=== PATIENT | female | born 1955 | race Caucasian/White ===

== ENCOUNTER 2016-06-16 18:03 | Inpatient (IN) | payer OTHER ==
[~2016-06-16] VITALS: Ht 170.2 cm; Wt 69.5 kg
[~2016-06-16 18:03] MED LIST: ACET-2321 PO; ACYC400T PO; ALLO300T2 PO; ASCO10007 PO; CA C1TAB79 PO; DOCU-175 PO; ESCI10TA47 PO; LANS15TA3 PO; LEVO500T63 PO; LEVO50TA11 PO; LORA1TAB3 PO; MULT-933 PO; ONDA-56 PO; OXYC-541 PO; RANI150T7 PO; SENN8.6T94 PO
--- OUTSIDE RECORDS SUMMARY | 2016-06-16 18:08 | XMS REPORT ---
Author Author [facility]. Organization [facility] Address [address] [place] [address] Phone [phone] Summary purpose CCDA Sent to [facility] Chief Complaint and Reason for Visit No authorized Reason for Visit (Admitting Diagnosis) is available for this visit. Problem list No authorized problems tracked for continuity of care are available for this visit. Encounters No authorized problems tracked for encounter diagnoses are available for this visit. Medications No medications recorded for this patient visit Allergies, adverse reactions, alerts Allergen Category Ingredient Status Reaction Severity Onset [place] Drug [place] Active Nausea Adolescence [place] Drug acetaminophen Active Nausea Adolescence [place] Drug hydrocodone Active Nausea Adolescence Immunizations No immunizations recorded for this patient visit Relevant diagnostic tests and/or laboratory data RESULTS CBC [id number]:20:00 Result Normal Range Units WBC LC 1.01 4.8-10.8 x103/mm3 Result Amended on 2016-05-01 at 14:07:14. Previous status was FR. RECHECKED AND CALLED TO [facility] 05/01/16 13:24 MAC Neutrophil % L 21.8 50-70 % Result Amended on 2016-05-01 at 14:07:14. Previous status was FR. Lymph % H 50.5 20-50 % Result Amended on 2016-05-01 at 14:07:14. Previous status was FR. [place] % H 18.8 1.0-9.0 % Result Amended on 2016-05-01 at 14:07:14. Previous status was FR. Eosinophil % H 6.9 0-4 % Result Amended on 2016-05-01 at 14:07:14. Previous status was FR. Basophil % 2.0 0-2 % Result Amended on 2016-05-01 at 14:07:14. Previous status was FR. Neutrophil # L 0.22 3.0-7.0 x103/mm3 Result Amended on 2016-05-01 at 14:07:14. Previous status was FR. Lymph # L 0.51 1.0-4.0 x103/mm3 Result Amended on 2016-05-01 at 14:07:14. Previous status was FR. [place] # 0.19 0.0-0.8 x103/mm3 Result Amended on 2016-05-01 at 14:07:14. Previous status was FR. Eosinophil # 0.07 0-0.5 x103/mm3 Result Amended on 2016-05-01 at 14:07:14. Previous status was FR. Basophil # 0.02 0-0.2 x103/mm3 Result Amended on 2016-05-01 at 14:07:14. Previous status was FR. RBC L 2.47 4.20-5.40 x103/mm3 Result Amended on 2016-05-01 at 14:07:14. Previous status was FR. HGB LC 7.7 12.0-16.0 g/dl Result Amended on 2016-05-01 at 14:07:14. Previous status was FR. RECHECKED AND CALLED TO [facility] 05/01/16 13:24 MAC HCT L 23.7 37.0-47.0 % Result Amended on 2016-05-01 at 14:07:14. Previous status was FR. RECHECKED AND CALLED TO [facility] 05/01/16 13:24 MAC MCV 96.0 81-99 FL Result Amended on 2016-05-01 at 14:07:14. Previous status was FR. MCH H 31.2 27.0-31.0 pg Result Amended on 2016-05-01 at 14:07:14. Previous status was FR. MCHC 32.5 32.0-36.0 g/dl Result Amended on 2016-05-01 at 14:07:14. Previous status was FR. RDW H 18.2 12-15 % Result Amended on 2016-05-01 at 14:07:14. Previous status was FR. Platelet L 37 150-400 x103/mm3 Result Amended on 2016-05-01 at 14:07:14. Previous status was FR. RECHECKED AND CALLED TO [facility] 05/01/16 13:24 MAC MPV H 11.5 6.0-10.0 FL Result Amended on 2016-05-01 at 14:07:14. Previous status was FR. Manual Differential [id number]:20:00 Result Normal Range Units Seg 23.0 Lymph 54.0 [place] 7.0 Eos 7.0 Bands 4.0 Immature Cell 5.0 Nucleated RBC 1 Anisocytosis 2+ Hypochromic 1+ Poikilocytosis 2+ Chemistry Group [id number]:00 Result Normal Range Units Sodium L 132 134-145 mmol/L Potassium 3.6 3.6-5.0 mmol/L Chloride L 95 98-107 mmol/L CO2 H 32 22-30 mmol/L Glucose H 128 75-110 mg/dl BUN 9 9-20 mg/dl Creatinine L .55 0.8-1.7 mg/dl eGFR 113 ml/min. Calcium L 8.0 8.4-10.2 mg/dl Special Chemistry Group [id number]:00 Result Normal Range Units TSH 5.86 0.50-6.00 uIU/mL History of procedures Procedure Code Code Type Description Date Performed Performing Physician 36195 CPT-4 METABOLIC PANEL TOTAL CA 05-01-2016 RAJENDRA PRESCOTT 28545 CPT-4 ASSAY THYROID STIM HORMONE 05-01-2016 RAJENDRA PRESCOTT 95835 CPT-4 BL SMEAR W/DIFF WBC COUNT 05-01-2016 RAJENDRA PRESCOTT Functional status No functional or cognitive status observations are available for this visit. Vital signs No authorized vital signs are available for this visit. Social history No Social History or smoking status observations were recorded for this visit. ( Unknown if ever smoked.) Treatment Plan No treatment plan text is available for this visit. Hospital discharge instructions No discharge instruction text is available for this visit.
--- OUTSIDE RECORDS SUMMARY | 2016-06-16 18:08 | XMS REPORT ---
Author Author [facility] Organization Unknown Address Unknown Phone Unavailable Care Team Providers Care Neuropsychiatric Aide Name Role Phone MD ROBERT, RODY [phone] Reason For Visit Chief Complaint HYPERTHYROIDISM Social History Functional Status Vital Signs Results Problems Encounter Diagnosis No relevant problems exist. Encounters Encounter Diagnosis No relevant problems exist. Plan of Care Procedures No relevant procedures performed. Immunizations No immunizations administered or ordered. Hospital Course Hospital Discharge Instructions Allergies, Adverse Reactions, Alerts * Latex Allergy has not been assessed. * IV Contrast Allergy has not been assessed. Medication Medication reconciliation has not been performed.
--- OUTSIDE RECORDS SUMMARY | 2016-06-16 18:08 | XMS REPORT ---
Author Author [facility]. Organization [facility] Address [address] [place] [address] Phone [phone] Summary purpose CCDA Sent to [facility] Chief Complaint and Reason for Visit [...] Allergen Category Ingredient Status Reaction Severity Onset [place] Drug [place] Active Nausea Adolescence [place] Drug acetaminophen Active Nausea Adolescence [place] Drug hydrocodone Active Nausea Adolescence Immunizations No immunizations recorded for this patient visit Relevant diagnostic tests and/or laboratory data RESULTS CBC [id number]:00 Result Normal Range Units WBC LC 1.27 4.8-10.8 x103/mm3 Neutrophil % L 11.0 50-70 % Lymph % H 52.8 20-50 % [place] % H 28.3 1.0-9.0 % Eosinophil % H 7.1 0-4 % Basophil % 0.8 0-2 % Neutrophil # L 0.14 3.0-7.0 x103/mm3 Lymph # L 0.67 1.0-4.0 x103/mm3 [place] # 0.36 0.0-0.8 x103/mm3 Eosinophil # 0.09 0-0.5 x103/mm3 Basophil # 0.01 0-0.2 x103/mm3 RBC L 2.35 4.20-5.40 x103/mm3 HGB LC 7.4 12.0-16.0 g/dl CALLED TO JANAT 13:55 05-02-16 BY LAD HCT L 22.3 37.0-47.0 % MCV 94.9 81-99 FL MCH H 31.5 27.0-31.0 pg MCHC 33.2 32.0-36.0 g/dl RDW H 17.9 12-15 % Platelet L 46 150-400 x103/mm3 MPV H 11.8 6.0-10.0 FL Chemistry Group [id number]:00 Result Normal Range Units Sodium L 129 134-145 mmol/L Potassium 3.9 3.6-5.0 mmol/L Chloride L 93 98-107 mmol/L CO2 H 32 22-30 mmol/L Glucose 99 75-110 mg/dl BUN L 8 9-20 mg/dl Creatinine L .54 0.8-1.7 mg/dl eGFR 115 ml/min. Calcium L 7.9 8.4-10.2 mg/dl History of procedures Procedure Code Code Type Description Date Performed Performing Physician 97767 CPT-4 METABOLIC PANEL TOTAL CA 05-02-2016 RODY JONES 54866 CPT-4 COMPLETE CBC, AUTOMATED 05-02-2016 RODY JONES Functional status No functional or cognitive status [...]
--- OUTSIDE RECORDS SUMMARY | 2016-06-16 18:08 | XMS REPORT ---
Author Author [facility]. Organization [facility] Address [address] [place] [address] Phone [phone] Summary purpose CCDA Sent to [facility] Chief Complaint and Reason for Visit No [...] Allergen Category Ingredient Status Reaction Severity Onset [place] Drug [place] Active Nausea Adolescence [place] Drug acetaminophen Active Nausea Adolescence [place] Drug hydrocodone Active Nausea Adolescence Immunizations No immunizations recorded for this patient visit Relevant diagnostic tests and/or laboratory data RESULTS CBC [id number]:00 Result Normal Range Units WBC L 1.53 4.8-10.8 x103/mm3 Neutrophil % L 22.9 50-70 % Lymph % 39.9 20-50 % [place] % H 30.7 1.0-9.0 % Eosinophil % H 6.5 0-4 % Basophil % 0.0 0-2 % Neutrophil # L 0.35 3.0-7.0 x103/mm3 Lymph # L 0.61 1.0-4.0 x103/mm3 [place] # 0.47 0.0-0.8 x103/mm3 Eosinophil # 0.10 0-0.5 x103/mm3 Basophil # 0.00 0-0.2 x103/mm3 RBC L 2.51 4.20-5.40 x103/mm3 HGB LC 7.9 12.0-16.0 g/dl CALLED TO 05/03/16 11:18 MAC HCT L 24.0 37.0-47.0 % MCV 95.6 81-99 FL MCH H 31.5 27.0-31.0 pg MCHC 32.9 32.0-36.0 g/dl RDW H 18.1 12-15 % Platelet L 53 150-400 x103/mm3 MPV H 11.2 6.0-10.0 FL Chemistry Group [id number]:00 Result Normal Range Units Sodium L 125 134-145 mmol/L Potassium 3.8 3.6-5.0 mmol/L Chloride L 89 98-107 mmol/L CO2 30 22-30 mmol/L Glucose 101 75-110 mg/dl BUN L 7 9-20 mg/dl Creatinine L .52 0.8-1.7 mg/dl eGFR 120 ml/min. Calcium L 8.2 8.4-10.2 mg/dl History of procedures Procedure Code Code Type Description Date Performed Performing Physician 31879 CPT-4 METABOLIC PANEL TOTAL CA 05-03-2016 RODY JONES 75156 CPT-4 COMPLETE CBC, AUTOMATED 05-03-2016 RODY JONES Functional status No functional or [...]
--- OUTSIDE RECORDS SUMMARY | 2016-06-16 18:09 | XMS REPORT ---
Author Author [facility]. Organization [facility] Address [address] [place] [address] Phone [phone] Summary purpose CCDA Sent to [facility] Chief Complaint and Reason for [...] Allergen Category Ingredient Status Reaction Severity Onset [place] Drug [place] Active Nausea Adolescence [place] Drug acetaminophen Active Nausea Adolescence [place] Drug hydrocodone Active Nausea Adolescence Immunizations No immunizations recorded for this patient visit Relevant diagnostic tests and/or laboratory data RESULTS CBC [id number]:54:00 Result Normal Range Units WBC LC 1.01 4.8-10.8 x103/mm3 CALLED TO [facility]/ 06/12/16 11:38 MC Neutrophil % 50.4 50-70 % Lymph % 42.6 20-50 % [place] % 4.0 1.0-9.0 % Eosinophil % 2.0 0-4 % Basophil % 1.0 0-2 % Neutrophil # L 0.51 3.0-7.0 x103/mm3 Lymph # L 0.43 1.0-4.0 x103/mm3 [place] # 0.04 0.0-0.8 x103/mm3 Eosinophil # 0.02 0-0.5 x103/mm3 Basophil # 0.01 0-0.2 x103/mm3 RBC L 3.44 4.20-5.40 x103/mm3 HGB L 10.4 12.0-16.0 g/dl HCT L 32.1 37.0-47.0 % MCV 93.3 81-99 FL MCH 30.2 27.0-31.0 pg MCHC 32.4 32.0-36.0 g/dl RDW H 20.6 12-15 % Platelet L 124 150-400 x103/mm3 MPV H 10.2 6.0-10.0 FL Chemistry Group [id number]:00 Result Normal Range Units Sodium 137 134-145 mmol/L Potassium L 3.5 3.6-5.0 mmol/L Chloride L 94 98-107 mmol/L CO2 H 31 22-30 mmol/L Glucose H 116 75-110 mg/dl BUN 19 9-20 mg/dl Creatinine L .69 0.8-1.7 mg/dl eGFR 87 ml/min. Calcium L 8.0 8.4-10.2 mg/dl History of procedures No procedures recorded for this patient visit. Functional status No functional or cognitive status [...]
--- OUTSIDE RECORDS SUMMARY | 2016-06-16 18:09 | XMS REPORT ---
Author Author [facility]. Organization [facility] Address [address] [place] [address] Phone [phone] Summary purpose CCDA Sent to [facility] Chief Complaint and Reason [...] Allergen Category Ingredient Status Reaction Severity Onset [place] Drug [place] Active Nausea Adolescence [place] Drug acetaminophen Active Nausea Adolescence [place] Drug hydrocodone Active Nausea Adolescence Immunizations No immunizations recorded for this patient visit Relevant diagnostic tests and/or laboratory data RESULTS CBC [id number]:00 Result Normal Range Units WBC L 3.18 4.8-10.8 x103/mm3 Neutrophil % L 44.0 50-70 % Lymph % 25.2 20-50 % [place] % H 27.4 1.0-9.0 % Eosinophil % 3.1 0-4 % Basophil % 0.3 0-2 % Neutrophil # L 1.40 3.0-7.0 x103/mm3 Lymph # L 0.80 1.0-4.0 x103/mm3 [place] # H 0.87 0.0-0.8 x103/mm3 Eosinophil # 0.10 0-0.5 x103/mm3 Basophil # 0.01 0-0.2 x103/mm3 RBC L 2.55 4.20-5.40 x103/mm3 HGB L 8.0 12.0-16.0 g/dl HCT L 24.4 37.0-47.0 % MCV 95.7 81-99 FL MCH H 31.4 27.0-31.0 pg MCHC 32.8 32.0-36.0 g/dl RDW H 18.8 12-15 % Platelet L 84 150-400 x103/mm3 MPV H 11.6 6.0-10.0 FL Chemistry Group [id number]:00 Result Normal Range Units Sodium L 120 134-145 mmol/L Potassium 3.6 3.6-5.0 mmol/L Chloride L 85 98-107 mmol/L CO2 29 22-30 mmol/L Glucose H 119 75-110 mg/dl BUN L 6 9-20 mg/dl Creatinine L .57 0.8-1.7 mg/dl eGFR 108 ml/min. Calcium L 7.9 8.4-10.2 mg/dl History of procedures Procedure Code Code Type Description Date Performed Performing Physician 87555 CPT-4 METABOLIC PANEL TOTAL CA 05-04-2016 RODY JONES 47819 CPT-4 COMPLETE CBC, AUTOMATED 05-04-2016 RODY JONES Functional status No functional or [...]
--- OUTSIDE RECORDS SUMMARY | 2016-06-16 18:09 | XMS REPORT ---
Author Author [facility]. Organization [facility] Address [address] [place] [address] Phone [phone] Summary purpose CCDA Sent to [facility] Chief Complaint and Reason for Visit [...] Allergen Category Ingredient Status Reaction Severity Onset [place] Drug [place] Active Nausea Adolescence [place] Drug acetaminophen Active Nausea Adolescence [place] Drug hydrocodone Active Nausea Adolescence Immunizations No immunizations recorded for this patient visit Relevant diagnostic tests and/or laboratory data RESULTS Chemistry Group [id number]:00 Result Normal Range Units Sodium L 125 134-145 mmol/L Potassium 3.9 3.6-5.0 mmol/L Chloride L 87 98-107 mmol/L CO2 28 22-30 mmol/L Glucose H 132 75-110 mg/dl BUN 10 9-20 mg/dl Creatinine L .62 0.8-1.7 mg/dl eGFR 99 ml/min. Calcium 9.4 8.4-10.2 mg/dl History of procedures Procedure Code Code Type Description Date Performed Performing Physician 99883 CPT-4 METABOLIC PANEL TOTAL CA 04-12-2016 RODY JONES Functional status No functional or [...]
--- OUTSIDE RECORDS SUMMARY | 2016-06-16 18:09 | XMS REPORT | Referral Summary ---
Author Author [facility] Organization [facility] Address Unknown Phone Unavailable Care Team Providers Care Senior Industrial Engineer Name Role Phone Arely Banerjee Primary Care Physician [phone] Encounter VC Date(s): 01/18/16 - 01/18/16 [facility] [address] [place] [address] JAZZMINE Gomez [id number] Discharge Diagnosis: Mesenteric lymphadenopathy Discharge Diagnosis: Post-operative state Discharge Disposition: 01-Home or Self Care Attending Physician: Rojelio Aleman MD Admitting Physician: Rojelio Aleman MD Referring Physician: Debby Banerjee MD Vital Signs Most recent to 1 oldest [Reference Range]: Temperature Tympanic 37.1 degC [36.6-38.1 degC] (01/18/16 3:47 PM) Problem List Condition Effective Dates Status Health Status Informant GERD Active (gastroesophageal reflux disease)(Confirmed) Nephrolithiasis(Conf Active irmed) Rheumatoid Active arthritis(Confirmed) TIA (transient Active ischemic attack)(Confirmed) Allergies, Adverse Reactions, Alerts No Known Allergies Medications acyclovir 200 mg oral capsule 200 mg 1 caps, Oral, Daily, 0 Refill(s) Start Date: 12/29/15 Status: Ordered LORazepam 0.5 mg oral tablet 0.5 mg 1 tabs, Oral, Bedtime (once a day), 0 Refill(s) Start Date: 12/29/15 Status: Ordered melatonin 1 mg oral tablet 1 mg 1 tabs, Oral, Bedtime (once a day), as needed for insomnia, # 90 tabs, 0 Refill(s) Start Date: 12/29/15 Status: Ordered Prevacid 15 mg, Oral, Daily, 0 Refill(s) Start Date: 01/05/16 Status: Ordered ranitidine 150 mg oral tablet 150 mg 1 tabs, Oral, Daily, # 180 tabs, 0 Refill(s) Start Date: 12/28/15 Status: Ordered Tylenol Extra Strength 1,000 mg, Oral, q6hr, 0 Refill(s) Start Date: 12/29/15 Status: Ordered Results No data available for this section Immunizations No data available for this section Procedures Procedure Date Related Diagnosis Body Site Laparoscopy with biopsy1 01/12/16 Colonoscopy normal2 12/2015 Nephrolithotomy for removal of calculus 12/2011 Esophagogastroduodenoscopy3 2009 Colonoscopy4 09/2006 Appendectomy 1983 Cholecystectomy5 1982 Laparotomy6 1978 Colonoscopy Cystoscopy and removal of calculus of bladder Dilatation and curettage 1mesenteric lymph node biopsy, 2in [place] 3duodenitis 4diverticulosis and hemorrhoids, Dr. Banerjee 5open prcedure 6diagnostic laparotomy Social History Social History Type Response Smoking Status Never smoker Assessment and Plan Extracted from: Title: Ambulatory Patient Education Author: Rojelio Aleman MD Date: 01/18/16 ENT Lymphadenopathy Lymphadenopathy refers to swollen or enlarged lymph glands, also called lymph nodes. Lymph glands are part of your body's defense (immune) system, which protects the body from infections, germs, and diseases. Lymph glands are found in many locations in your body, including the neck, underarm, and groin. Many things can cause lymph glands to become enlarged. When your immune system responds to germs, such as viruses or bacteria, infection-fighting cells and fluid build up. This causes the glands to grow in size. Usually, this is not something to worry about. The swelling and any soreness often go away without treatment. However, swollen lymph glands can also be caused by a number of diseases. Your health care provider may do various tests to help determine the cause. If the cause of your swollen lymph glands cannot be found, it is important to monitor your condition to make sure the swelling goes away. HOME CARE INSTRUCTIONS Watch your condition for any changes. The following actions may help to lessen any discomfort you are feeling: Get plenty of rest. Take medicines only as directed by your health care provider. Your health care provider may recommend steb-twn-uwyplpt medicines for pain. Apply moist heat compresses to the site of swollen lymph nodes as directed by your health care provider. This can help reduce any pain. Check your lymph nodes daily for any changes. Keep all follow-up visits as directed by your health care provider. This is important. SEEK MEDICAL CARE IF: Your lymph nodes are still swollen after 2 weeks. Your swelling increases or spreads to other areas. Your lymph nodes are hard, seem fixed to the skin, or are growing rapidly. Your skin over the lymph nodes is red and inflamed. You have a fever. You have chills. You have fatigue. You develop a sore throat. You have abdominal pain. You have weight loss. You have night sweats. SEEK IMMEDIATE MEDICAL CARE IF: You notice fluid leaking from the area of the enlarged lymph node. You have severe pain in any area of your body. You have chest pain. You have shortness of breath. This information is not intended to replace advice given to you by your health care provider. Make sure you discuss any questions you have with your health care provider. Document Released: 12/12/2008 Document Revised: 03/26/2015 Document Reviewed: [employer] Interactive Patient Education 2016 [employer] No follow up information was provided. Extracted from: Title: Office Visit Note Author: Rojelio Aleman MD Date: 01/18/16 Assessment/Plan 1.Post-operative state Ordered: Postoperative Est 94102 2.Mesenteric lymphadenopathy Ordered: Postoperative Est [id number] Plan:[facility] did look at herslides. He informs me that thetumorwas negative fora lymphoma. 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 As abovetissue and slides have been submitted fora second opinion to the [facility]. I did go ahead and discuss with the patient what a insertion of a power port catheterwould [place]ailand its riskwhich included but was not inclusive of bleeding, infection,potential for pneumothoraxin case it is deemedthat the patient will need a port for additional treatment. For now however we will await her final pathology report and proceedaccordingly. I am pleased with her surgical outcome inthe fact that we were able to obtain a piece of tissue fordiagnosis chelle minimally invasive fashion. If this is a sarcomaI doubt that it would be resectable given the fact that it is encasingthe root of her mesentery.
--- OUTSIDE RECORDS SUMMARY | 2016-06-16 18:09 | XMS REPORT ---
Author Author [facility]. Organization [facility] Address [address] [place] [address] Phone [phone] Summary purpose CCDA Sent to [facility] Chief Complaint and Reason for Visit No [...] Allergen Category Ingredient Status Reaction Severity Onset [place] Drug [place] Active Nausea Adolescence [place] Drug acetaminophen Active Nausea Adolescence [place] Drug hydrocodone Active Nausea Adolescence Immunizations No immunizations recorded for this patient visit Relevant diagnostic tests and/or laboratory data RESULTS CBC [id number]:07:00 Result Normal Range Units WBC HC 16.80 4.8-10.8 x103/mm3 Result Amended on 2016-05-05 at 14:29:55. Previous status was FR. CALLED TO OTILIO BY [facility] @ 1400 05/05/16LL [place] % H 19.2 1.0-9.0 % Result Amended on 2016-05-05 at 14:29:55. Previous status was FR. Eosinophil % 1.8 0-4 % Result Amended on 2016-05-05 at 14:29:55. Previous status was FR. Basophil % 0.1 0-2 % Result Amended on 2016-05-05 at 14:29:56. Previous status was FR. [place] # H 3.22 0.0-0.8 x103/mm3 Result Amended on 2016-05-05 at 14:29:55. Previous status was FR. Eosinophil # 0.30 0-0.5 x103/mm3 Result Amended on 2016-05-05 at 14:29:56. Previous status was FR. Basophil # 0.02 0-0.2 x103/mm3 Result Amended on 2016-05-05 at 14:29:56. Previous status was FR. RBC L 2.63 4.20-5.40 x103/mm3 Result Amended on 2016-05-05 at 14:29:56. Previous status was FR. HGB L 8.3 12.0-16.0 g/dl Result Amended on 2016-05-05 at 14:29:56. Previous status was FR. HCT L 25.1 37.0-47.0 % Result Amended on 2016-05-05 at 14:29:56. Previous status was FR. MCV 95.4 81-99 FL Result Amended on 2016-05-05 at 14:29:56. Previous status was FR. MCH H 31.6 27.0-31.0 pg Result Amended on 2016-05-05 at 14:29:56. Previous status was FR. MCHC 33.1 32.0-36.0 g/dl Result Amended on 2016-05-05 at 14:29:56. Previous status was FR. RDW H 19.4 12-15 % Result Amended on 2016-05-05 at 14:29:56. Previous status was FR. Platelet L 135 150-400 x103/mm3 Result Amended on 2016-05-05 at 14:29:56. Previous status was FR. MPV H 11.2 6.0-10.0 FL Result Amended on 2016-05-05 at 14:29:56. Previous status was FR. Manual Differential [id number]:00 Result Normal Range Units Seg 46.0 Result Amended on 2016-05-05 at 14:29:56. Previous status was FR. Lymph 13.0 Result Amended on 2016-05-05 at 14:29:56. Previous status was FR. [place] 17.0 Result Amended on 2016-05-05 at 14:29:56. Previous status was FR. Baso 1.0 Result Amended on 2016-05-05 at 14:29:56. Previous status was FR. Bands 23.0 Result Amended on 2016-05-05 at 14:29:56. Previous status was FR. Anisocytosis 2+ Result Amended on 2016-05-05 at 14:29:56. Previous status was FR. Poikilocytosis 2+ Result Amended on 2016-05-05 at 14:29:56. Previous status was FR. Polychromatic 1+ Result Amended on 2016-05-05 at 14:29:56. Previous status was FR. Chemistry Group [id number]:00 Result Normal Range Units Sodium L 120 134-145 mmol/L Potassium L 3.3 3.6-5.0 mmol/L Chloride L 85 98-107 mmol/L CO2 30 22-30 mmol/L Glucose H 119 75-110 mg/dl BUN L 6 9-20 mg/dl Creatinine L .61 0.8-1.7 mg/dl eGFR 100 ml/min. Calcium L 7.8 8.4-10.2 mg/dl History of procedures Procedure Code Code Type Description Date Performed Performing Physician 09179 CPT-4 METABOLIC PANEL TOTAL CA 05-05-2016 RODY JONES 82217 CPT-4 COMPLETE CBC, AUTOMATED 05-05-2016 RODY JONES Functional status No functional or [...]
--- OUTSIDE RECORDS SUMMARY | 2016-06-16 18:09 | XMS REPORT | Referral Summary ---
Author Author [facility] Organization [facility] Address Unknown Phone Unavailable Care Team Providers Care Medical Office Manager Name Role Phone Arely Banerjee Primary Care Physician [phone] Encounter VC Date(s): 03/23/16 - 03/23/16 [facility] [address] [place] [address] JAZZMINE Gomez [id number] Discharge Diagnosis: Lymphoma Discharge Disposition: 01-Home or Self Care Attending Physician: Rojelio Aleman MD Admitting Physician: Rojelio Aleman MD Referring Physician: Lamberto Mcdonald MD Vital Signs Most recent to 1 oldest [Reference Range]: Peripheral Pulse 96 bpm Rate [60-100 bpm] (03/23/16 2:28 PM) Respiratory Rate 18 br/min [14-20 br/min] (03/23/16 2:28 PM) Blood Pressure 132/78 mmHg [90-140/60-90 mmHg] (03/23/16 2:28 PM) SpO2 97 % (03/23/16 2:28 PM) Problem List Condition Effective Dates Status Health Status Informant GERD Active (gastroesophageal reflux disease)(Confirmed) Nephrolithiasis(Conf Active irmed) Lymphoma(Confirmed) 2016 Active Rheumatoid Active arthritis(Confirmed) TIA (transient Active ischemic attack)(Confirmed) Allergies, Adverse Reactions, Alerts No Known Allergies Medications acyclovir 200 mg oral capsule 200 mg 1 caps, Oral, Daily, 0 Refill(s) Start Date: 12/29/15 Status: Ordered allopurinol 300 mg oral tablet 300 mg 1 tabs, Oral, Daily, # 30 tabs, 0 Refill(s) Start Date: 03/23/16 Status: Ordered Lexapro 10 mg oral tablet 15 mg 1.5 tabs, Oral, Daily, # 30 tabs, 0 Refill(s) Start Date: 03/23/16 Status: Ordered LORazepam 0.5 mg oral tablet 0.5 mg 1 tabs, Oral, Bedtime (once a day), 0 Refill(s) Start Date: 12/29/15 Status: Ordered multivitamin Daily, 0 Refill(s) Start Date: 03/23/16 Status: Ordered Percocet 10/325 oral tablet 1 tabs, Oral, q6hr, as needed for pain, # 10 tabs, 0 Refill(s) Start Date: 03/23/16 Status: Ordered Prevacid 15 mg, Oral, Daily, 0 Refill(s) Start Date: 01/05/16 Status: Ordered Tylenol Extra Strength 1,000 mg, Oral, q6hr, 0 Refill(s) Start Date: 12/29/15 Status: Ordered Zofran 0 Refill(s) Start Date: 03/23/16 Status: Ordered Results No data available for this section Immunizations No data available for this section Procedures Procedure Date Related Diagnosis Body Site Laparoscopy with biopsy1 01/12/16 Colonoscopy normal2 12/2015 Nephrolithotomy for removal of calculus 12/2011 Esophagogastroduodenoscopy3 2009 Colonoscopy4 09/2006 Appendectomy 1982 Cholecystectomy5 1982 Laparotomy6 1978 Colonoscopy Cystoscopy and removal of calculus of bladder Dilatation and curettage 1mesenteric lymph node biopsy, 2in [place] 3duodenitis 4diverticulosis and hemorrhoids, Dr. Banerjee 5open prcedure 6diagnostic laparotomy Social History Social History Type Response Smoking Status Never smoker Assessment and Plan Extracted from: Title: Ambulatory Patient Education Author: Rojelio Aleman MD Date: 03/23 Family Medicine Bone Marrow Aspiration and Bone Marrow Biopsy Bone marrow aspiration and bone marrow biopsy are procedures that are done to diagnose blood disorders. You may also have one of these procedures to help diagnose infections or some types of cancer. Bone marrow is the soft tissue that is inside your bones. Blood cells are produced in bone marrow. For bone marrow aspiration, a sample of tissue in liquid form is removed from inside your bone. For a bone marrow biopsy, a small core of bone marrow tissue is removed. Then these samples are examined under a microscope or tested in a lab. You may need these procedures if you have an abnormal complete blood count (CBC) . The aspiration or biopsy sample is usually taken from the top of your hip bone. Sometimes, an aspiration sample is taken from your chest bone (sternum). LET YOUR HEALTH CARE PROVIDER KNOW ABOUT: Any allergies you have. All medicines you are taking, including vitamins, herbs, eye drops, creams, and [id number]-jlhnsjb medicines. Previous problems you or members of your family have had with the use of anesthetics. Any blood disorders you have. Previous surgeries you have had. Any medical conditions you may have. Whether you are or you think that you may be . RISKS AND COMPLICATIONS Generally, this is a safe procedure. However, problems may occur, including: Infection. Bleeding. BEFORE THE PROCEDURE Ask your health care provider about: Changing or stopping your regular medicines. This is especially important if you are taking diabetes medicines or blood thinners. Taking medicines such as aspirin and ibuprofen. These medicines can thin your blood. Do not take these medicines before your procedure if your health care provider instructs you not to. Plan to have someone take you home after the procedure. If you go home right after the procedure, plan to have someone with you for 24 hours. PROCEDURE An IV tube may be inserted into one of your veins. The injection site will be cleaned with a germ-killing solution ( antiseptic). You will be given one or more of the following: A medicine that helps you relax (sedative). A medicine that numbs the area (local anesthetic). The bone marrow sample will be removed as follows: For an aspiration, a hollow needle will be inserted through your skin and into your bone. Bone marrow fluid will be drawn up into a syringe. For a biopsy, your health care provider will use a hollow needle to remove a core of tissue from your bone marrow. The needle will be removed. A bandage (dressing) will be placed over the insertion site and taped in place. The procedure may vary among health care providers and hospitals. AFTER THE PROCEDURE Your blood pressure, heart rate, breathing rate, and blood oxygen level will be monitored often until the medicines you were given have worn off. Return to your normal activities as directed by your health care provider. This information is not intended to replace advice given to you by your health care provider. Make sure you discuss any questions you have with your health care provider. Document Released: 03/08/2005 Document Revised: 07/20/2015 Document Reviewed: [employer] Interactive Patient Education 2016 [employer] No follow up information was provided. Extracted from: Title: Office Visit Note Author: Rojelio Aleman MD Date: 03/23/16 Assessment/Plan 1.Lymphoma Ordered: Office Visit Level 4 Est 62558 Plan:Insertion of Power Port: I did review the patient's chart including recent office note dictated by her oncologistfromHeriberto 2015. Reviewed my prior operative note from January 12, 2016. I informed the patient that I would recommend proceeding with placement of a power port catheterto facilitate her ongoing chemotherapy. I showed the patient an actual Power Port catheter for illustration purposes. I discussed with the patientand her in detail what insertion of a power port catheter entailed and its associated risks including but not inclusive of bleeding, infection, and potential for pneumothorax. The patient understood and was subsequently scheduled for placement of Power Port. Patient's next chemotherapyscheduled for March. We'll place port just prior to her upcoming chemotherapy.
--- OUTSIDE RECORDS SUMMARY | 2016-06-16 18:09 | XMS REPORT | Referral Summary ---
Author Author [facility] Organization [facility] Address Unknown Phone Unavailable Care Team Providers Care Director Of Customer Service Name Role Phone Arely Banerjee Primary Care Physician [phone] Encounter VC Date(s): 01/05/16 - 01/05/16 [facility] [address] [place] [address] JAZZMINE Gomez [id number] [[email or web address]] Discharge Diagnosis: Cancer of retroperitoneum Discharge Disposition: 01-Home or Self Care Attending Physician: Rojelio Aleman MD Admitting Physician: Rojelio Aleman MD Referring Physician: Debby Banerjee MD Vital Signs Most recent to 1 oldest [Reference Range]: Temperature Tympanic 36.9 degC [36.6-38.1 degC] (01/05/16 1:54 PM) Peripheral Pulse 83 bpm Rate [60-100 bpm] (01/05/16 1:54 PM) Blood Pressure 144/86 mmHg [90-140/60-90 mmHg] *HI* (01/05/16 1:54 PM) SpO2 97 % (01/05/16 1:54 PM) Problem List Condition Effective Dates Status [...] Procedures Procedure Date Related Diagnosis Body Site Colonoscopy normal1 12/2015 Nephrolithotomy for removal of calculus 12/2011 Esophagogastroduodenoscopy2 2009 Colonoscopy3 09/2006 Appendectomy 1982 Cholecystectomy4 1982 Laparotomy1978 Colonoscopy Cystoscopy and removal of calculus of bladder Dilatation and curettage 1in [place] 2duodenitis 3diverticulosis and hemorrhoids, Dr. Banerjee 4open prcedure 5diagnostic laparotomy Social History Social History Type Response Smoking Status Never smoker Assessment and Plan Extracted from: Title: Ambulatory Patient Education Author: Rojelio Aleman MD Date: Family [facility] Chemotherapy Chemotherapy is the use of medicines to stop or slow the growth of cancer cells. Depending on the type and stage of your cancer, you may have chemotherapy to: Cure your cancer. Slow the progression of your cancer. Ease your cancer symptoms. Improve the benefits of radiation treatment. Shrink a tumor before surgery. Rid the body of cancer cells that remain after a tumor is surgically removed. HOW IS CHEMOTHERAPY GIVEN? Chemotherapy may be given: By mouth in liquid or pill form. Through a thin tube that is inserted into a vein or artery. By getting a shot. By rubbing a cream or ointment on your skin. Through liquids that are placed directly into various areas of the body, such as the abdomen, chest, or bladder. HOW OFTEN IS CHEMOTHERAPY GIVEN? Chemotherapy may be given continuously over time, or it may be given in cycles. For example, you may take the medicine for one week out of every month. FOR HOW LONG WILL I NEED CHEMOTHERAPY TREATMENTS? The length of treatment depends on many factors, including: The type of cancer. Whether the cancer has spread. How you respond to the chemotherapy. Whether you develop side effects. Some types of chemotherapy medicine are given only one time. Others are given for months, years, or for life. WHAT SAFETY PRECAUTIONS MUST I TAKE WHILE ON CHEMOTHERAPY? Chemotherapy medicines are very strong. They will be in all of your bodily fluids, including your urine, stool, saliva, sweat, tears, vaginal secretions, and semen. You must carefully follow some safety precautions to prevent harm to others while you are using these medicines. Here are some recommended precautions: Make sure that people who help care for you wear disposable gloves if they are going to come into contact with any of your bodily fluids. Women who are or should not handle any of your bodily fluids. Wash any clothes, towels, and linens that may have your bodily fluids on them twice in a washing machine using very hot water. Dispose of adult diapers, tampons, and sanitary napkins by first sealing them in a plastic bag. Use a condom when having sex for at least 2 weeks after receiving your chemotherapy. Do not share beverages or food. Keep your chemotherapy medicines in their original bottles. Keep them in a high, safe location, away from children. Do not expose them to heat or moisture. Do not put them in containers with other types of medicines. Dispose of all wrappers for your chemotherapy medicines by sealing them in a separate plastic bag. Do not throw away extra medicine, and do not flush it down the toilet. Take medicine that you are not going to use to your health care provider's office where it can be disposed of properly. Follow your health care provider's directions for the proper disposal of needles, IV tubing, and other medical supplies that have come into contact with your chemotherapy medicines. If you are issued a hazardous waste container, make sure you understand the directions for using it. Wash your hands thoroughly with warm water and soap after using the bathroom. Dry your hands with disposable paper towels. When using the toilet: Flush it twice after each use, including after vomiting. Close the lid of the toilet prior to flushing. This helps to avoid splashing. Both men and women should sit to use the toilet. This helps avoid splashing. WHAT ARE THE SIDE EFFECTS OF CHEMOTHERAPY? Side effects depend on a variety of factors, including: The specific type of chemotherapy medicine used. The dosage. How long the medicine is used for. Your overall health. Some of the side effects you may experience include: Fatigue and decreased energy. Decreased appetite. Changes in your sense of smell or taste. Nausea. Vomiting. Constipation or diarrhea. Hair loss. Increased susceptibility to infection. Easy bleeding. Mouth sores. Burning or tingling in the hands or feet. Memory problems. This information is not intended to replace advice given to you by your health care provider. Make sure you discuss any questions you have with your health care provider. Document Released: 12/31/2007 Document Revised: 03/26/2015 Document Reviewed: [employer] Interactive Patient Education 2016 [employer] No follow up information was provided. Extracted from: Title: Office Visit Note Author: Rojelio Aleman MD Date: 01/05/16 Assessment/Plan 1.Cancer of retroperitoneum Ordered: Office Visit Level 4 New 56979 Plan: Laparoscopic Incisional Biopsy of Retroperitoneal Mass. I did review the patient'schart including office note performed by her primary care physician from December 21, 2015. I did discuss this caseearlier this week by phone with her oncologist. I alsoreviewed note from oncology from December 24, 2015. Reviewed CT biopsy from December 29, 2015. Pathology returned as a poorly differentiated malignant neoplasm with extensive necrosis. Only a small foci of preservative neoplasm was noted. Recommendations were to obtain a more medical center representative biopsy ofof the tissue for better classification. Reviewed CT scan of chest abdomen and pelvis. CT scan revealed a large retroperitoneal mass with multiple abnormal enlarged mesenteric lymph nodeshighly suspicious for that of a lymphoma. No acute abnormalities are noted within the chest. CT scan of the neck also did not reveal any evidence forenlarged cervical lymph nodes. I did personally review the CT scan one can see a largemassthat originates within the retroperitoneum and extendsanteriorly to just a few centimeters beneath the abdominal wallwithin the right midabdomen. There doesappear to be 2 separate masses. Larger massis a more retroperitoneal location. There is a bilobed massthat is anterior to this larger retroperitoneal mass that does extend near theabdominal wall. I informed the patient that I would recommend at this point intime we proceed with a laparoscopicbiopsy of this retroperitoneal massto obtain a better tissue sample for accurate diagnosis. At the time of surgery we will [facility] for[facility] section to have the pathologistdetermined that enough tissue has been obtainedfor diagnosis. I did discuss in detail with the patientwhat a laparoscopicin excisional biopsy of this rectal perineal mass would entail and its associated riskwhich included but was not inclusive ofbleeding, infection, potential conversion to open procedure. Patient understood and was scheduled.
--- OUTSIDE RECORDS SUMMARY | 2016-06-16 18:09 | XMS REPORT | Referral Summary ---
Author Author [facility] Organization [facility] Address Unknown Phone Unavailable Care Team Providers Care Certified Public Accountant Name Role Phone Arely Banerjee Primary Care Physician [phone] Encounter VC Date(s): 12/29/15 - 12/29/15 [facility] [address], [place] [address] Discharge Disposition: 01-Home or Self Care Attending Physician: Lamberto Mcdonald MD Admitting Physician: Lamberto Mcdonald MD Vital Signs Most recent to 1 oldest [Reference Range]: Temperature Temporal 36 degC Artery [36.3-37.8 *LOW* degC] (12/29/15 10:51 AM) Apical Heart Rate 92 bpm [60-100 bpm] (12/29/15 7:45 AM) Heart Rate Monitored 71 bpm [60-100 bpm] (12/29/15 2:00 PM) Respiratory Rate 20 br/min [14-20 br/min] (12/29/15 2:00 PM) Blood Pressure 140/84 mmHg [90-140/60-90 mmHg] (12/29/15 2:00 PM) Mean Arterial 107 mmHg Pressure, Cuff (12/29/15 2:00 PM) SpO2 100 % (12/29/15 2:00 PM) Problem List No data available for this section Allergies, Adverse Reactions, Alerts No Known Allergies [...] Refill(s) Start Date: 12/29/15 Status: Ordered Prevacid 30 mg oral delayed release capsule 30 mg 1 caps, Oral, Daily, 0 Refill(s) Start Date: 12/29/15 Status: Ordered ranitidine 150 mg oral tablet 150 mg 1 tabs, Oral, BID, # 180 tabs, 0 Refill(s) Start Date: 12/28/15 Status: Ordered Tylenol Extra Strength 1,000 mg, Oral, q6hr, 0 Refill(s) Start Date: 12/29/15 Status: Ordered Results Hematology Most recent to 1 oldest [Reference Range]: WBC [4.8-10.8 7.2 10*3/uL 10*3/uL] (12/29/15 7:58 AM) RBC [4.00-5.20] 4.63 (12/29/15 7:58 AM) Hgb [12.0-16.0 13.5 gm/dL gm/dL] (12/29/15 7:58 AM) Hct [37.0-47.0 %] 41.5 % (12/29/15 7:58 AM) MCV [82.0-99.0 fL] 89.6 fL (12/29/15 7:58 AM) MCH [27.0-32.0 pg] 29.2 pg (12/29/15 7:58 AM) MCHC [32.0-36.0 32.5 gm/dL gm/dL] (12/29/15 7:58 AM) RDW [11.5-14.5 %] 13.4 % (12/29/15 7:58 AM) Platelet [150-400 337 10*3/uL 10*3/uL] (12/29/15 7:58 AM) MPV [9.4-12.4 fL] 10.1 fL (12/29/15 7:58 AM) Immature 0.3 % Granulocytes (12/29/15 7:58 AM) [0.0-1.0 %] Neutrophils [51-75 55 % %] (12/29/15 7:58 AM) Lymphocytes [20-46 29 % %] (12/29/15 7:58 AM) Monocytes [4-11 %] 12 % *HI* (12/29/15 7:58 AM) Eosinophils [0-4 %] 3 % (12/29/15 7:58 AM) Basophils [0-2 %] 1 % (12/29/15 7:58 AM) Neutro Absolute 3.95 10*3 [1.90-7.00 10*3] (12/29/15 7:58 AM) Lymph Absolute 2.09 10*3 [0.80-3.30 10*3] (12/29/15 7:58 AM) [place] Absolute 0.88 10*3 [0.30-1.00 10*3] (12/29/15 7:58 AM) Eos Absolute 0.24 10*3 [0.00-0.50 10*3] (12/29/15 7:58 AM) Baso Absolute 0.05 10*3 [0.00-0.20 10*3] (12/29/15 7:58 AM) Coagulation Most recent to 1 oldest [Reference Range]: INR [0.9-1.2] 1.2 (12/29/15 7:58 AM) PTT [25.0-35.0 35.4 seconds seconds] *HI* (12/29/15 7:58 AM) Immunizations No data available for this section Procedures Procedure Date Related Diagnosis Body Site Biopsy, abdominal or retroperitoneal mass, 12/29/15 percutaneous needle Appendectomy Cholecystectomy Colonoscopy Colonoscopy Cystoscopy and removal of calculus of bladder Dilatation and curettage Laparotomy1 Nephrolithotomy for removal of calculus 1diagnostic laparotomy Social History Social History Type Response Smoking Status Never smoker Assessment and Plan No data available for this section
--- OUTSIDE RECORDS SUMMARY | 2016-06-16 18:09 | XMS REPORT ---
Author Author [facility] Organization Unknown Address Unknown Phone Unavailable Care Team Providers Care Pillowcase Cleaner Name Role Phone MD ROBERT, RODY [phone] Reason For Visit Chief Complaint HYPERTHYROIDISM Social [...]
--- OUTSIDE RECORDS SUMMARY | 2016-06-16 18:09 | XMS REPORT ---
Author Author [facility]. Organization [facility] Address [address] [place] [address] Phone [phone] Summary purpose CCDA Sent to [facility] Chief Complaint and Reason for Visit [...] Allergen Category Ingredient Status Reaction Severity Onset Spencer Drug Spencer Active Nausea Adolescence Spencer Drug acetaminophen Active Nausea Adolescence Spencer Drug hydrocodone Active Nausea Adolescence Immunizations No immunizations recorded for this patient visit Relevant diagnostic tests and/or laboratory data RESULTS CBC [id number] Result Normal Range Units WBC LC 1.23 4.8-10.8 x103/mm3 Result Amended on 2016-05-19 at 12:54:22. Previous status was FR. CALLED TO DR. BAY @ 12: BY [facility] Neutrophil % 56.1 50-70 % Result Amended on 2016-05-19 at 12:54:22. Previous status was FR. Lymph % 37.4 20-50 % Result Amended on 2016-05-19 at 12:54:22. Previous status was FR. Rhea % 2.4 1.0-9.0 % Result Amended on 2016-05-19 at 12:54:23. Previous status was FR. Eosinophil % 0.8 0-4 % Result Amended on 2016-05-19 at 12:54:23. Previous status was FR. Basophil % H 3.3 0-2 % Result Amended on 2016-05-19 at 12:54:23. Previous status was FR. Neutrophil # L 0.69 3.0-7.0 x103/mm3 Result Amended on 2016-05-19 at 12:54:22. Previous status was FR. Lymph # L 0.46 1.0-4.0 x103/mm3 Result Amended on 2016-05-19 at 12:54:22. Previous status was FR. Rhea # 0.03 0.0-0.8 x103/mm3 Result Amended on 2016-05-19 at 12:54:23. Previous status was FR. Eosinophil # 0.01 0-0.5 x103/mm3 Result Amended on 2016-05-19 at 12:54:23. Previous status was FR. Basophil # 0.04 0-0.2 x103/mm3 Result Amended on 2016-05-19 at 12:54:23. Previous status was FR. RBC L 2.46 4.20-5.40 x103/mm3 Result Amended on 2016-05-19 at 12:54:23. Previous status was FR. HGB LC 7.9 12.0-16.0 g/dl Result Amended on 2016-05-19 at 12:54:23. Previous status was FR. CALLED TO DR. BAY @ 12: BY [facility] HCT L 24.6 37.0-47.0 % Result Amended on 2016-05-19 at 12:54:23. Previous status was FR. MCV H 100.0 81-99 FL Result Amended on 2016-05-19 at 12:54:23. Previous status was FR. MCH H 32.1 27.0-31.0 pg Result Amended on 2016-05-19 at 12:54:23. Previous status was FR. MCHC 32.1 32.0-36.0 g/dl Result Amended on 2016-05-19 at 12:54:23. Previous status was FR. RDW H 19.4 12-15 % Result Amended on 2016-05-19 at 12:54:23. Previous status was FR. Platelet 192 150-400 x103/mm3 Result Amended on 2016-05-19 at 12:54:23. Previous status was FR. MPV 9.6 6.0-10.0 FL Result Amended on 2016-05-19 at 12:54:23. Previous status was FR. Manual Differential [id number] Result Normal Range Units Seg 50.0 Lymph 40.0 Rhea 2.0 Eos 2.0 Baso 4.0 Bands 2.0 Anisocytosis 2+ Hypochromic 2+ Macrocytes 1+ Differential Comments STOMATOCYTES SLIGHT Chemistry Group [id number] Result Normal Range Units Sodium 135 134-145 mmol/L Potassium 3.9 3.6-5.0 mmol/L Chloride L 94 98-107 mmol/L CO2 H 33 22-30 mmol/L Glucose H 119 75-110 mg/dl BUN 20 9-20 mg/dl Creatinine L .69 0.8-1.7 mg/dl eGFR 87 ml/min. Calcium 8.7 8.4-10.2 mg/dl History of procedures No procedures [...]
--- OUTSIDE RECORDS SUMMARY | 2016-06-16 18:09 | XMS REPORT ---
Author Author [facility]. Organization [facility] Address [address] [place] [address] Phone [phone] Summary purpose CCDA Sent to [facility] Chief Complaint and Reason for Visit [...] Allergen Category Ingredient Status Reaction Severity Onset [facility] [place] Active Nausea Adolescence [facility] Drug acetaminophen Active Nausea Adolescence [facility] Drug hydrocodone Active Nausea Adolescence Immunizations No immunizations recorded for this patient visit Relevant diagnostic tests and/or laboratory data RESULTS Chemistry Group [id number] Result Normal Range Units Sodium 134 134-145 mmol/L Potassium 3.8 3.6-5.0 mmol/L Chloride L 94 98-107 mmol/L CO2 H 32 22-30 mmol/L Glucose 89 75-110 mg/dl BUN 12 9-20 mg/dl Creatinine L .68 0.8-1.7 mg/dl eGFR 89 ml/min. Calcium 9.1 8.4-10.2 mg/dl History of procedures Procedure Code Code Type Description Date Performed Performing Physician 33368 CPT-4 METABOLIC PANEL TOTAL CA 04-14-2016 RAJENDRA PRESCOTT Functional status No functional or [...]
--- OUTSIDE RECORDS SUMMARY | 2016-06-16 18:09 | XMS REPORT ---
Author Author [facility]. Organization [facility] Address [address] [place] [address] Phone [phone] Summary purpose CCDA Sent to [facility] Chief Complaint and Reason for Visit [...] Allergen Category Ingredient Status Reaction Severity Onset Edison Drug Edison Active Nausea Adolescence Edison Drug acetaminophen Active Nausea Adolescence Edison Drug hydrocodone Active Nausea Adolescence Immunizations No immunizations recorded for this patient visit Relevant diagnostic tests and/or laboratory data RESULTS CBC [id number] Result Normal Range Units WBC L 1.94 4.8-10.8 x103/mm3 Neutrophil % L 6.1 50-70 % Lymph % 35.6 20-50 % [place] % H 55.2 1.0-9.0 % Eosinophil % 3.1 0-4 % Basophil % 0.0 0-2 % Neutrophil # L 0.12 3.0-7.0 x103/mm3 Lymph # L 0.69 1.0-4.0 x103/mm3 [place] # H 1.07 0.0-0.8 x103/mm3 Eosinophil # 0.06 0-0.5 x103/mm3 Basophil # 0.00 0-0.2 x103/mm3 RBC L 3.61 4.20-5.40 x103/mm3 HGB L 11.0 12.0-16.0 g/dl HCT L 33.5 37.0-47.0 % MCV 92.8 81-99 FL MCH 30.5 27.0-31.0 pg MCHC 32.8 32.0-36.0 g/dl RDW H 22.3 12-15 % Platelet 220 150-400 x103/mm3 MPV H 10.1 6.0-10.0 IN Chemistry Group [id number] Result Normal Range Units Sodium 134 134-145 mmol/L Potassium 4.1 3.6-5.0 mmol/L Chloride L 94 98-107 mmol/L CO2 29 22-30 mmol/L Glucose 110 75-110 mg/dl BUN 10 9-20 mg/dl Creatinine L .67 0.8-1.7 mg/dl eGFR 90 ml/min. Calcium 8.6 8.4-10.2 mg/dl History of procedures No procedures [...]
--- OUTSIDE RECORDS SUMMARY | 2016-06-16 18:09 | XMS REPORT | Continuity of Care Document ---
Author Author [facility] Organization [facility] Address Unknown Phone Unavailable Support Name Relationship Address Phone RAJENDRA PRESCOTT MD Caregiver [address] [place] [address] Unavailable RODY JONES MD Caregiver [address] [place] [address] Unavailable BAILEY CESAR Next Of Kin [address] [place] [address] Insurance Providers Guarantor Foster Cesar Address [address] [place] [address] Email [email or web address] Payer [facility] Aid Policy Number [id number] Subscriber's Name Foster Cesar Relationship 18 Self Payer Other A Insurance Policy Number [id number] Subscriber's Name Foster Cesar Relationship 18 Self Group Number [id number] No problem information available. Medications Current Home Medications Medication Dose Units Route Directions Days Qty Instructions Start Date Acetaminophen (Tylenol) 325 Mg Tablet 1-2 Tab Oral As Needed for Pain 01/11/16 Acyclovir 400 Mg Tablet 1 Tab Oral Daily 01/12/16 Allopurinol 300 Mg Tablet 1 Tab Oral Daily 30 04/07/16 Ascorbic Acid (Vitamin C) 1,000 Mg Tablet 1 Tab Oral Daily Ca Carb/Vit D3/Mag Ox/Zn Oxide (Mark Mag Zinc + D Tablet) 1 Each Tablet 1 Tab Oral Daily 04/07/16 Docusate Sodium 100 Mg Capsule 1 Cap Oral Twice A Day 01/12/16 Escitalopram Oxalate 10 Mg Tablet 1.5 Tab Oral Daily 45 04/07/16 Lansoprazole (Prevacid) 15 Mg/Bottle Tab.rap.dr 15 Mg Oral Daily 06/29/09 Levofloxacin (Levaquin) 500 Mg Tablet 1 Tab Oral Daily 04/07/16 Levothyroxine Sodium 50 Mcg Tablet 1 Tab Oral Daily 30 04/07/16 Lorazepam 1 Mg Tablet 1-3 Tab Oral As Needed for Anxiety 01/11/16 Multivitamin (Multi-Day Vitamins) 1 Each Tablet 1 Tab Oral Daily 30 Tablet 04/07/16 Ondansetron Hcl 8 Mg Tablet 1 Tab Oral Every 8 Hours as needed for Nausea 18 04/07/16 Oxycodone Hcl/Acetaminophen (Oxycodone-Acetaminophen 5-325) 5-325 Tablet 1 Tab Oral Every 6 Hours as needed for Pain 30 04/10/16 Ranitidine Hcl 150 Mg Tablet 1 Tab Oral Daily as needed for Acid Reflux 30 04/07/16 Sennosides (Senokot) 8.6 Mg Tablet 1 Tab Oral Twice A Day as needed for Constipation/Stool Softening 01/12/16 Past Home Medications Medication Directions Ordered Status Amox Tr/Potassium Clavulanate (Augmentin 500-125 Tablet) 1 Tab Tablet, 1 Tab Oral Daily 05/05/08 Discontinued Oxycodone Hcl/Acetaminophen (Oxycodone-Acetaminophen 5-325) 5-325 Tablet, 1 Tab Oral Every 6 Hours as needed for Pain 04/07/16 Discontinued Ranitidine Hcl (Acid Business Systems Developer) 75 Mg Tablet, 75 Mg Oral As Needed 05/12/08 Discontinued Social History Social History Problem Response Recorded Date/Time Onset Date Status Hx Substance Use No 04/07/2016 11:42am Not Applicable Not Applicable Hx Alcohol Use No 04/07/2016 11:42am Not Applicable Not Applicable Has the pt used tobacco in the last 12 months No 06/03/2016 11:41am Not Applicable Not Applicable Hospital Discharge Instructions Current inpatient/outpatient. Discharge instructions are currently unavailable. Plan of Care Current inpatient/outpatient. The plan of care is currently unavailable Functional Status No functional status results. Allergies, Adverse Reactions, Alerts Allergen Type Severity Reaction Status Last Updated Hydrocodone Adverse Reaction Unknown NAUSEA Active 04/10/16 Immunizations Query Response on File Recorded Date/Time Hx Influenza Vaccination Y Dec 2015 06/03/16 11:41am Hx Pneumococcal Vaccination No 06/03/16 11:41am Hx Influenza Vaccination Y Dec 2015 06/03/16 11:41am Influenza Vaccine Hx DECEMBER 2015 01/12/16 12:10pm Vital Signs Acute Vital Signs Vital Response Date/Time Temperature (Fahrenheit) 98.2 deg F (96.8 - 99.1) 06/03/2016 11:49am Temperature (Calculated Celsius) 36.63716 degrees C (36.0 - 37.3) 06/03/2016 11:49am Temperature Source Temporal 04/10/2016 12:28pm Pulse Rate (adult) 89 bpm (60 - 100) 06/03/2016 11:49am Respiratory Rate 18 breaths/min (10 - 20) 06/03/2016 11:49am O2 Sat by Pulse Oximetry 96 % (90 - 100) 06/03/2016 11:49am Oxygen Delivery Method Room Air 06/03/2016 11:49am Blood Pressure 140/82 mm Hg 06/03/2016 11:49am Blood Pressure Source Automatic Cuff 06/03/2016 11:49am Height (Feet) 5 feet 06/03/2016 11:45am Height (Inches) 7.50 inches 06/03/2016 11:45am Weight (Kilograms) 72.000 kg 06/03/2016 11:45am Body Mass Index (BMI) 24.5 06/03/2016 11:45am Results Laboratory Results Test Name Result Units Flags Reference Collection Date/Time Result Date/ Time Comments White Blood Count 2.6 T/MM3 L 4.5-11.0 04/10/2016 12:18pm 04/10/2016 12: 29pm Red Blood Count 3.27 M/MM3 L 4.00-5.20 04/10/2016 12:18pm 04/10/2016 12: 29pm Hemoglobin 9.8 GM/DL L 12-16 04/10/2016 12:18pm 04/10/2016 12:29pm Hematocrit 29.0 % L 36-46 04/10/2016 12:18pm 04/10/2016 12:29pm Mean Corpuscular Volume 88.7 UM3 80-100 04/10/2016 12:18pm 04/10/2016 12:29pm Mean Corpuscular Hemoglobin 30.0 UUG 26-34 04/10/2016 12:18pm 2016 12:29pm Mean Corpuscular Hemoglobin Concent 33.8 GM/DL 31-37 04/10/2016 12:18pm 04/10/2016 12:29pm RDW Standard Deviation 53.7 FL H 36.9-50.2 04/10/2016 12:18pm 2016 12:29pm Platelet Count 271 T/MM3 130-400 04/10/2016 12:18pm 04/10/2016 12:29pm Mean Platelet Volume 8.8 UM3 L 9.4-12.4 04/10/2016 12:18pm 04/10/2016 12 :29pm Neutrophils % (Manual) 20.0 % L 33-66 04/10/2016 12:18pm 04/10/2016 12: 37pm Band Neutrophils % 20.0 % H 0-6 04/10/2016 12:18pm 04/10/2016 12:37pm Lymphocytes % (Manual) 38.0 % 23-45 04/10/2016 12:18pm 04/10/2016 12: 37pm Monocytes % (Manual) 22.0 % H 0-9.0 04/10/2016 12:18pm 04/10/2016 12: 37pm Band Neutrophils # 0.5 T/MM3 04/10/2016 12:18pm 04/10/2016 12:37pm Absolute Neutrophils (Manual) 0.5 T/MM3 L 1.8-7.7 04/10/2016 12:18pm 12:37pm Lymphocytes # (Manual) 1.0 T/MM3 1-4.8 04/10/2016 12:18pm 04/10/2016 12 :37pm Monocytes # (Manual) 0.6 T/MM3 0-0.8 04/10/2016 12:18pm 04/10/2016 12: 37pm Red Cell Morphology Comment ABNORMAL 04/10/2016 12:18pm 04/10/2016 12:37pm Anisocytosis 1+ 04/10/2016 12:18pm 04/10/2016 12:37pm Poikilocytosis 1+ 04/10/2016 12:18pm 04/10/2016 12:37pm Icterus Index < 2 0-7 05/08/2016 8:50am 05/08/2016 9:19am Chemistry Specimen Hemolysis < 15 0-25 05/08/2016 8:50am 05/08/2016 9 :19am 0-25: Specimen Exhibited No Hemolysis. Turbidity < 20 0-20 05/08/2016 8:50am 05/08/2016 9:19am Sodium Level 129 MEQ/L L 134-144 05/08/2016 8:50am 05/08/2016 9:19am Potassium Level 3.5 MEQ/L L 3.6-5 05/08/2016 8:50am 05/08/2016 9:19am Chloride Level 95 MEQ/L L 98-107 05/08/2016 8:50am 05/08/2016 9:19am Carbon Dioxide Level 27 MEQ/L 22-30 05/08/2016 8:50am 05/08/2016 9: 19am Anion Gap 7 MEQ/L 5-15 05/08/2016 8:50am 05/08/2016 9:19am Blood Urea Nitrogen 6.0 MG/DL L 7-17 05/08/2016 8:50am 05/08/2016 9: 19am Creatinine 0.6 MG/DL L 0.7-1.2 05/08/2016 8:50am 05/08/2016 9:19am BUN/Creatinine Ratio 10 RATIO 6-26 05/08/2016 8:50am 05/08/2016 9:19am Glomerular Filtration Rate Calc 102 05/08/2016 8:50am 05/08/2016 9: 19am Glucose Level 122 MG/DL H 65-110 05/08/2016 8:50am 05/08/2016 9:19am Calculated Osmolality 248 MOSM/KG L 261-280 05/08/2016 8:50am 2016 9:19am Calcium Level 8.4 MG/DL 8.4-10.2 05/08/2016 8:50am 05/08/2016 9:19am Procedures Procedure Status Date Provider(s) Routine venipuncture Completed 04/10/16 Insert tunneled cv cath Completed 04/10/16 LIZZY NEW MD, FACS, CWS Fluoroguide for vein device Completed 04/10/16 Metabolic panel total ca Completed 04/10/16 Assay of serum sodium Completed 04/10/16 Complete cbc w/auto diff wbc Completed 04/10/16"PORT, INDWELLING (IMPLANTABLE)" Completed 04/10/16"INJECTION, CEFAZOLIN SODIUM, 500 MG" Completed 04/10/16"INJECTION, HEPARIN SODIUM, (HEPARIN LOCK FLUSH), PER Completed "INJECTION, KETOROLAC TROMETHAMINE, PER 15 MG" Completed 04/10/16"INJECTION, FENTANYL CITRATE, 0.1 MG" Completed 04/10/16"RINGERS LACTATE INFUSION, UP TO 1000 CC" Completed 04/10/16 Assay of serum sodium Completed 04/11/16 Encounters Encounter Location Arrival/Admit Date Discharge/Depart Date Attending Provider Registered [facility] 06/16/16 10:16am RAJENDRA PRESCOTT MD Discharged [facility] 06/03/16 11:27am 06/03/16 11: 55am RAJENDRA PRESCOTT MD Registered [facility] 05/08/16 9:04am RAJENDRA PRESCOTT MD Registered [facility] 04/11/16 11:02am RAJENDRA PRESCOTT MD Departed [facility] 04/10/16 11:52am 04/10/16 3 :50pm LIZZY NEW FACS CWS MD
--- OUTSIDE RECORDS SUMMARY | 2016-06-16 18:09 | XMS REPORT ---
Author Author [facility]. Organization [facility] Address [address] [place] [address] Phone [phone] Summary purpose CCDA Sent to [facility] Chief Complaint and Reason for Visit No [...] Allergen Category Ingredient Status Reaction Severity Onset [place] Drug [place] Active Nausea Adolescence [place] Drug acetaminophen Active Nausea Adolescence [place] Drug hydrocodone Active Nausea Adolescence Immunizations No immunizations recorded for this patient visit Relevant diagnostic tests and/or laboratory data RESULTS CBC [id number] Result Normal Range Units WBC LC 1.44 4.8-10.8 x103/mm3 Result Amended on 2016-04-03 at 14:21:31. Previous status was FR. REPEATED/VERIFIED BY [facility] 04/03/16 CALLED TO JR @ 14: BY [facility] Neutrophil % L 36.0 50-70 % Result Amended on 2016-04-03 at 14:21:32. Previous status was FR. Lymph % 43.8 20-50 % Result Amended on 2016-04-03 at 14:21:32. Previous status was FR. Ocean % H 15.3 1.0-9.0 % Result Amended on 2016-04-03 at 14:21:32. Previous status was FR. Eosinophil % 1.4 0-4 % Result Amended on 2016-04-03 at 14:21:32. Previous status was FR. Basophil % H 3.5 0-2 % Result Amended on 2016-04-03 at 14:21:32. Previous status was FR. Neutrophil # L 0.52 3.0-7.0 x103/mm3 Result Amended on 2016-04-03 at 14:21:32. Previous status was FR. Lymph # L 0.63 1.0-4.0 x103/mm3 Result Amended on 2016-04-03 at 14:21:32. Previous status was FR. Ocean # 0.22 0.0-0.8 x103/mm3 Result Amended on 2016-04-03 at 14:21:32. Previous status was FR. Eosinophil # 0.02 0-0.5 x103/mm3 Result Amended on 2016-04-03 at 14:21:32. Previous status was FR. Basophil # 0.05 0-0.2 x103/mm3 Result Amended on 2016-04-03 at 14:21:32. Previous status was FR. RBC L 3.00 4.20-5.40 x103/mm3 Result Amended on 2016-04-03 at 14:21:32. Previous status was FR. HGB L 9.1 12.0-16.0 g/dl Result Amended on 2016-04-03 at 14:21:32. Previous status was FR. HCT L 27.5 37.0-47.0 % Result Amended on 2016-04-03 at 14:21:32. Previous status was FR. MCV 91.7 81-99 FL Result Amended on 2016-04-03 at 14:21:32. Previous status was FR. MCH 30.3 27.0-31.0 pg Result Amended on 2016-04-03 at 14:21:32. Previous status was FR. MCHC 33.1 32.0-36.0 g/dl Result Amended on 2016-04-03 at 14:21:32. Previous status was FR. RDW H 16.9 12-15 % Result Amended on 2016-04-03 at 14:21:32. Previous status was FR. Platelet L 139 150-400 x103/mm3 Result Amended on 2016-04-03 at 14:21:32. Previous status was FR. MPV 9.9 6.0-10.0 FL Result Amended on 2016-04-03 at 14:21:32. Previous status was FR. Manual Differential [id number] Result Normal Range Units Seg 26.0 Lymph 44.0 Ocean 18.0 Baso 6.0 Bands 4.0 Immature Cell 2.0 Anisocytosis 1+ Microcytes 1+ Macrocytes Sl. Chemistry Group [id number] Result Normal Range Units Sodium L 125 134-145 mmol/L Potassium 3.9 3.6-5.0 mmol/L Chloride L 88 98-107 mmol/L CO2 H 31 22-30 mmol/L Glucose 87 75-110 mg/dl BUN L 6 9-20 mg/dl Creatinine L .57 0.8-1.7 mg/dl eGFR 109 ml/min. Total Protein 6.7 6.3-8.2 g/dl Albumin 3.6 3.5-5.0 g/dl Calcium 8.4 8.4-10.2 mg/dl Alk Phos 71 38-126 U/L AST 35 14-36 U/L ALT 23 11-66 U/L T Bili .4 0.2-1.3 mg/dl A/G Ratio 1.2 Ratio History of procedures Procedure Code Code Type Description Date Performed Performing Physician 09801 CPT-4 COMPREHEN METABOLIC PANEL 04-03-2016 RODY JONES 93794 CPT-4 BL SMEAR W/DIFF WBC COUNT 04-03-2016 RODY JONES Functional status No functional or [...]
--- OUTSIDE RECORDS SUMMARY | 2016-06-16 18:10 | XMS REPORT ---
Author Author [facility] Organization Unknown Address Unknown Phone Unavailable Care Team Providers Care Tanning Solution Maker Name Role Phone UNASSIGNED DOCTOR , DOCTOR PP [phone] Reason For Visit Chief Complaint HYPOTHYROID Social History Functional Status Vital Signs Results [...]
--- OUTSIDE RECORDS SUMMARY | 2016-06-16 18:10 | XMS REPORT ---
Author Author [facility]. Organization [facility] Address [address] [place] [address] Phone [phone] Summary purpose CCDA Sent to [facility] Chief Complaint and Reason for Visit [...] Allergen Category Ingredient Status Reaction Severity Onset [place] Drug [place] Active Nausea Adolescence [place] Drug acetaminophen Active Nausea Adolescence [place] Drug hydrocodone Active Nausea Adolescence Immunizations No immunizations recorded for this patient visit Relevant diagnostic tests and/or laboratory data RESULTS CBC [id number]:00 Result Normal Range Units WBC 8.60 4.8-10.8 x103/mm3 Neutrophil % 54.9 50-70 % Lymph % L 11.6 20-50 % Chambers % H 32.7 1.0-9.0 % Eosinophil % 0.3 0-4 % Basophil % 0.5 0-2 % Neutrophil # 4.72 3.0-7.0 x103/mm3 Lymph # 1.00 1.0-4.0 x103/mm3 Chambers # H 2.81 0.0-0.8 x103/mm3 Eosinophil # 0.03 0-0.5 x103/mm3 Basophil # 0.04 0-0.2 x103/mm3 RBC L 2.80 4.20-5.40 x103/mm3 HGB L 8.7 12.0-16.0 g/dl HCT L 26.3 37.0-47.0 % MCV 93.9 81-99 FL MCH H 31.1 27.0-31.0 pg MCHC 33.1 32.0-36.0 g/dl RDW H 19.8 12-15 % Platelet H 460 150-400 x103/mm3 MPV 8.7 6.0-10.0 HI Chemistry Group [id number] Result Normal Range Units Sodium L 129 134-145 mmol/L Potassium 3.9 3.6-5.0 mmol/L Chloride L 90 98-107 mmol/L CO2 H 33 22-30 mmol/L Glucose 85 75-110 mg/dl BUN 11 9-20 mg/dl Creatinine L .71 0.8-1.7 mg/dl eGFR 84 ml/min. Calcium 9.2 8.4-10.2 mg/dl History of procedures Procedure Code Code Type Description Date Performed Performing Physician 59624 CPT-4 METABOLIC PANEL TOTAL CA 04-13-2016 RODY JONES 04892 CPT-4 COMPLETE CBC, AUTOMATED 04-13-2016 RODY JONES Functional status No functional or [...]
--- OUTSIDE RECORDS SUMMARY | 2016-06-16 18:10 | XMS REPORT | Continuity of Care Document ---
Author Author [facility] Organization [facility] Address Unknown Phone Unavailable Support Name Relationship Address Phone RODY JONES MD Caregiver [address] [place] [address] Unavailable LIZZY NEW FACS, MD Caregiver [address] [place] [address] [place] [address] Unavailable BAILEY CESAR Next Of Kin [address] [place] [address] Insurance Providers Guarantor Foster Cesar Address [address] [place] [address] Email [email or web address] Payer [facility] Aid Policy Number [id number] Subscriber's Name Cesar,Foster Relationship 18 Self Effective Date 86 Payer Other A Insurance Policy Number [id number] Subscriber's Name CesarFoster yan Relationship 18 Self Group Number [id number] Directives Directive Response Recorded Date/Time Ordered Resuscitation Status Full Code 04/07/16 2:34pm Resuscitation Documents on File No 04/10/16 12:16pm DPOA for Healthcare Only No 04/10/16 12:16pm Living Will No 04/10/16 12:16pm Problems No problem information available. Medications Current [...] for Pain 04/07/16 Discontinued Ranitidine Hcl (Acid Safety Trainer) 75 Mg Tablet, 75 Mg Oral As Needed 05/12/08 Discontinued Social History Social History Problem Response Recorded Date/Time Onset Date Status Reason for Hospitalization INSERTION OF POWER PORT 04/10/2016 2:38pm Not Applicable Not Applicable Chewing Tobacco Status No 04/07/2016 11:42am Not Applicable Not Applicable Hx Substance Use No 04/07/2016 11:42am Not Applicable Not Applicable Hx Alcohol Use No 04/07/2016 11:42am Not Applicable Not Applicable Has the pt used tobacco in the last 12 months No 04/07/2016 11:42am Not Applicable Not Applicable Query Response Start Date Stop Date Smoking Status Never smoker Hospital Discharge Instructions Instructions: Care Instructions: I was in the hospital because (patient own words): TO HAVE A POWER PORT PUT IN Discharge Diet: regular Discharge Activity: Do not drive, operate machinery for 24 hours after surgery or while taking pain medication. May use Power Port tomorrow. Follow Up Appointments: Follow up with Sigrid Diaz APRN on May 02 at 11:00 am Pending Lab / Results: Will be notified Expected Signs/Symptoms: bruised feeling at the port site. Notify Physician If: 1. Call your surgeon if you are having problems relating to your surgery at [phone]. 2. Problems such as: Temp above 101.5 degrees You develop redness, excessive swelling of the incision, increasing pain or excessive foul smelling drainage. 3. If the office is closed, call [facility] at [phone] and have your Surgeon paged. During Business Hours:: Call your surgeon at at [phone]. After Business Hours:: If the office is closed, call [facility] at [phone] and have your Surgeon paged. Pain Management/Treatment: Follow prescriptions as prescribed. Use a sheep skin around the seat belt to protct the port site from discomfort. Most [employer] have this. Wound/Incision Care: Keep dressings on and dry until after chemo on April 11 Condition at time of discharge: Good Plan of Care Discharge Date 04/10/16 3:50pm Instructions/Education Provided [facility] Prescriptions See Medication Section Functional Status Query Response Date Recorded Ability to complete ADL's impeded by No change April 10, 2016 12:16pm Allergies, Adverse Reactions, Alerts Allergen Type Severity Reaction Status Last Updated Hydrocodone Adverse Reaction Unknown NAUSEA Active 04/10/16 Immunizations Query Response on File Recorded Date/Time Hx Influenza Vaccination Y Dec 2015 04/07/16 11:42am Hx Pneumococcal Vaccination No 04/07/16 11:42am Hx Influenza Vaccination Y Dec 2015 04/07/16 11:42am Influenza Vaccine Hx DECEMBER 2015 01/12/16 12:10pm Vital Signs Acute Vital Signs Vital Response Date/Time Temperature (Fahrenheit) 98.2 deg F (96.8 - 99.1) 04/10/2016 12:28pm Temperature (Calculated Celsius) 36.78907 degrees C (36.0 - 37.3) 04/10/2016 12:28pm Temperature Source Temporal 04/10/2016 12:28pm Pulse Rate (adult) 76 bpm (60 - 100) 04/10/2016 3:40pm Respiratory Rate 16 breaths/min (10 - 20) 04/10/2016 3:40pm O2 Sat by Pulse Oximetry 100 % (90 - 100) 04/10/2016 3:40pm Oxygen Delivery Method Room Air 01/12/2016 4:27pm Oxygen Delivery Method Room Air 04/10/2016 3:40pm Oxygen Flow Rate 2.00 L/min 01/12/2016 12:18pm Blood Pressure 158/68 mm Hg 04/10/2016 3:40pm Blood Pressure Source Automatic Cuff 04/10/2016 3:40pm Height (Feet) 5 feet 04/10/2016 12:15pm Height (Inches) 7.00 inches 04/10/2016 12:15pm Weight (Kilograms) 77.000 kg 04/10/2016 12:15pm Body Mass Index (BMI) 26.6 04/10/2016 12:15pm Results Laboratory Results Test Name Result Units [...] 04/10/2016 12:37pm Icterus Index < 2 0-7 04/10/2016 12:18pm 04/10/2016 1:19pm Chemistry Specimen Hemolysis 41 H 0-25 04/10/2016 12:18pm 04/10/2016 1 :19pm 26-70: Specimen Exhibited Slight Hemolysis - can falsely elevate K (Potassium) and Urine Protein. Turbidity < 20 0-20 04/10/2016 12:18pm 04/10/2016 1:19pm Sodium Level 114 MEQ/L *L 134-144 04/10/2016 2:27pm 04/10/2016 2:45pm Potassium Level 3.8 MEQ/L 3.6-5 04/10/2016 12:18pm 04/10/2016 1:19pm Chloride Level 80 MEQ/L L 98-107 04/10/2016 12:18pm 04/10/2016 1:19pm Carbon Dioxide Level 26 MEQ/L 22-30 04/10/2016 12:18pm 04/10/2016 1: 19pm Anion Gap 8 MEQ/L 5-15 04/10/2016 12:18pm 04/10/2016 1:19pm Blood Urea Nitrogen 4.0 MG/DL L 7-17 04/10/2016 12:18pm 04/10/2016 1: 19pm Creatinine 0.6 MG/DL L 0.7-1.2 04/10/2016 12:18pm 04/10/2016 1:19pm BUN/Creatinine Ratio 7 RATIO 6-26 04/10/2016 12:18pm 04/10/2016 1:19pm Glomerular Filtration Rate Calc 102 04/10/2016 12:18pm 04/10/2016 1 :19pm Glucose Level 95 MG/DL 65-110 04/10/2016 12:18pm 04/10/2016 1:19pm Calculated Osmolality 218 MOSM/KG L 261-280 04/10/2016 12:18pm 2016 1:19pm Calcium Level 9.0 MG/DL 8.4-10.2 04/10/2016 12:18pm 04/10/2016 1:19pm Name: FOSTER CESAR Unit #: [id number] : 1955 Sex: F Admit Date: Loc / c: [facility] [place]charge Date: DIAGNOSTIC IMAGING REPORT Report #: [id number] [facility] JAZZMINE Crouch Indication: ITS.REASON: PORT A CATH INSERTION PROCEDURE: PORTACATH W FLUORO W 1V CXR: Encounter: Initial Comparison: None Findings: A single AP chest radiograph demonstrates an accessed right IJ Port-A-Cath with the tip in the superior vena cava just above the azygos arch. The heart is unenlarged. There is no confluent infiltrate but there is mild hypoventilation. Pleural spaces clear. Degenerative changes of the spine. Monitor leads overlie the chest. Impression: Right IJ Port-A-Cath placement as described above. . Procedures Procedure Status Date Provider(s) Laparoscopy lymph node biop Completed 01/12/16 LIZZY NEW MD, MOSES, CWS [id number]"INJECTION, HYDROMORPHONE, UP TO 4 MG" Completed 01/12/16"INJECTION, ERTAPENEM SODIUM, 500 MG" Completed 01/12/16"INJECTION, KETOROLAC TROMETHAMINE, PER 15 MG" Completed 01/12/16"INJECTION, MIDAZOLAM HYDROCHLORIDE, PER 1 MG" Completed 01/12/16"INJECTION, ONDANSETRON HYDROCHLORIDE, PER 1 MG" Completed 01/12/16"INJECTION, PROMETHAZINE HCL, UP TO 50 MG" Completed 01/12/16 PROPOFOL INJ 500 MG/50ML Completed 01/12/16"INJECTION, NEOSTIGMINE METHYLSULFATE, UP TO 0.5 MG" Completed "INJECTION, FENTANYL CITRATE, 0.1 MG" Completed 01/12/16"INFUSION, NORMAL SALINE SOLUTION , 250 CC" Completed 01/12/16"RINGERS LACTATE INFUSION, UP TO 1000 CC" Completed 01/12/16 Insertion of vascular catheter Completed 04/10/16 LIZZY NEW MD, ADE LOPES Encounters Encounter Location Arrival/Admit Date Discharge/Depart Date Attending Provider Departed [facility] 04/10/16 11:52am 04/10/16 3 :50pm LIZZY NEW FACS, MD Departed [facility] 01/12/16 7:24am 01/12/16 7: 05pm LIZZY NEW FACS, MD
--- OUTSIDE RECORDS SUMMARY | 2016-06-16 18:11 | XMS REPORT ---
Author Author [facility]. Organization [facility] Address [address] [place] [address] Phone [phone] Summary purpose CCDA Sent to [facility] Chief Complaint and Reason for Visit No [...] Allergen Category Ingredient Status Reaction Severity Onset [place] Drug [place] Active Nausea Adolescence [place] Drug acetaminophen Active Nausea Adolescence [place] Drug hydrocodone Active Nausea Adolescence Immunizations No immunizations recorded for this patient visit Relevant diagnostic tests and/or laboratory data RESULTS CBC [id number]:00 Result Normal Range Units WBC HC 33.68 4.8-10.8 x103/mm3 Result Amended on 2016-05-06 at 11:34:30. Previous status was FR. CALLED TO [facility]@ 11: [facility] Eosinophil % 0.7 0-4 % Result Amended on 2016-05-06 at 11:34:30. Previous status was FR. Basophil % 0.0 0-2 % Result Amended on 2016-05-06 at 11:34:30. Previous status was FR. Eosinophil # 0.23 0-0.5 x103/mm3 Result Amended on 2016-05-06 at 11:34:30. Previous status was FR. Basophil # 0.01 0-0.2 x103/mm3 Result Amended on 2016-05-06 at 11:34:30. Previous status was FR. RBC L 2.51 4.20-5.40 x103/mm3 Result Amended on 2016-05-06 at 11:34:30. Previous status was FR. HGB LC 7.9 12.0-16.0 g/dl Result Amended on 2016-05-06 at 11:34:30. Previous status was FR. CALLED TO [facility]@ 11: [facility] HCT L 24.2 37.0-47.0 % Result Amended on 2016-05-06 at 11:34:30. Previous status was FR. MCV 96.4 81-99 FL Result Amended on 2016-05-06 at 11:34:30. Previous status was FR. MCH H 31.5 27.0-31.0 pg Result Amended on 2016-05-06 at 11:34:30. Previous status was FR. MCHC 32.6 32.0-36.0 g/dl Result Amended on 2016-05-06 at 11:34:30. Previous status was FR. RDW H 20.1 12-15 % Result Amended on 2016-05-06 at 11:34:30. Previous status was FR. Platelet 183 150-400 x103/mm3 Result Amended on 2016-05-06 at 11:34:30. Previous status was FR. MPV H 10.1 6.0-10.0 FL Result Amended on 2016-05-06 at 11:34:30. Previous status was FR. Manual Differential [id number]:00 Result Normal Range Units Seg 54.0 Lymph 8.0 [place] 17.0 Eos 1.0 Bands 8.0 Immature Cell 12.0 Anisocytosis 2+ Microcytes 1+ Macrocytes Sl. Basophilic Stippling Sl. Chemistry Group [id number]:00 Result Normal Range Units Sodium L 123 134-145 mmol/L Potassium L 3.2 3.6-5.0 mmol/L Chloride L 87 98-107 mmol/L CO2 29 22-30 mmol/L Glucose H 115 75-110 mg/dl BUN L 8 9-20 mg/dl Creatinine L .68 0.8-1.7 mg/dl eGFR 88 ml/min. Calcium L 7.7 8.4-10.2 mg/dl History of procedures Procedure Code Code Type Description Date Performed Performing Physician 26154 CPT-4 METABOLIC PANEL TOTAL CA 05-06-2016 RAJENDRA PRESCOTT 68973 CPT-4 COMPLETE CBC, AUTOMATED 05-06-2016 RAJENDRA PRESCOTT Functional status No functional or [...]
--- OUTSIDE RECORDS SUMMARY | 2016-06-16 18:11 | XMS REPORT | Continuity of Care Document ---
Author Author [facility] Organization [facility] Address Unknown Phone Unavailable Allergies Active Description Code Type Severity Reaction Onset Reported/Identified Relationship to Patient Clinical Status Yes acetaminophen 1605 Drug Allergy N/A N/A Confirmed or Verified Yes hydrocodone 1554 Drug Allergy N/A N/A Confirmed or Verified Yes [place] 63 Drug Allergy N/A Nausea 05/21/2015 Medications Problems Date Dx Coded Attending Type Code Diagnosis Diagnosed By 01/17/2012 Bryan Thao MD 592.0 CALCULUS OF KIDNEY 07/03/2013 RODY BANERJEE MD 530.81 ESOPHAGEAL REFLUX 03/31/2014 CANDIDO ELLINGTON 785.1 PALPITATIONS 04/07/2014 Ot V76.12 04/07/2014 Rody Banerjee Ot V76.12 06/27/2014 ANJUM ARTEAGA V60.89 HOUSING/ECONOMIC PBX NEC 07/03/2014 RODY BANERJEE MD 242.00 TOX DIF GOITER NO CRISIS 07/07/2014 LINUS GARCIA, EDGARDO [place] 462 ACUTE PHARYNGITIS 07/07/2014 LINUS GARCIA, EDGARDO Harrison 780.79 OTHER MALAISE & FATIGUE 08/17/2014 RODY BANERJEE MD 242.00 TOX DIF GOITER NO CRISIS 09/16/2014 RODY BANERJEE MD 242.00 TOX DIF GOITER NO CRISIS 10/23/2014 RODY BANERJEE MD 242.00 TOX DIF GOITER NO CRISIS 12/25/2014 RODY BANERJEE MD E05.00 Thyrotoxicosis w diffuse goiter w/o thyrotoxic crisis 05/17/2015 RODY BANERJEE MD E05.90 Thyrotoxicosis, unsp without thyrotoxic crisis or storm 05/21/2015 RODY BANERJEE MD K57.30 Dvrtclos of lg int w/o perforation or abscess w/o bleeding 05/21/2015 RODY BANERJEE MD Z12.11 Encounter for screening for malignant neoplasm of colon 05/21/2015 RODY BANERJEE MD Z80.0 Family history of malignant neoplasm of digestive organs 09/16/2015 RODY BANERJEE MD M25.539 Pain in unspecified wrist 09/16/2015 RODY BANERJEE MD M79.646 Pain in unspecified finger(s) 12/10/2015 Rody Banerjee Ot Z12.31 ENCNTR SCREEN MAMMOGRAM FOR MALIGNANT NE 12/13/2015 RODY BANERJEE MD E05.90 Thyrotoxicosis, unsp without thyrotoxic crisis or storm 12/13/2015 RODY BANERJEE MD R79.9 Abnormal finding of blood chemistry, unspecified 12/21/2015 RODY BANERJEE MD R10.11 Right upper quadrant pain 12/21/2015 RODY BANERJEE MD R10.12 Left upper quadrant pain 02/09/2016 RODY BANERJEE MD C85.90 Non-Hodgkin lymphoma, unspecified, unspecified site 02/22/2016 RODY BANERJEE MD C85.90 Non-Hodgkin lymphoma, unspecified, unspecified site 02/24/2016 Rody Banerjee Ot Z12.31 ENCNTR SCREEN MAMMOGRAM FOR MALIGNANT NE 03/06/2016 RODY BANERJEE MD C85.90 Non-Hodgkin lymphoma, unspecified, unspecified site 03/17/2016 RODY BANERJEE MD C85.90 Non-Hodgkin lymphoma, unspecified, unspecified site 04/03/2016 RODY BANERJEE MD C85.90 Non-Hodgkin lymphoma, unspecified, unspecified site 04/12/2016 RODY BANERJEE MD 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 04/12/2016 RODY BANERJEE MD C80.1 Malignant (primary) neoplasm, unspecified 04/12/2016 RODY BANERJEE MD C85.90 Non-Hodgkin lymphoma, unspecified, unspecified site 04/13/2016 RODY BANERJEE MD 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 04/13/2016 RODY BANERJEE MD C80.1 Malignant (primary) neoplasm, unspecified 04/13/2016 RODY BANERJEE MD C85.90 Non-Hodgkin lymphoma, unspecified, unspecified site 04/14/2016 RODY BANERJEE MD 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 04/14/2016 RODY BANERJEE MD C80.1 Malignant (primary) neoplasm, unspecified 04/14/2016 RODY BANERJEE MD C85.90 Non-Hodgkin lymphoma, unspecified, unspecified site 04/14/2016 RODY BANERJEE MD R10.11 Right upper quadrant pain 04/14/2016 RODY BANERJEE MD R10.12 Left upper quadrant pain 05/01/2016 RODY BANERJEE MD 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 05/01/2016 RODY BANERJEE MD C80.1 Malignant (primary) neoplasm, unspecified 05/01/2016 RODY BANERJEE MD C85.90 Non-Hodgkin lymphoma, unspecified, unspecified site 05/01/2016 RODY BANERJEE MD E03.9 Hypothyroidism, unspecified 05/02/2016 RODY BANERJEE MD 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 05/02/2016 RODY BANERJEE MD C80.1 Malignant (primary) neoplasm, unspecified 05/02/2016 RODY BANERJEE MD C85.90 Non-Hodgkin lymphoma, unspecified, unspecified site 05/02/2016 RODY BANERJEE MD E03.9 Hypothyroidism, unspecified 05/03/2016 RODY BANERJEE MD 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 05/04/2016 RODY BANERJEE MD 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 05/05/2016 RODY BANERJEE MD 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 05/06/2016 RODY BANERJEE MD 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 05/19/2016 RODY BANERJEE MD 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 05/19/2016 RODY BANERJEE MD C80.1 Malignant (primary) neoplasm, unspecified 05/22/2016 RODY BANERJEE MD C80.1 Malignant (primary) neoplasm, unspecified Procedures Code Description Performed By Performed On 55.01 NEPHROTOMY Master GARCIA, Bryan L 01/17/2012 55.04 PERCU NEPHROSTMY W FRAG Master GARCIA, Bryan L 01/17/2012 93030 COMPLETE CBC, AUTOMATED RODY BANERJEE MD 07/03/2013 94470 METABOLIC PANEL TOTAL CA JOSIAH HOWARD, CANDIDO L 03/31/2014 40522 ASSAY THYROID STIM HORMONE JOSIAH HOWARD, CANDIDO L 03/31/2014 32629 FREE ASSAY (FT-3) JOSIAH HOWARD, CANDIDO L 03/31/2014 14249 COMPLETE CBC, AUTOMATED JOSIAH HOWARD, CANDIDO L 03/31/2014 56835 ASSAY THYROID STIM HORMONE RODY BANERJEE MD 07/03/2014 22762 COMPREHEN METABOLIC PANEL EDGARDO BARRIGA MD 07/07/2014 00893 COMPLETE CBC, AUTOMATED EDGARDO BARRIGA MD 07/07/2014 14728 ASSAY THYROID STIM HORMONE RODY BANERJEE MD 08/17/2014 84950 ASSAY THYROID STIM HORMONE RODY BANERJEE MD 09/16/2014 29960 ASSAY THYROID STIM HORMONE RODY BANERJEE MD 10/23/2014 41367 ASSAY THYROID STIM HORMONE RODY BANERJEE MD 12/25/2014 31583 FREE ASSAY (FT-3) RODY BANERJEE MD 12/25/2014 66439 METABOLIC PANEL TOTAL CA RODY BANERJEE MD 05/17/2015 66474 COMPLETE CBC, AUTOMATED RODY BANERJEE MD 05/17/2015 48638 DIAGNOSTIC COLONOSCOPY RODY BANERJEE MD 05/21/2015 96687 RBC SED RATE, RODY TOWNSEND MD 09/16/2015 44503 METABOLIC PANEL TOTAL CA RODY BANERJEE MD 12/13/2015 96898 ASSAY THYROID STIM HORMONE RODY BANERJEE MD 12/13/2015 14330 COMPREHEN METABOLIC PANEL RODY BANERJEE MD 12/21/2015 90294 ASSAY OF AMYLASE RODY BANERJEE MD 12/21/2015 20606 ASSAY OF LIPASE RODY BANERJEE MD 12/21/2015 89846 COMPLETE CBC, AUTOMATED RODY BANERJEE MD 12/21/2015 10928 COMPREHEN METABOLIC PANEL RODY BANERJEE MD 02/09/2016 34034 ASSAY OF BLOOD/URIC ACID RODY BANERJEE MD 02/09/2016 39441 COMPLETE CBC, AUTOMATED RODY BANERJEE MD 02/09/2016 99331 ASSAY THYROID STIM HORMONE RODY BANERJEE MD 02/22/2016 94625 ASSAY OF BLOOD/URIC ACID RODY BANERJEE MD 02/22/2016 47158 COMPLETE CBC, AUTOMATED RODY BANERJEE MD 02/22/2016 14299 COMPREHEN METABOLIC PANEL RODY BANERJEE MD 03/06/2016 79159 LACTATE (LD) (LDH) ENZYME RODY BANERJEE MD R 03/06/2016 04259 BL SMEAR W/DIFF WBC COUNT RODY BANERJEE MD 03/06/2016 73969 BL SMEAR W/DIFF WBC COUNT RAJENDRA PRESCOTT MD 03/17/2016 75857 COMPREHEN METABOLIC PANEL RODY BANERJEE MD R 04/03/2016 26669 BL SMEAR W/DIFF WBC COUNT RODY BANERJEE MD R 04/03/2016 82424 METABOLIC PANEL TOTAL RODY MATHIAS MD R 04/12/2016 02793 METABOLIC PANEL TOTAL RODY MATHIAS MD R 04/13/2016 84102 COMPLETE CBC, OPAL BANERJEE MD, RODY R 04/13/2016 88632 METABOLIC PANEL TOTAL RONALD PRESCOTT MD, RAJENDRA W 04/14/2016 05645 METABOLIC PANEL TOTAL RONALD PRESCOTT MD, RAJENDRA Webb 05/01/2016 13818 ASSAY THYROID STIM HORMONE RAJENDRA PRESCOTT MD 05/01/2016 68893 BL SMEAR W/DIFF WBC COUNT GENIE GARCIA, RAJENDRA Webb 05/01/2016 19231 METABOLIC PANEL TOTAL RONALD BANERJEE MD, RODY R 05/02/2016 52542 COMPLETE CBC, OPAL BANERJEE MD, RODY Mcgee 05/02/2016 45312 METABOLIC PANEL TOTAL CA ROBERT GARCIA, RODY R 05/03/2016 95033 COMPLETE CBC, OPAL BANERJEE MD, RODY R 05/03/2016 52185 METABOLIC PANEL TOTAL CA ROBERT GARCIA, RODY R 05/04/2016 83363 COMPLETE CBC, OPAL BANERJEE MD, RODY R 05/04/2016 43506 METABOLIC PANEL TOTAL CA ROBERT GARCIA, RODY R 05/05/2016 53775 COMPLETE CBC, AUTOMATED ROBERT GARCIA, RODY R 05/05/2016 07617 METABOLIC PANEL TOTAL CA GENIE GARCIA, RAJENDRA W 05/06/2016 19495 COMPLETE CBC, AUTOMATED GENIE GARCIA, RAJENDRA W 05/06/2016 07802 METABOLIC PANEL TOTAL CA SHERRI GARCIA, [facility] I 05/19/2016 68040 COMPLETE CBC, AUTOMATED SHERRI GARCIA, [facility] I 05/19/2016 36682 METABOLIC PANEL TOTAL CA ROBERT GARCIA, RODY R 05/22/2016 36139 COMPLETE CBC, OPAL BANERJEE MD, RODY R 05/22/2016 Results Test Result Range CBC - 01/17/12 08:30 MEAN CELL HGB 28.8 pg 27.0-33.0 MEAN CELL HGB CONCENTRATION 31.6 g/dl 32.0-36.0 MEAN CELL VOLUME 91.0 fl 80.0-100.0 RED BLOOD CELL 4.55 m/cumm 4.00-6.00 RED CELL DISTRIBUTION WIDTH 13.4 % 11.0- 15.6 WHITE BLOOD CELL 5.8 k/cumm 5.0-10.0 HEMOGLOBIN 13.1 gm/dL 12.0-16.0 HEMATOCRIT 41.4 % 37.0-47.0 PLATELET COUNT 278 k/cumm 150-450 METABOLIC PANEL, BASIC - 01/17/12 08:30 POTASSIUM 3.4 mmol/L 3.5-5.3 EST GFR (MDRD) 55 mL/min > 59 ANION GAP 7 mmol/L 5-15 EST CrCl (CG) 58 mL/min > 59 GLUCOSE 106 mg/dL 70-99 CALCIUM 8.8 mg/dL 8.5-10.1 BLOOD UREA NITROGEN 10 mg/dL 7-20 CREATININE 1.1 mg/dL 0.6-1.0 SODIUM 141 mmol/L 135-148 CHLORIDE 105 mmol/L 98-110 CARBON DIOXIDE 29 mmol/L 21-32 PROTHROMBIN TIME WITH INR - 01/17/12 08:30 INTERNATIONAL NORMAL RATIO 1.1 0.9-1.1 PROTHROMBIN TIME 11.6 sec 9.3-12.2 PARTIAL THROMBOPLASTIN TIME - 01/17/12 08:30 PARTIAL THROMBOPLASTIN TIME 23 sec 24-36 CALCULI, ANALYSIS - 01/17/12 15:02 CA OXALATE DIHYDRATE 15 % () CA OXALATE MONOHYDRATE 75 % () CALCIUM PHOSPHATE 10 % () COLOR Brown () COMPOSITION Note () PLEASE NOTE Note () NIDUS No Nidus visualized () SIZE Note mm () WEIGHT 960.4 mg () COMMENT Note () HEMATOCRIT - 01/17/12 15:22 MEAN CELL VOLUME 90.7 fl 80.0-100.0 HEMATOCRIT 39.0 % 37.0-47.0 METABOLIC PANEL, BASIC - 01/17/12 15:22 POTASSIUM 3.6 mmol/L 3.5-5.3 EST GFR (MDRD) 50 mL/min > 59 ANION GAP 6 mmol/L 5-15 EST CrCl (CG) 53 mL/min > 59 GLUCOSE 136 mg/dL 70-99 CALCIUM 8.3 mg/dL 8.5-10.1 BLOOD UREA NITROGEN 9 mg/dL 7-20 CREATININE 1.2 mg/dL 0.6-1.0 SODIUM 141 mmol/L 135-148 CHLORIDE 106 mmol/L 98-110 CARBON DIOXIDE 29 mmol/L 21-32 HGB HCT - 01/18/12 09:28 MEAN CELL VOLUME 91.2 fl 80.0-100.0 HEMOGLOBIN 11.6 gm/dL 12.0-16.0 HEMATOCRIT 34.6 % 37.0-47.0 CBC - 07/03/13 11:45 Eos # 0.30 x10^3 0-0.5 Eos % 4.7 % 0-4 HCT 43.9 % 37.0-47.0 HGB 14.5 G/DL 12.0-16.0 Lymph # 1.56 x10^3 1.0-4.0 Lymph % 24.3 % 20-50 MCH 30.0 PG 27.0-31.0 MCHC 33.0 G/DL 32.0-36.0 MCV 90.7 FL 81-99 [facility] # 1.09 x10^3 0.0-0.8 [facility] % 17.0 % 1.0-9.0 MPV 11.1 FL 6.0-10.0 Platelet 256 x10^3 150-400 RBC 4.84 x10^3 4.20-5.40 RDW 13.2 % 12-15 WBC 6.42 x10^3 4.8-10.8 Baso # 0.02 x10^3 0-0.2 Baso % 0.3 % 0-2 Neut % 53.7 % 50-70 Neut # 3.45 x10^3 3.0-7.0 Basic Metabolic Panel - 03/31/14 13:50 Sodium 140 MMOLL 134-145 Potassium 4.4 MMOLL 3.6-5.0 Chloride 104 MMOLL 98-107 CO2 29 MMOLL 22-30 Glucose 91 MG/DL 75-110 BUN 18 MG/DL 9-20 Creatinine 1.0 MG/DL 0.8-1.7 Calcium 9.1 MG/DL 8.4-10.2 CBC - 03/31/14 13:57 Eos # 0.22 x10^3 0-0.5 Eos % 3.2 % 0-4 HCT 42.2 % 37.0-47.0 HGB 13.7 G/DL 12.0-16.0 Lymph # 2.00 x10^3 1.0-4.0 Lymph % 29.5 % 20-50 MCH 29.5 PG 27.0-31.0 MCHC 32.5 G/DL 32.0-36.0 MCV 90.8 FL 81-99 [facility] # 1.02 x10^3 0.0-0.8 [facility] % 15.1 % 1.0-9.0 MPV 11.3 FL 6.0-10.0 Platelet 275 x10^3 150-400 RBC 4.65 x10^3 4.20-5.40 RDW 12.6 % 12-15 WBC 6.77 x10^3 4.8-10.8 Baso # 0.03 x10^3 0-0.2 Baso % 0.4 % 0-2 Neut % 51.8 % 50-70 Neut # 3.50 x10^3 3.0-7.0 TSH - 03/31/14 14:05 TSH < 0.03 UIUML 0.50-6.00 Free T4 - 03/31/14 15:04 Free T4 2.09 NG/DL 0.75-1.54 Free T3 - 04/01/14 08:32 Free T3 1.8 pg/mL 1.7-3.7 TSH - 07/03/14 13:59 TSH < 0.03 UIUML 0.50-6.00 Free T4 - 07/03/14 14:00 Free T4 4.69 NG/DL 0.75-1.54 TSH - 08/17/14 14:20 TSH < 0.03 UIUML 0.50-6.00 Free T4 - 08/17/14 14:20 Free T4 2.22 NG/DL 0.75-1.54 TSH - 09/17/14 09:10 TSH < 0.03 UIUML 0.50-6.00 Free T4 - 09/17/14 09:10 Free T4 1.23 NG/DL 0.75-1.54 TSH - 10/24/14 08:35 TSH < 0.03 UIUML 0.50-6.00 Free T4 - 10/24/14 08:35 Free T4 1.35 NG/DL 0.75-1.54 Basic Metabolic Panel - 05/18/15 11:31 Sodium 144 MMOLL 134-145 Potassium 4.5 MMOLL 3.6-5.0 Chloride 104 MMOLL 98-107 CO2 27 MMOLL 22-30 Glucose 125 MG/DL 75-110 BUN 17 MG/DL 9-20 Creatinine 1.23 MG/DL 0.8-1.7 Calcium 8.8 MG/DL 8.4-10.2 CBC - 05/18/15 11:31 Eos # 0.40 x10^3 0-0.5 Eos % 5.8 % 0-4 HCT 39.7 % 37.0-47.0 HGB 12.9 G/DL 12.0-16.0 Lymph # 2.40 x10^3 1.0-4.0 Lymph % 34.8 % 20-50 MCH 30.1 PG 27.0-31.0 MCHC 32.5 G/DL 32.0-36.0 MCV 92.5 FL 81-99 [facility] # 0.81 x10^3 0.0-0.8 [facility] % 11.7 % 1.0-9.0 MPV 12.2 FL 6.0-10.0 Platelet 257 x10^3 150-400 RBC 4.29 x10^3 4.20-5.40 RDW 13.3 % 12-15 WBC 6.90 x10^3 4.8-10.8 Baso # 0.04 x10^3 0-0.2 Baso % 0.6 % 0-2 Neut % 47.1 % 50-70 Neut # 3.25 x10^3 3.0-7.0 Sed Rate (ESR) - 09/17/15 08:34 Sed Rate (ESR) 29 MM/hr 0-20 Basic Metabolic Panel - 12/13/15 16:18 Sodium 139 MMOLL 134-145 Potassium 4.2 MMOLL 3.6-5.0 Chloride 101 MMOLL 98-107 CO2 29 MMOLL 22-30 Glucose 98 MG/DL 75-110 BUN 11 MG/DL 9-20 Creatinine .80 MG/DL 0.8-1.7 Calcium 9.0 MG/DL 8.4-10.2 EGFR 73 MLMIN TSH - 12/13/15 22:36 TSH 4.82 UIUML 0.50-6.00 Amylase - 12/21/15 15:09 Amylase 66 U/L 30-110 Comprehensive Metabolic Panel - 12/21/15 15:09 Sodium 140 MMOLL 134-145 Potassium 3.9 MMOLL 3.6-5.0 Chloride 102 MMOLL 98-107 CO2 29 MMOLL 22-30 Glucose 86 MG/DL 75-110 BUN 11 MG/DL 9-20 Creatinine .71 MG/DL 0.8-1.7 Calcium 9.1 MG/DL 8.4-10.2 T Bili .6 MG/DL 0.2-1.3 T. Protein 7.3 G/DL 6.3-8.2 A/G Ratio 1.0 RATIO Albumin 3.7 G/DL 3.5-5.0 Alk Phos 65 U/L 38-126 ALT 26 U/L 11-66 AST 29 U/L 14-36 EGFR 84 MLMIN Lipase - 12/21/15 15:09 Lipase 190 MG/DL 23-300 CBC - 12/21/15 15:10 Eos # 0.28 x10^3 0-0.5 Eos % 3.7 % 0-4 HCT 40.4 % 37.0-47.0 HGB 13.2 G/DL 12.0-16.0 Lymph # 2.24 x10^3 1.0-4.0 Lymph % 29.8 % 20-50 MCH 29.4 PG 27.0-31.0 MCHC 32.7 G/DL 32.0-36.0 MCV 90.0 FL 81-99 [facility] # 1.18 x10^3 0.0-0.8 [facility] % 15.7 % 1.0-9.0 MPV 10.5 FL 6.0-10.0 Platelet 307 x10^3 150-400 RBC 4.49 x10^3 4.20-5.40 RDW 13.0 % 12-15 WBC 7.51 x10^3 4.8-10.8 Baso # 0.05 x10^3 0-0.2 Baso % 0.7 % 0-2 Neut % 50.1 % 50-70 Neut # 3.76 x10^3 3.0-7.0 CBC - 02/09/16 11:50 Eos # 0.04 x10^3 0-0.5 Eos % 1.1 % 0-4 HCT 37.8 % 37.0-47.0 HGB 12.7 G/DL 12.0-16.0 Lymph # 0.75 x10^3 1.0-4.0 Lymph % 20.4 % 20-50 MCH 29.5 PG 27.0-31.0 MCHC 33.6 G/DL 32.0-36.0 MCV 87.7 FL 81-99 [facility] # 0.07 x10^3 0.0-0.8 [facility] % 1.9 % 1.0-9.0 MPV 10.5 FL 6.0-10.0 Platelet 169 x10^3 150-400 RBC 4.31 x10^3 4.20-5.40 RDW 14.7 % 12-15 WBC 3.68 x10^3 4.8-10.8 Baso # 0.01 x10^3 0-0.2 Baso % 0.3 % 0-2 Neut % 76.3 % 50-70 Neut # 2.81 x10^3 3.0-7.0 Comprehensive Metabolic Panel - 02/09/16 12:52 Sodium 132 MMOLL 134-145 Potassium 4.2 MMOLL 3.6-5.0 Chloride 97 MMOLL 98-107 CO2 32 MMOLL 22-30 Glucose 138 MG/DL 75-110 BUN 22 MG/DL 9-20 Creatinine .64 MG/DL 0.8-1.7 Calcium 8.7 MG/DL 8.4-10.2 T Bili 1.1 MG/DL 0.2-1.3 T. Protein 5.7 G/DL 6.3-8.2 A/G Ratio 1.0 RATIO Albumin 2.9 G/DL 3.5-5.0 Alk Phos 80 U/L 38-126 ALT 78 U/L 11-66 AST 52 U/L 14-36 EGFR 95 MLMIN Uric Acid - 02/09/16 11:50 Uric Acid 2.1 MG/DL 3.5-8.5 CBC - 02/22/16 11:53 Eos # 0.04 x10^3 0-0.5 Eos % 0.8 % 0-4 HCT 32.0 % 37.0-47.0 HGB 10.0 G/DL 12.0-16.0 Lymph # 0.79 x10^3 1.0-4.0 Lymph % 15.7 % 20-50 MCH 29.5 PG 27.0-31.0 MCHC 31.3 G/DL 32.0-36.0 MCV 94.4 FL 81-99 [facility] # 1.06 x10^3 0.0-0.8 [facility] % 21.0 % 1.0-9.0 MPV 10.1 FL 6.0-10.0 Platelet 394 x10^3 150-400 RBC 3.39 x10^3 4.20-5.40 RDW 17.1 % 12-15 WBC 5.04 x10^3 4.8-10.8 Baso # 0.05 x10^3 0-0.2 Baso % 1.0 % 0-2 Neut % 61.5 % 50-70 Neut # 3.10 x10^3 3.0-7.0 Uric Acid - 02/22/16 11:54 Uric Acid 2.5 MG/DL 3.5-8.5 TSH - 02/22/16 12:07 TSH 9.16 UIUML 0.50-6.00 CBC with Manual Diff - 03/06/16 16:52 Eos 2.0 Eos # 0.11 x10^3 0-0.5 Eos % 3.0 % 0-4 HCT 33.9 % 37.0-47.0 HGB 10.9 G/DL 12.0-16.0 Lymph 18.0 Lymph # 0.69 x10^3 1.0-4.0 Lymph % 18.9 % 20-50 MCH 29.8 PG 27.0-31.0 MCHC 32.2 G/DL 32.0-36.0 MCV 92.6 FL 81-[address] [facility] [address] [facility] # 0.05 x10^3 0.0-0.8 [facility] % 1.4 % 1.0-9.0 MPV 9.5 FL 6.0-10.0 Platelet 349 x10^3 150-400 RBC 3.66 x10^3 4.20-5.40 RDW 16.5 % 12-15 Seg 76.0 WBC 3.66 x10^3 4.8-10.8 Baso 1.0 Baso # 0.02 x10^3 0-0.2 Baso % 0.5 % 0-2 Neut % 76.2 % 50-70 Neut # 2.79 x10^3 3.0-7.0 Comprehensive Metabolic Panel - 03/06/16 16:40 Sodium 136 MMOLL 134-145 Potassium 4.4 MMOLL 3.6-5.0 Chloride 97 MMOLL 98-107 CO2 35 MMOLL 22-30 Glucose 117 MG/DL 75-110 BUN 15 MG/DL 9-20 Creatinine .75 MG/DL 0.8-1.7 Calcium 8.6 MG/DL 8.4-10.2 T Bili .6 MG/DL 0.2-1.3 T. Protein 6.5 G/DL 6.3-8.2 A/G Ratio 1.1 RATIO Albumin 3.4 G/DL 3.5-5.0 Alk Phos 64 U/L 38-126 ALT 25 U/L 11-66 AST 37 U/L 14-36 EGFR 79 MLMIN LDH - 03/06/16 16:40 LDH 4194 U/L 313-618 CBC with Manual Diff - 03/17/16 17:45 Eos 2.0 Eos # 0.07 x10^3 0-0.5 Eos % 3.3 % 0-4 HCT 28.8 % 37.0-47.0 HGB 9.4 G/DL 12.0-16.0 Hypochromic 1+ Immature Cell 6.0 Lymph 30.0 Lymph # 0.84 x10^3 1.0-4.0 Lymph % 39.3 % 20-50 Macrocytes 1+ MCH 29.9 PG 27.0-31.0 MCHC 32.6 G/DL 32.0-36.0 MCV 91.7 FL 81-[address] [facility] [address] [facility] # 0.69 x10^3 0.0-0.8 [facility] % 32.2 % 1.0-9.0 MPV 9.6 FL 6.0-10.0 Platelet 158 x10^3 150-400 RBC 3.14 x10^3 4.20-5.40 RDW 16.0 % 12-15 Seg 30.0 WBC 2.14 x10^3 4.8-10.8 Lymph Atypical 2.0 Anisocytosis 1+ Bands 2.0 Baso # 0.02 x10^3 0-0.2 Baso % 0.9 % 0-2 Neut % 24.3 % 50-70 Neut # 0.52 x10^3 3.0-7.0 Comprehensive Metabolic Panel - 04/03/16 13:53 Sodium 125 MMOLL 134-145 Potassium 3.9 MMOLL 3.6-5.0 Chloride 88 MMOLL 98-107 CO2 31 MMOLL 22-30 Glucose 87 MG/DL 75-110 BUN 6 MG/DL 9-20 Creatinine .57 MG/DL 0.8-1.7 Calcium 8.4 MG/DL 8.4-10.2 T Bili .4 MG/DL 0.2-1.3 T. Protein 6.7 G/DL 6.3-8.2 A/G Ratio 1.2 RATIO Albumin 3.6 G/DL 3.5-5.0 Alk Phos 71 U/L 38-126 ALT 23 U/L 11-66 AST 35 U/L 14-36 EGFR 109 MLMIN CBC with Manual Diff - 04/03/16 14:20 Eos # 0.02 x10^3 0-0.5 Eos % 1.4 % 0-4 HCT 27.5 % 37.0-47.0 HGB 9.1 G/DL 12.0-16.0 Immature Cell 2.0 Lymph 44.0 Lymph # 0.63 x10^3 1.0-4.0 Lymph % 43.8 % 20-50 Macrocytes Sl. MCH 30.3 PG 27.0-31.0 MCHC 33.1 G/DL 32.0-36.0 MCV 91.7 FL 81-99 [address] 1+ [facility] 18.[facility] # 0.22 x10^3 0.0-0.8 [facility] % 15.3 % 1.0-9.0 MPV 9.9 FL 6.0-10.0 Platelet 139 x10^3 150-400 RBC 3.00 x10^3 4.20-5.40 RDW 16.9 % 12-15 Seg 26.0 WBC 1.44 x10^3 4.8-10.8 Anisocytosis 1+ Bands 4.0 Baso 6.0 Baso # 0.05 x10^3 0-0.2 Baso % 3.5 % 0-2 Neut % 36.0 % 50-70 Neut # 0.52 x10^3 3.0-7.0 Basic Metabolic Panel - 04/12/16 14:10 Sodium 125 MMOLL 134-145 Potassium 3.9 MMOLL 3.6-5.0 Chloride 87 MMOLL 98-107 CO2 28 MMOLL 22-30 Glucose 132 MG/DL 75-110 BUN 10 MG/DL 9-20 Creatinine .62 MG/DL 0.8-1.7 Calcium 9.4 MG/DL 8.4-10.2 EGFR 99 MLMIN Basic Metabolic Panel - 04/13/16 14:41 Sodium 129 MMOLL 134-145 Potassium 3.9 MMOLL 3.6-5.0 Chloride 90 MMOLL 98-107 CO2 33 MMOLL 22-30 Glucose 85 MG/DL 75-110 BUN 11 MG/DL 9-20 Creatinine .71 MG/DL 0.8-1.7 Calcium 9.2 MG/DL 8.4-10.2 EGFR 84 MLMIN CBC - 04/13/16 14:51 Eos # 0.03 x10^3 0-0.5 Eos % 0.3 % 0-4 HCT 26.3 % 37.0-47.0 HGB 8.7 G/DL 12.0-16.0 Lymph # 1.00 x10^3 1.0-4.0 Lymph % 11.6 % 20-50 MCH 31.1 PG 27.0-31.0 MCHC 33.1 G/DL 32.0-36.0 MCV 93.9 FL 81-99 [facility] # 2.81 x10^3 0.0-0.8 [facility] % 32.7 % 1.0-9.0 MPV 8.7 FL 6.0-10.0 Platelet 460 x10^3 150-400 RBC 2.80 x10^3 4.20-5.40 RDW 19.8 % 12-15 WBC 8.60 x10^3 4.8-10.8 Baso # 0.04 x10^3 0-0.2 Baso % 0.5 % 0-2 Neut % 54.9 % 50-70 Neut # 4.72 x10^3 3.0-7.0 Basic Metabolic Panel - 04/14/16 14:35 Sodium 134 MMOLL 134-145 Potassium 3.8 MMOLL 3.6-5.0 Chloride 94 MMOLL 98-107 CO2 32 MMOLL 22-30 Glucose 89 MG/DL 75-110 BUN 12 MG/DL 9-20 Creatinine .68 MG/DL 0.8-1.7 Calcium 9.1 MG/DL 8.4-10.2 EGFR 89 MLMIN Basic Metabolic Panel - 05/01/16 12:50 Sodium 132 MMOLL 134-145 Potassium 3.6 MMOLL 3.6-5.0 Chloride 95 MMOLL 98-107 CO2 32 MMOLL 22-30 Glucose 128 MG/DL 75-110 BUN 9 MG/DL 9-20 Creatinine .55 MG/DL 0.8-1.7 Calcium 8.0 MG/DL 8.4-10.2 EGFR 113 MLMIN CBC with Manual Diff - 05/01/16 14:04 Eos 7.0 Eos # 0.07 x10^3 0-0.5 Eos % 6.9 % 0-4 HCT 23.7 % 37.0-47.0 HGB 7.7 G/DL 12.0-16.0 Hypochromic 1+ Immature Cell 5.0 Lymph 54.0 Lymph # 0.51 x10^3 1.0-4.0 Lymph % 50.5 % 20-50 MCH 31.2 PG 27.0-31.0 MCHC 32.5 G/DL 32.0-36.0 MCV 96.0 FL 81-[address] [facility] [address]0 [facility] # 0.19 x10^3 0.0-0.8 [facility] % 18.8 % 1.0-9.0 MPV 11.5 FL 6.0-10.0 Nucleated RBC 1 Platelet 37 x10^3 150-400 Poikilocytosis 2+ RBC 2.47 x10^3 4.20-5.40 RDW 18.2 % 12-15 Seg 23.0 WBC 1.01 x10^3 4.8-10.8 Anisocytosis 2+ Bands 4.0 Baso # 0.02 x10^3 0-0.2 Baso % 2.0 % 0-2 Neut % 21.8 % 50-70 Neut # 0.22 x10^3 3.0-7.0 TSH - 05/01/16 14:07 TSH 5.86 UIUML 0.50-6.00 CBC - 05/02/16 13:51 Eos # 0.09 x10^3 0-0.5 Eos % 7.1 % 0-4 HCT 22.3 % 37.0-47.0 HGB 7.4 G/DL 12.0-16.0 Lymph # 0.67 x10^3 1.0-4.0 Lymph % 52.8 % 20-50 MCH 31.5 PG 27.0-31.0 MCHC 33.2 G/DL 32.0-36.0 MCV 94.9 FL 81-99 [facility] # 0.36 x10^3 0.0-0.8 [facility] % 28.3 % 1.0-9.0 MPV 11.8 FL 6.0-10.0 Platelet 46 x10^3 150-400 RBC 2.35 x10^3 4.20-5.40 RDW 17.9 % 12-15 WBC 1.27 x10^3 4.8-10.8 Baso # 0.01 x10^3 0-0.2 Baso % 0.8 % 0-2 Neut % 11.0 % 50-70 Neut # 0.14 x10^3 3.0-7.0 Basic Metabolic Panel - 05/02/16 13:52 Sodium 129 MMOLL 134-145 Potassium 3.9 MMOLL 3.6-5.0 Chloride 93 MMOLL 98-107 CO2 32 MMOLL 22-30 Glucose 99 MG/DL 75-110 BUN 8 MG/DL 9-20 Creatinine .54 MG/DL 0.8-1.7 Calcium 7.9 MG/DL 8.4-10.2 EGFR 115 MLMIN CBC - 05/03/16 11:18 Eos # 0.10 x10^3 0-0.5 Eos % 6.5 % 0-4 HCT 24.0 % 37.0-47.0 HGB 7.9 G/DL 12.0-16.0 Lymph # 0.61 x10^3 1.0-4.0 Lymph % 39.9 % 20-50 MCH 31.5 PG 27.0-31.0 MCHC 32.9 G/DL 32.0-36.0 MCV 95.6 FL 81-99 [facility] # 0.47 x10^3 0.0-0.8 [facility] % 30.7 % 1.0-9.0 MPV 11.2 FL 6.0-10.0 Platelet 53 x10^3 150-400 RBC 2.51 x10^3 4.20-5.40 RDW 18.1 % 12-15 WBC 1.53 x10^3 4.8-10.8 Baso # 0.00 x10^3 0-0.2 Baso % 0.0 % 0-2 Neut % 22.9 % 50-70 Neut # 0.35 x10^3 3.0-7.0 Basic Metabolic Panel - 05/03/16 11:25 Sodium 125 MMOLL 134-145 Potassium 3.8 MMOLL 3.6-5.0 Chloride 89 MMOLL 98-107 CO2 30 MMOLL 22-30 Glucose 101 MG/DL 75-110 BUN 7 MG/DL 9-20 Creatinine .52 MG/DL 0.8-1.7 Calcium 8.2 MG/DL 8.4-10.2 EGFR 120 MLMIN Basic Metabolic Panel - 05/04/16 09:58 Sodium 120 MMOLL 134-145 Potassium 3.6 MMOLL 3.6-5.0 Chloride 85 MMOLL 98-107 CO2 29 MMOLL 22-30 Glucose 119 MG/DL 75-110 BUN 6 MG/DL 9-20 Creatinine .57 MG/DL 0.8-1.7 Calcium 7.9 MG/DL 8.4-10.2 EGFR 108 MLMIN CBC - 05/04/16 09:58 Eos # 0.10 x10^3 0-0.5 Eos % 3.1 % 0-4 HCT 24.4 % 37.0-47.0 HGB 8.0 G/DL 12.0-16.0 Lymph # 0.80 x10^3 1.0-4.0 Lymph % 25.2 % 20-50 MCH 31.4 PG 27.0-31.0 MCHC 32.8 G/DL 32.0-36.0 MCV 95.7 FL 81-99 [facility] # 0.87 x10^3 0.0-0.8 [facility] % 27.4 % 1.0-9.0 MPV 11.6 FL 6.0-10.0 Platelet 84 x10^3 150-400 RBC 2.55 x10^3 4.20-5.40 RDW 18.8 % 12-15 WBC 3.18 x10^3 4.8-10.8 Baso # 0.01 x10^3 0-0.2 Baso % 0.3 % 0-2 Neut % 44.0 % 50-70 Neut # 1.40 x10^3 3.0-7.0 Basic Metabolic Panel - 05/05/16 13:51 Sodium 120 MMOLL 134-145 Potassium 3.3 MMOLL 3.6-5.0 Chloride 85 MMOLL 98-107 CO2 30 MMOLL 22-30 Glucose 119 MG/DL 75-110 BUN 6 MG/DL 9-20 Creatinine .61 MG/DL 0.8-1.7 Calcium 7.8 MG/DL 8.4-10.2 EGFR 100 MLMIN CBC - 05/05/16 14:27 Eos # 0.30 x10^3 0-0.5 Eos % 1.8 % 0-4 HCT 25.1 % 37.0-47.0 HGB 8.3 G/DL 12.0-16.0 Lymph 13.0 MCH 31.6 PG 27.0-31.0 MCHC 33.1 G/DL 32.0-36.0 MCV 95.4 FL 81-[address] [facility] [address] # 3.22 x10^3 0.0-0.8 [facility] % 19.2 % 1.0-9.0 MPV 11.2 FL 6.0-10.0 Platelet 135 x10^3 150-400 Poikilocytosis 2+ RBC 2.63 x10^3 4.20-5.40 RDW 19.4 % 12-15 Seg 46.0 WBC 16.80 x10^3 4.8-10.8 Anisocytosis 2+ Bands 23.0 Baso 1.0 Baso # 0.02 x10^3 0-0.2 Baso % 0.1 % 0-2 Polychromatic 1+ CBC - 05/06/16 11:32 Eos 1.0 Eos # 0.23 x10^3 0-0.5 Eos % 0.7 % 0-4 HCT 24.2 % 37.0-47.0 HGB 7.9 G/DL 12.0-16.0 Immature Cell 12.0 Lymph 8.0 Macrocytes Sl. MCH 31.5 PG 27.0-31.0 MCHC 32.6 G/DL 32.0-36.0 MCV 96.4 FL 81-99 [address] 1+ [facility] 17.0 MPV 10.1 FL 6.0-10.0 Platelet 183 x10^3 150-400 RBC 2.51 x10^3 4.20-5.40 RDW 20.1 % 12-15 Seg 54.0 WBC 33.68 x10^3 4.8-10.8 Anisocytosis 2+ Bands 8.0 Baso # 0.01 x10^3 0-0.2 Baso % 0.0 % 0-2 Basophilic St[address]ling Sl. Basic Metabolic Panel - 05/06/16 11:09 Sodium 123 MMOLL 134-145 Potassium 3.2 MMOLL 3.6-5.0 Chloride 87 MMOLL 98-107 CO2 29 MMOLL 22-30 Glucose 115 MG/DL 75-110 BUN 8 MG/DL 9-20 Creatinine .68 MG/DL 0.8-1.7 Calcium 7.7 MG/DL 8.4-10.2 EGFR 88 MLMIN Basic Metabolic Panel - 05/19/16 11:25 Sodium 135 MMOLL 134-145 Potassium 3.9 MMOLL 3.6-5.0 Chloride 94 MMOLL 98-107 CO2 33 MMOLL 22-30 Glucose 119 MG/DL 75-110 BUN 20 MG/DL 9-20 Creatinine .69 MG/DL 0.8-1.7 Calcium 8.7 MG/DL 8.4-10.2 EGFR 87 MLMIN CBC - 05/19/16 12:52 Eos 2.0 Eos # 0.01 x10^3 0-0.5 Eos % 0.8 % 0-4 Differential Comments STOMATOCYTES SLIGHT HCT 24.6 % 37.0-47.0 HGB 7.9 G/DL 12.0-16.0 Hypochromic 2+ Lymph 40.0 Lymph # 0.46 x10^3 1.0-4.0 Lymph % 37.4 % 20-50 Macrocytes 1+ MCH 32.1 PG 27.0-31.0 MCHC 32.1 G/DL 32.0-36.0 MCV 100.0 FL 81-[address] [facility] [address] [facility] # 0.03 x10^3 0.0-0.8 [facility] % 2.4 % 1.0-9.0 MPV 9.6 FL 6.0-10.0 Platelet 192 x10^3 150-400 RBC 2.46 x10^3 4.20-5.40 RDW 19.4 % 12-15 Seg 50.0 WBC 1.23 x10^3 4.8-10.8 Anisocytosis 2+ Bands 2.0 Baso 4.0 Baso # 0.04 x10^3 0-0.2 Baso % 3.3 % 0-2 Neut % 56.1 % 50-70 Neut # 0.69 x10^3 3.0-7.0 CBC - 05/22/16 11:36 Eos # 0.02 x10^3 0-0.5 Eos % 2.0 % 0-4 HCT 22.2 % 37.0-47.0 HGB 7.0 G/DL 12.0-16.0 Lymph # 0.56 x10^3 1.0-4.0 Lymph % 56.0 % 20-50 MCH 32.0 PG 27.0-31.0 MCHC 31.5 G/DL 32.0-36.0 MCV 101.4 FL 81-99 [facility] # 0.05 x10^3 0.0-0.8 [facility] % 5.0 % 1.0-9.0 MPV 10.7 FL 6.0-10.0 Platelet 59 x10^3 150-400 RBC 2.19 x10^3 4.20-5.40 RDW 18.9 % 12-15 WBC 1.00 x10^3 4.8-10.8 Baso # 0.01 x10^3 0-0.2 Baso % 1.0 % 0-2 Neut % 36.0 % 50-70 Neut # 0.36 x10^3 3.0-7.0 Basic Metabolic Panel - 05/22/16 11:39 Sodium 139 MMOLL 134-145 Potassium 3.7 MMOLL 3.6-5.0 Chloride 100 MMOLL 98-107 CO2 31 MMOLL 22-30 Glucose 109 MG/DL 75-110 BUN 15 MG/DL 9-20 Creatinine .65 MG/DL 0.8-1.7 Calcium 8.2 MG/DL 8.4-10.2 EGFR 93 MLMIN CBC with Manual Diff - 05/26/16 14:50 Eos 1.0 Eos # 0.04 x10^3 0-0.5 Eos % 3.3 % 0-4 HCT 20.5 % 37.0-47.0 HGB 6.5 G/DL 12.0-16.0 Hypochromic 1+ Lymph 53.0 Lymph # 0.58 x10^3 1.0-4.0 Lymph % 47.9 % 20-50 MCH 31.9 PG 27.0-31.0 MCHC 31.7 G/DL 32.0-36.0 MCV 100.5 FL 81-[address] [facility] [address] # 0.40 x10^3 0.0-0.8 [facility] % 33.1 % 1.0-9.0 MPV 11.5 FL 6.0-10.0 Platelet 77 x10^3 150-400 RBC 2.04 x10^3 4.20-5.40 RDW 19.2 % 12-15 Seg 19.0 WBC 1.21 x10^3 4.8-10.8 Anisocytosis 1+ Bands 6.0 Baso 1.0 Baso # 0.00 x10^3 0-0.2 Baso % 0.0 % 0-2 Neut % 15.7 % 50-70 Neut # 0.19 x10^3 3.0-7.0 Basic Metabolic Panel - 05/26/16 14:15 Sodium 137 MMOLL 134-145 Potassium 3.3 MMOLL 3.6-5.0 Chloride 99 MMOLL 98-107 CO2 28 MMOLL 22-30 Glucose 113 MG/DL 75-110 BUN 12 MG/DL 9-20 Creatinine .66 MG/DL 0.8-1.7 Calcium 8.0 MG/DL 8.4-10.2 EGFR 91 MLMIN Type ([facility]) - 05/26/16 18:01 RH Type POS ABO Type A Antibody Screen - 05/26/16 18:01 Antibody Screen NEG Negative Crossmatch - 05/27/16 08:25 Unit [facility] APOS Unit # [id number] Unit Exp 06/02/2016 Crossmatch COMPAT Crossmatch - 05/27/16 08:26 Unit [facility] Unit # [id number] Unit Exp 06/02/2016 Crossmatch COMPAT CBC - 05/29/16 13:48 Eos # 0.06 x10^3 0-0.5 Eos % 3.1 % 0-4 HCT 33.5 % 37.0-47.0 HGB 11.0 G/DL 12.0-16.0 Lymph # 0.69 x10^3 1.0-4.0 Lymph % 35.6 % 20-50 MCH 30.5 PG 27.0-31.0 MCHC 32.8 G/DL 32.0-36.0 MCV 92.8 FL 81-99 [facility] # 1.07 x10^3 0.0-0.8 [facility] % 55.2 % 1.0-9.0 MPV 10.1 FL 6.0-10.0 Platelet 220 x10^3 150-400 RBC 3.61 x10^3 4.20-5.40 RDW 22.3 % 12-15 WBC 1.94 x10^3 4.8-10.8 Baso # 0.00 x10^3 0-0.2 Baso % 0.0 % 0-2 Neut % 6.1 % 50-70 Neut # 0.12 x10^3 3.0-7.0 Basic Metabolic Panel - 05/29/16 13:51 Sodium 134 MMOLL 134-145 Potassium 4.1 MMOLL 3.6-5.0 Chloride 94 MMOLL 98-107 CO2 29 MMOLL 22-30 Glucose 110 MG/DL 75-110 BUN 10 MG/DL 9-20 Creatinine .67 MG/DL 0.8-1.7 Calcium 8.6 MG/DL 8.4-10.2 EGFR 90 MLMIN CBC - 06/12/16 11:38 Eos # 0.02 x10^3 0-0.5 Eos % 2.0 % 0-4 HCT 32.1 % 37.0-47.0 HGB 10.4 G/DL 12.0-16.0 Lymph # 0.43 x10^3 1.0-4.0 Lymph % 42.6 % 20-50 MCH 30.2 PG 27.0-31.0 MCHC 32.4 G/DL 32.0-36.0 MCV 93.3 FL 81-99 [facility] # 0.04 x10^3 0.0-0.8 [facility] % 4.0 % 1.0-9.0 MPV 10.2 FL 6.0-10.0 Platelet 124 x10^3 150-400 RBC 3.44 x10^3 4.20-5.40 RDW 20.6 % 12-15 WBC 1.01 x10^3 4.8-10.8 Baso # 0.01 x10^3 0-0.2 Baso % 1.0 % 0-2 Neut % 50.4 % 50-70 Neut # 0.51 x10^3 3.0-7.0 Basic Metabolic Panel - 06/12/16 12:20 Sodium 137 MMOLL 134-145 Potassium 3.5 MMOLL 3.6-5.0 Chloride 94 MMOLL 98-107 CO2 31 MMOLL 22-30 Glucose 116 MG/DL 75-110 BUN 19 MG/DL 9-20 Creatinine .69 MG/DL 0.8-1.7 Calcium 8.0 MG/DL 8.4-10.2 EGFR 87 MLMIN Encounters ACCT No. Visit Date/Time Discharge Status Pt. Type Provider Facility Loc./Unit Complaint [id number] 01/17/2012 07:58:00 2011 20:35:00 DIS Outpatient Master GARCIA, [facility] PILAR
--- OUTSIDE RECORDS SUMMARY | 2016-06-16 18:11 | XMS REPORT ---
Author Author [facility]. Organization [facility] Address [address] [place] [address] Phone [phone] Summary purpose CCDA Sent to [facility] Chief Complaint and Reason for [...] Allergen Category Ingredient Status Reaction Severity Onset [place] Drug [place] Active Nausea Adolescence [place] Drug acetaminophen Active Nausea Adolescence [place] Drug hydrocodone Active Nausea Adolescence Immunizations No immunizations recorded for this patient visit Relevant diagnostic tests and/or laboratory data RESULTS CBC [id number]:15:00 Result Normal Range Units WBC LC 1.00 4.8-10.8 x103/mm3 RECHECKED AND CALLED TO 05/22/16 11:35 MAC Neutrophil % L 36.0 50-70 % Lymph % H 56.0 20-50 % [place] % 5.0 1.0-9.0 % Eosinophil % 2.0 0-4 % Basophil % 1.0 0-2 % Neutrophil # L 0.36 3.0-7.0 x103/mm3 Lymph # L 0.56 1.0-4.0 x103/mm3 [place] # 0.05 0.0-0.8 x103/mm3 Eosinophil # 0.02 0-0.5 x103/mm3 Basophil # 0.01 0-0.2 x103/mm3 RBC L 2.19 4.20-5.40 x103/mm3 HGB LC 7.0 12.0-16.0 g/dl RECHECKED AND CALLED TO 05/22/16 11:35 MAC HCT L 22.2 37.0-47.0 % MCV H 101.4 81-99 FL MCH H 32.0 27.0-31.0 pg MCHC L 31.5 32.0-36.0 g/dl RDW H 18.9 12-15 % Platelet L 59 150-400 x103/mm3 MPV H 10.7 6.0-10.0 FL Chemistry Group [id number]:00 Result Normal Range Units Sodium 139 134-145 mmol/L Potassium 3.7 3.6-5.0 mmol/L Chloride 100 98-107 mmol/L CO2 H 31 22-30 mmol/L Glucose 109 75-110 mg/dl BUN 15 9-20 mg/dl Creatinine L .65 0.8-1.7 mg/dl eGFR 93 ml/min. Calcium L 8.2 8.4-10.2 mg/dl History of procedures No procedures [...]
--- OUTSIDE RECORDS SUMMARY | 2016-06-16 18:12 | XMS REPORT | Referral Summary ---
Author Author [facility] Organization [facility] Address Unknown Phone Unavailable Care Team Providers Care Shelf Stocker Name Role Phone Arely Banerjee Primary Care Physician [phone] Encounter VC Date(s): 05/02/16 - 05/02/16 [facility] [address] [place] [address] JAZZMINE Gomez [address] Discharge Diagnosis: Post-operative state Discharge Disposition: 01-Home or Self Care Attending Physician: Sigrid Diaz APRN Admitting Physician: Sigrid Diaz APRN Referring Physician: Debby Banerjee MD Vital Signs Most recent to 1 oldest [Reference Range]: Temperature Tympanic 36.6 degC [36.6-38.1 degC] (05/02/16 11:09 AM) Problem List Condition Effective Dates Status Health [...] Procedures Procedure Date Related Diagnosis Body Site Insertion of implantable venous access port1 04/10/16 Laparoscopy with biopsy2 01/12/16 Colonoscopy normal3 12/2015 Nephrolithotomy for removal of calculus 12/2011 Esophagogastroduodenoscopy4 2009 Colonoscopy5 09/2006 Appendectomy 1982 Cholecystectomy6 1982 Laparotomy1978 Colonoscopy Cystoscopy and removal of calculus of bladder Dilatation and curettage 1Poorly differentiated lymphoma 2mesenteric lymph node biopsy, 3in [place] 4duodenitis 5diverticulosis and hemorrhoids, Dr. Banerjee 6open prcedure 7diagnostic laparotomy Social History Social History Type Response Smoking Status Never smoker Assessment and Plan Extracted from: Title: Office Visit Note Author: Sigrid Diaz PONY RIDE OPERATOR Date: 05/02/16 Assessment/Plan 1.Post-operative state Port site looks very good. Continue with oncology treatment through Dr. Mcdonald. If there is any concerns about the portshe will send you back to us. If any additional surgical needs arise we would be glad to see you back. Continue with general medical care through your primary care physician. Ordered: Postoperative Est [id number]
--- OUTSIDE RECORDS SUMMARY | 2016-06-16 18:12 | XMS REPORT ---
Author Author [facility]. Organization [facility] Address [address] [place] [address] Phone [phone] Summary purpose CCDA Sent to [facility] Chief Complaint and Reason for Visit [...] Allergen Category Ingredient Status Reaction Severity Onset [place] Drug [place] Active Nausea Adolescence [place] Drug acetaminophen Active Nausea Adolescence [place] Drug hydrocodone Active Nausea Adolescence Immunizations No immunizations recorded for this patient visit Relevant diagnostic tests and/or laboratory data RESULTS CBC [id number]:05:00 Result Normal Range Units WBC L 2.14 4.8-10.8 x103/mm3 Result Amended on 2016-03-17 at 17:46:19. Previous status was FR. Neutrophil % L 24.3 50-70 % Result Amended on 2016-03-17 at 17:46:19. Previous status was FR. Lymph % 39.3 20-50 % Result Amended on 2016-03-17 at 17:46:20. Previous status was FR. Lewis % H 32.2 1.0-9.0 % Result Amended on 2016-03-17 at 17:46:20. Previous status was FR. Eosinophil % 3.3 0-4 % Result Amended on 2016-03-17 at 17:46:20. Previous status was FR. Basophil % 0.9 0-2 % Result Amended on 2016-03-17 at 17:46:20. Previous status was FR. Neutrophil # L 0.52 3.0-7.0 x103/mm3 Result Amended on 2016-03-17 at 17:46:19. Previous status was FR. Lymph # L 0.84 1.0-4.0 x103/mm3 Result Amended on 2016-03-17 at 17:46:20. Previous status was FR. Lewis # 0.69 0.0-0.8 x103/mm3 Result Amended on 2016-03-17 at 17:46:20. Previous status was FR. Eosinophil # 0.07 0-0.5 x103/mm3 Result Amended on 2016-03-17 at 17:46:20. Previous status was FR. Basophil # 0.02 0-0.2 x103/mm3 Result Amended on 2016-03-17 at 17:46:20. Previous status was FR. RBC L 3.14 4.20-5.40 x103/mm3 Result Amended on 2016-03-17 at 17:46:20. Previous status was FR. HGB L 9.4 12.0-16.0 g/dl Result Amended on 2016-03-17 at 17:46:20. Previous status was FR. HCT L 28.8 37.0-47.0 % Result Amended on 2016-03-17 at 17:46:20. Previous status was FR. MCV 91.7 81-99 FL Result Amended on 2016-03-17 at 17:46:20. Previous status was FR. MCH 29.9 27.0-31.0 pg Result Amended on 2016-03-17 at 17:46:20. Previous status was FR. MCHC 32.6 32.0-36.0 g/dl Result Amended on 2016-03-17 at 17:46:20. Previous status was FR. RDW H 16.0 12-15 % Result Amended on 2016-03-17 at 17:46:20. Previous status was FR. Platelet 158 150-400 x103/mm3 Result Amended on 2016-03-17 at 17:46:20. Previous status was FR. MPV 9.6 6.0-10.0 FL Result Amended on 2016-03-17 at 17:46:20. Previous status was FR. Manual Differential :05:00 Result Normal Range Units Seg 30.0 Lymph 30.0 Lewis 28.0 Eos 2.0 Bands 2.0 Immature Cell 6.0 Lymph Atypical 2.0 Anisocytosis 1+ Hypochromic 1+ Macrocytes 1+ History of procedures No procedures recorded for [...]
--- OUTSIDE RECORDS SUMMARY | 2016-06-16 18:14 | XMS REPORT ---
Author [facility] Organization Unknown Address Unknown Phone Unavailable Care Team Providers Care Hunter Trapper Name Role Phone MD ROBERT, RODY [phone] Reason For Visit Chief Complaint HYPERTHYROIDISM Social [...]
--- OUTSIDE RECORDS SUMMARY | 2016-06-16 18:15 | XMS REPORT ---
Author Author [facility] Organization Unknown Address Unknown Phone Unavailable Care Team Providers Care Interlocking Pavement Installer Name Role Phone MD ROBERT, RODY [phone] Reason For Visit Chief Complaint HYPERTHYROIDISM Social [...]
--- OUTSIDE RECORDS SUMMARY | 2016-06-16 18:15 | XMS REPORT ---
Author Author [facility] Organization Unknown Address Unknown Phone Unavailable Care Team Providers Care Press Set Up Person Name Role Phone UNASSIGNED DOCTOR , DOCTOR PP [phone] Reason For Visit Chief Complaint HYPOTHYROID Social [...]
--- OUTSIDE RECORDS SUMMARY | 2016-06-16 18:17 | XMS REPORT | Continuity of Care Document ---
Author Author [facility] Organization [facility] Address Unknown Phone Unavailable Allergies Active Description Code Type Severity Reaction Onset Reported/Identified Relationship to Patient Clinical Status Yes acetaminophen 1605 Drug Allergy N/A N/A Confirmed or Verified Yes hydrocodone 1554 Drug Allergy N/A N/A Confirmed or Verified Yes [place] 63 Drug Allergy N/A Nausea 05/21/2015 Medications [...] W FRAG Master GARCIA, Bryan L 01/17/2012 [id number] COMPLETE CBC, AUTOMATED RODY BANERJEE MD 07/03/2013 07115 METABOLIC PANEL TOTAL CA JOSIAH HOWARD, CANDIDO L 03/31/2014 05096 ASSAY THYROID STIM HORMONE JOSIAH HOWARD, CANDIDO L 03/31/2014 98035 FREE ASSAY (FT-3) JOSIAH HOWARD, CANDIDO L 03/31/2014 95951 COMPLETE CBC, AUTOMATED JOSIAH HOWARD, CANDIDO L 03/31/2014 47648 ASSAY THYROID STIM HORMONE RODY BANERJEE MD 07/03/2014 91074 COMPREHEN METABOLIC PANEL EDGARDO BARRIGA MD 07/07/2014 74917 COMPLETE CBC, AUTOMATED EDGARDO BARRIGA MD 07/07/2014 17507 ASSAY THYROID STIM HORMONE ORDY BANERJEE MD 08/17/2014 02004 ASSAY THYROID STIM HORMONE RODY BANERJEE MD 09/16/2014 41449 ASSAY THYROID STIM HORMONE RODY BANERJEE MD 10/23/2014 35949 ASSAY THYROID STIM HORMONE RODY BANERJEE MD 12/25/2014 07481 FREE ASSAY (FT-3) RODY BANERJEE MD 12/25/2014 71199 METABOLIC PANEL TOTAL CA RODY BANERJEE MD 05/17/2015 51530 COMPLETE CBC, AUTOMATED RODY BANERJEE MD 05/17/2015 28740 DIAGNOSTIC COLONOSCOPY RODY BANERJEE MD 05/21/2015 08857 RBC SED RATE, RODY TOWNSEND MD 09/16/2015 46214 METABOLIC PANEL TOTAL CA RODY BANERJEE MD 12/13/2015 04722 ASSAY THYROID STIM HORMONE RODY BANERJEE MD 12/13/2015 21861 COMPREHEN METABOLIC PANEL RODY BANERJEE MD 12/21/2015 74855 ASSAY OF AMYLASE RODY BANERJEE MD 12/21/2015 57612 ASSAY OF LIPASE RODY BANERJEE MD 12/21/2015 89681 COMPLETE CBC, AUTOMATED RODY BANERJEE MD 12/21/2015 81499 COMPREHEN METABOLIC PANEL RODY BANERJEE MD 02/09/2016 32508 ASSAY OF BLOOD/URIC ACID RODY BANERJEE MD 02/09/2016 52594 COMPLETE CBC, AUTOMATED RODY BANERJEE MD 02/09/2016 74656 ASSAY THYROID STIM HORMONE RODY BANERJEE MD 02/22/2016 02463 ASSAY OF BLOOD/URIC ACID RODY BANERJEE MD 02/22/2016 55731 COMPLETE CBC, AUTOMATED RODY BANERJEE MD 02/22/2016 38182 COMPREHEN METABOLIC PANEL RODY BANERJEE MD 03/06/2016 71883 LACTATE (LD) (LDH) ENZYME RODY BANERJEE MD R 03/06/2016 80350 BL SMEAR W/DIFF WBC COUNT RODY BANERJEE MD 03/06/2016 63639 BL SMEAR W/DIFF WBC COUNT RAJENDRA PRESCOTT MD 03/17/2016 07204 COMPREHEN METABOLIC PANEL RODY BANERJEE MD R 04/03/2016 05053 BL SMEAR W/DIFF WBC COUNT RODY BANERJEE MD R 04/03/2016 86336 METABOLIC PANEL TOTAL RODY MATHIAS MD R 04/12/2016 77724 METABOLIC PANEL TOTAL RODY MATHIAS MD R 04/13/2016 59832 COMPLETE CBC, OPAL BANERJEE MD, RODY R 04/13/2016 62876 METABOLIC PANEL TOTAL RONALD PRESCOTT MD, RAJENDRA W 04/14/2016 56637 METABOLIC PANEL TOTAL RONALD PRESCOTT MD, RAJENDRA Webb 05/01/2016 08633 ASSAY THYROID STIM HORMONE RAJENDRA PRESCOTT MD 05/01/2016 81074 BL SMEAR W/DIFF WBC COUNT GENIE GARCIA, RAJENDRA Webb 05/01/2016 62430 METABOLIC PANEL TOTAL RONALD BANERJEE MD, RODY R 05/02/2016 97292 COMPLETE CBC, OPAL BANERJEE MD, RODY Mcgee 05/02/2016 92839 METABOLIC PANEL TOTAL CA ROBERT GARCIA, RODY R 05/03/2016 06064 COMPLETE CBC, AUTOMATED ROBERT GARCIA, RODY R 05/03/2016 48445 METABOLIC PANEL TOTAL CA ROBERT GARCIA, RODY R 05/04/2016 33978 COMPLETE CBC, AUTOMATED ROBERT GARCIA, RODY R 05/04/2016 84649 METABOLIC PANEL TOTAL CA ROBERT GARCIA, RODY R 05/05/2016 79134 COMPLETE CBC, AUTOMATED ROBERT GARCIA, RODY R 05/05/2016 46461 METABOLIC PANEL TOTAL CA GENIE GARCIA, RAJENRDA W 05/06/2016 66153 COMPLETE CBC, AUTOMATED GENIE GARCIA, RAJENDRA W 05/06/2016 47219 METABOLIC PANEL TOTAL CA SHERRI GARCIA, KAYA I 05/19/2016 17856 COMPLETE CBC, AUTOMATED SHERRI GARCIA, KAYA I 05/19/2016 53490 METABOLIC PANEL TOTAL CA ROBERT GARCIA, RODY R 05/22/2016 05057 COMPLETE CBC, AUTOMATED ROBERT GARCIA, RODY R 05/22/2016 67095 METABOLIC PANEL TOTAL CA ROBERT GARCIA, RODY R 05/26/2016 81276 BL SMEAR W/DIFF WBC COUNT ROBERT GARCIA, RODY R 05/26/2016 69956 BLOOD TYPING, RH (D) ROBERT GARCIA, RODY R 05/26/2016 15076 BLOOD TYPING, PATIENT SERUM ROBERT GARCIA, RODY R 05/26/2016 85600 COMPATIBILITY TEST, SPIN ROBERT AGRCIA, RODY R 05/26/2016 Results Test Result Range CBC - 01/17/12 [...] 33.0 G/DL 32.0-36.0 MCV 90.7 FL 81-99 [place] # 1.09 x10^3 0.0-0.8 [place] % 17.0 % 1.0-9.0 MPV 11.1 FL [...] 32.5 G/DL 32.0-36.0 MCV 90.8 FL 81-99 [place] # 1.02 x10^3 0.0-0.8 [place] % 15.1 % 1.0-9.0 MPV 11.3 FL [...] 32.5 G/DL 32.0-36.0 MCV 92.5 FL 81-99 [place] # 0.81 x10^3 0.0-0.8 [place] % 11.7 % 1.0-9.0 MPV 12.2 FL [...] 32.7 G/DL 32.0-36.0 MCV 90.0 FL 81-99 [place] # 1.18 x10^3 0.0-0.8 [place] % 15.7 % 1.0-9.0 MPV 10.5 FL [...] 33.6 G/DL 32.0-36.0 MCV 87.7 FL 81-99 [place] # 0.07 x10^3 0.0-0.8 [place] % 1.9 % 1.0-9.0 MPV 10.5 FL [...] 31.3 G/DL 32.0-36.0 MCV 94.4 FL 81-99 [place] # 1.06 x10^3 0.0-0.8 [place] % 21.0 % 1.0-9.0 MPV 10.1 FL [...] 32.2 G/DL 32.0-36.0 MCV 92.6 FL 81-99 [place] 3.0 [place] # 0.05 x10^3 0.0-0.8 [place] % 1.4 % 1.0-9.0 MPV 9.5 FL [...] 32.6 G/DL 32.0-36.0 MCV 91.7 FL 81-99 [place] 28.0 [place] # 0.69 x10^3 0.0-0.8 [place] % 32.2 % 1.0-9.0 MPV 9.6 FL [...] 32.0-36.0 MCV 91.7 FL 81-99 Microcytes 1+ Hendricks 18.0 [place] # 0.22 x10^3 0.0-0.8 [place] % 15.3 % 1.0-9.0 MPV 9.9 FL [...] 33.1 G/DL 32.0-36.0 MCV 93.9 FL 81-99 [place] # 2.81 x10^3 0.0-0.8 [place] % 32.7 % 1.0-9.0 MPV 8.7 FL [...] 32.5 G/DL 32.0-36.0 MCV 96.0 FL 81-99 [place]ricks 7.0 [place]ricks # 0.19 x10^3 0.0-0.8 [place] % 18.8 % 1.0-9.0 MPV 11.5 FL [...] 33.2 G/DL 32.0-36.0 MCV 94.9 FL 81-99 [place] # 0.36 x10^3 0.0-0.8 [place] % 28.3 % 1.0-9.0 MPV 11.8 FL [...] 32.9 G/DL 32.0-36.0 MCV 95.6 FL 81-99 [place] # 0.47 x10^3 0.0-0.8 [place] % 30.7 % 1.0-9.0 MPV 11.2 FL [...] 32.8 G/DL 32.0-36.0 MCV 95.7 FL 81-99 [place] # 0.87 x10^3 0.0-0.8 [place] % 27.4 % 1.0-9.0 MPV 11.6 FL [...] 33.1 G/DL 32.0-36.0 MCV 95.4 FL 81-99 [place]ricks 17.0 [place] # 3.22 x10^3 0.0-0.8 [place] % 19.2 % 1.0-9.0 MPV 11.2 FL [...] 32.0-36.0 MCV 96.4 FL 81-99 Microcytes 1+ [place] 17.0 MPV 10.1 FL 6.0-10.0 Platelet 183 [...] 32.1 G/DL 32.0-36.0 MCV 100.0 FL 81-99 [place]ricks 2.0 [place]ricks # 0.03 x10^3 0.0-0.8 [place] % 2.4 % 1.0-9.0 MPV 9.6 FL [...] 31.5 G/DL 32.0-36.0 MCV 101.4 FL 81-99 [place] # 0.05 x10^3 0.0-0.8 [place] % 5.0 % 1.0-9.0 MPV 10.7 FL [...] 31.7 G/DL 32.0-36.0 MCV 100.5 FL 81-99 Hendricks 20.0 Hendricks # 0.40 x10^3 0.0-0.8 [place] % 33.1 % 1.0-9.0 MPV 11.5 FL [...] 8.0 MG/DL 8.4-10.2 EGFR 91 MLMIN Type ([facility]) - 05/26/16 18:01 RH Type POS ABO Type A Antibody Screen - 05/26/16 18:01 Antibody Screen NEG Negative Crossmatch - 05/27/16 08:25 Unit [facility] Unit # [id number] Unit Exp 06/02/2016 Crossmatch COMPAT Crossmatch - 05/27/16 08:26 Unit [facility] Unit # [id number] Unit Exp 06/02/2016 Crossmatch COMPAT CBC - 05/29/16 13:48 Eos # 0.06 x10^3 0-0.5 Eos % 3.1 % 0-4 HCT 33.5 % 37.0-47.0 HGB 11.0 G/DL 12.0-16.0 Lymph # 0.69 x10^3 1.0-4.0 Lymph % 35.6 % 20-50 MCH 30.5 PG 27.0-31.0 MCHC 32.8 G/DL 32.0-36.0 MCV 92.8 FL 81-99 [place] # 1.07 x10^3 0.0-0.8 Hendricks % 55.2 % 1.0-9.0 MPV 10.1 FL [...] 32.4 G/DL 32.0-36.0 MCV 93.3 FL 81-99 [place] # 0.04 x10^3 0.0-0.8 [place] % 4.0 % 1.0-9.0 MPV 10.2 FL [...] Status Pt. Type Provider Facility Loc./Unit Complaint [id number] 01/17/2012 07:58:00 2011 20:35:00 DIS Outpatient Master GARCIA, [facility] P[facility]
[2016-06-16] MEDS ORDERED: NORMAL SALINE 1,000 ML IV ONE (18:19)
[2016-06-16] MEDS ORDERED: LANS15TA3 PO (18:31)
[2016-06-16] MEDS ORDERED: ONDA8TAB12 PO (18:34)
[2016-06-16] MEDS ORDERED: LEVO500T88 PO (18:34)
[2016-06-16] MEDS ORDERED: LORA0.5T2 PO (18:34)
[2016-06-16] MEDS ORDERED: POTA20TA87 PO (18:36)
[2016-06-16] MEDS ORDERED: PRAM0.129 PO (18:36)
[2016-06-16] MEDS ORDERED: PROC10TA PO (18:36)
--- NOTE | 2016-06-16 18:36 | ERPDOC ---
Departure Disposition Decision Date: Jun 16, 2016 Disposition Decision Time: 19:32 Disposition: 02 TO [facility] Impression Impression Impression: Primary Impression: Adenocarcinoma Additional Impressions: Hematuria Pancytopenia Severity: Severe Condition: Improved Seen By: Physician only Referrals: RODY JONES MD (Family) Problems/Meds/Labs Reviewed?: Yes Medications reviewed and manag: Yes Follow up care ordered?: Yes Mental Status: Alert, Oriented HPI - Female General Chief Complaint: Female Urogenital Problems Stated Complaint: BLOOD IN URINE Time Seen by Provider: 18:04 Source: patient, family Exam Limitations: no limitations HPI - Female Initial Comments 61yo woman presents to the ER tonight for blood in her urine. Pt is currently being treated for an adenocarcinoma of unknown primary. Pt is on her 5th round of chemo; last dose was 1 week ago. Pt began to have blood in the urine tonight ; she called her oncologist's office (Dr. Lamberto Mcdonald), who recommended that pt present to the ER for further evaluation. Pt did have something similar following her first round of chemo. Occurred At: home Onset: Rapid Duration: 1-3 hrs Pain Scale: Now & Worst: 0/10 Activities at Onset: none Prior Genitourinary Problems: similar symptoms Associated Symptoms: denies symptoms Hx of Similar Symptoms: Yes Is Pt now?: No Hx Last Menstrual Period: MENOPAUSAL Allergies: Coded Allergies: hydrocodone (Unverified Adverse Reaction, Unknown, NAUSEA, 04/10/16) Past History Patient Medical History (1) Adenocarcinoma Past Medical History Metabolic: gout, hypothyroidism GI: GERD, constipation Psychological: anxiety, depression Vaccines Hx Influenza Vaccination: Yes (Dec 2015) Hx Pneumococcal Vaccination: No Social History Does patient use chewing tobac: No Second Hand Exposure: No Substance Use Type: does not use Substance last used: unknown Last Drink: unknown Review of Systems General: hematuria All other Systems All Other Systems: Reviewed and Negative Physical Exam General General Nourishment: well nourished, well developed, appears stated age, no acute distress, adult General Body Habitus: well groomed Vitals and Pain First Documented Vital Signs Date Time Temp Pulse Resp B/P Pulse Ox O2 Delivery O2 Flow Rate FiO2 06/16/16 18:09 98.2 93 18 140/67 100 Room Air Weight: Kilograms: 69.300 Height (feet): 5 Height (inches): 7.00 Triage Pain Scale: RN VS reviewed by Provider: Yes Normal Exams: Head: Normocephalic w/o trauma Eyes: Pupils are PERRLA w/ EOMI, No scleral icterus, irritation ENMT: No facial trauma, nasal exudates, pharyngeal erythema Neck: Full range of motion, without adenopathy, JVD Lymphatic: No lymphadenopathy Musculoskeletal: No tenderness, or deformity noted Integumentary: No rashes, hives, or bruising noted Neurologic: Patient is alert, and oriented Psychiatric: Patient exhibits, appropriate attention Progress Results/Orders Orders Procedure Category Date Status Time Cbc W/Auto LAB 06/16/16 In Process Diff-Reflex Manual 18:19 Cmp - Comprehensive LAB 06/16/16 Complete Metabolic 18:19 Iv Lock (Ed Only) EDM 06/16/16 Transmitted 18:19 Normal Saline (Normal PHA 06/16/16 Complete Saline Iv) 18:19 Magnesium LAB 06/16/16 In Process Phosphorus LAB 06/16/16 Complete 18:19 UA, LAB 06/16/16 Complete Dip&Micro(Complete) & 18:19 INR LAB 06/16/16 Complete Implement/Maintain MEET 06/16/16 In Process Precautions 19:07 Place In Facility: ED ADM 06/16/16 Transmitted 19:17 Measure Vital Signs [facility] 06/16/16 In Process 19:17 Notify Adm Physician [facility] 06/16/16 In Process In Am 19:17 Give Platelet [facility] 06/16/16 Logged 10:27 Platelet Pack Izzy [facility] 06/16/16 In Process Irradiated 10:38 Abo/Rh Type [facility] 06/16/16 In Process 10:38 Lab Results Laboratory Tests Test 06/16/16 18:19 06/16/16 18:30 06/16/16 18:34 06/16/16 18:35 Urine Collection Type Cleancatch-midstream Urine Color Red Urine Turbidity Cloudy Urine pH 7.0 Urine Specific [place] 1.020 Urine Protein 2+ Urine Glucose (UA) Negative Urine Ketones Negative Urine Blood 3+ Urine Nitrite Negative Urine Bilirubin Negative Urine Urobilinogen 0.2EU/DL Urine Leukocyte Esterase Negative Urine RBC Tntc/HPF Urine WBC None seen/HPF Urine Bacteria Trace Urine Culture Indicated Cult not indicated Prothromb Time International Ratio 1.34 Turbidity < 20 Sodium Level 139MEQ/L Potassium Level 3.7MEQ/L Chloride Level 99MEQ/L Carbon Dioxide Level 30MEQ/L Anion Gap 10MEQ/L Blood Urea Nitrogen 19.0MG/DL Creatinine 0.6MG/DL Glomerular Filtration Rate Calc 102 BUN/Creatinine Ratio 32RATIO Glucose Level 117MG/DL Calculated Osmolality 271MOSM/KG Calcium Level 8.2MG/DL Phosphorus Level 2.7MG/DL Total Bilirubin 0.50MG/DL Icterus Index < 2 Aspartate Amino Transf (AST/SGOT) 55U/L Alanine Aminotransferase (ALT/SGPT) 43U/L Alkaline Phosphatase 59U/L Total Protein 6.4G/DL Albumin 3.4G/DL Globulin 3.0G/DL Albumin/Globulin Ratio 1.1RATIO Chemistry Specimen Hemolysis < 15 White Blood Count 1.0T/MM3 Red Blood Count 2.81M/MM3 Hemoglobin 8.3GM/DL Hematocrit 26.6% Mean Corpuscular Volume 94.7UM3 Mean Corpuscular Hemoglobin 29.5UUG Mean Corpuscular Hemoglobin Concent 31.2GM/DL RDW Standard Deviation 66.6FL Platelet Count 8T/MM3 Mean Platelet Volume UM3 Immature Granulocyte % (Auto) % Neutrophils (%) (Auto) % Lymphocytes (%) (Auto) % Monocytes (%) (Auto) % Eosinophils (%) (Auto) % Basophils (%) (Auto) % Absolute Immature Granulocyte (auto T/MM3 Absolute Neutrophils (auto) T/MM3 Absolute Lymphocytes (auto) T/MM3 Absolute Monocytes (auto) T/MM3 Absolute Eosinophils (auto) T/MM3 Absolute Basophils (auto) T/MM3 Neutrophils % (Manual) Pending Red Cell Morphology Comment Pending Magnesium Level Pending Medications Current ED Medications Sodium Chloride (Normal Saline IV) 1,000 ml @ 0 mls/hr Q0M ONCE IV Last administered on 06/16/16t 18:39; Start 06/16/16 at 18:19; Stop 06/16/16 at 18:22 ; Status DC Consult/PCP Consult/PCP #1: [facility] Time Called: 19:11 Time of first response: 19:15 Type of discussion: Phone Consult/PCP Discussion Details Will need leukoreduced and irradiated platelets. Will admit pt at this time. Requests that [facility] be notified of pts presence. Consult/PCP #2: Physician Contacted: Dr. Bowers (For Dr. Mcdonald) Time Called: 19:32 Time of first response: 19:36 Type of discussion: Phone Consult/PCP Discussion Details No further rec's at this time. Concurs with tx plan. Can be reached through hospital switchboard if needed. LEÓN NAVARRO DO Jun 16, 2016 18:36
[2016-06-16 18:39] LABS: BLOOD, URINE 3+ (NEGATIVE); COLOR,URINE RED (YELLOW); LEUKOCYTE ESTERASE ,URINE NEGATIVE (NEGATIVE); NITRITE,URINE NEGATIVE (NEGATIVE); UROBILINOGEN,URINE 0.2 EU/DL (NORMAL)
[2016-06-16 18:53] LABS: BACTERIA,URINE TRACE (NEGATIVE); RBC,URINE TNTC /HPF (0-3); WBC,URINE NONE SEEN /HPF (0-5)
[2016-06-16 19:04] LABS: HCT - HEMATOCRIT 26.6 % (36-46); HGB - HEMOGLOBIN 8.3 GM/DL (12-16); MEAN CORPUSCULAR HGB 29.5 UUG (26-34); MEAN CORPUSCULAR HGB CONC(MCHC 31.2 GM/DL (31-37); MEAN CORPUSCULAR VOLUME 94.7 UM3 (80-100); RED BLOOD COUNT 2.81 M/MM3 (4.00-5.20)
[2016-06-16 19:16] LABS: ALBUMIN 3.4 G/DL (3.5-5.0); ALBUMIN/GLOBULIN RATIO 1.1 RATIO (1.1-2.2); ALKALINE PHOSPHATASE 59 U/L (38-126); ALT (SGPT) 43 U/L (9-52); ANION GAP 10 MEQ/L (5-15); AST (SGOT) 55 U/L (14-36); BUN/CREATININE RATIO 32 RATIO (6-26); CALCIUM 8.2 MG/DL (8.4-10.2); CHLORIDE 99 MEQ/L (98-107); CO2 - CARBON DIOXIDE 30 MEQ/L (22-30); CREATININE 0.6 MG/DL (0.7-1.2); GLOMERULAR FILTRATION RATE 102; GLUCOSE 117 MG/DL (65-110); PHOSPHORUS 2.7 MG/DL (2.5-4.5); POTASSIUM 3.7 MEQ/L (3.6-5); SODIUM 139 MEQ/L (134-144); TOTAL PROTEIN 6.4 G/DL (6.3-8.2)
[2016-06-16 19:21] LABS: INR 1.34 (0.76-1.04); PROTHROMBIN TIME 14.6 SEC (9.31-12.49)
--- NOTE | 2016-06-16 19:21 | NUR ---
PROVIDER MAY IN TO SEE PATIENT.
[2016-06-16] MEDS ORDERED: OXYCODONE/APAP 5mg/325mg TABLET PO PRN (19:30)
[2016-06-16] MEDS ORDERED: NORMAL SALINE 1,000 ML IV SCH (19:31)
--- NOTE | 2016-06-16 19:31 | NUR ---
CONSENT PATIENT SIGNED CONSENT FOR TRANSFUSION.
--- OUTSIDE RECORDS SUMMARY | 2016-06-16 19:34 | XMS REPORT ---
Author Author GENERATED, SYSTEM Organization Unknown Address Unknown Phone Unavailable Care Team Providers Care Supervisor Slate Splitting Name Role Phone MD ROBERT, RODY [phone] Reason For Visit Chief Complaint HYPERTHYROIDISM Social [...]
--- OUTSIDE RECORDS SUMMARY | 2016-06-16 19:35 | XMS REPORT ---
Author Author GENERATED, SYSTEM Organization Unknown Address Unknown Phone Unavailable Care Team Providers Care In Home Tutor Name Role Phone MD ROBERT, RODY [phone] Reason For Visit Chief Complaint HYPERTHYROIDISM Social [...]
--- OUTSIDE RECORDS SUMMARY | 2016-06-16 19:36 | XMS REPORT ---
Author Author GENERATED, SYSTEM Organization Unknown Address Unknown Phone Unavailable Care Team Providers Care Electronics Computer Mechanic Name Role Phone UNASSIGNED DOCTOR , DOCTOR PP [phone] Reason For Visit Chief Complaint HYPOTHYROID Social [...]
--- OUTSIDE RECORDS SUMMARY | 2016-06-16 19:37 | XMS REPORT | Continuity of Care Document ---
Author Author [facility] Organization [facility] Address Unknown Phone Unavailable Allergies Active Description Code Type Severity Reaction Onset Reported/Identified Relationship to Patient Clinical Status Yes acetaminophen 1605 Drug Allergy N/A N/A Confirmed or Verified Yes hydrocodone 1554 Drug Allergy N/A N/A Confirmed or Verified Yes [place] 63 Drug Allergy N/A Nausea 05/21/2015 Medications Problems Date Dx Coded Attending Type Code Diagnosis Diagnosed By 01/17/2012 Bryan Thao MD 592.0 CALCULUS OF KIDNEY 07/03/2013 DEBBY BANERJEE MD 530.81 ESOPHAGEAL REFLUX 03/31/2014 CANDIDO ELLINGTON 785.1 PALPITATIONS 04/07/2014 Ot V76.12 04/07/2014 Debby Banerjee Ot V76.12 06/27/2014 ANJUM ARTEAGA V60.89 HOUSING/ECONOMIC PBX NEC 07/03/2014 DEBBY BANERJEE MD 242.00 TOX DIF GOITER NO CRISIS 07/07/2014 LINUS GARCIA, EDGARDO [place] 462 ACUTE PHARYNGITIS 07/07/2014 LINUS GARCIA, EDGARDO [place] 780.79 OTHER MALAISE & FATIGUE 08/17/2014 DEBBY BANERJEE MD 242.00 TOX DIF GOITER NO CRISIS 09/16/2014 DEBBY BANERJEE MD 242.00 TOX DIF GOITER NO CRISIS 10/23/2014 DEBBY BANERJEE MD 242.00 TOX DIF GOITER NO CRISIS 12/25/2014 DEBBY BANERJEE MD E05.00 Thyrotoxicosis w diffuse goiter w/o thyrotoxic crisis 05/17/2015 DEBBY BANERJEE MD E05.90 Thyrotoxicosis, unsp without thyrotoxic crisis or storm 05/21/2015 DEBBY BANERJEE MD K57.30 Dvrtclos of lg int w/o perforation or abscess w/o bleeding 05/21/2015 DEBBY BANERJEE MD Z12.11 Encounter for screening for malignant neoplasm of colon 05/21/2015 DEBBY BANERJEE MD Z80.0 Family history of malignant neoplasm of digestive organs 09/16/2015 DEBBY BANERJEE MD M25.539 Pain in unspecified wrist 09/16/2015 DEBBY BANERJEE MD M79.646 Pain in unspecified finger(s) 12/10/2015 Debby Banerjee Ot Z12.31 ENCNTR SCREEN MAMMOGRAM FOR MALIGNANT NE 12/13/2015 DEBBY BANERJEE MD E05.90 Thyrotoxicosis, unsp without thyrotoxic crisis or storm 12/13/2015 DEBBY BANERJEE MD R79.9 Abnormal finding of blood chemistry, unspecified 12/21/2015 DEBBY BANERJEE MD R10.11 Right upper quadrant pain 12/21/2015 DEBBY BANERJEE MD R10.12 Left upper quadrant pain 02/09/2016 DEBBY BANERJEE MD C85.90 Non-Hodgkin lymphoma, unspecified, unspecified site 02/22/2016 DEBBY BANERJEE MD C85.90 Non-Hodgkin lymphoma, unspecified, unspecified site 02/24/2016 Debby Banerjee Ot Z12.31 ENCNTR SCREEN MAMMOGRAM FOR MALIGNANT NE 03/06/2016 DEBBY BANERJEE MD C85.90 Non-Hodgkin lymphoma, unspecified, unspecified site 03/17/2016 DEBBY BANERJEE MD C85.90 Non-Hodgkin lymphoma, unspecified, unspecified site 04/03/2016 DEBBY BANERJEE MD C85.90 Non-Hodgkin lymphoma, unspecified, unspecified site 04/12/2016 DEBBY BANERJEE MD 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 04/12/2016 DEBBY BANERJEE MD C80.1 Malignant (primary) neoplasm, unspecified 04/12/2016 DEBBY BANERJEE MD C85.90 Non-Hodgkin lymphoma, unspecified, unspecified site 04/13/2016 DEBBY BANERJEE MD 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 04/13/2016 DEBBY BANERJEE MD C80.1 Malignant (primary) neoplasm, unspecified 04/13/2016 DEBBY BANERJEE MD C85.90 Non-Hodgkin lymphoma, unspecified, unspecified site 04/14/2016 DEBBY BANERJEE MD 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 04/14/2016 DEBBY BANERJEE MD C80.1 Malignant (primary) neoplasm, unspecified 04/14/2016 DEBBY BANERJEE MD C85.90 Non-Hodgkin lymphoma, unspecified, unspecified site 04/14/2016 DEBBY BANERJEE MD R10.11 Right upper quadrant pain 04/14/2016 DEBBY BANERJEE MD R10.12 Left upper quadrant pain 05/01/2016 DEBBY BANERJEE MD 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 05/01/2016 DEBBY BANERJEE MD C80.1 Malignant (primary) neoplasm, unspecified 05/01/2016 DEBBY BANERJEE MD C85.90 Non-Hodgkin lymphoma, unspecified, unspecified site 05/01/2016 DEBBY BANERJEE MD E03.9 Hypothyroidism, unspecified 05/02/2016 DEBBY BANERJEE MD 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 05/02/2016 DEBBY BANERJEE MD C80.1 Malignant (primary) neoplasm, unspecified 05/02/2016 DEBBY BANERJEE MD C85.90 Non-Hodgkin lymphoma, unspecified, unspecified site 05/02/2016 DEBBY BANERJEE MD E03.9 Hypothyroidism, unspecified 05/03/2016 DEBBY BANERJEE MD 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 05/04/2016 DEBBY BANERJEE MD 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 05/05/2016 DEBBY BANERJEE MD 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 05/06/2016 DEBBY BANERJEE MD 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 05/19/2016 DEBBY BANERJEE MD 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 05/19/2016 DEBBY BANERJEE MD C80.1 Malignant (primary) neoplasm, unspecified 05/22/2016 DEBBY BANERJEE MD C80.1 Malignant (primary) neoplasm, unspecified 05/26/2016 DEBBY BANERJEE MD 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 05/26/2016 DEBBY BANERJEE MD D64.81 Anemia due to antineoplastic chemotherapy 05/27/2016 RAJENDRA PRESCOTT MD 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 05/27/2016 RAJENDRA PRESCOTT MD D64.81 Anemia due to antineoplastic chemotherapy Procedures Code Description Performed By Performed On 55.01 NEPHROTOMY Master GARCIA, Bryan Figueroa 01/17/2012 55.04 PERCU NEPHROSTMY Bryan Jewell MD 01/17/2012 21330 COMPLETE CBC, AUTOMATED DEBBY BANERJEE MD 07/03/2013 71941 METABOLIC PANEL TOTAL CA JOSIAH HOWARD, CANDIDO L 03/31/2014 90471 ASSAY THYROID STIM HORMONE JOSIAH HOWARD, CANDIDO L 03/31/2014 81390 FREE ASSAY (FT-3) JOSIAH HOWARD, CANDIDO L 03/31/2014 52750 COMPLETE CBC, AUTOMATED JOSIAH HOWARD, CANDIDO L 03/31/2014 71120 ASSAY THYROID STIM HORMONE DEBBY BANERJEE MD 07/03/2014 60204 COMPREHEN METABOLIC PANEL EDGARDO BARRIGA MD 07/07/2014 95371 COMPLETE CBC, AUTOMATED EDGARDO BARRIGA MD 07/07/2014 07352 ASSAY THYROID STIM HORMONE DEBBY BANERJEE MD 08/17/2014 39055 ASSAY THYROID STIM HORMONE DEBBY BANERJEE MD 09/16/2014 60088 ASSAY THYROID STIM HORMONE DEBBY BANERJEE MD 10/23/2014 00496 ASSAY THYROID STIM HORMONE DEBBY BANERJEE MD 12/25/2014 84223 FREE ASSAY (FT-3) DEBBY BANERJEE MD 12/25/2014 46811 METABOLIC PANEL TOTAL CA JYOTI BANERJEE MDYN R 05/17/2015 29384 COMPLETE CBC, AUTOMATED ROBERT GARCIA, DEBBY R 05/17/2015 28857 DIAGNOSTIC COLONOSCOPY ROBERT GARCIA, DEBBY R 05/21/2015 05070 RBC SED RATE, DEBBY TOWNSEND MD R 09/16/2015 03142 METABOLIC PANEL TOTAL CA DEBBY BANERJEE MD R 12/13/2015 98706 ASSAY THYROID STIM HORMONE DEBBY BANERJEE MD 12/13/2015 76987 COMPREHEN METABOLIC PANEL DEBBY BANERJEE MD 12/21/2015 26232 ASSAY OF AMYLASE DEBBY BANERJEE MD 12/21/2015 67917 ASSAY OF LIPASE DEBBY BANERJEE MD 12/21/2015 68544 COMPLETE CBC, AUTOMATED DEBBY BANERJEE MD 12/21/2015 61887 COMPREHEN METABOLIC PANEL DEBBY BANERJEE MD 02/09/2016 01146 ASSAY OF BLOOD/URIC ACID DEBBY BANERJEE MD 02/09/2016 13962 COMPLETE CBC, DEBBY TOWNSEND MD 02/09/2016 24516 ASSAY THYROID STIM HORMONE DEBBY BANERJEE MD 02/22/2016 71053 ASSAY OF BLOOD/URIC ACID DEBBY BANERJEE MD R 02/22/2016 59243 COMPLETE CBC, DEBBY TOWNSEND MD R 02/22/2016 16131 COMPREHEN METABOLIC PANEL DEBBY BANERJEE MD 03/06/2016 98736 LACTATE (LD) (LDH) ENZYME DEBBY BANERJEE MD 03/06/2016 56551 BL SMEAR W/DIFF WBC COUNT DEBBY BANERJEE MD 03/06/2016 09169 BL SMEAR W/DIFF WBC COUNT RAJENDRA PRESCOTT MD 03/17/2016 87970 COMPREHEN METABOLIC PANEL DEBBY BANERJEE MD R 04/03/2016 36213 BL SMEAR W/DIFF WBC COUNT DEBBY BANERJEE MD 04/03/2016 23709 METABOLIC PANEL TOTAL DEBBY MATHIAS MD 04/12/2016 48099 METABOLIC PANEL TOTAL DEBBY MATHIAS MD 04/13/2016 50686 COMPLETE CBC, DEBBY TOWNSEND MD 04/13/2016 20149 METABOLIC PANEL TOTAL RAJENDRA SIMMONS MD 04/14/2016 09965 METABOLIC PANEL TOTAL CA GENIE GARCIA, RAJENDRA W 05/01/2016 03259 ASSAY THYROID STIM HORMONE GENIE GARCIA, RAJENDRA Webb 05/01/2016 48823 BL SMEAR W/DIFF WBC COUNT GENIE GARCIA, RAJENDRA Webb 05/01/2016 42492 METABOLIC PANEL TOTAL CA ROBERT GARCIA, DEBBY R 05/02/2016 35866 COMPLETE CBC, AUTOMATED ROBERT GARCIA, DEBBY R 05/02/2016 67257 METABOLIC PANEL TOTAL CA ROBERT GARCIA, DEBBY R 05/03/2016 22620 COMPLETE CBC, AUTOMATED ROBERT GARCIA, DEBBY R 05/03/2016 11224 METABOLIC PANEL TOTAL CA ROBERT GARCIA, DEBBY R 05/04/2016 92253 COMPLETE CBC, OPAL BANERJEE MD, DEBBY R 05/04/2016 41892 METABOLIC PANEL TOTAL CA ROBERT GARCIA, DEBBY R 05/05/2016 72199 COMPLETE CBC, OPAL BANERJEE MD, DEBBY R 05/05/2016 12058 METABOLIC PANEL TOTAL CA GENIE GARCIA, RAJENDRA W 05/06/2016 71157 COMPLETE CBC, AUTOMATED GENIE GARCIA, RAJENDRA W 05/06/2016 11340 METABOLIC PANEL TOTAL CA SHERRI GARCIA, KAYA I 05/19/2016 14966 COMPLETE CBC, AUTOMATED SHERRI GARCIA, KAYA I 05/19/2016 53931 METABOLIC PANEL TOTAL CA ROBERT GARCIA, DEBBY R 05/22/2016 72585 COMPLETE CBC, AUTOMATED ROBERT GARCIA, DEBBY R 05/22/2016 34447 METABOLIC PANEL TOTAL RONALD BANERJEE MD, DEBBY Mcgee 05/26/2016 15596 BL SMEAR W/DIFF WBC COUNT ROBERT GARCIA, DEBBY Mcgee 05/26/2016 29747 BLOOD TYPING, RH (D) ROBERT GARCIA, DEBBY Mcgee 05/26/2016 41031 BLOOD TYPING, PATIENT SERUM ROBERT GARCIA, DEBBY Mcgee 05/26/2016 86479 COMPATIBILITY TEST, SPIN ROBERT GARCIA, DEBBY Mcgee 05/26/2016 54893 BLOOD TRANSFUSION SERVICE ROBERT GARCIA, DEBBY Mcgee 05/27/2016 P9016 RBC LEUKOCYTES REDUCED ROBERT GARCIA, DEBBY Mcgee 05/27/2016 Results Test Result Range CBC - 01/17/12 [...] 33.0 G/DL 32.0-36.0 MCV 90.7 FL 81-99 [place] # 1.09 x10^3 0.0-0.8 [place] % 17.0 % 1.0-9.0 MPV 11.1 FL [...] 32.5 G/DL 32.0-36.0 MCV 90.8 FL 81-99 [place] # 1.02 x10^3 0.0-0.8 [place] % 15.1 % 1.0-9.0 MPV 11.3 FL [...] 32.5 G/DL 32.0-36.0 MCV 92.5 FL 81-99 [place] # 0.81 x10^3 0.0-0.8 [place] % 11.7 % 1.0-9.0 MPV 12.2 FL [...] 32.7 G/DL 32.0-36.0 MCV 90.0 FL 81-99 [place] # 1.18 x10^3 0.0-0.8 [place] % 15.7 % 1.0-9.0 MPV 10.5 FL [...] 33.6 G/DL 32.0-36.0 MCV 87.7 FL 81-99 [place] # 0.07 x10^3 0.0-0.8 [place] % 1.9 % 1.0-9.0 MPV 10.5 FL [...] 31.3 G/DL 32.0-36.0 MCV 94.4 FL 81-99 [place] # 1.06 x10^3 0.0-0.8 [place] % 21.0 % 1.0-9.0 MPV 10.1 FL [...] 32.2 G/DL 32.0-36.0 MCV 92.6 FL 81-99 [place] 3.0 [place] # 0.05 x10^3 0.0-0.8 [place] % 1.4 % 1.0-9.0 MPV 9.5 FL [...] 32.6 G/DL 32.0-36.0 MCV 91.7 FL 81-99 [place] 28.0 [place] # 0.69 x10^3 0.0-0.8 [place] % 32.2 % 1.0-9.0 MPV 9.6 FL [...] 32.0-36.0 MCV 91.7 FL 81-99 Microcytes 1+ [place] 18.0 [place] # 0.22 x10^3 0.0-0.8 [place] % 15.3 % 1.0-9.0 MPV 9.9 FL [...] 33.1 G/DL 32.0-36.0 MCV 93.9 FL 81-99 [place] # 2.81 x10^3 0.0-0.8 [place] % 32.7 % 1.0-9.0 MPV 8.7 FL [...] 32.5 G/DL 32.0-36.0 MCV 96.0 FL 81-99 [place] 7.0 [place] # 0.19 x10^3 0.0-0.8 [place] % 18.8 % 1.0-9.0 MPV 11.5 FL [...] 33.2 G/DL 32.0-36.0 MCV 94.9 FL 81-99 [place] # 0.36 x10^3 0.0-0.8 [place] % 28.3 % 1.0-9.0 MPV 11.8 FL [...] 32.9 G/DL 32.0-36.0 MCV 95.6 FL 81-99 [place] # 0.47 x10^3 0.0-0.8 [place] % 30.7 % 1.0-9.0 MPV 11.2 FL [...] 32.8 G/DL 32.0-36.0 MCV 95.7 FL 81-99 [place] # 0.87 x10^3 0.0-0.8 [place] % 27.4 % 1.0-9.0 MPV 11.6 FL [...] 33.1 G/DL 32.0-36.0 MCV 95.4 FL 81-99 [place] 17.0 [place] # 3.22 x10^3 0.0-0.8 [place] % 19.2 % 1.0-9.0 MPV 11.2 FL [...] 32.0-36.0 MCV 96.4 FL 81-99 Microcytes 1+ [place] 17.0 MPV 10.1 FL 6.0-10.0 Platelet 183 [...] 32.1 G/DL 32.0-36.0 MCV 100.0 FL 81-99 [place] 2.0 [place] # 0.03 x10^3 0.0-0.8 [place] % 2.4 % 1.0-9.0 MPV 9.6 FL [...] 31.5 G/DL 32.0-36.0 MCV 101.4 FL 81-99 [place] # 0.05 x10^3 0.0-0.8 [place] % 5.0 % 1.0-9.0 MPV 10.7 FL [...] 31.7 G/DL 32.0-36.0 MCV 100.5 FL 81-99 [place] 20.0 [place] # 0.40 x10^3 0.0-0.8 [place] % 33.1 % 1.0-9.0 MPV 11.5 FL [...] 8.0 MG/DL 8.4-10.2 EGFR 91 MLMIN Type ([facility]) - 05/26/16 18:01 RH Type POS ABO Type A Antibody Screen - 05/26/16 18:01 Antibody Screen NEG Negative Crossmatch - 05/27/16 08:25 Unit [facility] APOS Unit # [id number] Unit Exp 06/02/2016 Crossmatch COMPAT Crossmatch - 05/27/16 08:26 [facility] APOS Unit # [id number] Unit Exp 06/02/2016 Crossmatch COMPAT CBC - 05/29/16 13:48 Eos # 0.06 x10^3 0-0.5 Eos % 3.1 % 0-4 HCT 33.5 % 37.0-47.0 HGB 11.0 G/DL 12.0-16.0 Lymph # 0.69 x10^3 1.0-4.0 Lymph % 35.6 % 20-50 MCH 30.5 PG 27.0-31.0 MCHC 32.8 G/DL 32.0-36.0 MCV 92.8 FL 81-99 [place] # 1.07 x10^3 0.0-0.8 [place] % 55.2 % 1.0-9.0 MPV 10.1 FL [...] 32.4 G/DL 32.0-36.0 MCV 93.3 FL 81-99 [place] # 0.04 x10^3 0.0-0.8 [place] % 4.0 % 1.0-9.0 MPV 10.2 FL [...] Status Pt. Type Provider Facility Loc./Unit Complaint [id number] 01/17/2012 07:58:00 2011 20:35:00 DIS Outpatient Master GARCIA, [facility] PILAR
--- NOTE | 2016-06-16 19:40 | NUR ---
ADMIT ARRIVED TO MEDICAL RM 146 FROM ED VIA CART, PT'S IS AT BEDSIDE.
[2016-06-16 19:43] LABS: BAND NEUTROPHILS # 0.1 T/MM3; LYMPHOCYTES # (MANUAL) 0.6 T/MM3 (1-4.8); NEUTROPHILS #(MANUAL)-ABSOLUTE 0.2 T/MM3 (1.8-7.7); TOTAL CELLS COUNTED 50 %
[2016-06-16 19:44] LABS: ANISOCYTOSIS 2+; POIKILOCYTOSIS 2+
[2016-06-16 19:49] VITALS: Ht 170.2 cm; Wt 69.5 kg
[2016-06-16 19:58] VITALS: BP 138/69; PULSE 85; RESP 18; TEMP 97.7
--- NOTE | 2016-06-16 20:10 | NUR ---
ROOM CHANGE MOVED PT TO RM 149 FURTHER AWAY FROM OTHER PT'S ON PRECAUTIONS.
--- NOTE | 2016-06-16 21:24 | HPPDOC ---
AUGUSTA YBARRA MD 06/16/16 2116: HPI - Adult Date DATE: 06/16/16 TIME: 21:12 General Chief Complaint: blood in urine History of Present Illness Please note that the patient was seen via telemedicine with nursing assistance on 06/16/2016. Mrs. Cesar is a pleasant 61yo woman with h/o hypothyroidism, gout, nephrolithiasis, GERD, and TIA who was thought to have lymphoma last fall with 1 cycle of chemo prior to the diagnosis of adenocarcinoma with now unknown primary. She was evaluated at the [facility] with subsequent chemo now on 5th cycle last week. She presents with onset of hematuria with call to her oncologist Dr. Mcdonald [facility] ED eval. The patient denies fevers, chills, nausea, sob, or other pain. No dysuria with noted recent levofloxacin. No other localizing symptoms or problems except just feeling week. Appetite ok. No other medication changes. Past Medical History Past Medical History Patient's Medical History: (1) Hypothyroidism (2) GERD (gastroesophageal reflux disease) (3) Gout (4) MDD (major depressive disorder) (5) Adenocarcinoma (6) Pancytopenia Surgical History Patient's Surgical History: power port 04/2016 Current Medications Home Meds Active Scripts Oxycodone HCl/Acetaminophen (Oxycodone-Acetaminophen 5-325) 5-325 Tablet, 1 TAB PO Q6H Y for PAIN, #30 Prov:ERNIE DE LOS SANTOS APRN, CWS 04/10/16 Reported Medications Pramipexole Di-HCl (Pramipexole Dihydrochloride) 0.125 Mg Tablet, 0.125 MG PO BID Y for PRN ORDERS 06/16/16 Potassium Chloride (Potassium Chloride) 20 Meq Tab.er.prt, 10 MG PO DAILY 06/16/16 Prochlorperazine Maleate (Prochlorperazine Maleate) 10 Mg Tablet, 10 MG PO TID Y for PRN ORDERS 06/16/16 Ondansetron (Ondansetron Odt) 8 Mg Tab.rapdis, 8 MG PO TID Y for NAUSEA 06/16/16 Lorazepam (Lorazepam) 0.5 Mg Tablet, 0.5 MG PO TID 06/16/16 Levofloxacin (Levofloxacin) 500 Mg Tablet, 500 MG PO DAILY 06/16/16 Lansoprazole (Prevacid) 15 Mg Tab.rap.dr, 15 MG PO DAILY 06/16/16 Ca Carb/Vit D3/Mag Ox/Zn Oxide (Mark Mag Zinc + D Tablet) 1 Each Tablet, 1 TAB PO DAILY 04/07/16 Ranitidine HCl (Ranitidine HCl) 150 Mg Tablet, 150 MG PO DAILY Y for ACID REFLUX 04/07/16 Levothyroxine Sodium (Levothyroxine Sodium) 50 Mcg Tablet, 50 MCG PO ACB 04/07/16 Escitalopram Oxalate (Escitalopram Oxalate) 10 Mg Tablet, 15 MG PO DAILY 04/07/16 Allopurinol (Allopurinol) 300 Mg Tablet, 300 MG PO DAILY 04/07/16 Acyclovir (Acyclovir) 400 Mg Tablet, 400 MG PO HS 01/12/16 Sennosides (Senokot) 8.6 Mg Tablet, 8.6 MG PO BID Y for CONSTIPATION/STOOL SOFTENING 01/12/16 Docusate Sodium (Docusate Sodium) 100 Mg Capsule, 100 MG PO BID 01/12/16 Allergies: Coded Allergies: hydrocodone (Unverified Adverse Reaction, Unknown, NAUSEA, 04/10/16) Family History Family History: no other malignancies or early CAD Social History Smoking Status: Never smoker Does patient use chewing tobac: No Second Hand Exposure: No Substance Use Type: does not use Substance last used: unknown Last Drink: unknown Marital Status: Sexuality: male partner Housing: house Advance Directives: Yes Full Code, No DPOA for Healthcare Only (REPORTS SHE IS WORKING ON HER ADVANCED DIRECTIVES) Review of Systems Unable to Obtain Comments 10+ systems negative aside form in HPI Physical Exam General General Nourishment: well nourished, apparent age, adult General Body Habitus: well groomed Vital Signs Vital Signs Date Time Temp Pulse Resp B/P Pulse Ox O2 Delivery O2 Flow Rate FiO2 06/16/16 19:58 97.7 85 18 138/69 Room Air 06/16/16 19:40 99 Height (Feet): 5 Height (Inches): 7.00 Telemetry Rhythm: Sinus Rhythm Eyes Brief: FOUND: EOMI Respiratory Brief: FOUND: clear all mg, symmetrical Cardiovascular (brief) Cardiac Brief: FOUND: regular rhythm, NOT FOUND: murmur, pedal edema Capillary Refill: <2 sec Abdomen (brief) Abdominal Brief: FOUND: BS normo active x4, soft Integumentary (brief) Integumentary Brief: FOUND: pink Neurologic (brief) Neurological Brief: FOUND: cranial 2-12 intact Neurologic RN Documented GCS Eye Opening: Verbal: Motor: Total: Psychiatric (brief) FOUND: alert, normal affect, oriented Laboratory Laboratory Tests Test 06/16/16 18:19 06/16/16 18:30 06/16/16 18:34 06/16/16 18:35 Urine Collection Type Cleancatch-midstream Urine Color Red Urine Turbidity Cloudy Urine pH 7.0 Urine Specific Hen[place]er 1.020 Urine Protein 2+ Urine Glucose (UA) Negative Urine Ketones Negative Urine Blood 3+ Urine Nitrite Negative Urine Bilirubin Negative Urine Urobilinogen 0.2EU/DL Urine Leukocyte Esterase Negative Urine RBC Tntc/HPF Urine WBC None seen/HPF Urine Bacteria Trace Urine Culture Indicated Cult not indicated Prothromb Time International Ratio 1.34 Turbidity < 20 Sodium Level 139MEQ/L Potassium Level 3.7MEQ/L Chloride Level 99MEQ/L Carbon Dioxide Level 30MEQ/L Anion Gap 10MEQ/L Blood Urea Nitrogen 19.0MG/DL Creatinine 0.6MG/DL Glomerular Filtration Rate Calc 102 BUN/Creatinine Ratio 32RATIO Glucose Level 117MG/DL Calculated Osmolality 271MOSM/KG Calcium Level 8.2MG/DL Phosphorus Level 2.7MG/DL Total Bilirubin 0.50MG/DL Icterus Index < 2 Aspartate Amino Transf (AST/SGOT) 55U/L Alanine Aminotransferase (ALT/SGPT) 43U/L Alkaline Phosphatase 59U/L Total Protein 6.4G/DL Albumin 3.4G/DL Globulin 3.0G/DL Albumin/Globulin Ratio 1.1RATIO Chemistry Specimen Hemolysis < 15 White Blood Count 1.0T/MM3 Red Blood Count 2.81M/MM3 Hemoglobin 8.3GM/DL Hematocrit 26.6% Mean Corpuscular Volume 94.7UM3 Mean Corpuscular Hemoglobin 29.5UUG Mean Corpuscular Hemoglobin Concent 31.2GM/DL RDW Standard Deviation 66.6FL Platelet Count 8T/MM3 Mean Platelet Volume UM3 Immature Granulocyte % (Auto) % Neutrophils (%) (Auto) % Lymphocytes (%) (Auto) % Monocytes (%) (Auto) % Eosinophils (%) (Auto) % Basophils (%) (Auto) % Absolute Immature Granulocyte (auto T/MM3 Absolute Neutrophils (auto) T/MM3 Absolute Lymphocytes (auto) T/MM3 Absolute Monocytes (auto) T/MM3 Absolute Eosinophils (auto) T/MM3 Absolute Basophils (auto) T/MM3 Neutrophils % (Manual) 22.0% Band Neutrophils % 10.0% Lymphocytes % (Manual) 60.0% Reactive Lymphocytes % 4.0% Monocytes % (Manual) 2.0% Metamyelocytes % 2.0% Absolute Neutrophils (Manual) 0.2T/MM3 Band Neutrophils # 0.1T/MM3 Lymphocytes # (Manual) 0.6T/MM3 Reactive Lymphocytes # 0.0T/MM3 Monocytes # (Manual) 0.0T/MM3 Metamyelocytes # 0.0T/MM3 Poikilocytosis 2+ Anisocytosis 2+ Red Cell Morphology Comment Abnormal Magnesium Level 0.6MG/DL Assessment & Plan Problems: (1) Hematuria Status: Acute Assessment & Plan: full inpatient admission with pancytopenia from chemo for adenocarcinoma unknown primary and coagulopathy causal. asymptomatic with no infection evident, and renal function fine. Platelet transfusion with NS and reevaluate in the AM. See below. (2) Adenocarcinoma Status: Chronic Assessment & Plan: Dr. Bowers covering for Dr. Mcdonald aware of admission (3) Pancytopenia Status: Acute Assessment & Plan: s/p chemo cycle #5 last week the cause. Had a blood transfusion after last chemo cycle with last labs here 04/10 hgb 9.8 and platelets 271 (4) Hypothyroidism Status: Chronic Assessment & Plan: same med/supp (5) GERD (gastroesophageal reflux disease) Status: Chronic (6) MDD (major depressive disorder) (7) Gout Status: Chronic DVT Prophylaxis: SCD'S Code Status Full Code Hospital Course Summary Disclaimer The hospital course summary below is not to be considered part of the above Progress Note. SARANYA DUPONT MD 06/17/16 0951: Past Medical History Current Medications Home Meds Active Scripts Oxycodone HCl/Acetaminophen (Oxycodone-Acetaminophen 5-325) 5-325 Tablet, 1 TAB PO Q6H Y for PAIN, #30 Prov:ERNIE DE LOS SANTOS ANALYSIS INTERN, CWS 04/10/16 Reported Medications Pramipexole Di-HCl (Pramipexole Dihydrochloride) 0.125 Mg Tablet, 0.125 MG PO BID Y for PRN ORDERS 06/16/16 Potassium Chloride (Potassium Chloride) 20 Meq Tab.er.prt, 10 MG PO DAILY 06/16/16 Prochlorperazine Maleate (Prochlorperazine Maleate) 10 Mg Tablet, 10 MG PO TID Y for PRN ORDERS 06/16/16 Ondansetron (Ondansetron Odt) 8 Mg Tab.rapdis, 8 MG PO TID Y for NAUSEA 06/16/16 Lorazepam (Lorazepam) 0.5 Mg Tablet, 0.5 MG PO TID 06/16/16 Levofloxacin (Levofloxacin) 500 Mg Tablet, 500 MG PO DAILY 06/16/16 Lansoprazole (Prevacid) 15 Mg Tab.rap.dr, 15 MG PO DAILY 06/16/16 Ca Carb/Vit D3/Mag Ox/Zn Oxide (Mark Mag Zinc + D Tablet) 1 Each Tablet, 1 TAB PO DAILY 04/07/16 Ranitidine HCl (Ranitidine HCl) 150 Mg Tablet, 150 MG PO DAILY Y for ACID REFLUX 04/07/16 Levothyroxine Sodium (Levothyroxine Sodium) 50 Mcg Tablet, 50 MCG PO ACB 04/07/16 Escitalopram Oxalate (Escitalopram Oxalate) 10 Mg Tablet, 15 MG PO DAILY 04/07/16 Allopurinol (Allopurinol) 300 Mg Tablet, 300 MG PO DAILY 04/07/16 Acyclovir (Acyclovir) 400 Mg Tablet, 400 MG PO HS 01/12/16 Sennosides (Senokot) 8.6 Mg Tablet, 8.6 MG PO BID Y for CONSTIPATION/STOOL SOFTENING 01/12/16 Docusate Sodium (Docusate Sodium) 100 Mg Capsule, 100 MG PO BID 01/12/16 Allergies: Coded Allergies: hydrocodone (Unverified Adverse Reaction, Unknown, NAUSEA, 04/10/16) Assessment & Plan Assessment 06/17/2016-Dr. Dupont I have reviewed the H&P above dictated by patella hospitalist. I've seen and examined the patient independently. Chief complaint is hematuria History of present illness: The patient has adenocarcinoma of unknown primary and is on her fifth cycle of chemotherapy. Last chemotherapy was a week ago yesterday. She had been feeling fine and on the evening of admission developed hematuria. She was having no dysuria or frequency. No fevers chills or sweats. She was instructed to go to the emergency room where she was found to have platelets of 8 and white count of 1. Dr. bowers who was on-call for her oncologist recommended transfusion with platelets. Past medical history, social history, medications, allergies, review of systems reviewed and agree Hospital course: The patient states that her urine is clearing up. She feels tired after not sleeping very well last night but otherwise has no complaints. She denies any pain. She denies any shortness of breath or palpitations. She denies any nausea, vomiting or diarrhea. She did have nausea and abdominal pain last night but that has resolved. She denies any fevers, chills or sweats. She is due to receive her fifth and last dose of Granix for this round of chemotherapy. Physical exam GEN-alert and oriented 3, no acute distress, pleasant HEENT-sclera anicteric, oropharynx is moist NECK-supple CV-regular rate and rhythm CHEST-clear to auscultation bilaterally ABD-soft and nontender with positive bowel sounds -no Alonzo EXT-no edema NEURO-no focal deficits SKIN-warm and dry and without rashes. No petechiae seen. Lab today shows white count of 0.8 down from 1 Hemoglobin 7.5 down from 8.3 Platelets 39 up from 8 Magnesium 0.6 on admission Impression Pancytopenia secondary to chemotherapy -Thrombocytopenia-improved -Anemia -Neutropenia Hematuria-improved, most likely secondary to thrombocytopenia Hypomagnesemia-likely secondary to recent chemotherapy, patient states she was supposed to take magnesium but has not taken it for the past few days Adenocarcinoma currently undergoing chemotherapy Plan I did call and talk with Dr. bowers who is on-call for Dr. Mcdonald. He recommended giving last dose of Granix today. He stated that she doesn't need transfusion of blood and less hemoglobin is less than 7 or symptomatic. Patient is not symptomatic at this time. He agreed with IV and oral replacement of magnesium. She will need to take her oral magnesium at home as directed. Will place on telemetry until magnesium has improved. Will give 3 g of magnesium IV and start oral magnesium. Dr. bowers agreed with discharge to home if doing well. She is to continue on Levaquin to prevent infections and continue her acyclovir. AUGUSTA YBARRA MD Jun 16, 2016 21:16 SARANYA DUPONT MD Jun 17, 2016 09:51
[2016-06-16] MEDS: LORAZEPAM 0.5 MG TABLET PO SCH (23:04)
[2016-06-16] MEDS: ONDANSETRON 4mg/2ml INJECTION IV PRN (23:06)
[2016-06-16 23:58] VITALS: PULSE 85; RESP 18; O2SAT 99
[2016-06-17 00:29] VITALS: BP 152/71; PULSE 97; RESP 18; TEMP 98.1; O2SAT 97
[2016-06-17] MEDS ORDERED: MORPHINE SULFATE 2 MG SYRINGE IV PRN (01:00)
[2016-06-17] MEDS ORDERED: METOCLOPRAMIDE 10mg/2ml INJECTION IV PRN (01:00)
[2016-06-17 04:49] VITALS: BP 127/69; PULSE 94; RESP 16; TEMP 97.7; O2SAT 97
[2016-06-17 05:37] LABS: HCT - HEMATOCRIT 23.5 % (36-46); HGB - HEMOGLOBIN 7.5 GM/DL (12-16); MEAN CORPUSCULAR HGB 29.9 UUG (26-34); MEAN CORPUSCULAR HGB CONC(MCHC 31.9 GM/DL (31-37); MEAN CORPUSCULAR VOLUME 93.6 UM3 (80-100); MEAN PLATELET VOLUME 10.3 UM3 (9.4-12.4); RED BLOOD COUNT 2.51 M/MM3 (4.00-5.20)
[2016-06-17 05:44] LABS: INR 1.46 (0.76-1.04); PROTHROMBIN TIME 15.9 SEC (9.31-12.49); WBC - WHITE BLOOD COUNT 0.8 T/MM3 (4.5-11.0)
[2016-06-17] MEDS ORDERED: LEVOTHYROXINE 50 MCG TABLET PO SCH (06:30)
[2016-06-17 07:24] LABS: ANISOCYTOSIS 1+; LYMPHOCYTES # (MANUAL) 0.4 T/MM3 (1-4.8); MONOCYTES # (MANUAL) 0.1 T/MM3 (0-0.8); NEUTROPHILS #(MANUAL)-ABSOLUTE 0.2 T/MM3 (1.8-7.7); POIKILOCYTOSIS 2+; TOTAL CELLS COUNTED 100 %
[2016-06-17 07:43] VITALS: BP 122/67; PULSE 82; RESP 16; TEMP 97.4; O2SAT 100
[2016-06-17] MEDS: LORAZEPAM 0.5 MG TABLET PO SCH ×2 (08:06→14:09)
[2016-06-17] MEDS: ONDANSETRON 4mg/2ml INJECTION IV PRN (08:06)
--- NOTE | 2016-06-17 08:29 | NUR ---
Zofran Patient feels slightly nauseated, zofran given.
--- NOTE | 2016-06-17 08:30 | NUR ---
Status Patient alert and oriented. Urine becoming less red in color, now pink/nathalie in color. Headache improving since Percocet given, 04/28. Patient in neutropenic precautions.
[2016-06-17] MEDS ORDERED: MAGNESIUM OXIDE 400 MG TABLET PO SCH (09:00)
[2016-06-17] MEDS ORDERED: LANSOPRAZOLE SOLU-TAB 15 MG TABLET PO SCH (09:00)
[2016-06-17] MEDS ORDERED: ESCITALOPRAM 10 MG TABLET PO SCH ×2 (09:00→22:00)
[2016-06-17] MEDS ORDERED: ALLOPURINOL 300 MG TABLET PO SCH (09:00)
[2016-06-17] MEDS ORDERED: TBO-FILGRASTIM 480mcg/0.8ml INJECTION SQ ONE (09:15)
[2016-06-17] MEDS: MAGNESIUM SULF 1gm / D5W 100ml 100 ML IV SCH ×3 (09:25→12:19)
[2016-06-17 11:57] VITALS: BP 122/65; PULSE 82; RESP 16; TEMP 97.2; O2SAT 99
--- NOTE | 2016-06-17 12:08 | NUR ---
CM CM VISITED PT. CM EXPLAINED ROLE AND PROVIDED CONTACT INFORMATION. PT DENIES NEEDS. PT IS HOPING TO RETURN HOME SOON. PT IS AWARE TO CONTACT CM IF NEEDS ARISE.
--- NOTE | 2016-06-17 12:28 | NUR ---
CM CM DISCUSSED ROT PROGRAM WITH PT AND PROVIDED FLIER. PT HAS DECLINED.
--- NOTE | 2016-06-17 14:10 | NUR ---
Status Patient denies nausea/pain at this time. Magnesium x3 bags has infused, lab here to draw a mag level. No changes.
--- NOTE | 2016-06-17 15:15 | DSPDOC ---
General Date Date DATE: 06/17/16 TIME: 15:09 Attending Physician Ifrah Dupont MD Admitting Physician Ifrah Dupont MD Consulting Physician Davie Bwoers MD Admitting Diagnosis PANCYTOPENIA Discharge Diagnosis Pancytopenia secondary to chemotherapy Hematuria-likely secondary to thrombocytopenia Thrombocytopenia Anemia Neutropenia Hypomagnesemia likely secondary to chemotherapy Mild elevation of INR Adenocarcinoma of unknown primary, currently undergoing chemotherapy with Dr. Mcdonald Procedures Transfusion of 1 unit of platelets Laboratory Item Value Date Time Magnesium Level 0.6 MG/DL L 06/16/16 1835 Magnesium Level 1.5 MG/DL L # 06/17/16 1408 Laboratory Tests Test 06/16/16 18:19 06/16/16 18:30 06/16/16 18:34 06/16/16 18:35 Urine Collection Type Cleancatch-midstream Urine Color Red (YELLOW) Urine Turbidity Cloudy (CLEAR) Urine pH 7.0 (5.0-8.0) Urine Specific [place] 1.020 (1.015-1.025) Urine Protein 2+ (NEGATIVE) Urine Glucose (UA) Negative (NEGATIVE) Urine Ketones Negative (NEGATIVE) Urine Blood 3+ (NEGATIVE) Urine Nitrite Negative (NEGATIVE) Urine Bilirubin Negative (NEGATIVE) Urine Urobilinogen 0.2EU/DL (NORMAL) Urine Leukocyte Esterase Negative (NEGATIVE) Urine RBC Tntc/HPF (0-3) Urine WBC None seen/HPF (0-5) Urine Bacteria Trace (NEGATIVE) Urine Culture Indicated Cult not indicated Prothromb Time International Ratio 1.34 (0.76-1.04) Turbidity < 20 (0-20) Sodium Level 139MEQ/L (134-144) Potassium Level 3.7MEQ/L (3.6-5) Chloride Level 99MEQ/L (98-107) Carbon Dioxide Level 30MEQ/L (22-30) Anion Gap 10MEQ/L (5-15) Blood Urea Nitrogen 19.0MG/DL (7-17) Creatinine 0.6MG/DL (0.7-1.2) Glomerular Filtration Rate Calc 102 BUN/Creatinine Ratio 32RATIO (6-26) Glucose Level 117MG/DL (65-110) Calculated Osmolality 271MOSM/KG (261-280) Calcium Level 8.2MG/DL (8.4-10.2) Phosphorus Level 2.7MG/DL (2.5-4.5) Total Bilirubin 0.50MG/DL (0.20-1.30) Icterus Index < 2 (0-7) Aspartate Amino Transf (AST/SGOT) 55U/L (14-36) Alanine Aminotransferase (ALT/SGPT) 43U/L (9-52) Alkaline Phosphatase 59U/L (38-126) Total Protein 6.4G/DL (6.3-8.2) Albumin 3.4G/DL (3.5-5.0) Globulin 3.0G/DL (2.4-3.6) Albumin/Globulin Ratio 1.1RATIO (1.1-2.2) Chemistry Specimen Hemolysis < 15 (0-25) White Blood Count 1.0T/MM3 (4.5-11.0) Red Blood Count 2.81M/MM3 (4.00-5.20) Hemoglobin 8.3GM/DL (12-16) Hematocrit 26.6% (36-46) Mean Corpuscular Volume 94.7UM3 (80-100) Mean Corpuscular Hemoglobin 29.5UUG (26-34) Mean Corpuscular Hemoglobin Concent 31.2GM/DL (31-37) RDW Standard Deviation 66.6FL (36.9-50.2) Platelet Count 8T/MM3 (130-400) Mean Platelet Volume UM3 (9.4-12.4) Immature Granulocyte % (Auto) % (0.0-0.5) Neutrophils (%) (Auto) % (33-66) Lymphocytes (%) (Auto) % (23-45) Monocytes (%) (Auto) % (0-9.0) Eosinophils (%) (Auto) % (0-4) Basophils (%) (Auto) % (0-2) Absolute Immature Granulocyte (auto T/MM3 (0.00-0.03) Absolute Neutrophils (auto) T/MM3 (1.8-7.7) Absolute Lymphocytes (auto) T/MM3 (1-4.8) Absolute Monocytes (auto) T/MM3 (0-0.8) Absolute Eosinophils (auto) T/MM3 (0-0.5) Absolute Basophils (auto) T/MM3 (0-0.2) Neutrophils % (Manual) 22.0% (33-66) Band Neutrophils % 10.0% (0-6) Lymphocytes % (Manual) 60.0% (23-45) Reactive Lymphocytes % 4.0% (0-0) Monocytes % (Manual) 2.0% (0-9.0) Metamyelocytes % 2.0% (0-0) Absolute Neutrophils (Manual) 0.2T/MM3 (1.8-7.7) Band Neutrophils # 0.1T/MM3 Lymphocytes # (Manual) 0.6T/MM3 (1-4.8) Reactive Lymphocytes # 0.0T/MM3 (0-0) Monocytes # (Manual) 0.0T/MM3 (0-0.8) Metamyelocytes # 0.0T/MM3 Poikilocytosis 2+ Anisocytosis 2+ Red Cell Morphology Comment Abnormal Magnesium Level 0.6MG/DL (1.6-2.3) Test 06/17/16 05:09 06/17/16 14:08 White Blood Count 0.8T/MM3 (4.5-11.0) Red Blood Count 2.51M/MM3 (4.00-5.20) Hemoglobin 7.5GM/DL (12-16) Hematocrit 23.5% (36-46) Mean Corpuscular Volume 93.6UM3 (80-100) Mean Corpuscular Hemoglobin 29.9UUG (26-34) Mean Corpuscular Hemoglobin Concent 31.9GM/DL (31-37) RDW Standard Deviation 65.1FL (36.9-50.2) Platelet Count 39T/MM3 (130-400) Mean Platelet Volume 10.3UM3 (9.4-12.4) Immature Granulocyte % (Auto) % (0.0-0.5) Neutrophils (%) (Auto) % (33-66) Lymphocytes (%) (Auto) % (23-45) Monocytes (%) (Auto) % (0-9.0) Eosinophils (%) (Auto) % (0-4) Basophils (%) (Auto) % (0-2) Absolute Immature Granulocyte (auto T/MM3 (0.00-0.03) Absolute Neutrophils (auto) T/MM3 (1.8-7.7) Absolute Lymphocytes (auto) T/MM3 (1-4.8) Absolute Monocytes (auto) T/MM3 (0-0.8) Absolute Eosinophils (auto) T/MM3 (0-0.5) Absolute Basophils (auto) T/MM3 (0-0.2) Neutrophils % (Manual) 25.0% (33-66) Band Neutrophils % 2.0% (0-6) Lymphocytes % (Manual) 55.0% (23-45) Monocytes % (Manual) 14.0% (0-9.0) Eosinophils % (Manual) 2.0% (0-4) Metamyelocytes % 1.0% (0-0) Myelocytes % 1.0% (0-0) Absolute Neutrophils (Manual) 0.2T/MM3 (1.8-7.7) Band Neutrophils # 0.0T/MM3 Lymphocytes # (Manual) 0.4T/MM3 (1-4.8) Monocytes # (Manual) 0.1T/MM3 (0-0.8) Eosinophils # (Manual) 0.0T/MM3 (0-0.5) Metamyelocytes # 0.0T/MM3 Myelocytes # 0.0T/MM3 Poikilocytosis 2+ Anisocytosis 1+ Red Cell Morphology Comment Abnormal Prothromb Time International Ratio 1.46 (0.76-1.04) Magnesium Level 1.5MG/DL (1.6-2.3) Microbiology None Radiology None History of Present Illness Please note that the patient was seen via telemedicine with nursing assistance on 06/16/2016. Mrs. Cesar is a pleasant 61yo woman with h/o hypothyroidism, gout, nephrolithiasis, GERD, and TIA who was thought to have lymphoma last fall with 1 cycle of chemo prior to the diagnosis of adenocarcinoma with now unknown primary. She was evaluated at the [facility] with subsequent chemo now on 5th cycle last week. She presents with onset of hematuria with call to her oncologist Dr. Mcdonald [facility] ED eval. The patient denies fevers, chills, nausea, sob, or other pain. No dysuria with noted recent levofloxacin. No other localizing symptoms or problems except just feeling week. Appetite ok. No other medication changes. Hospital Course 06/17/2016-Dr. Dupont I have reviewed the H&P above dictated by patella hospitalist. I've seen and examined the patient independently. Chief complaint is hematuria History of present illness: The patient has adenocarcinoma of unknown primary and is on her fifth cycle of chemotherapy. Last chemotherapy was a week ago yesterday. She had been feeling fine and on the evening of admission developed hematuria. She was having no dysuria or frequency. No fevers chills or sweats. She was instructed to go to the emergency room where she was found to have platelets of 8 and white count of 1. Dr. bowers who was on-call for her oncologist recommended transfusion with platelets. Past medical history, social history, medications, allergies, review of systems reviewed and agree Hospital course: The patient states that her urine is clearing up. She feels tired after not sleeping very well last night but otherwise has no complaints. She denies any pain. She denies any shortness of breath or palpitations. She denies any nausea, vomiting or diarrhea. She did have nausea and abdominal pain last night but that has resolved. She denies any fevers, chills or sweats. She is due to receive her fifth and last dose of Granix for this round of chemotherapy. Physical exam GEN-alert and oriented 3, no acute distress, pleasant HEENT-sclera anicteric, oropharynx is moist NECK-supple CV-regular rate and rhythm CHEST-clear to auscultation bilaterally ABD-soft and nontender with positive bowel sounds -no Alonzo EXT-no edema NEURO-no focal deficits SKIN-warm and dry and without rashes. No petechiae seen. Lab today shows white count of 0.8 down from 1 Hemoglobin 7.5 down from 8.3 Platelets 39 up from 8 Magnesium 0.6 on admission Impression Pancytopenia secondary to chemotherapy -Thrombocytopenia-improved -Anemia -Neutropenia Hematuria-improved, most likely secondary to thrombocytopenia Hypomagnesemia-likely secondary to recent chemotherapy, patient states she was supposed to take magnesium but has not taken it for the past few days Adenocarcinoma currently undergoing chemotherapy Plan I did call and talk with Dr. bowers who is on-call for Dr. Mcdonald. He recommended giving last dose of Granix today. He stated that she doesn't need transfusion of blood and less hemoglobin is less than 7 or symptomatic. Patient is not symptomatic at this time. He agreed with IV and oral replacement of magnesium. She will need to take her oral magnesium at home as directed. Will place on telemetry until magnesium has improved. Will give 3 g of magnesium IV and start oral magnesium. Dr. bowers agreed with discharge to home if doing well. She is to continue on Levaquin to prevent infections and continue her acyclovir. 06/17/2016-3 PM The patient is feeling very well. Magnesium has normalized. I did discuss with her the importance of taking her oral magnesium at home to prevent low magnesium which can cause heart irregularities. She did urinate again this afternoon and urine is clearing up and no longer red. She has had no fevers, chills or sweats. She is feeling well. We'll plan for dismissal to home. She is to get lab work on Sunday at the cancer center. She is to follow-up with her oncologist as scheduled. We'll dismiss to home in stable condition with her . Problems: (1) Hematuria Status: Acute Assessment & Plan: full inpatient admission with pancytopenia from chemo for adenocarcinoma unknown primary and coagulopathy causal. asymptomatic with no infection evident, and renal function fine. Platelet transfusion with NS and reevaluate in the AM. See below. (2) Adenocarcinoma Status: Chronic Assessment & Plan: Dr. Bowers covering for Dr. Mcdonald aware of admission (3) Pancytopenia Status: Acute Assessment & Plan: s/p chemo cycle #5 last week the cause. Had a blood transfusion after last chemo cycle with last labs here 04/10 hgb 9.8 and platelets 271 (4) Hypothyroidism Status: Chronic Assessment & Plan: same med/supp (5) GERD (gastroesophageal reflux disease) Status: Chronic (6) MDD (major depressive disorder) (7) Gout Status: Chronic Code Status Full Code Home Meds Active Scripts Oxycodone HCl/Acetaminophen (Oxycodone-Acetaminophen 5-325) 5-325 Tablet, 1 TAB PO Q6H Y for PAIN, #30 Prov:ERNIE DE LOS SANTOS APRN, CWS 04/10/16 Reported Medications Pramipexole Di-HCl (Pramipexole Dihydrochloride) 0.125 Mg Tablet, 0.125 MG PO BID Y for PRN ORDERS 06/16/16 Potassium Chloride (Potassium Chloride) 20 Meq Tab.er.prt, 10 MG PO DAILY 06/16/16 Prochlorperazine Maleate (Prochlorperazine Maleate) 10 Mg Tablet, 10 MG PO TID Y for PRN ORDERS 06/16/16 Ondansetron (Ondansetron Odt) 8 Mg Tab.rapdis, 8 MG PO TID Y for NAUSEA 06/16/16 Lorazepam (Lorazepam) 0.5 Mg Tablet, 0.5 MG PO TID 06/16/16 Levofloxacin (Levofloxacin) 500 Mg Tablet, 500 MG PO DAILY 06/16/16 Lansoprazole (Prevacid) 15 Mg Tab.rap.dr, 15 MG PO DAILY 06/16/16 Ca Carb/Vit D3/Mag Ox/Zn Oxide (Mark Mag Zinc + D Tablet) 1 Each Tablet, 1 TAB PO DAILY 04/07/16 Ranitidine HCl (Ranitidine HCl) 150 Mg Tablet, 150 MG PO DAILY Y for ACID REFLUX 04/07/16 Levothyroxine Sodium (Levothyroxine Sodium) 50 Mcg Tablet, 50 MCG PO ACB 04/07/16 Escitalopram Oxalate (Escitalopram Oxalate) 10 Mg Tablet, 15 MG PO DAILY 04/07/16 Allopurinol (Allopurinol) 300 Mg Tablet, 300 MG PO DAILY 04/07/16 Acyclovir (Acyclovir) 400 Mg Tablet, 400 MG PO HS 01/12/16 Sennosides (Senokot) 8.6 Mg Tablet, 8.6 MG PO BID Y for CONSTIPATION/STOOL SOFTENING 01/12/16 Docusate Sodium (Docusate Sodium) 100 Mg Capsule, 100 MG PO BID 01/12/16 Face to Face Encounter I met with patient on the day of dismissal and discussed follow up appointments , medications, and safety plan. Discharge Disposition Dismiss to home in stable condition Copies To 1: RODY JONES MD, STEPHANIE L MD Jun 17, 2016 15:15
--- NOTE | 2016-06-17 16:15 | NUR ---
Discharge Patient discharged to home at this time. PAC heparin locked and de-accessed. Discharge instructions discussed with patient who voiced understanding. Belongings gathered and sent home with patient.
== END 2016-06-17 16:15 | disposition home or self-care (01) | DRG 810 ==
LOC: ED 18:03 → EDHOLD 19:19 → MED 19:40
PROVIDERS: ADMIT Hospitalist; ATTEND Internal Medicine
PROC: 30233R1 Transfusion of Nonautologous Platelets into Peripheral Vein, Percutaneous Approach (ICD-10-PCS; principal; 2016-06-16)
DX: D61.810 Antineoplastic chemotherapy induced pancytopenia (principal); R31.9 Hematuria, unspecified; E83.42 Hypomagnesemia; E03.9 Hypothyroidism, unspecified; K21.9 Gastro-esophageal reflux disease without esophagitis; M10.9 Gout, unspecified; F32.9 Major depressive disorder, single episode, unspecified; T45.1X5A Adverse effect of antineoplastic and immunosuppressive drugs, initial encounter
CPT/HCPCS: 36415; 80053; 81001; 83735; 84100; 85025; 85610; 86900; 86901

== ENCOUNTER 2016-10-24 13:29 | Inpatient (IN) ==
--- NOTE | 2016-10-24 15:53 | IRU History & Physical Report ---
HPI IRU Date: 542 Chief complaint: I'm weak and have pain in my hip HPI: Ms. Cesar is a 61-year-old white female from [place] whose primary care physician is Dr. Banerjee. She recently was at home about a week ago when she was reaching for her walker. She somehow lost her balance and fell with resultant right intertrochanteric hip fracture. She was seen at [facility] emergency department and transferred to [place]. At that location she underwent right cephalo-medullary hip fixation on 10/19/2016. She tolerated the procedure well but postoperatively did have some further issues with regard to anemia, low -grade fever, thrombocytopenia and a sodium of 128. In addition, the patient had an abnormal chest x-ray yesterday demonstrating a left lower lobe airspace process. She has an underlying history of poorly differentiated cancer. Cell type is uncertain. According to her daughter, pathology has not been able to indicate whether it is a lymphoma, sarcoma, carcinoma or adenocarcinoma. She has been treated with one or more rounds of CHOP chemotherapy beginning in January 2016. Initial diagnosis occurred because of some abdominal and back pain. This resulted in needle biopsy and possible open biopsy of a retroperitoneal mass. Her oncologist is Dr. Marinelli. More recently she was noted to have possible lymphadenopathy in the chest. She underwent bronchoscopy and biopsy. That pathology report is pending. As noted she received initial treatment of CHOP chemotherapy. Subsequently she was placed on cisplatin + PLANISHER-16 and received several rounds of that. Most recently she has undergone radiation therapy plus cisplatin. She has been extremely weakened from this according to the patient and her family. In particular her lower extremities are very weak. She has developed neuropathy which basically consists of burning and tingling and lack of sensation from an area just below the knees bilaterally on distally. Recently she has developed pain in the right knee. Prior to her hip fracture which was about a week ago, she was getting around at home with a walker due to the muscle weakness and myopathy. She was receiving home health at that time for physical therapy as well. Her appetite has been poor and she has chronic nausea with occasional episodes of vomiting. She has lost some 35 pounds over the last several months. She does complain of dyspnea with activity. She denies any history of cough or sputum and denies any chest pain or heart problems. She tends toward constipation. With regard to her home living situation she was using a walker at home recently prior to the fracture. She has 2-3 steps to get up into the home. They do have a basement but she does not go down there. Her oncologist has indicated that he would like to resume chemotherapy but that she is too weak for that at the present time. Our goal will be to get her stronger, get her back home safely in an ultimate effort to get her back on chemotherapy when appropriate. The following medical conditions are noted and require physician monitoring and treatment. 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 Chronic nausea and anorexia with protein-calorie malnutrition 4. Hyponatremia (sodium 128 at [facility]) 5. Pain management. Pt states that she is paranoid about having pain. 6. Encephalopathy: Family has noticed intermittent episodes of confusion over the last several months. Whether this is related to chemotherapy or pain medicine is not clear. 7. Recent low grade fever with abnormal CXR 10-23-16 demonstrating effusion vs infiltrate vs atelectasis The following therapies will be needed: 1. Physical therapy: for transfers and ambulation and stairs. 2. Occupational therapy: for ADL's and transfers. 3. Dietitian: to address malnutrition 4. Medical management: for the above conditions. 5. 24 hour Rehabilitation Nursing to monitor and address the following: pain management, nutrition, wound monitoring. Review of Systems - Constitutional Constitutional: Present: anorexia, fatigue, lethargy, weakness, weight loss - EENMT Eyes: Absent: blurry vision - Cardiovascular Cardiovascular: Present: dyspnea on exertion. Absent: chest pain, palpitations , syncope, edema Rhythm: Present: regular rhythm Vascular: Absent: Raynaud's, intermittent claudication, pedal edema, phlebitis - Respiratory Respiratory: Present: dyspnea, dyspnea on exertion. Absent: cough, hemoptysis, wheezing, pain on inspiration, chest congestion - Gastrointestinal Gastrointestinal: Present: constipation, dyspepsia, nausea, vomiting. Absent: abdominal pain, change in bowel habits, change in stool character, diarrhea, hematemesis, hematochezia - Musculoskeletal Musculoskeletal: Present: abnormal gait, arthralgias (right knee is painful over the last several days.) - Integumentary/Breasts Integumentary: Present: alopecia - Neurological Neurological: Present: abnormal gait, confusion, focal weakness. Absent: convulsions, dizziness - Hematologic/Lymphatic Hematologic/Lymphatic: Present: easy bruising, lymphadenopathy PFSH 1. Poorly differentiated cancer in the retroperitoneal area. Recent lymphadenopathy in the chest with biopsy pending. Uncertain if this represents lymphoma, sarcoma, carcinoma, adenocarcinoma. 2. Kidney stones 3. Hypertension 4. Reflux esophagitis 5. Possible rheumatoid arthritis 6. Possible TIA in the past 7. Herpes zoster on the face 2000 8. Hyperthyroidism treated with I-131 treatment May 2014 with current acquired hypothyroidism 9. Depression 10. Irritable bowel syndrome 11. Duodenitis on EGD May 2009 12. Colonoscopy 2006 diverticulosis Surgical History: 1. Needle biopsy retroperitoneal mass December 2015. 2. Laparoscopy with biopsy 01/12/2016. 3. Implantable venous access port generate 2016. 4. Nephrolithotomy for removal of stone. 5. Colonoscopy normal December 2015. 6. Appendectomy 1982. 7. Laparotomy 1978. 8. Cholecystectomy 1982. 9. D & C. 10. Cystoscopy and removal of bladder stone Family History: Father of burn injuries Mother had CHF, dementia and is - Social History Smoking status: Never smoker second hand exposure: No Substance use type: does not use Alcohol intake: never Household members: spouse Current occupation: Homemaker Current occupational exposures/hazards: No Current residence: Apartment/Private Home Medications Home Medications Medication Instructions Recorded Confirmed Type Acyclovir 400 mg PO HS #0 01/12/16 History Docusate Sodium 100 mg PO BID #0 01/12/16 History Sennosides [Senokot] 8.6 mg PO BID PRN #0 01/12/16 History Escitalopram Oxalate 15 mg PO DAILY #0 04/07/16 History Levothyroxine Sodium 50 mcg PO ACB #0 04/07/16 History LORazepam [Lorazepam] 0.5 mg PO TID #0 06/16/16 History Lansoprazole [Prevacid] 15 mg PO DAILY #0 06/16/16 History Ondansetron [Ondansetron Odt] 8 mg PO TID PRN #0 06/16/16 History Potassium Chloride 10 mg PO DAILY #0 06/16/16 History Pramipexole Di-HCl [Pramipexole 0.125 mg PO BID PRN #0 06/16/16 History Dihydrochloride] Prochlorperazine Maleate 10 mg PO TID PRN #0 06/16/16 History L. Rhamnosus GG/Inulin [Culturelle PO DAILY #0 07/06/16 History Capsule] Magnesium Oxide [Magnesium] 500 mg PO QID #0 cap 07/06/16 History Allergies Allergy/AdvReac Type Severity Reaction Status Date / Time hydrocodone AdvReac Unknown NAUSEA Unverified 04/10/16 12:45 Results IRU - Labs Labs: Extensively reviewed outside records [facility]. Platelet count yesterday 93,000. Hemoglobin yesterday 7.7. She has received at least 2 units of packed red blood cells. Exam - Constitutional Present: mild distress (patient appears worried and anxious.) - Routine HEENT Exam Head: Present: normocephalic, atraumatic Eye: Present: EOMI, PERRL. Absent: conjunctival icterus, scleral injection ENT: Present: mucous membranes moist, oropharynx clear - Routine Neck Exam Present: supple, full ROM - Routine Respiratory Exam Present: CTA bilaterally. Absent: accessory muscle use, respiratory distress, rhonchi, wheezes, crackles - Routine Cardiovascular Exam Present: RRR, S1, S2, no murmur - Routine Abdominal Exam Present: soft, normoactive bowel sounds, non distended, non tender. Absent: organomegaly, mass - Routine Extremities Exam Present: non tender. Absent: cyanosis, clubbing, edema - Routine Skin Exam Present: intact - Routine Neurological Exam Present: oriented X3, CN II-XII intact, sensory deficit (reduced sensation from just below the knees on distally.), motor deficit (has significant weakness in both the upper and lower extremities. Upper extremity weakness on flexion and extension at the elbows. Lower extremity weakness as well.) - Routine Psychiatric Exam Present: cooperative, depressed. Absent: normal affect IRU A/P DVT Prophylaxis: SCD's Resuscitation Status: Full Code - Course Hospital Course: Kunal Arce MD: - Interventions to Obtain Goals Goals Progress/Modifications: Our goal is to strengthen her to the point that she can return home safely and possibly resume chemotherapy if indicated. In addition we will work on nutrition , balance, avoidance of falls and monitor her numerous medical problems.
--- NOTE | 2016-10-24 16:09 | IRU 24Hr Post Admit Eval ---
24 Hr Post Admission Physical - Relevant Changes Relevant Changes: No Reviewed: I have reviewed the patient's information and concur with the finding and results of the pre-admission screen. Certification: I certify the patient for rehabilitation. - Prior Functional Status Lives With: Spouse Residence Type: Apartment/Private Home Assitive Devices: Front Wheeled Walker Prior Functional Status: Depend. at home or school, Used assistive device - Current Functional Status Failed Alternative Therapy: Arrived from Acute Care Patient Requirements: The patient requires oversight by rehabilitation physician to manage their rehabilitation treatment plan and multidisciplinary approach to care that can only be provided in an IRF and requires a multidisciplinary approach to care, provided by professional PTs, OTs, STs, dieticians, RTs, rehabilitation nurses and is not available in lesser levels of care. Limitiations Req: Mobility Impairment, ADL Impairment, Limited Mobility Physical Therapy Minutes: 90 Occupational Therapy Minutes: 90 Therapy: The patient is to receive therapy at least 5 days a week. - Complications/Comorbidities Impact on Functional Outcomes: Her chemotherapy-induced myopathy and neuropathy as well as recent hip fracture repair, anemia and hyponatremia all will impact her functional recovery. Barriers to Discharge: Weakness, Endurance - Plan to Avoid Complications Plan to Avoid Complications: The patient cannot receive this care in a lesser intensive setting such as Longterm or Outpatient Therapy due to the patient requiring the following : 24 hour rehabilitation nursing to monitor and treat pain, medical management involving her acute blood loss anemia superimposed upon anemia of chronic disease with recent requirement for packed red blood cell infusion, hyponatremia at 128, protein calorie malnutrition, critical illness myopathy and neuropathy. She will require a multidisciplinary intensive an individualized course of therapy to return her to her previous level of functioning safely.
[2016-10-24] MEDS ORDERED: ONDANSETRON 8 MG TABLET PO PRN (16:21)
[2016-10-24] MEDS ORDERED: LORazepam 0.5 MG TABLET PO PRN (16:21)
[2016-10-24] MEDS ORDERED: ACETAMINOPHEN 325 MG TABLET PO PRN (16:21)
[2016-10-24] MEDS: ACETAMINOPHEN 500 MG TABLET PO SCH ×2 (17:05→23:29)
[2016-10-24] MEDS: ONDANSETRON ODT 4 MG TABLET PO PRN (17:24)
[2016-10-24] MEDS ORDERED: FALL RISK - PHARMACY CONSULT MC PRN (19:50)
[2016-10-24] MEDS: SIMETHICONE 80 MG CHEWABLE TABLET PO SCH (22:40)
[2016-10-24] MEDS: BuPROPion IR 75 MG TABLET PO SCH (22:40)
[2016-10-24] MEDS: DOCUSATE SODIUM 100 MG CAPSULE PO SCH (22:40)
[2016-10-24] MEDS: TRAMADOL 50 MG TABLET PO PRN (23:29)
[2016-10-25] MEDS ORDERED: LEVOTHYROXINE 50 MCG TABLET PO SCH (06:30)
[2016-10-25] MEDS: ONDANSETRON ODT 4 MG TABLET PO PRN ×3 (08:11→17:45)
[2016-10-25] MEDS: TRAMADOL 50 MG TABLET PO PRN (10:21)
[2016-10-25] MEDS: ACYCLOVIR 200 MG CAPSULE PO SCH (10:21)
[2016-10-25] MEDS: BuPROPion IR 75 MG TABLET PO SCH ×2 (10:21→20:48)
[2016-10-25] MEDS: LANSOPRAZOLE SOLU-TAB 15 MG TABLET PO SCH (10:21)
[2016-10-25] MEDS: POLYETHYL GLYCOL 3350 17gm PACKET PO SCH (10:22)
[2016-10-25] MEDS: ACETAMINOPHEN 500 MG TABLET PO SCH ×2 (10:22→20:56)
[2016-10-25] MEDS: FERROUS SULFATE 324 MG TABLET PO SCH (10:22)
[2016-10-25] MEDS: ATENOLOL 25 MG TABLET PO SCH (10:22)
[2016-10-25] MEDS: DOCUSATE SODIUM 100 MG CAPSULE PO SCH ×2 (10:22→20:50)
[2016-10-25] MEDS: SIMETHICONE 80 MG CHEWABLE TABLET PO SCH ×3 (10:22→20:56)
--- NOTE | 2016-10-25 10:56 | Consult Note ---
<Daniella Gustafson - Last Filed: 10/25/16 10:47> Consult Information - Data of Consult Patient: new to practice Consult date: 10/25/16 Requesting Physician: Kunal Arce MD Primary Care Provider: Debby Banerjee MD Family Provider: Debby Banerjee MD - Consult Narrative Reason for consult: Medical management History of present illness: Mariel Cesar is a very pleasant 61 year-old female who was directly admitted to [facility] on 10/24/16 for intensive therapies to increase strength and functional ability with the ultimate goal of returning home safely. In 2015 she underwent needle biopsy of a retroperitoneal mass. Pathology was inconclusive with regard to diagnosis and unable to indicate whether the mass is lymphoma, sarcoma, carcinoma or adenocarcinoma. Per the direction of Dr. 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 She reports that her last treatment was the beginning of August 2016. Subsequently, she has developed peripheral neuropathy and progressive generalized weakness which is believed to be secondary to her chemotherapy. She also reports that her appetite is poor and admits to approximately 35 pound weight loss over the last several months. For the past month, she has felt more unsteady with ambulation due to her neuropathy. On 10/19 she was reaching for her walker while ambulating at home and fell. She admits to hitting her head but denies any loss of consciousness, headaches or change in vision. She denies any proceeding symptoms including no dizziness, headache, chest pain, shortness of breath or syncope. She was taken to the hospital in [place] and found to have a right hip fracture. She was transferred to [facility] in [place] and underwent successful right cephalo-medullary hip fixation by Dr. Spencer on 10/19. Postoperatively she had some complications including anemia, thrombocytopenia and hyponatremia with a sodium of 128. Following her hip surgery, she underwent a bronchoscopy on 10/21 for further evaluation of lymphadenopathy in the chest with pathology pending. Prior to discharge, while at [facility], she was noted to have an abnormal chest x-ray on 10/23 which demonstrated a left lower lobe airspace process concerning for effusion vs. infiltrate vs. atelectasis. No treatment or further evaluation was performed prior to discharge. She was accepted and transferred to [facility] on 10/24/16 for intensive rehabilitation and close medical monitoring as she is at high risk for infection given her past medical history including underlying history of poorly differentiated neoplasm, chemotherapy and radiation within the last 3 months, peripheral neuropathy, hypertension and rheumatoid arthritis. The hospitalist service was consulted for medical management. On exam, she is seen in her room, preparing for therapy with the therapist and her , Emma, present. She reports that overall she is doing ok today and states that she slept pretty well last night. She does admit to significant hip pain currently with movement which is improved with rest. She also expresses concern about decreased urination. She denies any urgency, frequency, burning or pain. She does admit that she is not drinking much. She denies any fevers, chills, chest pain, shortness of breath, abdominal pain, nausea, vomiting or diarrhea. She is noted to have a history of constipation and last BM was this morning, which she states was harder than normal. She states that her appetite is poor. She is sitting in the wheelchair and is alert and orientated x 3, though does struggle at time to recall information. Cardiac exam reveals regular rate and rhythm. Lungs are clear bilaterally without wheezing or signs of distress. Abdomen is soft, nontender with active bowel sounds. Pedal pulses intact bilaterally 2+. No peripheral edema noted. Decreased sensation to bilateral lower extremities noted. Labs on admission revealed WBC 6.8, anemia with hemoglobin at 7.3, thrombocytopenia with platelets at 112. BMP noted hyponatremia with sodium 128. potassium 3.8, BUN 18 , SCr 0.7 and glucose 101. Prealbumin was low at 11.2. [facility] Patient Stated Medical History Poorly differentiated retroperitoneal neoplasm, 04/2015. Hypertension. Acquired hypothyroidism secondary to hyperthyroidism treated with I-131 in 2014. GERD with reflux esophagitis. Rheumatoid arthritis. Depression. IBS-constipation. Diverticulosis. Nephrolithiasis with previous nephrolithotomy in 12/2011. History of herpes zoster on face, 2000. Surgical History: Implantable venous access port generate, 04/2016. Needle biopsy retroperitoneal mass, 12/2015. Laparoscopy with biopsy, 01/12/2016. Nephrolithotomy for removal of stone, 12/2011. Colonoscopy - normal, 12/2015. EGD - duodenitis,05/2009. Appendectomy, 1982. Laparotomy, 1978. Cholecystectomy, 1982. D & C. Cystoscopy and removal of bladder stone. Family History: Mother - , age 87, secondary to "brain bleed" after a fall, CAD, CHF. Father - , age 70, mittal, HTN. 4 children, all reportedly healthy. Niece - alive, DM. - Social History Smoking status: Never smoker Substance use type: does not use Alcohol intake frequency: does not drink Housing: house Household members: spouse ( 40 years to Emma.) service: No Current occupation: homemaker Does patient use chewing tobacco?: No Current residence: Apartment/Private Home Social history: PCP - Dr. Banerjee. Onc - Dr. Marinelli. Ortho - Dr. Spencer. Review of Systems Comprehensive ROS: completed and no additional positive findings except those as stated - Constitutional Constitutional: Present: fatigue, malaise, weakness (generalized), weight loss. Absent: fever(s), headache(s) - EENMT Eyes: Absent: change in vision, photophobia Balance: Absent: falling to one side Nose: Absent: nosebleeds Mouth/Throat: Present: dry mouth. Absent: sore throat, painful swallowing - Cardiovascular Cardiovascular: Present: dyspnea on exertion. Absent: chest pain, palpitations , syncope, edema Rhythm: Present: regular rhythm Vascular: Absent: intermittent claudication, pedal edema, unilateral swelling - Respiratory Respiratory: Present: dyspnea on exertion. Absent: cough, dyspnea, hemoptysis, wheezing - Gastrointestinal Gastrointestinal: Present: constipation. Absent: abdominal pain, change in bowel habits, nausea, vomiting - Musculoskeletal Musculoskeletal: Present: back pain, limited range of motion, muscle weakness ( generalized). Absent: deformity - Integumentary/Breasts Integumentary: Absent: rash, swelling, jaundice - Neurological Neurological: Present: numbness, weakness (generalized). Absent: dizziness, headache(s), vertigo - Psychiatric Psychiatric: Present: anxiety (about having pain), depression - Endocrine Endocrine: Absent: palpitations, polydipsia, polyphagia, polyuria - Hematologic/Lymphatic Hematologic/Lymphatic: Present: lymphadenopathy. Absent: easy bleeding Medications Home Medications Medication Instructions Recorded Confirmed Type Acyclovir 400 mg PO DAILY #0 01/12/16 10/24/16 History Docusate Sodium 100 mg PO BID #0 01/12/16 10/24/16 History Levothyroxine Sodium 50 mcg PO ACB #0 04/07/16 10/24/16 History LORazepam [Lorazepam] 0.5 tab PO BID PRN #0 06/16/16 10/24/16 History Lansoprazole [Prevacid] 15 mg PO DAILY #0 06/16/16 10/24/16 History Ondansetron [Ondansetron Odt] 8 mg PO TID PRN #0 06/16/16 10/24/16 History Acetaminophen [Tylenol] 2 tab PO Q4HPRN PRN 10/24/16 10/24/16 History Atenolol [Tenormin] 1 tab PO DAILY 10/24/16 10/24/16 History BuPROPion IR [Wellbutrin Ir] 75 mg PO BID 10/24/16 10/24/16 History Enoxaparin [Lovenox] 40 mg SQ DAILY 10/24/16 10/25/16 History Ferrous Sulfate [Feosol] 324 mg PO DAILY 10/24/16 10/24/16 History Polyethylene Glycol 3350 [Miralax] 17 gm PO DAILY 10/24/16 10/24/16 History Ranitidine [Zantac] 150 mg PO DAILY 10/24/16 10/24/16 History Simethicone [Mylicon] 80 mg PO TID 10/24/16 10/24/16 History Sodium Chloride 1,000 mg PO TID 10/24/16 10/24/16 History Tramadol [Ultram] 50 mg PO Q6HR PRN 10/24/16 10/24/16 History Allergies Allergy/AdvReac Type Severity Reaction Status Date / Time hydrocodone AdvReac Unknown NAUSEA Verified 10/24/16 17:04 Exam Vital Signs: Temperature 98.4 F 10/24/16 23:18 Pulse Rate 94 10/25/16 10:00 Respiratory Rate 16 10/25/16 10:00 Blood Pressure 138/84 10/25/16 10:00 Pulse Oximetry 98 10/25/16 10:00 Oxygen Delivery Method Room Air Height: 5 ft 7.5 in Weight: 150 lb 5.684 oz Body Mass Index: 23.1 - Constitutional Present: no acute distress, well nourished, well developed, cooperative - Routine HEENT Exam Head: Present: normocephalic, atraumatic. Absent: abrasion, laceration, hematoma Eye: Present: PERRL. Absent: conjunctival icterus ENT: Present: mucous membranes dry, oropharynx clear, dentition normal - Routine Neck Exam Present: supple, full ROM, trachea midline - Routine Chest/Breast/Axilla Exam Chest wall: Absent: tenderness - Routine Respiratory Exam Present: CTA bilaterally. Absent: stridor, wheezes, crackles - Routine Cardiovascular Exam Present: RRR, S1, S2, no murmur - Routine Abdominal Exam Present: soft, normoactive bowel sounds, non distended, non tender - Routine Extremities Exam Present: no edema, pulses intact. Absent: cyanosis, clubbing - Routine Back/Spine/Pelvis Exam Back/Spine: Present: pain with flexion. Absent: vertebral tenderness, erythema - Routine Skin Exam Present: dry, warm. Absent: jaundice Comments: incision to right hip clean, dry and intact. - Routine Neurological Exam Present: alert, oriented X3, moving all extremities, hearing grossly intact, normal speech decreased sensation to bilateral lower extremities and feet. - Routine Psychiatric Exam Present: normal affect, cooperative, anxious Results - Labs CBC & Chem 7: 10/25/16 04:27 10/25/16 04:27 Assessment and Plan GI Prophylaxis: other (prevacid) Resuscitation Status: Full Code Assessment and Plan: 10/25/16 [place]. Impression: S/P cephalo-medullary hip fixation secondary to intertrochanteric displaced right hip fracture. * Agree with admission to IRU for intensive rehabilitation and pain control under the guidance of Dr. Arce. Encourage participation of therapies and provide safe and supportive environment. * Patient to follow up with Dr. Spencer on or around 11/09 and family should call to schedule appointment. * Maintain tegaderm dressing to incision until 10/31 at which time incision should be open to air. No lotion or ointment should be used over or around incision as closure was performed with dermabond. Anemia, post-op, acute. * Present prior to admission per [facility] records. Hemoglobin 7.3 on admission. Patient complains of feeling very weak. Discussed possibility of blood transfusion and patient is agreeable. Will contact Dr. Marinelli to discuss recommendations with regard to transfusion and patient's prior trends. * Patient to follow up with Dr. Marinelli on 10/31 per records from . CBC and CMP to be faxed weekly to Dr. Marinelli's office at [phone]. Will check CBC and CMP on 10/30. Thrombocytopenia, acute. * Present prior to admission per records. Platelets 112 on admission. Will continue to monitor closely. Repeat CBC in AM to monitor blood counts. Hyponatremia, acute. * Present prior to admission per records. Sodium 128 on admission. Will given NS 100cc/hr x 1 bag now. Will continue to monitor closely. Repeat BMP in AM to monitor electrolytes and renal function. Will check urine sodium as well as UA for baseline. Mild protein calorie malnutrition, acute. * Prealbumin 11.2 on admission. Will consult dietary for recommendations. Prior records indicate patient had EnSure EnLive BID for supplementation. Poorly differentiated retroperitoneal neoplasm, acute. * Underwent bronchoscopy to evaluate lymphadenopathy in chest on 10/21. CXR on 10/23 revealed left lower lung air space disease concerning for atelectasis vs. pneumonia vs. effusion. Will obtain repeat CXR now. Encourage incentive spirometry for pulmonary toileting. Monitor respiratory function closely. Chemotherapy induced peripheral neuropathy, chronic. * Encourage therapy and provide safe and supportive environment. Pain control per Dr. Arce. Monitor closely for gait instability. Hypertension, chronic. * Blood pressure noted to be elevated following admission yesterday but controlled this morning at 138/84. Continue home atenolol and monitor blood pressure closely. Acquired hypothyroidism, chronic. * Continue home synthroid. Will check TSH now. GERD with history of duodenitis, chronic. * Continue home Prevacid for GI protection and GERD. Depression, chronic. * Continue home Wellbutrin 75mg BID. Ativan as needed for anxiety. IBS with constipation, chronic. * Encourage aggressive bowel motivation in light of pain medications in addition to chronic history. Docusate, miralax and MOM as needed. History of herpes zoster on the face, resolved. * Continue home acyclovir and monitor for recurrence. Upon discharge, patient's care will be returned to her PCP, Dr. Banerjee. - Time spent with patient greater than 35 minutes Hospital Course Summary Disclaimer: The visit summary below is not to be considered part of the above Progress Note. Hospital Course: 10/25/16 12:43 Impression: S/P cephalo-medullary hip fixation secondary to intertrochanteric displaced right hip fracture. * Agree with admission to IRU for intensive rehabilitation and pain control under the guidance of Dr. Arce. Encourage participation of therapies and provide safe and supportive environment. * Patient to follow up with Dr. Spencer on or around 11/09 and family should call to schedule appointment. * Maintain tegaderm dressing to incision until 10/31 at which time incision should be open to air. No lotion or ointment should be used over or around incision as closure was performed with dermabond. Anemia, post-op, acute. * Present prior to admission per records. Hemoglobin 7.3 on admission. Patient complains of feeling very weak. Discussed possibility of blood transfusion and patient is agreeable. Will contact Dr. Marinelli to discuss recommendations with regard to transfusion and patient's prior trends. * Patient to follow up with Dr. Marinelli on 10/31 per records from . CBC and CMP to be faxed weekly to Dr. Marinelli's office at [phone]. Will check CBC and CMP on 10/30. Thrombocytopenia, acute. * Present prior to admission per records. Platelets 112 on admission. Will continue to monitor closely. Repeat CBC in AM to monitor blood counts. Hyponatremia, acute. * Present prior to admission per records. Sodium 128 on admission. Will given NS 100cc/hr x 1 bag now. Will continue to monitor closely. Repeat BMP in AM to monitor electrolytes and renal function. Will check urine sodium as well as UA for baseline. Mild protein calorie malnutrition, acute. * Prealbumin 11.2 on admission. Will consult dietary for recommendations. Prior records indicate patient had EnSure EnLive BID for supplementation. Poorly differentiated retroperitoneal neoplasm, acute. * Underwent bronchoscopy to evaluate lymphadenopathy in chest on 10/21. CXR on 10/23 revealed left lower lung air space disease concerning for atelectasis vs. pneumonia vs. effusion. Will obtain repeat CXR now. Encourage incentive spirometry for pulmonary toileting. Monitor respiratory function closely. Chemotherapy induced peripheral neuropathy, chronic. * Encourage therapy and provide safe and supportive environment. Pain control per Dr. Arce. Monitor closely for gait instability. Hypertension, chronic. * Blood pressure noted to be elevated following admission yesterday but controlled this morning at 138/84. Continue home atenolol and monitor blood pressure closely. Acquired hypothyroidism, chronic. * Continue home synthroid. Will check TSH now. GERD with history of duodenitis, chronic. * Continue home Prevacid for GI protection and GERD. Depression, chronic. * Continue home Wellbutrin 75mg BID. Ativan as needed for anxiety. IBS with constipation, chronic. * Encourage aggressive bowel motivation in light of pain medications in addition to chronic history. Docusate, miralax and MOM as needed. History of herpes zoster on the face, resolved. * Continue home acyclovir and monitor for recurrence. Upon discharge, patient's care will be returned to her PCP, Dr. Banerjee. Sepsis Assessment - Evaluation Sepsis screening result: No Definite Risk <CresencioIfrah Figueroa - Last Filed: 10/25/16 17:16> Consult Information - Data of Consult Requesting Physician: Kunal Arce MD Primary Care Provider: Debby Banerjee MD Family Provider: Debby Banerjee MD [facility] Patient Stated Medical History Peripheral Neuropathy Yes: side effect of chemo Constipation No Hx Incontinence No Hx Kidney Stones Yes: 2011 Other Yes: surgery on kidney for stones Chemotherapy Yes: Early September Depression Yes: since cancer Infertility Yes Exam Vital Signs: Temperature 98.4 F 10/24/16 23:18 Pulse Rate 94 10/25/16 10:00 Respiratory Rate 16 10/25/16 10:00 Blood Pressure 138/84 10/25/16 10:00 Pulse Oximetry 98 10/25/16 10:00 Oxygen Delivery Method Room Air Height: 1.71 m Weight: 68.2 kg Results - Labs CBC & Chem 7: 10/25/16 04:27 10/25/16 04:27 Assessment and Plan Assessment and Plan: 10/25/2016-I reviewed this chart, the patient history, and the [employer] PRODUCER's/PA's documented findings as above. We discussed and formulated the assessment and plan as above with the additions below.-Dr. Dupont I have seen and examined the patient independently. Patient [facility] and subsequent right hip fracture. She did receive a transfusion postoperatively. Hemoglobin was 7.5 yesterday and is 7.3 today. The patient denies any abnormal bleeding. She does have a cancerous retroperitoneal mass for which she has undergone chemotherapy and radiation. Last chemotherapy was in August of this year. The type of cancer is unknown. She did undergo bronchoscopy with biopsy a couple of days ago and pathology is pending. She states when she is up walking with physical therapy today she feels very fatigued especially in her muscles and feels short of breath. She denies any lightheadedness or chest pain. She states her appetite is poor and she think she could drink 1 or 2 supplements a day but states that 5 have been ordered. Extensive past medical history has been reviewed. On exam the patient is alert and oriented 3 and in no acute distress. HEENT reveals sclerae to be anicteric Norflex is moist. Neck is supple. Chest is clear to auscultation. The patient has a Port-A-Cath which is accessed. There is no erythema or tenderness around her port site. Cardiovascular reveals a regular rate and rhythm. Abdomen is soft and nontender. Extremities are free of edema. Skin is warm and dry and without rashes. Regarding the patient's anemia, I did call and talk with Dr. Marinelli and he recommends transfusion if she is below 7.5 or symptomatic. He states she does NOT need irradiated or CMV negative blood. We'll recheck CBC tomorrow. Regarding hypothyroidism, will increase Synthroid to 75 g daily Regarding poor by mouth intake, the dietitian as been consulted Regarding hyponatremia, and decreased urine output-patient has been given 1 L of normal saline. We'll recheck BMP tomorrow. Regarding constipation, MiraLAX was started. Agree with Lovenox 40 mg subcutaneous daily for prophylaxis against DVT. Continue atenolol for hypertension. Hospital Course Summary Disclaimer: The visit summary below is not to be considered part of the above Progress Note.
--- NOTE | 2016-10-25 11:15 | IRU Progress Note ---
- Subjective/Serverity of Illness Ms. Cesar was evaluated in her room with her present. She has several concerns regarding pain management. She stated that the pain medication was not given until later and this interfered with her therapy. In addition she is concerned about anorexia and this will be discussed subsequently. With regard to therapy, she was surprised at how well she did. She was pleasantly impressed by therapy today. The following issues were noted and discussed: 1. Pain management: She has Ultram available on an as-needed basis and takes Tylenol on a regular basis. We will change this to give Ultram prior to therapy twice daily. 2. Anorexia: She continues to experience significant anorexia. Her weight is down conically over the last several months likely related to her underlying malignancy. She was on Marinol in the past and apparently was on Megace in the past neither of which she wants now. We will try a low-dose of mirtazapine at bedtime and I wonder this could make her sleepy. 3. Pulmonary status: She gets short of breath with any significant activity. Chest x-ray was abnormal in [place] with an airspace process in left lower lobe. Denies any cough or sputum. Her lungs sound fairly clear but I have not been able to really set her up well enough to listen to her extensively. She notes occasional wheezing. We did encourage her to use the incentive spirometry every 15-20 minutes 1-2 breaths if possible. 4. Anemia: Hemoglobin is 7.3. 5. Hyponatremia at 128. We will check a urine spot sodium. Likely this is SIADH rule out adrenal insufficiency. 6. Malnutrition: Her prealbumin is down at 11.2 and her albumin is 2.8. She has at least moderate protein calorie malnutrition. 7. Hypertension: Blood pressure is running a bit high at 157/71. We will monitor this and adjust medications if needed. Exam Vital Signs: Temperature 98.4 F 10/24/16 23:18 Pulse Rate 94 10/25/16 10:00 Respiratory Rate 16 10/25/16 10:00 Blood Pressure 138/84 10/25/16 10:00 Pulse Oximetry 98 10/25/16 10:00 Oxygen Delivery Method Room Air Height: 1.71 m Weight: 68.2 kg Body Mass Index: 23.1 - Constitutional Present: mild distress Comments: The patient is awake, alert and oriented and in mild acute distress. Pupils are equal. The neck is supple. Chest: Clear to auscultation bilaterally. Cor: RR with no jermaine, click nor murmur Abd: soft with normo-active bowel sounds. There are no masses, no tenderness and no guarding. Extremities: No edema is noted. Cognitively she seems to be intact today although she is somewhat anxious. Results IRU - Labs Labs: I reviewed her lab including pre-albumin, chemistries with sodium 128 and hemoglobin. Sepsis Assessment - Evaluation Sepsis screening result: No Definite Risk IRU A/P (1) Intertrochanteric fracture of right hip Qualifiers: Encounter type: subsequent encounter Fracture type: closed Fracture alignment: displaced Fracture healing: with routine healing Qualified Code(s ): S72.141D - Displaced intertrochanteric fracture of right femur, subsequent encounter for closed fracture with routine healing Current visit: Yes Status: Acute Patient is experiencing pain in the right hip. We will modify pain management to address this. (2) Closed fracture of right hip requiring operative repair Qualifiers: Encounter type: subsequent encounter Fracture healing: with routine healing Qualified Code(s): S72.001D - Fracture of unspecified part of neck of right femur, subsequent encounter for closed fracture with routine healing Current visit: Yes Status: Acute Please see above. (3) Benign essential hypertension Current visit: Yes Status: Chronic Patient is on atenolol for her blood pressure. We will monitor this. If it remains elevated we will adjust her medications. (4) Metastatic cancer Current visit: Yes Status: Chronic Patient has a diagnosis of poorly differentiated cancer. Uncertain if carcinoma , adenocarcinoma, lymphoma or sarcoma. Initially this was noted in the retroperitoneal area but is metastatic to liver and possibly mediastinal lymph nodes. (5) Anorexia Current visit: Yes Status: Chronic Has a history of anorexia and weight loss. We will initiate mirtazapine for this. (6) Protein-calorie malnutrition, moderate Current visit: Yes Status: Chronic Her prealbumin is 11.2. Albumin is low as well. Patient has at least moderate protein calorie malnutrition. Dietitian is involved and consulted. (7) Anemia in chronic illness Current visit: Yes Status: Chronic Hemoglobin is 7.3. If this drops below 7 or if she becomes otherwise symptomatic we will transfuse. (8) Hyponatremia Current visit: Yes Status: Chronic Had sodium of 128 in [place]. We will assess with urine spot sodium. May need assessment for adrenal insufficiency. (9) Chemotherapy-induced peripheral neuropathy Current visit: Yes Status: Chronic Her neuropathy is impacting her functional improvement. (10) Encephalopathy Current visit: Yes Status: Chronic Family has noted intermittent confusion for the past several months. Whether this relates to underlying chemotherapy is not clear. DVT Prophylaxis: SCD's Resuscitation Status: Full Code - Course Hospital Course: Kunal Arce MD: 10/25/16 11:15 She is just getting started with therapies. Seemed to tolerate therapy well today. We will schedule her Ultram to be given prior to therapies. Hyponatremia will be assessed with urine spot sodium. Anorexia will be addressed with Remeron. - Interventions to Obtain Goals PT Treatment Plan: Balance/Proprioception, Functional Activities, Gait Training , Patient/Family Education, Therapeutic Exercise OT Treatment Plan: ADL (Basic Care), Balance Training, IADL, Pt./Family Education, Ther. Exercise for ADL Goals Progress/Modifications: Please note that the patient's individual plan of care was developed and documented today, requiring review of therapy notes, medical conditions and anticipated functional recovery. This required additional medical decision making with regard to interaction of the patient's medical issues with the anticipated functional recovery. Please see separate document
--- NOTE | 2016-10-25 11:28 | IRU Plan of Care ---
[facility] Overall Plan of Care - Date Date: 10/25/16 - Patient Impairments (1) Intertrochanteric fracture of right hip Qualifiers: Encounter type: subsequent encounter Fracture type: closed Fracture alignment: displaced Fracture healing: with routine healing Qualified Code(s ): S72.141D - Displaced intertrochanteric fracture of right femur, subsequent encounter for closed fracture with routine healing Code(s): S72.141A - Displaced intertrochanteric fracture of right femur, initial encounter for closed fracture Status: Acute Classification: IRF Tx That Should Address Diagnosis, Diagnosis Requiring Medical Follow Up (2) Closed fracture of right hip requiring operative repair Qualifiers: Encounter type: subsequent encounter Fracture healing: with routine healing Qualified Code(s): S72.001D - Fracture of unspecified part of neck of right femur, subsequent encounter for closed fracture with routine healing Code(s): S72.001A - Fracture of unspecified part of neck of right femur, initial encounter for closed fracture Status: Acute Classification: Present on IRF Admission, IRF Tx That Should Address Diagnosis, Diagnosis Requiring Medical Follow Up (3) Benign essential hypertension Code(s): I10 - Essential (primary) hypertension Status: Chronic Classification: Present on IRF Admission, IRF Tx That Should Address Diagnosis, Diagnosis Requiring Medical Follow Up (4) Metastatic cancer Code(s): C79.9 - Secondary malignant neoplasm of unspecified site Status: Chronic Classification: Present on IRF Admission, Diagnosis Requiring Medical Follow Up , Other Contributing Factor (5) Anorexia Code(s): R63.0 - Anorexia Status: Chronic Classification: Present on IRF Admission, Diagnosis Requiring Medical Follow Up , Other Contributing Factor (6) Protein-calorie malnutrition, moderate Code(s): E44.0 - Moderate protein-calorie malnutrition Status: Chronic Classification: Present on IRF Admission, IRF Tx That Should Address Diagnosis, Diagnosis Requiring Medical Follow Up (7) Anemia in chronic illness Code(s): D63.8 - Anemia in other chronic diseases classified elsewhere Status : Chronic Classification: Present on IRF Admission, IRF Tx That Should Address Diagnosis, Diagnosis Requiring Medical Follow Up (8) Hyponatremia Code(s): E87.1 - Hypo-osmolality and hyponatremia Status: Chronic Classification: Present on IRF Admission, IRF Tx That Should Address Diagnosis, Diagnosis Requiring Medical Follow Up (9) Chemotherapy-induced peripheral neuropathy Code(s): G62.0 - Drug-induced polyneuropathy; T45.1X5A - Adverse effect of antineoplastic and immunosuppressive drugs, initial encounter Status: Chronic Classification: Present on IRF Admission, IRF Tx That Should Address Diagnosis, Diagnosis Requiring Medical Follow Up (10) Encephalopathy Code(s): G93.40 - Encephalopathy, unspecified Status: Chronic Classification: Present on IRF Admission, Diagnosis Requiring Medical Follow Up - Relevant Changes Relevant Changes: No Reviewed: I have reviewed the patient's information and concur with the finding and results of the pre-admission screen. Certification: I certify the patient for rehabilitation. - Medical Prognosis Medical Prognosis: Good Vital Signs: Last Vital Signs Temp 98.4 F 10/24/16 23:18 Pulse 94 10/25/16 10:00 Resp 16 10/25/16 10:00 BP 138/84 10/25/16 10:00 Pulse Ox 98 10/25/16 10:00 - Anticipated Interventions Anticipated Interventions: The patient requires inpatient IRF care for PT, OT, and/or ST for residuals remaining from right intertrochanteric displaced hip fracture and repair as well as her underlying metastatic cancer, anemia, hyponatremia and cognition issues resulting in muscular weakness and strength deficits. ROM Deficit: Right Lower Extremity - FIM Ambulation Distance: 6 Toileting Adaptive Equipment: Raised Toilet Seat, Grab Bars - Current Functional Status Failed Alternative Therapy: Arrived from Acute Care Patient Requires: The patient requires oversight by rehabilitation physician to manage their rehabilitation treatment plan and multidisciplinary approach to care that can only be provided in an IRF and requires a multidisciplinary approach to care, provided by professional PTs, OTs, STs, dieticians, RTs, rehabilitation nurses and is not available in lesser levels of care. Physical Therapy Minutes: 90 Occupational Therapy Minutes: 90 Therapy: The patient is to receive therapy at least 5 days a week. - Anticipated LOS/Outcomes Anticipated Functional Outcome: It is anticipated that the patient will be able to transfer safely with minimal discomfort, ambulate with a walker and be able to return to her home. We will also work on improving nutrition and addressing the protein calorie malnutrition in preparation for possible further chemotherapy. Anticipated Length of Stay: 10 Anticipated DC Destination: Home, Self Correction Safety Plan: The patient will be provided with the development of a Home Safety Plan for return to a home or home-like environment and and to ensure safety post discharge. - Plan to Avoid Complications Barriers to Attaining Goals: Weakness, Endurance, Pain Control, Medical Limitation Plan to Avoid Complications: The patient cannot receive this care in a lesser intensive setting such as Usp or Outpatient Therapy due to the patient requiring the following : Monitoring of and treatment of her anemia, hyponatremia as well as addressing anorexia and weight loss with protein calorie malnutrition, monitoring and treatment of her pain and blood pressure. This requires a multidisciplinary but individualized plan of care.
[2016-10-25] MEDS ORDERED: NS 1,000 ML IV SCH (12:30)
[2016-10-25] MEDS: TRAMADOL 50 MG TABLET PO SCH (12:45)
--- NOTE | 2016-10-25 13:09 | XRay Report ---
Indication: dyspnea PROCEDURE: XR chest 2V: Encounter: Initial Comparison: Portable chest, 04/10/2016 Findings: There are bilateral pleural effusions with some haziness the left base which may represent infiltrate. The heart is unenlarged. There is an abnormal convexity of the aorticopulmonary window which could reflect adenopathy. Right IJ Port-A-Cath. Hilar contours normal. No aggressive osseous lesions. Impression: 1. Bilateral pleural effusions with left basal infiltrate suspected. 2. Abnormal aorticopulmonary window convex contour suggesting adenopathy. CT chest with contrast may be helpful for further assessment in this regard. .
[2016-10-25] MEDS: ENOXAPARIN 40 MG/0.4 ML INJECTION SQ SCH (15:44)
[2016-10-25] MEDS: LORazepam 0.5 MG TABLET PO SCH ×3 (16:39→20:50)
[2016-10-25] MEDS ORDERED: NS FLUSH BAG 500ml IV PRN (17:03)
[2016-10-25] MEDS ORDERED: DiphenhydrAMINE 25 MG CAPSULE PO ONE (17:03)
[2016-10-25] MEDS: MIRTAZAPINE 15 MG TABLET PO SCH ×2 (20:49→22:46)
[2016-10-26] MEDS: ACETAMINOPHEN 500 MG TABLET PO SCH ×3 (01:00→17:50)
[2016-10-26] MEDS: LEVOTHYROXINE 75 MCG TABLET PO SCH (06:37)
[2016-10-26] MEDS: TRAMADOL 50 MG TABLET PO SCH ×2 (06:43→17:20)
[2016-10-26] MEDS: ONDANSETRON ODT 4 MG TABLET PO PRN ×2 (06:45→17:20)
[2016-10-26] MEDS ORDERED: LEVOTHYROXINE 75 MCG TABLET PO SCH (07:00)
[2016-10-26] MEDS: FERROUS SULFATE 324 MG TABLET PO SCH (09:00)
[2016-10-26] MEDS: DOCUSATE SODIUM 100 MG CAPSULE PO SCH ×2 (09:01→21:17)
[2016-10-26] MEDS: POLYETHYL GLYCOL 3350 17gm PACKET PO SCH (09:01)
[2016-10-26] MEDS: LANSOPRAZOLE SOLU-TAB 15 MG TABLET PO SCH (09:01)
[2016-10-26] MEDS: ATENOLOL 25 MG TABLET PO SCH (09:02)
[2016-10-26] MEDS: BuPROPion IR 75 MG TABLET PO SCH ×2 (09:02→21:18)
[2016-10-26] MEDS: ACYCLOVIR 200 MG CAPSULE PO SCH (09:02)
[2016-10-26] MEDS: SIMETHICONE 80 MG CHEWABLE TABLET PO SCH ×2 (09:03→13:30)
[2016-10-26] MEDS: ENOXAPARIN 40 MG/0.4 ML INJECTION SQ SCH (09:03)
--- NOTE | 2016-10-26 10:54 | IRU Progress Note ---
- Subjective/Serverity of Illness Lexii was evaluated in her room with her present. She slept well last night. We did start mirtazapine yesterday evening an effort to improve appetite. Tolerated this well. It about half for breakfast today. Denies nausea or vomiting. Pain continues to be an issue regarding the right hip. She is working with therapy. Requires maximal assistance for transfers to and from bed and to and from chair. Medical issues are as follows: 1. Pain management: We have initiated Ultram being given just prior to therapy twice daily. We will see if this will assist her in her therapy progression. 2. Anorexia: We started a low-dose of mirtazapine 7.5 mg last night at bedtime. Slept well but it is too early to see if it has helped her appetite any. 3. Pulmonary status: She reports that her dyspnea is better. Perhaps the packed red blood cells was beneficial in this regard. Denies any cough or clinical evidence of infection at present. However, repeat chest x-ray reviewed and does reveal bilateral pleural effusions and probable infiltrate left lower lung. 4. Anemia: Hemoglobin is improved after transfusion of 1 unit of packed blood cells. 5. Hyponatremia remains present at 128. Urine spot sodium quite high at 130. She is hypothyroid and has been started on levothyroxine. I will check an a.m. cortisol and if low may need short cosyntropin test. 6. Malnutrition: Continue dietary improvement, supplements and encouragement of eating. 7. Hypertension: Continue to monitor. Exam Vital Signs: Temperature 97.8 F 10/26/16 08:00 Pulse Rate 101 H 10/26/16 08:00 Respiratory Rate 14 10/26/16 08:00 Blood Pressure 153/80 H 10/26/16 08:00 Pulse Oximetry 94 10/26/16 08:00 Oxygen Delivery Method Room Air Height: 1.71 m Weight: 68.2 kg Body Mass Index: 23.1 - Constitutional Present: no acute distress Comments: The patient is awake, alert and oriented and in no acute distress. She appears much brighter today. More alert and more cheerful. Pupils are equal. The neck is supple. Chest: Clear to auscultation bilaterally. Cor: RR with no jermaine, click nor murmur Abd: soft with normo-active bowel sounds. There are no masses, no tenderness and no guarding. Extremities: No edema is noted. There are good pulses in both ankles. No cyanosis is present. Results IRU - Labs Labs: Reviewed lab including elevated TSH (on levothyroxine now), urine spot sodium of 130, repeat chemistries and hemoglobin after transfusion. Also reviewed chest x-ray revealing effusions and infiltrate. Sepsis Assessment - Evaluation Sepsis screening result: No Definite Risk IRU A/P (1) Intertrochanteric fracture of right hip Qualifiers: Encounter type: subsequent encounter Fracture type: closed Fracture alignment: displaced Fracture healing: with routine healing Qualified Code(s ): S72.141D - Displaced intertrochanteric fracture of right femur, subsequent encounter for closed fracture with routine healing Current visit: Yes Status: Acute Progressing slowly with therapy. Requires maximal assistance for transfers. Pain management is an issue. (2) Closed fracture of right hip requiring operative repair Qualifiers: Encounter type: subsequent encounter Fracture healing: with routine healing Qualified Code(s): S72.001D - Fracture of unspecified part of neck of right femur, subsequent encounter for closed fracture with routine healing Current visit: Yes Status: Acute (3) Benign essential hypertension Current visit: Yes Status: Chronic Blood pressure remains borderline elevated at 140-150. (4) Metastatic cancer Current visit: Yes Status: Chronic (5) Anorexia Current visit: Yes Status: Chronic She is now on mirtazapine. We will encourage dietary supplements etc. (6) Protein-calorie malnutrition, moderate Current visit: Yes Status: Chronic (7) Anemia in chronic illness Current visit: Yes Status: Chronic Tolerated single unit transfusion yesterday and hemoglobin better and she feels better. (8) Hyponatremia Current visit: Yes Status: Chronic Sodium remains 128. Urine spot sodium is quite high. Levothyroxine has been started. We will check morning cortisols and if low may assess with short cosyntropin test. (9) Chemotherapy-induced peripheral neuropathy Current visit: Yes Status: Chronic (10) Encephalopathy Current visit: Yes Status: Chronic Have not noted much in the way of confusion which she had previously. Continue to monitor. (11) Abnormal chest xray Current visit: Yes Status: Acute Chest x-ray demonstrates bilateral pleural effusions, lymphadenopathy and possible infiltrate. Management per hospitalists. DVT Prophylaxis: SCD's Resuscitation Status: Full Code - Course Hospital Course: Kunal Arce MD: 10/25/16 11:15 She is just getting started with therapies. Seemed to tolerate therapy well today. We will schedule her Ultram to be given prior to therapies. Hyponatremia will be assessed with urine spot sodium. Anorexia will be addressed with Remeron. 10/26/16 10:58 Started mirtazapine yesterday evening and seems to be improved. Urine spot sodium 130. We will check a.m. cortisol tomorrow. Chest x-ray remains abnormal although clinically no evidence of infection - management per hospitalists. - Interventions to Obtain Goals PT Treatment Plan: Balance/Proprioception, Functional Activities, Gait Training , Patient/Family Education, Therapeutic Exercise OT Treatment Plan: ADL (Basic Care), Balance Training, IADL, Pt./Family Education, Ther. Exercise for ADL Goals Progress/Modifications: Continued physical therapy, occupational therapy and pain management. Hyponatremia workup in progress. Chest x-ray abnormality management per hospitalists.
[2016-10-26] MEDS: TRAMADOL 50 MG TABLET PO PRN ×2 (11:30→21:19)
[2016-10-26] MEDS ORDERED: FALL RISK - PHARMACY CONSULT MC PRN (11:40)
--- NOTE | 2016-10-26 14:25 | Progress Note ---
<Margarita Gatica - Last Filed: 10/26/16 18:02> Subjective: Patient seen today resting in bed. Her is present. She reports feeling better today, but complained she has significant pain with therapy. She received a unit of packed red blood cells and a liter of normal saline overnight due to hemoglobin of 7.3 and a sodium of 128. She had no problems with the transfusion. She doesn't have much of an appetite. Last bowel movement was yesterday morning but she is concerned about constipation as she has chronic problems with this. No fever, shortness of breath, abdominal pain or swelling. Objective Vital signs: Temperature 97.8 F 10/26/16 08:00 Pulse Rate 101 H 10/26/16 08:00 Respiratory Rate 14 10/26/16 08:00 Blood Pressure 153/80 H 10/26/16 08:00 Pulse Oximetry 94 10/26/16 08:00 Oxygen Delivery Method Room Air Body Mass Index: 23.1 - Constitutional Present: no acute distress, well nourished, well developed - Routine HEENT Exam Head: Present: normocephalic, atraumatic Eye: Present: EOMI ENT: Present: mucous membranes dry, dentition normal - Routine Respiratory Exam Present: CTA bilaterally. Absent: wheezes - Routine Cardiovascular Exam Present: RRR, S1, S2. Absent: murmur - Routine Abdominal Exam Present: soft, normoactive bowel sounds, non distended. Absent: tenderness - Routine Extremities Exam Present: no edema, normal capillary refill - Routine Back/Spine/Pelvis Exam Back/Spine: Present: full ROM - Routine Skin Exam Present: dry, warm - Routine Neurological Exam Present: alert, oriented X3, CN II-XII intact - Routine Lymphatic Exam Lymphatic: Absent: adenopathy - Routine Psychiatric Exam Present: normal affect, normal thought process Results - Labs CBC & Chem 7: 10/26/16 04:38 10/26/16 04:38 - ABG Interpretation ABG results: - Imaging and Cardiology Chest x-ray Additional comments: 10/25/16-chest x-ray Impression: 1. Bilateral pleural effusions with left basal infiltrate suspected. 2. Abnormal aorticopulmonary window convex contour suggesting adenopathy. CT chest with contrast may be helpful for further assessment in this regard. Assessment and Plan (1) Closed fracture of right hip requiring operative repair Current visit: Yes Status: Acute Assessment and Plan: IMPRESSION: hyponatremia Anemia, postop S/P cephalo-medullary hip fixation secondary to intertrochanteric displaced right hip fracture - Dr. Spencer Poorly differentiated retroperitoneal neoplasm, 04/2015. Hypertension. Chemotherapy induced peripheral neuropathy Acquired hypothyroidism secondary to hyperthyroidism treated with I-131 in 2014. GERD with reflux esophagitis. Rheumatoid arthritis. Depression. IBS-constipation. Diverticulosis. Nephrolithiasis with previous nephrolithotomy in 12/2011. History of herpes zoster on face, 2000. PLAN: S/P cephalo-medullary hip fixation secondary to intertrochanteric displaced right hip fracture. * Patient to follow up with Dr. Spencer on or around 11/09 and family should call to schedule appointment. * Maintain tegaderm dressing to incision until 10/31 at which time incision should be open to air. No lotion or ointment should be used over or around incision as closure was performed with dermabond. Anemia, post-op, acute. * Present prior to admission per records. Hemoglobin 7.3 on admission. One unit PRBCs transfused last evening. Hemoglobin up to 8.5 today. * Patient to follow up with Dr. Marinelli on 10/31 per records from . CBC and CMP to be faxed weekly to Dr. Marinelli's office at [phone]. Will check CBC tomorrow. Hyponatremia, acute. * Present prior to admission per records. Sodium 128 on admission. Was given NS 100cc/hr x 1 bag yesterday. Sodium remains 128 today.Will give another 500 cc normal saline at 100 cc per hour. Will continue to monitor closely. Repeat BMP in AM to monitor electrolytes and renal function. Poorly differentiated retroperitoneal neoplasm, acute. * Underwent bronchoscopy to evaluate lymphadenopathy in chest on 10/21. Pathology reports pending. CXR on 10/23 compared to 10/19 in [place] showed potential increase in left lower lung air space disease concerning for atelectasis vs. pneumonia vs. effusion. Repeat CXR yesterday shows bilateral pleural effusions and possible left lower lobe infiltrate. Monitor respiratory function closely. Patient has no respiratory symptoms at present. No fever. No leukocytosis. Sepsis Assessment - Evaluation Sepsis screening result: No Definite Risk Hospital Course Summary Disclaimer: The visit summary below is not to be considered part of the above Progress Note. Hospital Course: 10/25/16 12:43 hospitalist consult Impression: S/P cephalo-medullary hip fixation secondary to intertrochanteric displaced right hip fracture. * Agree with admission to IRU for intensive rehabilitation and pain control under the guidance of Dr. Arce. Encourage participation of therapies and provide safe and supportive environment. * Patient to follow up with Dr. Spencer on or around 11/09 and family should call to schedule appointment. * Maintain tegaderm dressing to incision until 10/31 at which time incision should be open to air. No lotion or ointment should be used over or around incision as closure was performed with dermabond. Anemia, post-op, acute. * Present prior to admission per records. Hemoglobin 7.3 on admission. Patient complains of feeling very weak. Discussed possibility of blood transfusion and patient is agreeable. Will contact Dr. Marinelli to discuss recommendations with regard to transfusion and patient's prior trends. * Patient to follow up with Dr. Marinelli on 10/31 per records from . CBC and CMP to be faxed weekly to Dr. Marinelli's office at [phone]. Will check CBC and CMP on 10/30. Thrombocytopenia, acute. * Present prior to admission per records. Platelets 112 on admission. Will continue to monitor closely. Repeat CBC in AM to monitor blood counts. Hyponatremia, acute. * Present prior to admission per records. Sodium 128 on admission. Will given NS 100cc/hr x 1 bag now. Will continue to monitor closely. Repeat BMP in AM to monitor electrolytes and renal function. Will check urine sodium as well as UA for baseline. Mild protein calorie malnutrition, acute. * Prealbumin 11.2 on admission. Will consult dietary for recommendations. Prior records indicate patient had EnSure EnLive BID for supplementation. Poorly differentiated retroperitoneal neoplasm, acute. * Underwent bronchoscopy to evaluate lymphadenopathy in chest on 10/21. CXR on 10/23 revealed left lower lung air space disease concerning for atelectasis vs. pneumonia vs. effusion. Will obtain repeat CXR now. Encourage incentive spirometry for pulmonary toileting. Monitor respiratory function closely. Chemotherapy induced peripheral neuropathy, chronic. * Encourage therapy and provide safe and supportive environment. Pain control per Dr. Arce. Monitor closely for gait instability. Hypertension, chronic. * Blood pressure noted to be elevated following admission yesterday but controlled this morning at 138/84. Continue home atenolol and monitor blood pressure closely. Acquired hypothyroidism, chronic. * Continue home synthroid. Will check TSH now. GERD with history of duodenitis, chronic. * Continue home Prevacid for GI protection and GERD. Depression, chronic. * Continue home Wellbutrin 75mg BID. Ativan as needed for anxiety. IBS with constipation, chronic. * Encourage aggressive bowel motivation in light of pain medications in addition to chronic history. Docusate, miralax and MOM as needed. History of herpes zoster on the face, resolved. * Continue home acyclovir and monitor for recurrence. Upon discharge, patient's care will be returned to her PCP, Dr. Banerjee. 10/26/16 -hospitalist progress note Hemoglobin up to 8.5 from 7.3 with 1 unit PRBCs. CBC in a.m. Sodium remains at 128 despite 1000 cc of normal saline infused yesterday. Infused 500 cc normal saline today. Recheck BMP in a.m. Monitor respiratory function given the changes on chest x-ray. Await bronchoscopy results. <Ifrah Dupont - Last Filed: 10/26/16 19:17> Objective Vital signs: Temperature 98.3 F 10/26/16 16:00 Pulse Rate 94 10/26/16 16:00 Respiratory Rate 16 10/26/16 16:00 Blood Pressure 146/72 H 10/26/16 16:00 Pulse Oximetry 97 10/26/16 16:00 Oxygen Delivery Method Room Air Results - Labs CBC & Chem 7: 10/26/16 04:38 10/26/16 04:38 Assessment and Plan (1) Closed fracture of right hip requiring operative repair Current visit: Yes Status: Acute Assessment and Plan: 10/26/2016-I reviewed this chart, the patient history, and the ASSISTANT DEPARTMENT MANAGER's/PA's documented findings as above. We discussed and formulated the assessment and plan as above with the additions below. I've seen and examined the patient independently.-Dr. Dupont Patient was seen this evening after dinner. She states she is feeling stronger today and feels more confident when she is up doing therapy. She thinks the blood transfusion helped. She is eating okay. She did have some pain today with therapy. She has no other complaints. The patient is alert and oriented and in no acute distress. Continue with current treatment as noted above. Discussed yesterday with the patient's oncologist Dr. Gilmar Marinelli and he recommends transfusion if hemoglobin less than 7.5 or patient is symptomatic. She does not need irradiated or CMV negative blood. Hemoglobin today has improved. Sodium is stable. Recheck lab work tomorrow. Hospital Course Summary Disclaimer: The visit summary below is not to be considered part of the above Progress Note.
[2016-10-26] MEDS: LORazepam 0.5 MG TABLET PO SCH ×2 (17:51→21:17)
[2016-10-26] MEDS ORDERED: MAGNESIUM SULFATE 1gm PREMIX 1 GM/100 ML BAG IV ONE (19:13)
[2016-10-26] MEDS: NS 500 ML IV SCH ×2 (20:54→23:13)
[2016-10-26] MEDS: MIRTAZAPINE 15 MG TABLET PO SCH (21:17)
[2016-10-27] MEDS: ACETAMINOPHEN 500 MG TABLET PO SCH ×3 (00:49→17:49)
[2016-10-27] MEDS: LEVOTHYROXINE 75 MCG TABLET PO SCH (06:25)
[2016-10-27] MEDS: TRAMADOL 50 MG TABLET PO PRN ×2 (06:29→21:02)
[2016-10-27] MEDS: TRAMADOL 50 MG TABLET PO SCH ×3 (09:13→19:53)
[2016-10-27] MEDS: FERROUS SULFATE 324 MG TABLET PO SCH (09:14)
[2016-10-27] MEDS: DOCUSATE SODIUM 100 MG CAPSULE PO SCH (09:15)
[2016-10-27] MEDS: POLYETHYL GLYCOL 3350 17gm PACKET PO SCH (09:15)
[2016-10-27] MEDS: ENOXAPARIN 40 MG/0.4 ML INJECTION SQ SCH (09:15)
[2016-10-27] MEDS: BuPROPion IR 75 MG TABLET PO SCH ×2 (09:16→20:25)
[2016-10-27] MEDS: LANSOPRAZOLE SOLU-TAB 15 MG TABLET PO SCH (09:16)
[2016-10-27] MEDS: ATENOLOL 25 MG TABLET PO SCH (09:16)
[2016-10-27] MEDS: ACYCLOVIR 200 MG CAPSULE PO SCH (09:16)
[2016-10-27] MEDS: SIMETHICONE 80 MG CHEWABLE TABLET PO SCH ×4 (11:10→20:30)
[2016-10-27] MEDS: ONDANSETRON ODT 4 MG TABLET PO PRN (11:12)
[2016-10-27] MEDS: LORazepam 0.5 MG TABLET PO SCH ×2 (17:49→20:25)
[2016-10-27] MEDS: SENNA + DOCUSATE TABLET PO SCH (20:25)
[2016-10-27] MEDS: MIRTAZAPINE 15 MG TABLET PO SCH (20:27)
[2016-10-28] MEDS: ACETAMINOPHEN 500 MG TABLET PO SCH ×4 (01:39→20:26)
[2016-10-28] MEDS: TRAMADOL 50 MG TABLET PO SCH ×2 (07:05→14:03)
[2016-10-28] MEDS: LEVOTHYROXINE 75 MCG TABLET PO SCH (07:06)
[2016-10-28] MEDS: ONDANSETRON ODT 4 MG TABLET PO PRN ×2 (08:37→12:05)
[2016-10-28] MEDS: ACYCLOVIR 200 MG CAPSULE PO SCH (09:56)
[2016-10-28] MEDS: BuPROPion IR 75 MG TABLET PO SCH ×2 (09:57→20:27)
[2016-10-28] MEDS: SENNA + DOCUSATE TABLET PO SCH ×2 (09:57→20:28)
[2016-10-28] MEDS: LANSOPRAZOLE SOLU-TAB 15 MG TABLET PO SCH (09:57)
[2016-10-28] MEDS: FERROUS SULFATE 324 MG TABLET PO SCH (09:57)
[2016-10-28] MEDS: ATENOLOL 25 MG TABLET PO SCH (09:57)
[2016-10-28] MEDS: ENOXAPARIN 40 MG/0.4 ML INJECTION SQ SCH (09:58)
[2016-10-28] MEDS: SIMETHICONE 80 MG CHEWABLE TABLET PO SCH ×3 (09:58→19:54)
[2016-10-28] MEDS: POLYETHYL GLYCOL 3350 17gm PACKET PO SCH (09:59)
[2016-10-28] MEDS ORDERED: FUROSEMIDE 20 MG TABLET PO SCH (10:00)
--- NOTE | 2016-10-28 10:01 | Progress Note ---
Subjective: Feeling well this morning, getting in the chair to go to breakfast. Discussed her sodium levels, not a new problem for her. Denies weakness, dizziness, fevers, chills, nausea. Tolerating therapy well. Objective Vital signs: Temperature 98.6 F 10/28/16 00:00 Pulse Rate 118 H 10/28/16 08:00 Respiratory Rate 18 10/28/16 08:00 Blood Pressure 155/107 H 10/28/16 08:00 Pulse Oximetry 98 10/28/16 08:00 Oxygen Delivery Method Room Air Body Mass Index: 23.1 - Constitutional Present: no acute distress, well nourished, well developed - Routine HEENT Exam Head: Present: normocephalic, atraumatic Eye: Present: EOMI, PERRL. Absent: conjunctival icterus ENT: Present: mucous membranes moist, oropharynx clear - Routine Respiratory Exam Present: CTA bilaterally. Absent: accessory muscle use - Routine Cardiovascular Exam Present: RRR. Absent: murmur - Routine Abdominal Exam Present: soft, non distended, non tender - Routine Extremities Exam Present: edema (trace BLE), pulses intact - Routine Musculoskeletal Exam Musculoskeletal: Present: no tenderness, no erythema - Routine Skin Exam Present: intact, dry. Absent: rash - Routine Neurological Exam Present: alert, oriented X3, moving all extremities, vision grossly intact - Routine Psychiatric Exam Present: normal affect Results - Labs CBC & Chem 7: 10/28/16 04:33 10/28/16 04:33 Assessment and Plan DVT Prophylaxis: other (ambulating) Resuscitation Status: Full Code Assessment and Plan: 10/26/2016-I reviewed this chart, the patient history, and the OCCUPATIONAL THERAPY MANAGER's/PA's documented findings as above. We discussed and formulated the assessment and plan as above with the additions below. I've seen and examined the patient independently.-Dr. Dupont Patient was seen this evening after dinner. She states she is feeling stronger today and feels more confident when she is up doing therapy. She thinks the blood transfusion helped. She is eating okay. She did have some pain today with therapy. She has no other complaints. The patient is alert and oriented and in no acute distress. Continue with current treatment as noted above. Discussed yesterday with the patient's oncologist Dr. Gilmar Marinelli and he recommends transfusion if hemoglobin less than 7.5 or patient is symptomatic. She does not need irradiated or CMV negative blood. Hemoglobin today has improved. Sodium is stable. Recheck lab work tomorrow. Sepsis Assessment - Evaluation Sepsis screening result: No Definite Risk Hospital Course Summary Disclaimer: The visit summary below is not to be considered part of the above Progress Note. Hospital Course: 10/25/16 12:43 hospitalist consult Impression: S/P cephalo-medullary hip fixation secondary to intertrochanteric displaced right hip fracture. * Agree with admission to IRU for intensive rehabilitation and pain control under the guidance of Dr. Arce. Encourage participation of therapies and provide safe and supportive environment. * Patient to follow up with Dr. Spencer on or around 11/09 and family should call to schedule appointment. * Maintain tegaderm dressing to incision until 10/31 at which time incision should be open to air. No lotion or ointment should be used over or around incision as closure was performed with dermabond. Anemia, post-op, acute. * Present prior to admission per records. Hemoglobin 7.3 on admission. Patient complains of feeling very weak. Discussed possibility of blood transfusion and patient is agreeable. Will contact Dr. Marinelli to discuss recommendations with regard to transfusion and patient's prior trends. * Patient to follow up with Dr. Marinelli on 10/31 per records from . CBC and CMP to be faxed weekly to Dr. Marinelli's office at [phone]. Will check CBC and CMP on 10/30. Thrombocytopenia, acute. * Present prior to admission per [facility] records. Platelets 112 on admission. Will continue to monitor closely. Repeat CBC in AM to monitor blood counts. Hyponatremia, acute. * Present prior to admission per records. Sodium 128 on admission. Will given NS 100cc/hr x 1 bag now. Will continue to monitor closely. Repeat BMP in AM to monitor electrolytes and renal function. Will check urine sodium as well as UA for baseline. Mild protein calorie malnutrition, acute. * Prealbumin 11.2 on admission. Will consult dietary for recommendations. Prior records indicate patient had EnSure EnLive BID for supplementation. Poorly differentiated retroperitoneal neoplasm, acute. * Underwent bronchoscopy to evaluate lymphadenopathy in chest on 10/21. CXR on 10/23 revealed left lower lung air space disease concerning for atelectasis vs. pneumonia vs. effusion. Will obtain repeat CXR now. Encourage incentive spirometry for pulmonary toileting. Monitor respiratory function closely. Chemotherapy induced peripheral neuropathy, chronic. * Encourage therapy and provide safe and supportive environment. Pain control per Dr. Arce. Monitor closely for gait instability. Hypertension, chronic. * Blood pressure noted to be elevated following admission yesterday but controlled this morning at 138/84. Continue home atenolol and monitor blood pressure closely. Acquired hypothyroidism, chronic. * Continue home synthroid. Will check TSH now. GERD with history of duodenitis, chronic. * Continue home Prevacid for GI protection and GERD. Depression, chronic. * Continue home Wellbutrin 75mg BID. Ativan as needed for anxiety. IBS with constipation, chronic. * Encourage aggressive bowel motivation in light of pain medications in addition to chronic history. Docusate, miralax and MOM as needed. History of herpes zoster on the face, resolved. * Continue home acyclovir and monitor for recurrence. Upon discharge, patient's care will be returned to her PCP, Dr. Banerjee. 10/26/16 -hospitalist progress note Hemoglobin up to 8.5 from 7.3 with 1 unit PRBCs. CBC in a.m. Sodium remains at 128 despite 1000 cc of normal saline infused yesterday. Infused 500 cc normal saline today. Recheck BMP in a.m. Monitor respiratory function given the changes on chest x-ray. Await bronchoscopy results. 10/28/16 [place] Sodium down to 122 today, denies any symptoms at this time. Worsened with 500 cc saline, suspect SIADH in the setting of malignancy. Will start fluid restriction to 1.5L daily, give a small dose of furosemide 20 mg daily to enhance free water clearance and monitor for any orthostasis. If worsening despite these interventions will pursue full w/u including urine osm/Na values and thyroid/hormonal axis testing. Discussed with nursing staff and patient.
[2016-10-28] MEDS: LORazepam 0.5 MG TABLET PO PRN (14:05)
[2016-10-28] MEDS: LORazepam 0.5 MG TABLET PO SCH ×2 (16:54→20:27)
[2016-10-28] MEDS: MIRTAZAPINE 15 MG TABLET PO SCH (20:27)
[2016-10-28] MEDS: TRAMADOL 50 MG TABLET PO PRN (20:28)
[2016-10-29] MEDS: ACETAMINOPHEN 500 MG TABLET PO SCH ×3 (01:37→15:46)
[2016-10-29] MEDS: TRAMADOL 50 MG TABLET PO SCH ×3 (06:04→14:06)
[2016-10-29] MEDS: LEVOTHYROXINE 75 MCG TABLET PO SCH (06:04)
[2016-10-29] MEDS ORDERED: FUROSEMIDE 20 MG TABLET PO SCH (09:00)
[2016-10-29] MEDS: SODIUM CHLORIDE 1 GM TABLET PO SCH ×4 (10:05→21:45)
[2016-10-29] MEDS: ACYCLOVIR 200 MG CAPSULE PO SCH (10:05)
[2016-10-29] MEDS: SIMETHICONE 80 MG CHEWABLE TABLET PO SCH ×3 (10:06→18:01)
[2016-10-29] MEDS: ATENOLOL 25 MG TABLET PO SCH (10:06)
[2016-10-29] MEDS: POLYETHYL GLYCOL 3350 17gm PACKET PO SCH (10:07)
[2016-10-29] MEDS: ENOXAPARIN 40 MG/0.4 ML INJECTION SQ SCH (10:07)
[2016-10-29] MEDS: LANSOPRAZOLE SOLU-TAB 15 MG TABLET PO SCH (10:07)
[2016-10-29] MEDS: BuPROPion IR 75 MG TABLET PO SCH ×2 (10:08→21:47)
[2016-10-29] MEDS: SENNA + DOCUSATE TABLET PO SCH ×2 (10:10→21:45)
[2016-10-29] MEDS ORDERED: FALL RISK - PHARMACY CONSULT MC PRN (10:40)
[2016-10-29] MEDS ORDERED: FUROSEMIDE 40 MG/4 ML INJECTION IVP ONE (10:54)
--- NOTE | 2016-10-29 11:04 | Progress Note ---
Subjective: Feels like she is not urinating much. Na dropped despite low dose furosemide and fluid restriction. Discussed likely diagnosis of SIADH, agreeable to salt tabs, would like IV diuretic. No weakness or dizziness, but she is tired. at bedside, discussing plans for oncology appointment with Dr. Marinelli on Sunday. Objective Vital signs: Temperature 98.0 F 10/29/16 07:00 Pulse Rate 87 10/29/16 07:00 Respiratory Rate 18 10/29/16 07:00 Blood Pressure 143/83 H 10/29/16 07:00 Pulse Oximetry 98 10/29/16 07:00 Oxygen Delivery Method Room Air Body Mass Index: 23.1 - Constitutional Present: no acute distress, well nourished, well developed, cooperative - Routine HEENT Exam Head: Present: normocephalic, atraumatic Eye: Present: EOMI, PERRL. Absent: conjunctival icterus ENT: Present: mucous membranes moist, oropharynx clear - Routine Respiratory Exam Present: CTA bilaterally. Absent: accessory muscle use, dyspnea - Routine Cardiovascular Exam Present: RRR. Absent: murmur, rubs - Routine Abdominal Exam Present: soft, non distended, non tender - Routine Extremities Exam Present: edema Comments: trace BLE ankles - Routine Skin Exam Present: dry. Absent: rash - Routine Neurological Exam Present: alert, oriented X3, CN II-XII intact, vision grossly intact, hearing grossly intact - Routine Psychiatric Exam Present: normal affect, normal thought process Results - Labs CBC & Chem 7: 10/28/16 04:33 10/29/16 04:23 Assessment and Plan Assessment and Plan: 10/26/2016-I reviewed this chart, the patient history, and the J[employer] J[employer] DEVELOPER's/PA's documented findings as above. We discussed and formulated the assessment and plan as above with the additions below. I've seen and examined the patient independently.-Dr. Dupont Patient was seen this evening after dinner. She states she is feeling stronger today and feels more confident when she is up doing therapy. She thinks the blood transfusion helped. She is eating okay. She did have some pain today with therapy. She has no other complaints. The patient is alert and oriented and in no acute distress. Continue with current treatment as noted above. Discussed yesterday with the patient's oncologist Dr. Gilmar Marinelli and he recommends transfusion if hemoglobin less than 7.5 or patient is symptomatic. She does not need irradiated or CMV negative blood. Hemoglobin today has improved. Sodium is stable. Recheck lab work tomorrow. Sepsis Assessment - Evaluation Sepsis screening result: No Definite Risk Hospital Course Summary Disclaimer: The visit summary below is not to be considered part of the above Progress Note. Hospital Course: 10/25/16 12:43 hospitalist consult Impression: S/P cephalo-medullary hip fixation secondary to intertrochanteric displaced right hip fracture. * Agree with admission to IRU for intensive rehabilitation and pain control under the guidance of Dr. Arce. Encourage participation of therapies and provide safe and supportive environment. * Patient to follow up with Dr. Spencer on or around 11/09 and family should call to schedule appointment. * Maintain tegaderm dressing to incision until 10/31 at which time incision should be open to air. No lotion or ointment should be used over or around incision as closure was performed with dermabond. Anemia, post-op, acute. * Present prior to admission per records. Hemoglobin 7.3 on admission. Patient complains of feeling very weak. Discussed possibility of blood transfusion and patient is agreeable. Will contact Dr. Marinelli to discuss recommendations with regard to transfusion and patient's prior trends. * Patient to follow up with Dr. Marinelli on 10/31 per records from . CBC and CMP to be faxed weekly to Dr. Marinelli's office at [phone]. Will check CBC and CMP on 10/30. Thrombocytopenia, acute. * Present prior to admission per records. Platelets 112 on admission. Will continue to monitor closely. Repeat CBC in AM to monitor blood counts. Hyponatremia, acute. * Present prior to admission per records. Sodium 128 on admission. Will given NS 100cc/hr x 1 bag now. Will continue to monitor closely. Repeat BMP in AM to monitor electrolytes and renal function. Will check urine sodium as well as UA for baseline. Mild protein calorie malnutrition, acute. * Prealbumin 11.2 on admission. Will consult dietary for recommendations. Prior records indicate patient had EnSure EnLive BID for supplementation. Poorly differentiated retroperitoneal neoplasm, acute. * Underwent bronchoscopy to evaluate lymphadenopathy in chest on 10/21. CXR on 10/23 revealed left lower lung air space disease concerning for atelectasis vs. pneumonia vs. effusion. Will obtain repeat CXR now. Encourage incentive spirometry for pulmonary toileting. Monitor respiratory function closely. Chemotherapy induced peripheral neuropathy, chronic. * Encourage therapy and provide safe and supportive environment. Pain control per Dr. Arce. Monitor closely for gait instability. Hypertension, chronic. * Blood pressure noted to be elevated following admission yesterday but controlled this morning at 138/84. Continue home atenolol and monitor blood pressure closely. Acquired hypothyroidism, chronic. * Continue home synthroid. Will check TSH now. GERD with history of duodenitis, chronic. * Continue home Prevacid for GI protection and GERD. Depression, chronic. * Continue home Wellbutrin 75mg BID. Ativan as needed for anxiety. IBS with constipation, chronic. * Encourage aggressive bowel motivation in light of pain medications in addition to chronic history. Docusate, miralax and MOM as needed. History of herpes zoster on the face, resolved. * Continue home acyclovir and monitor for recurrence. Upon discharge, patient's care will be returned to her PCP, Dr. Banerjee. 10/26/16 -hospitalist progress note Hemoglobin up to 8.5 from 7.3 with 1 unit PRBCs. CBC in a.m. Sodium remains at 128 despite 1000 cc of normal saline infused yesterday. Infused 500 cc normal saline today. Recheck BMP in a.m. Monitor respiratory function given the changes on chest x-ray. Await bronchoscopy results. 10/28/16 [place] Sodium down to 122 today, denies any symptoms at this time. Worsened with 500 cc saline, suspect SIADH in the setting of malignancy. Will start fluid restriction to 1.5L daily, give a small dose of furosemide 20 mg daily to enhance free water clearance and monitor for any orthostasis. If worsening despite these interventions will pursue full w/u including urine osm/Na values and thyroid/hormonal axis testing. Discussed with nursing staff and patient. 10/29/16 Suspect SIADH is still driving her hyponatremia but she is hypochloremic as well. If hypovolemic she should have improved with saline challenge and she worsened significantly when 500 cc saline given on 10/27. Given active metastatic malignancy, ADH overproduction likely but will check urine Na/Osm to see if the urine studies fit with the diagnosis. Will also check thyroid studies and cortisol in AM. Monitor UOP and if no response to IV lasix will bladder scan. If urine sodium is not elevated will attempt fluid challenge again. Relatively asymptomatic at this point, will check Na level this evening , give 40 mg IV lasix x 1 now and monitor today. No other changes at this time, therapy is going well, has appt with Dr. Marinelli to discuss her treatment options for malignancy.
[2016-10-29] MEDS: FERROUS SULFATE 324 MG TABLET PO SCH (12:44)
[2016-10-29] MEDS: LORazepam 0.5 MG TABLET PO SCH ×2 (15:43→21:44)
[2016-10-29] MEDS: SALINE FLUSH 10ml SYRINGE IVF PRN (18:01)
[2016-10-29] MEDS: ONDANSETRON ODT 4 MG TABLET PO PRN (19:01)
[2016-10-29] MEDS: MIRTAZAPINE 15 MG TABLET PO SCH (21:44)
[2016-10-29] MEDS: TRAMADOL 50 MG TABLET PO PRN (21:44)
[2016-10-30] MEDS: ACETAMINOPHEN 500 MG TABLET PO SCH ×3 (00:29→18:00)
[2016-10-30] MEDS: LEVOTHYROXINE 75 MCG TABLET PO SCH (05:36)
[2016-10-30] MEDS: TRAMADOL 50 MG TABLET PO PRN ×2 (05:36→18:03)
[2016-10-30] MEDS: SODIUM CHLORIDE 1 GM TABLET PO SCH ×4 (09:14→21:01)
[2016-10-30] MEDS: FERROUS SULFATE 324 MG TABLET PO SCH (09:15)
[2016-10-30] MEDS: ENOXAPARIN 40 MG/0.4 ML INJECTION SQ SCH (09:18)
[2016-10-30] MEDS: POLYETHYL GLYCOL 3350 17gm PACKET PO SCH (09:18)
[2016-10-30] MEDS: ATENOLOL 25 MG TABLET PO SCH (09:19)
[2016-10-30] MEDS: SENNA + DOCUSATE TABLET PO SCH ×2 (09:19→21:03)
[2016-10-30] MEDS: BuPROPion IR 75 MG TABLET PO SCH ×2 (09:20→21:02)
[2016-10-30] MEDS: ACYCLOVIR 200 MG CAPSULE PO SCH (09:20)
[2016-10-30] MEDS: SIMETHICONE 80 MG CHEWABLE TABLET PO SCH ×3 (09:21→18:01)
[2016-10-30] MEDS: LANSOPRAZOLE SOLU-TAB 15 MG TABLET PO SCH (09:22)
[2016-10-30] MEDS: TRAMADOL 50 MG TABLET PO SCH ×2 (09:33→12:56)
--- NOTE | 2016-10-30 10:18 | IRU Progress Note ---
- Subjective/Serverity of Illness Lexii continues to be very cooperative and tries to work with therapy. Pain continues to be a limitation with regard to the right hip. She says it hurts worse after she has been walking and then lies down. While she is improving slowly with therapy she continues to have poor hip placement and trunk strength with walking. In addition she still requires moderate assistance for transfers. She is walking with a front-wheeled walker. She is looking forward to being able to get back home. Medical issues are as follows: 1. Pain management: This continues to be limitation. She is on tramadol prior to each therapy session. 2. Anorexia: She states that her appetite is perhaps very slightly improved. She had a fairly good breakfast this morning. We started mirtazapine last week which hopefully will be of some assistance for her in multiple ways. 3. Pulmonary status: I again reviewed the most recent chest x-ray revealing airspace disease and left lower lobe. She continues to decline any cough or sputum or respiratory symptoms. We are monitoring this at present. 4. Anemia: Her oncologist recommends transfusing if hemoglobin less than 7.5. 5. Hyponatremia: Continues to have very low sodiums around 121-123. Hospitalists are managing. Morning cortisol was good at 23 so I don't think she needs a short cosyntropin test. Urine spot sodium was quite high and thus likely this represents SIADH. She is hypothyroid as well which could be a factor. However the majority of the sodium low is likely due to SIADH. 6. Malnutrition: Continue dietary improvement, supplements and encouragement of eating. She is perhaps a bit better she states. 7. Hypertension: Continue to monitor. Exam Vital Signs: Temperature 98.9 F 10/29/16 23:00 Pulse Rate 87 10/29/16 23:00 Respiratory Rate 16 10/29/16 23:00 Blood Pressure 146/81 H 10/29/16 23:00 Pulse Oximetry 99 10/29/16 23:00 Oxygen Delivery Method Room Air Height: 1.71 m Weight: 68.2 kg Body Mass Index: 23.1 - Constitutional Present: no acute distress Comments: The patient is awake, alert and oriented and in no acute distress. She tends to answer somewhat slowly and thoughtfully. Uncertain if this represents cognitive dysfunction or not. Pupils are equal. The neck is supple. Chest: Clear to auscultation bilaterally. Cor: RR with no jermaine, click nor murmur Abd: soft with normo-active bowel sounds. There are no masses, no tenderness and no guarding. Extremities: No edema is noted. Reviewed recent chest x-ray and lab work. Results IRU - Labs Labs: I have reviewed her lab work including sodium of 123 and recent chest radiograph. Sepsis Assessment - Evaluation Sepsis screening result: No Definite Risk IRU A/P (1) Intertrochanteric fracture of right hip Qualifiers: Encounter type: subsequent encounter Fracture type: closed Fracture alignment: displaced Fracture healing: with routine healing Qualified Code(s ): S72.141D - Displaced intertrochanteric fracture of right femur, subsequent encounter for closed fracture with routine healing Current visit: Yes Status: Acute Pain involving the right hip is a barrier to her improvement. Pain is worse after she has been walking and then lies down. (2) Closed fracture of right hip requiring operative repair Qualifiers: Encounter type: subsequent encounter Fracture healing: with routine healing Qualified Code(s): S72.001D - Fracture of unspecified part of neck of right femur, subsequent encounter for closed fracture with routine healing Current visit: Yes Status: Acute . (3) Benign essential hypertension Current visit: Yes Status: Chronic Her blood pressure remains slightly elevated at 150 systolic. Likely this is partly related to her pain management. (4) Metastatic cancer Current visit: Yes Status: Chronic She has poorly differentiated retroperitoneal cancer. Apparently has appointment with her oncologist Dr. Marinelli. (5) Anorexia Current visit: Yes Status: Chronic (6) Protein-calorie malnutrition, moderate Current visit: Yes Status: Chronic She is on mirtazapine and we are encouraging dietary supplements. (7) Anemia in chronic illness Current visit: Yes Status: Chronic (8) Hyponatremia Current visit: Yes Status: Chronic Continues to require close monitoring of her sodium. 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 (9) Chemotherapy-induced peripheral neuropathy Current visit: Yes Status: Chronic She does have peripheral neuropathy which impairs her ability to ambulate. She must limit her feet to walk. (10) Encephalopathy Current visit: Yes Status: Chronic (11) Abnormal chest xray Current visit: Yes Status: Acute Although she has evidence of airspace disease on chest x-ray, she is asymptomatic and currently not on an antibiotic. DVT Prophylaxis: other (ambulating) Resuscitation Status: Full Code - Course Hospital Course: Kunal Arce MD: 10/25/16 11:15 She is just getting started with therapies. Seemed to tolerate therapy well today. We will schedule her Ultram to be given prior to therapies. Hyponatremia will be assessed with urine spot sodium. Anorexia will be addressed with Remeron. 10/26/16 10:58 Started mirtazapine yesterday evening and seems to be improved. Urine spot sodium 130. We will check a.m. cortisol tomorrow. Chest x-ray remains abnormal although clinically no evidence of infection - management per hospitalists. 10/30/16 10:21 Continues to require moderate assistance for transfers and ambulation. Has poor neck and trunk strength. We're monitoring her sodium which remains low at 123 likely related to SIADH. Continues to have anemia and plan to transfuse if less than 7.5. Pain management is an issue with regard to her right hip. - Interventions to Obtain Goals PT Treatment Plan: Balance/Proprioception, Functional Activities, Gait Training , Patient/Family Education, Therapeutic Exercise OT Treatment Plan: ADL (Basic Care), Balance Training, IADL, Pt./Family Education, Ther. Exercise for ADL Goals Progress/Modifications: We will continue to address her sodium, anemia as well as pain management. She slowly is progressing with therapy
[2016-10-30] MEDS: FUROSEMIDE 40 MG TABLET PO SCH (10:24)
[2016-10-30] MEDS: LORazepam 0.5 MG TABLET PO SCH ×2 (18:01→21:00)
[2016-10-30] MEDS: MIRTAZAPINE 15 MG TABLET PO SCH (21:00)
[2016-10-31] MEDS: ACETAMINOPHEN 500 MG TABLET PO SCH ×3 (00:55→17:20)
[2016-10-31] MEDS: LEVOTHYROXINE 75 MCG TABLET PO SCH (05:46)
[2016-10-31] MEDS: TRAMADOL 50 MG TABLET PO PRN (05:46)
[2016-10-31] MEDS: ONDANSETRON ODT 4 MG TABLET PO PRN (05:50)
[2016-10-31] MEDS: ACYCLOVIR 200 MG CAPSULE PO SCH (08:44)
[2016-10-31] MEDS: BuPROPion IR 75 MG TABLET PO SCH ×2 (08:48→20:51)
[2016-10-31] MEDS: SENNA + DOCUSATE TABLET PO SCH (08:49)
[2016-10-31] MEDS: SODIUM CHLORIDE 1 GM TABLET PO SCH ×4 (08:49→20:51)
[2016-10-31] MEDS: LANSOPRAZOLE SOLU-TAB 15 MG TABLET PO SCH (08:49)
[2016-10-31] MEDS: FUROSEMIDE 40 MG TABLET PO SCH (08:49)
[2016-10-31] MEDS: FERROUS SULFATE 324 MG TABLET PO SCH (08:50)
[2016-10-31] MEDS: ATENOLOL 25 MG TABLET PO SCH (08:50)
[2016-10-31] MEDS: SIMETHICONE 80 MG CHEWABLE TABLET PO SCH ×3 (08:50→19:47)
[2016-10-31] MEDS: POLYETHYL GLYCOL 3350 17gm PACKET PO SCH (08:51)
[2016-10-31] MEDS: SALINE FLUSH 10ml SYRINGE IVF PRN (09:28)
[2016-10-31] MEDS: ENOXAPARIN 40 MG/0.4 ML INJECTION SQ SCH (09:29)
--- NOTE | 2016-10-31 10:06 | IRU Progress Note ---
- Subjective/Serverity of Illness Lexii was evaluated in her room on the inpatient rehabilitation unit. She wonders if we could check with Dr. Marinelli and possibly start chemotherapy here. I told her that we would be happy to contact him although I thought that he would want to visit with her directly about what options might be available. She is advised me that her daughter was going to talk with him today. I told her that we would be happy to work with him if possible but that often it is not feasible to do chemotherapy on the inpatient side due to expense. She says that she is doing well. She can get out of bed without assistance. However requires assistance getting in bed. She is walking with a walker. She continues to be unsafe for stairs. Has quite a bit of pain in the right hip when she lies down. I reviewed the hip incision today. It is bruised as anticipated but no evidence of active inflammation or infection. 1. Pain management: This continues to be limitation. Gradual improvement noted. 2. Anorexia: She says that her appetite was better this morning for breakfast. Continue mirtazapine. 3. Pulmonary status: Even though she has an abnormal chest x-ray, she has no symptoms with regard to cough, sputum, dyspnea. 4. Anemia: Most recent hemoglobin yesterday was 8.5. 5. Hyponatremia: Etiology of her low sodium is likely SIADH. Hospitalists have her on salt tablets which she does not like. Sodium is improved up to 126 today. 6. Malnutrition: Continue dietary improvement, supplements and encouragement of eating. She feels as though she is improved. 7. Hypertension: Continue to monitor. Exam Vital Signs: Temperature 98.3 F 10/31/16 07:00 Pulse Rate 95 10/31/16 07:00 Respiratory Rate 18 10/31/16 07:00 Blood Pressure 141/76 H 10/31/16 07:00 Pulse Oximetry 99 10/31/16 07:00 Oxygen Delivery Method Room Air Height: 1.71 m Weight: 68.2 kg Body Mass Index: 23.1 - Constitutional Present: no acute distress Comments: The patient is awake, alert and oriented and in no acute distress. Pupils are equal. The neck is supple. Chest: Clear to auscultation bilaterally. Cor: RR with no jermaine, click nor murmur Abd: soft with normo-active bowel sounds. There are no masses, no tenderness and no guarding. Extremities: No edema is noted. There are good pulses in both ankles. No cyanosis is present. The patient's wound in the left hip is inspected and is clean and dry and without inflammation. There is some bruising as anticipated. Results IRU - Labs Labs: Reviewed laboratory. Sodium improved up to 126. Sepsis Assessment - Evaluation Sepsis screening result: No Definite Risk IRU A/P (1) Intertrochanteric fracture of right hip Qualifiers: Encounter type: subsequent encounter Fracture type: closed Fracture alignment: displaced Fracture healing: with routine healing Qualified Code(s ): S72.141D - Displaced intertrochanteric fracture of right femur, subsequent encounter for closed fracture with routine healing Current visit: Yes Status: Acute (2) Closed fracture of right hip requiring operative repair Qualifiers: Encounter type: subsequent encounter Fracture healing: with routine healing Qualified Code(s): S72.001D - Fracture of unspecified part of neck of right femur, subsequent encounter for closed fracture with routine healing Current visit: Yes Status: Acute She is making progress with therapies. Has difficulty getting back into bed. Also requires assistance for lower extremity dressing. However she is improving. (3) Benign essential hypertension Current visit: Yes Status: Chronic Blood pressures remain variable but overall seemed to be controlled around 140 systolic. (4) Metastatic cancer Current visit: Yes Status: Chronic Discussed with patient today. Told her that we would work with the oncologist as we can but that I can make no promises. Her daughter is talking with Dr. aMrinelli today apparently. (5) Anorexia Current visit: Yes Status: Chronic Continue mirtazapine and encourage oral intake. (6) Protein-calorie malnutrition, moderate Current visit: Yes Status: Chronic (7) Anemia in chronic illness Current visit: Yes Status: Chronic (8) Hyponatremia Current visit: Yes Status: Chronic Sodium is improved at 126. Remains on salt tablets. (9) Chemotherapy-induced peripheral neuropathy Current visit: Yes Status: Chronic (10) Encephalopathy Current visit: Yes Status: Resolved We do not note any evidence of confusion. (11) Abnormal chest xray Current visit: Yes Status: Acute DVT Prophylaxis: other (ambulating) Resuscitation Status: Full Code - Course Hospital Course: Kunal Arce MD: 10/25/16 11:15 She is just getting started with therapies. Seemed to tolerate therapy well today. We will schedule her Ultram to be given prior to therapies. Hyponatremia will be assessed with urine spot sodium. Anorexia will be addressed with Remeron. 10/26/16 10:58 Started mirtazapine yesterday evening and seems to be improved. Urine spot sodium 130. We will check a.m. cortisol tomorrow. Chest x-ray remains abnormal although clinically no evidence of infection - management per hospitalists. 10/30/16 10:21 Continues to require moderate assistance for transfers and ambulation. Has poor neck and trunk strength. We're monitoring her sodium which remains low at 123 likely related to SIADH. Continues to have anemia and plan to transfuse if less than 7.5. Pain management is an issue with regard to her right hip. 10/31/16 10:08 Continues to have difficulty getting back in bed without assistance. Also requires assistance for lower extremity dressing. Otherwise she is improving. Walking with a walker. Right hip incision healing nicely without evidence of inflammation. Ecchymosis is noted. Discussed oncology issues with patient today. - Interventions to Obtain Goals PT Treatment Plan: Balance/Proprioception, Functional Activities, Gait Training , Patient/Family Education, Therapeutic Exercise OT Treatment Plan: ADL (Basic Care), Balance Training, IADL, Pt./Family Education, Ther. Exercise for ADL
[2016-10-31] MEDS: TRAMADOL 50 MG TABLET PO SCH ×2 (10:19→14:58)
[2016-10-31] MEDS: CALCIUM CARBONATE Chewable 500mg TABLET PO PRN (11:50)
[2016-10-31] MEDS ORDERED: LEVOTHYROXINE 88 MCG TABLET PO SCH (14:00)
--- NOTE | 2016-10-31 14:01 | Progress Note ---
<Margarita Gatica - Last Filed: 10/31/16 13:52> Subjective: Patient is seen resting in her bed today. She complains that she is not feeling well today. She does not like taking the salt tabs. She feels they cause nausea. She states that she got the report from the bronchoscopy while she was hospitalized in [place]. She says she was told she has a neuroendocrine cancer. Her family has been in contact with Dr. Marinelli in discussion of further treatment. She's been having no shortness of breath, cough, or other respiratory symptoms. She has had urine sodium (elevated) and osmolality (normal ) testing and cortisol (very slightly elevated) testing. Results are consistent with SIADH. Her TSH is elevated. This is not new for her. In review of her records from her PCPs office, her TSH was 8.85 in June. At that point she was on levothyroxine 50 g. Her current dosage is 75 g. We'll plan to increase that today. Her hemoglobin has dropped from 9.8 three days ago to 8.5 today. She had a blood transfusion postop, and has remained above 8 on her hemoglobin since then. In review of PCPs records, her average hemoglobin ranges 8-10. She reports her stools are very soft, wound like to back off of her bowel motivation. Objective Vital signs: Temperature 98.3 F 10/31/16 07:00 Pulse Rate 95 10/31/16 07:00 Respiratory Rate 18 10/31/16 07:00 Blood Pressure 141/76 H 10/31/16 07:00 Pulse Oximetry 99 10/31/16 07:00 Oxygen Delivery Method Room Air Height/Weight/BMI: Height 1.71 m Weight 66.9 kg Body Mass Index 23.1 Results - Labs CBC & Chem 7: 10/30/16 04:03 10/31/16 04:23 Labs: Laboratory Tests 10/27/16 10/29/16 10/29/16 09:42 12:00 12:00 TSH Free T4 Cortisol AM Sample 23 H Urine Osmolality 469 Ur Random Sodium 100 H 10/30/16 10/30/16 04:02 04:02 TSH 13.00 H Free T4 1.08 Cortisol AM Sample Urine Osmolality Ur Random Sodium Assessment and Plan (1) Closed fracture of right hip requiring operative repair Current visit: Yes Status: Acute Assessment and Plan: Assessment hyponatremia - most likely SIADH Anemia, postop S/P cephalo-medullary hip fixation secondary to intertrochanteric displaced right hip fracture - Dr. Spencer Poorly differentiated retroperitoneal neoplasm, 04/2015. Hypertension. Chemotherapy induced peripheral neuropathy Acquired hypothyroidism secondary to hyperthyroidism treated with I-131 in 2014. GERD with reflux esophagitis. Rheumatoid arthritis. Depression. IBS-constipation. Diverticulosis. Nephrolithiasis with previous nephrolithotomy in 12/2011. Plan Will back off on her bowel motivation. Change senna with docusate to twice a day PRN as opposed to routine. Will increase her levothyroxine from 75 g to 88 g given her TSH result of 13. Continue fluid restriction in regard to her hyponatremia. Will make sure the nurses give her the sodium tabs with meals, this may help with the nausea. Sepsis Assessment - Evaluation Sepsis screening result: No Definite Risk Hospital Course Summary Disclaimer: The visit summary below is not to be considered part of the above Progress Note. Hospital Course: 10/25/16 12:43 hospitalist consult Impression: S/P cephalo-medullary hip fixation secondary to intertrochanteric displaced right hip fracture. * Agree with admission to IRU for intensive rehabilitation and pain control under the guidance of Dr. Arce. Encourage participation of therapies and provide safe and supportive environment. * Patient to follow up with Dr. Spencer on or around 11/09 and family should call to schedule appointment. * Maintain tegaderm dressing to incision until 10/31 at which time incision should be open to air. No lotion or ointment should be used over or around incision as closure was performed with dermabond. Anemia, post-op, acute. * Present prior to admission per records. Hemoglobin 7.3 on admission. Patient complains of feeling very weak. Discussed possibility of blood transfusion and patient is agreeable. Will contact Dr. Marinelli to discuss recommendations with regard to transfusion and patient's prior trends. * Patient to follow up with Dr. Marinelli on 10/31 per records from . CBC and CMP to be faxed weekly to Dr. Marinelli's office at [phone]. Will check CBC and CMP on 10/30. Thrombocytopenia, acute. * Present prior to admission per records. Platelets 112 on admission. Will continue to monitor closely. Repeat CBC in AM to monitor blood counts. Hyponatremia, acute. * Present prior to admission per [facility] records. Sodium 128 on admission. Will given NS 100cc/hr x 1 bag now. Will continue to monitor closely. Repeat BMP in AM to monitor electrolytes and renal function. Will check urine sodium as well as UA for baseline. Mild protein calorie malnutrition, acute. * Prealbumin 11.2 on admission. Will consult dietary for recommendations. Prior records indicate patient had EnSure EnLive BID for supplementation. Poorly differentiated retroperitoneal neoplasm, acute. * Underwent bronchoscopy to evaluate lymphadenopathy in chest on 10/21. CXR on 10/23 revealed left lower lung air space disease concerning for atelectasis vs. pneumonia vs. effusion. Will obtain repeat CXR now. Encourage incentive spirometry for pulmonary toileting. Monitor respiratory function closely. Chemotherapy induced peripheral neuropathy, chronic. * Encourage therapy and provide safe and supportive environment. Pain control per Dr. Arce. Monitor closely for gait instability. Hypertension, chronic. * Blood pressure noted to be elevated following admission yesterday but controlled this morning at 138/84. Continue home atenolol and monitor blood pressure closely. Acquired hypothyroidism, chronic. * Continue home synthroid. Will check TSH now. GERD with history of duodenitis, chronic. * Continue home Prevacid for GI protection and GERD. Depression, chronic. * Continue home Wellbutrin 75mg BID. Ativan as needed for anxiety. IBS with constipation, chronic. * Encourage aggressive bowel motivation in light of pain medications in addition to chronic history. Docusate, miralax and MOM as needed. History of herpes zoster on the face, resolved. * Continue home acyclovir and monitor for recurrence. Upon discharge, patient's care will be returned to her PCP, Dr. Banerjee. 10/26/16 -hospitalist progress note Hemoglobin up to 8.5 from 7.3 with 1 unit PRBCs. CBC in a.m. Sodium remains at 128 despite 1000 cc of normal saline infused yesterday. Infused 500 cc normal saline today. Recheck BMP in a.m. Monitor respiratory function given the changes on chest x-ray. Await bronchoscopy results. 10/28/16 [place] Sodium down to 122 today, denies any symptoms at this time. Worsened with 500 cc saline, suspect SIADH in the setting of malignancy. Will start fluid restriction to 1.5L daily, give a small dose of furosemide 20 mg daily to enhance free water clearance and monitor for any orthostasis. If worsening despite these interventions will pursue full w/u including urine osm/Na values and thyroid/hormonal axis testing. Discussed with nursing staff and patient. 10/29/16 Suspect SIADH is still driving her hyponatremia but she is hypochloremic as well. If hypovolemic she should have improved with saline challenge and she worsened significantly when 500 cc saline given on 10/27. Given active metastatic malignancy, ADH overproduction likely but will check urine Na/Osm to see if the urine studies fit with the diagnosis. Will also check thyroid studies and cortisol in AM. Monitor UOP and if no response to IV lasix will bladder scan. If urine sodium is not elevated will attempt fluid challenge again. Relatively asymptomatic at this point, will check Na level this evening , give 40 mg IV lasix x 1 now and monitor today. 10/31/16 Will back off on her bowel motivation. Change senna with docusate to twice a day PRN as opposed to routine. Will increase her levothyroxine from 75 g to 88 g given her TSH result of 13. Continue fluid restriction in regard to her hyponatremia. Will make sure the nurses give her the sodium tabs with meals, this may help with the nausea. <Brendon Christensen D - Last Filed: 10/31/16 16:15> Objective Vital signs: Temperature 98.3 F 10/31/16 07:00 Pulse Rate 95 10/31/16 07:00 Respiratory Rate 18 10/31/16 07:00 Blood Pressure 141/76 H 10/31/16 07:00 Pulse Oximetry 99 10/31/16 07:00 Oxygen Delivery Method Room Air Height/Weight/BMI: Height 1.71 m Weight 66.9 kg Body Mass Index 23.1 Results - Labs CBC & Chem 7: 10/30/16 04:03 10/31/16 04:23 Assessment and Plan (1) Closed fracture of right hip requiring operative repair Current visit: Yes Status: Acute Assessment and Plan: Assessment 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 Spencer Poorly differentiated retroperitoneal neoplasm, 04/2015. Hypertension. Chemotherapy induced peripheral neuropathy Acquired hypothyroidism secondary to hyperthyroidism treated with I-131 in 2014. GERD with reflux esophagitis. Rheumatoid arthritis. Depression. IBS-constipation. Diverticulosis. Nephrolithiasis with previous nephrolithotomy in 12/2011. Have independently interviewed and examined pt. Chart reviewed. Case discussed with my PA. Above care plan developed with my supervision; agree with above. Doing fair. Tolerating therapy well-hard work. Pain controlled. Notes stomach upset from salt tablets-not really wanting to take 1 gram of table salt in its place. Bowels moving, soft. Tends to have significant bowel variability-slow and then too urgent. Denies crampy/bloating pain with stool (more fecal urgency when time comes to move bowel.) Breathing well. No chest pain. Lungs: clear CV: regular AB: soft nt/nd +BS EXT: trace LE edema MSE: awake alert appropriate Plan: Senna changed to prn. Will add Fiber at night to promote bowel regularity. Will continue with salt tablet (take with food); monitor for edema. Continue to monitor lab. Encourage therapy. Medically stable for IRU floor activities. Hospital Course Summary Disclaimer: The visit summary below is not to be considered part of the above Progress Note.
[2016-10-31] MEDS ORDERED: SODIUM CHLORIDE 1 GM TABLET PO SCH (15:00)
--- NOTE | 2016-10-31 15:37 | IRU Team Meeting ---
IRU Team Meeting - Nursing Vital Signs: Vital Signs - 24 hr 10/30/16 19:41 10/31/16 07:00 Temperature 98.3 F 98.3 F Pulse Rate 85 95 Respiratory Rate 16 18 Blood Pressure 140/70 H 141/76 H Pulse Oximetry 95 99 Current Medications: Acetaminophen (Tylenol) 1,000 mg PO Q8H [facility] Last Admin: 10/31/16 08:48 Dose: 1,000 mg Acyclovir (Zovirax) 400 mg PO DAILY [facility] Last Admin: 10/31/16 08:44 Dose: 400 mg Atenolol (Tenormin) 25 mg PO DAILY [facility] Last Admin: 10/31/16 08:50 Dose: 25 mg Bupropion HCl (Wellbutrin Ir) 75 mg PO BID [facility] Last Admin: 10/31/16 08:48 Dose: 75 mg Calcium Carbonate (Tums) 1,000 mg PO PRN PRN PRN Reason: Dyspepsia Last Admin: 10/31/16 11:50 Dose: 1,000 mg Enoxaparin Sodium (Lovenox) 40 mg SQ DAILY [facility] Stop: 11/08/16 09:01 Last Admin: 10/31/16 09:29 Dose: 40 mg Ferrous Sulfate (Feosol) 324 mg PO WB [facility] Last Admin: 10/31/16 08:50 Dose: 324 mg Furosemide (Lasix) 40 mg PO DAILY [facility] Last Admin: 10/31/16 08:49 Dose: 40 mg Lansoprazole (Prevacid Solu-Tab) 15 mg PO DAILY [facility] Last Admin: 10/31/16 08:49 Dose: 15 mg Levothyroxine Sodium (Synthroid) 88 mcg PO ACB [facility] Lorazepam (Ativan) 0.25 mg PO DAILY PRN PRN Reason: Anxiety Last Admin: 10/28/16 14:05 Dose: 0.25 mg Lorazepam (Ativan) 0.5 mg PO 1630,21 [facility] Last Admin: 10/30/16 21:00 Dose: 0.5 mg Magnesium Hydroxide (Mom) 30 ml PO DAILY PRN PRN Reason: Constipation Last Admin: 10/28/16 20:30 Dose: 30 ml Mirtazapine (Remeron) 7.5 mg PO 2100 [facility] Last Admin: 10/30/16 21:00 Dose: 7.5 mg Ondansetron HCl (Zofran Po) 4 mg PO Q4H PRN PRN Reason: Nausea &/or vomiting Last Admin: 10/31/16 05:50 Dose: 4 mg Polyethylene Glycol (Miralax) 17 gm PO DAILY [facility] Last Admin: 10/31/16 08:51 Dose: Not Given Potassium Chloride (K-Dur) 20 meq PO WB [facility] Last Admin: 10/31/16 08:50 Dose: 20 meq Senna/Docusate Sodium (Senna Plus Tablet) 1 tab PO BID PRN Simethicone (Mylicon) 80 mg PO PC [facility] Last Admin: 10/31/16 13:04 Dose: 80 mg Sodium Chloride (Iv Flush) 10 - 80 ml IVF PRN PRN PRN Reason: Flushing Last Admin: 10/31/16 09:28 Dose: 10 ml Sodium Chloride (Normal Saline) 500 ml IV PRN PRN Sodium Chloride (Salt Tablet) 1 gm PO [facility] Tramadol HCl (Ultram) 50 mg PO [facility] Last Admin: 10/31/16 14:58 Dose: 50 mg Tramadol HCl (Ultram) 50 mg PO Q4H PRN PRN Reason: Pain Last Admin: 10/31/16 05:46 Dose: 50 mg Comments: Patient is receiving pain medication prior to therapy working with her. This appears to fairly well-controlled her discomfort at the present time. She has a history of hyponatremia related to SIADH. She is on a 1500 cc fluid restriction. She is on salt tablets and is also on Lasix. She is being followed by the hospitalists in this regard. She is seen by the dietitian. She is getting boost and Magic cup and is working on improvement of nutrition. Daughter has visited with Dr. Marinelli her oncologist. Diagnosis of the tumor is neuroendocrine tumor. Dr. Marinelli would like to get her stronger here first prior to pursuing further treatment. - Physical Therapy Comments: She is working with physical therapy. She is minimal assistance with transfers. This is improving. She is walking but 151 feet. She does have a goal of walking about 200 feet. She would like to walk without the walker but we do not recommend that at present. Has not worked on stairs at this time. Has difficulty with keeping her head up and has difficulty with trunk strength. - Occupational Therapy Lower Body Dressing Comment: Has difficulty with lower extremity dressing as well as buttoning because of severe peripheral neuropathy. Compensation is being undertaken. She is very cooperative. She tries hard. Occupational therapy continues to work with patient in this regard. - Care Plan Anticipated Length of Stay: 7 Anticipated DC Destination: Home, Self Care Interventions/Goals: Barriers to progress: Right hip pain, peripheral neuropathy in fingers and feet from previous chemotherapy, posture/strength, anorexia and nutrition Goals: Modified independence with walking 200 feet, dressing with supervision only. I certify that I personally led the interdisciplinary team meeting and agree with comments, barriers and goals indicated.
[2016-10-31] MEDS: LORazepam 0.5 MG TABLET PO SCH ×2 (17:20→20:48)
[2016-10-31] MEDS: MIRTAZAPINE 15 MG TABLET PO SCH (20:50)
[2016-10-31] MEDS: CALCIUM POLYCARBOPHIL 625 MG TABLET PO SCH (20:50)
[2016-10-31] MEDS ORDERED: PRAMIPEXOLE 1 MG TABLET PO PRN (23:03)
[2016-11-01] MEDS: ACETAMINOPHEN 500 MG TABLET PO SCH ×3 (03:03→17:17)
[2016-11-01] MEDS: LEVOTHYROXINE 88 MCG TABLET PO SCH (05:48)
[2016-11-01] MEDS: TRAMADOL 50 MG TABLET PO SCH ×2 (07:41→12:25)
[2016-11-01] MEDS: LORazepam 0.5 MG TABLET PO PRN (07:42)
[2016-11-01] MEDS: ACYCLOVIR 200 MG CAPSULE PO SCH (09:05)
[2016-11-01] MEDS: FERROUS SULFATE 324 MG TABLET PO SCH (09:05)
[2016-11-01] MEDS: SIMETHICONE 80 MG CHEWABLE TABLET PO SCH ×3 (09:06→18:21)
[2016-11-01] MEDS: SODIUM CHLORIDE 1 GM TABLET PO SCH ×4 (09:09→21:56)
[2016-11-01] MEDS: FUROSEMIDE 40 MG TABLET PO SCH (09:09)
[2016-11-01] MEDS: POLYETHYL GLYCOL 3350 17gm PACKET PO SCH (09:10)
[2016-11-01] MEDS: ATENOLOL 25 MG TABLET PO SCH (09:11)
[2016-11-01] MEDS: LANSOPRAZOLE SOLU-TAB 15 MG TABLET PO SCH (09:11)
[2016-11-01] MEDS: BuPROPion IR 75 MG TABLET PO SCH ×2 (09:12→21:57)
[2016-11-01] MEDS: ENOXAPARIN 40 MG/0.4 ML INJECTION SQ SCH (09:13)
--- NOTE | 2016-11-01 10:36 | IRU Progress Note ---
- Subjective/Serverity of Illness Ms. Cesar continues to work hard with therapy. She is having quite a bit of right hip discomfort with exercise. She has not fallen nor twisted however. Wound looked good when I checked it recently. Continues to struggle with anorexia but is improving. She is trying to intentionally eat some snacks. Had some ice cream in the middle the night apparently. She was started on mirtazapine 7.5 mg at bedtime recently. We will increase this to help her appetite. She denies any respiratory symptoms despite the abnormal chest x-ray. Continues to deny any cough or sputum or dyspnea. Her attitude is good and she is cooperative with therapy. Update on medical issues: 1. Pain management: This continues to be limitation. Gradual improvement noted. She is receiving a pain pill prior to each therapy session. 2. Anorexia: Had a snack in the middle of night. We will increase mirtazapine to 15 mg at bedtime daily. 3. Pulmonary status: As before, chest x-ray is abnormal but she has no symptoms. 4. Anemia: Hemoglobin has been stable. Followed by hospitalists. 5. Hyponatremia: Likely related to SIADH. Hospitalists are following this. 6. Malnutrition: Continue dietary improvement, supplements and encouragement of eating. She feels as though she is improved. We will increase her mirtazapine today. 7. Hypertension: Continue to monitor. Exam Vital Signs: Temperature 98.3 F 11/01/16 08:00 Pulse Rate 101 H 11/01/16 08:00 Respiratory Rate 16 11/01/16 08:00 Blood Pressure 149/72 H 11/01/16 08:00 Pulse Oximetry 97 11/01/16 08:00 Oxygen Delivery Method Room Air Height/Weight/BMI: Height 1.71 m Weight 65.9 kg Body Mass Index 23.1 - Constitutional Present: no acute distress Comments: The patient is awake, alert and oriented and in no acute distress at present, although in general notes right hip pain. Pupils are equal. The neck is supple. Chest: Clear to auscultation bilaterally. Cor: RR with no gallop, click nor murmur Abd: soft with normo-active bowel sounds. There are no masses, no tenderness and no guarding. Extremities: No edema is noted. No cyanosis is present. . Results IRU - Labs Labs: No new lab tests are noted. Most recent hemoglobin stable. Sepsis Assessment - Evaluation Sepsis screening result: No Definite Risk IRU A/P (1) Intertrochanteric fracture of right hip Qualifiers: Encounter type: subsequent encounter Fracture type: closed Fracture alignment: displaced Fracture healing: with routine healing Qualified Code(s ): S72.141D - Displaced intertrochanteric fracture of right femur, subsequent encounter for closed fracture with routine healing Current visit: Yes Status: Acute (2) Closed fracture of right hip requiring operative repair Qualifiers: Encounter type: subsequent encounter Fracture healing: with routine healing Qualified Code(s): S72.001D - Fracture of unspecified part of neck of right femur, subsequent encounter for closed fracture with routine healing Current visit: Yes Status: Acute Continues to have discomfort as anticipated in the right hip. However she is working with therapy and trying to work through this. No evidence of infection nor inflammation. (3) Benign essential hypertension Current visit: Yes Status: Chronic Blood pressures are running borderline elevated at about 150 at times. No doubt pain plays a role in this as well. (4) Metastatic cancer Current visit: Yes Status: Chronic Most recent pathology report showed neuroendocrine tumor. Anticipation is for her to get stronger here with regard to nutrition and transfers and mobility and then she will visit with Dr. Marinelli about the appropriate next step. (5) Anorexia Current visit: Yes Status: Chronic Increase mirtazapine today to 50 mg at at bedtime. (6) Protein-calorie malnutrition, moderate Current visit: Yes Status: Chronic (7) Anemia in chronic illness Current visit: Yes Status: Chronic (8) Hyponatremia Current visit: Yes Status: Chronic (9) Chemotherapy-induced peripheral neuropathy Current visit: Yes Status: Chronic (10) Encephalopathy Current visit: Yes Status: Resolved (11) Abnormal chest xray Current visit: Yes Status: Acute DVT Prophylaxis: other (ambulating) Resuscitation Status: Full Code - Course Hospital Course: Kunal Arce MD: 10/25/16 11:15 She is just getting started with therapies. Seemed to tolerate therapy well today. We will schedule her Ultram to be given prior to therapies. Hyponatremia will be assessed with urine spot sodium. Anorexia will be addressed with Remeron. 10/26/16 10:58 Started mirtazapine yesterday evening and seems to be improved. Urine spot sodium 130. We will check a.m. cortisol tomorrow. Chest x-ray remains abnormal although clinically no evidence of infection - management per hospitalists. 10/30/16 10:21 Continues to require moderate assistance for transfers and ambulation. Has poor neck and trunk strength. We're monitoring her sodium which remains low at 123 likely related to SIADH. Continues to have anemia and plan to transfuse if less than 7.5. Pain management is an issue with regard to her right hip. 10/31/16 10:08 Continues to have difficulty getting back in bed without assistance. Also requires assistance for lower extremity dressing. Otherwise she is improving. Walking with a walker. Right hip incision healing nicely without evidence of inflammation. Ecchymosis is noted. Discussed oncology issues with patient today. 11/01/16 10:39 Continues to cooperate with therapy and working hard. Right hip pain as anticipated but is an impediment to improvement. Nutrition is improving. We will increase mirtazapine today. - Interventions to Obtain Goals PT Treatment Plan: Balance/Proprioception, Functional Activities, Gait Training , Patient/Family Education, Therapeutic Exercise OT Treatment Plan: ADL (Basic Care), Balance Training, IADL, Pt./Family Education, Ther. Exercise for ADL Goals Progress/Modifications: Continue to encourage nutritional supplements. Increase mirtazapine to 15 mg a day.
[2016-11-01] MEDS ORDERED: MIRTAZAPINE 15 MG TABLET PO SCH (10:45)
[2016-11-01] MEDS: TRAMADOL 50 MG TABLET PO PRN ×2 (10:52→17:20)
[2016-11-01] MEDS: ONDANSETRON ODT 4 MG TABLET PO PRN (12:25)
[2016-11-01] MEDS: LORazepam 0.5 MG TABLET PO SCH ×2 (17:17→21:56)
[2016-11-01] MEDS: CALCIUM POLYCARBOPHIL 625 MG TABLET PO SCH (21:55)
[2016-11-01] MEDS: MIRTAZAPINE 15 MG TABLET PO SCH (21:57)
[2016-11-02] MEDS: ACETAMINOPHEN 500 MG TABLET PO SCH ×3 (00:47→16:15)
[2016-11-02] MEDS: LEVOTHYROXINE 88 MCG TABLET PO SCH ×2 (05:03→07:25)
[2016-11-02] MEDS: TRAMADOL 50 MG TABLET PO SCH ×2 (07:29→12:19)
[2016-11-02] MEDS: FERROUS SULFATE 324 MG TABLET PO SCH (08:49)
[2016-11-02] MEDS: ATENOLOL 25 MG TABLET PO SCH (08:50)
[2016-11-02] MEDS: SODIUM CHLORIDE 1 GM TABLET PO SCH ×4 (08:50→21:15)
[2016-11-02] MEDS: SIMETHICONE 80 MG CHEWABLE TABLET PO SCH ×3 (08:50→18:43)
[2016-11-02] MEDS: BuPROPion IR 75 MG TABLET PO SCH ×2 (08:50→21:15)
[2016-11-02] MEDS: ACYCLOVIR 200 MG CAPSULE PO SCH (08:50)
[2016-11-02] MEDS: LANSOPRAZOLE SOLU-TAB 15 MG TABLET PO SCH (08:50)
[2016-11-02] MEDS: FUROSEMIDE 40 MG TABLET PO SCH (08:51)
[2016-11-02] MEDS: SALINE FLUSH 10ml SYRINGE IVF PRN ×2 (08:51→09:25)
[2016-11-02] MEDS: SENNA + DOCUSATE TABLET PO PRN ×2 (08:51→10:18)
[2016-11-02] MEDS: POLYETHYL GLYCOL 3350 17gm PACKET PO SCH (10:18)
[2016-11-02] MEDS: LORazepam 0.5 MG TABLET PO PRN (10:19)
[2016-11-02] MEDS: ONDANSETRON ODT 4 MG TABLET PO PRN (10:24)
[2016-11-02] MEDS: ENOXAPARIN 40 MG/0.4 ML INJECTION SQ SCH (10:51)
[2016-11-02] MEDS: LORazepam 0.5 MG TABLET PO SCH ×2 (16:15→21:20)
[2016-11-02] MEDS: TRAMADOL 50 MG TABLET PO PRN (19:41)
[2016-11-02] MEDS: MIRTAZAPINE 15 MG TABLET PO SCH (21:15)
[2016-11-02] MEDS: CALCIUM POLYCARBOPHIL 625 MG TABLET PO SCH (21:16)
[2016-11-03] MEDS: ACETAMINOPHEN 500 MG TABLET PO SCH ×3 (02:30→16:17)
[2016-11-03] MEDS: LEVOTHYROXINE 88 MCG TABLET PO SCH (05:55)
[2016-11-03] MEDS: SALINE FLUSH 10ml SYRINGE IVF PRN ×3 (06:06→16:17)
[2016-11-03] MEDS: TRAMADOL 50 MG TABLET PO SCH ×2 (07:01→17:48)
[2016-11-03 08:35] VITALS: BMI 22.7
[2016-11-03] MEDS: ATENOLOL 25 MG TABLET PO SCH (08:41)
[2016-11-03] MEDS: ACYCLOVIR 200 MG CAPSULE PO SCH (08:41)
[2016-11-03] MEDS: SODIUM CHLORIDE 1 GM TABLET PO SCH ×4 (08:41→21:00)
[2016-11-03] MEDS: BuPROPion IR 75 MG TABLET PO SCH ×2 (08:41→21:00)
[2016-11-03] MEDS: FERROUS SULFATE 324 MG TABLET PO SCH (08:41)
[2016-11-03] MEDS: LANSOPRAZOLE SOLU-TAB 15 MG TABLET PO SCH (09:13)
[2016-11-03] MEDS: POLYETHYL GLYCOL 3350 17gm PACKET PO SCH (09:13)
[2016-11-03] MEDS: ENOXAPARIN 40 MG/0.4 ML INJECTION SQ SCH (09:13)
[2016-11-03] MEDS: FUROSEMIDE 40 MG TABLET PO SCH (09:13)
[2016-11-03] MEDS: SIMETHICONE 80 MG CHEWABLE TABLET PO SCH ×3 (09:13→18:32)
--- NOTE | 2016-11-03 09:28 | IRU Progress Note ---
- Subjective/Serverity of Illness Lexii was interviewed and examined today. She is making good progress. I have reviewed in detail the occupational therapy and physical therapy notes. In addition the patient feels as though she is doing much better with regard to transfers and ambulation. Occupational therapy notes questionable carryover from one day to the next. For this reason education is repeated verbally. Also has decreased endurance which is likely related to her underlying anemia and malignancy. She does have a degree of anxiety and tends to focus on one item at a time. She states that her dyspnea is much improved. She has no chest pain. She has no cough and no sputum. We are working on nutrition. She is using boost as a supplement. We increased her mirtazapine to 15 mg daily a couple of days ago. She advises me that she has set some goals to getting home. Specifically this involves improved transfers, ability to dress herself with buttons, improved nutrition, and personal hygiene. Update on medical issues: 1. Pain management: This continues to be limitation. She states that her pain occurs after she relaxes after having been up and about. Her main limitation on ambulation she states is endurance more than pain however. 2. Anorexia: She is consuming more of her diet. She is on boost as a supplement. 3. Pulmonary status: As before, chest x-ray is abnormal but she has no symptoms. 4. Anemia: Recent hemoglobin 8.2. This is relatively stable. However this may impact her endurance for therapies. 5. Hyponatremia: Likely related to SIADH. Hospitalists are following this. Sodium has been up to 130 and is 129 today. She is on a fluid restriction. 6. Malnutrition: Continue dietary improvement, supplements and encouragement of eating. She feels as though she is improved. Continue higher dose of mirtazapine. She has not oversedated with this. 7. Hypertension: Continue to monitor. Exam Vital Signs: Temperature 97.7 F 11/03/16 08:38 Pulse Rate 105 H 11/03/16 08:38 Respiratory Rate 18 11/03/16 08:38 Blood Pressure 136/63 11/03/16 08:38 Pulse Oximetry 99 11/03/16 08:38 Oxygen Delivery Method Room Air Height/Weight/BMI: Height 1.7 m Weight 65.771 kg Body Mass Index 22.7 - Constitutional Present: no acute distress Comments: The patient is awake, alert and oriented and in no acute distress. Appears to be much more positive, bright and forward-looking. She has set goals. Pupils are equal. The neck is supple. Chest: Clear to auscultation bilaterally. Cor: RR with no gallop, click nor murmur Abd: soft with normo-active bowel sounds. There are no masses, no tenderness and no guarding. Extremities: No edema is noted. Results IRU - Labs Labs: Reviewed her chemistries and hemoglobin etc. Sodium 129. Creatinine stable. Sepsis Assessment - Evaluation Sepsis screening result: No Definite Risk IRU A/P (1) Intertrochanteric fracture of right hip Qualifiers: Encounter type: subsequent encounter Fracture type: closed Fracture alignment: displaced Fracture healing: with routine healing Qualified Code(s ): S72.141D - Displaced intertrochanteric fracture of right femur, subsequent encounter for closed fracture with routine healing Current visit: Yes Status: Acute Pain is a limitation although it is improving. (2) Closed fracture of right hip requiring operative repair Qualifiers: Encounter type: subsequent encounter Fracture healing: with routine healing Qualified Code(s): S72.001D - Fracture of unspecified part of neck of right femur, subsequent encounter for closed fracture with routine healing Current visit: Yes Status: Acute Wound has looked fine. No evidence of infection. She is afebrile. Endurance is a limitation to her progress. (3) Benign essential hypertension Current visit: Yes Status: Chronic Blood pressure is doing much better. This may relate to better pain management/ control. (4) Metastatic cancer Current visit: Yes Status: Chronic Her endurance is reduced, possibly related to underlying malignancy and anemia. This impacts her therapy and progress. However despite this she is making progress. (5) Anorexia Current visit: Yes Status: Chronic She is on boost as a supplement. We have increased her mirtazapine. We continue to encourage her to consume calories in order to improve her nutritional status and exercise tolerance. (6) Protein-calorie malnutrition, moderate Current visit: Yes Status: Chronic (7) Anemia in chronic illness Current visit: Yes Status: Chronic Hemoglobin remained stable and is monitored. (8) Hyponatremia Current visit: Yes Status: Chronic She has SIADH on the basis of her malignancy most likely. She is on a fluid restriction. Sodium 129. (9) Chemotherapy-induced peripheral neuropathy Current visit: Yes Status: Chronic Has significant peripheral neuropathy in the hands/fingers as well as the lower extremities. This impairs her progress with regard to dressing and personal hygiene as well as ambulation. (10) Encephalopathy Current visit: Yes Status: Resolved (11) Abnormal chest xray Current visit: Yes Status: Acute DVT Prophylaxis: other (ambulating) Resuscitation Status: Full Code - Course Hospital Course: Kunal Arce MD: 10/25/16 11:15 She is just getting started with therapies. Seemed to tolerate therapy well today. We will schedule her Ultram to be given prior to therapies. Hyponatremia will be assessed with urine spot sodium. Anorexia will be addressed with Remeron. 10/26/16 10:58 Started mirtazapine yesterday evening and seems to be improved. Urine spot sodium 130. We will check a.m. cortisol tomorrow. Chest x-ray remains abnormal although clinically no evidence of infection - management per hospitalists. 10/30/16 10:21 Continues to require moderate assistance for transfers and ambulation. Has poor neck and trunk strength. We're monitoring her sodium which remains low at 123 likely related to SIADH. Continues to have anemia and plan to transfuse if less than 7.5. Pain management is an issue with regard to her right hip. 10/31/16 10:08 Continues to have difficulty getting back in bed without assistance. Also requires assistance for lower extremity dressing. Otherwise she is improving. Walking with a walker. Right hip incision healing nicely without evidence of inflammation. Ecchymosis is noted. Discussed oncology issues with patient today. 11/01/16 10:39 Continues to cooperate with therapy and working hard. Right hip pain as anticipated but is an impediment to improvement. Nutrition is improving. We will increase mirtazapine today. 11/03/16 09:32 She is making progress. Continues to have head and neck and trunk weakness and walks rather bent over. Peripheral neuropathy is no impairment an impediment to her dressing and personal hygiene improvement. Despite these issues, she is improving with therapy. Carryover from one day to the next is questionable and she is requiring additional education in this regard. Nutrition is slowly improving. Tolerating increased dose of mirtazapine well. Additional chemotherapy or other cancer treatment is contingent upon improving her nutrition and overall functional status. - Interventions to Obtain Goals PT Treatment Plan: Balance/Proprioception, Functional Activities, Gait Training , Patient/Family Education, Therapeutic Exercise OT Treatment Plan: ADL (Basic Care), Balance Training, IADL, Pt./Family Education, Ther. Exercise for ADL Goals Progress/Modifications: Continue to work on education, strengthening, transfers, personal hygiene and dressing. She is improving with regard to upper and lower extremity dressing. We will continue mirtazapine and monitor for excess sedation. Her attitude and outlook appears to be improved. She is more positive. Continues to struggle with some anxiety and requires encouragement.
[2016-11-03] MEDS: TRAMADOL 50 MG TABLET PO PRN ×2 (10:54→17:47)
[2016-11-03] MEDS ORDERED: FALL RISK - PHARMACY CONSULT MC PRN (11:24)
--- NOTE | 2016-11-03 13:28 | Progress Note ---
<Cinthia Bruner V - Last Filed: 11/03/16 13:23> Subjective: Lexii is seen today in follow up during lunch. She reports overall she is doing well with therapy. She does indicate that with increased exertion. She does have right hip pain, however, seems to be treated well using tramadol and Tylenol. She denies feeling short of breath or having chest pain. She denies GI complaints. Sodium continues to be low at 129. Objective Vital signs: Temperature 98.1 F 11/03/16 12:00 Pulse Rate 100 11/03/16 12:00 Respiratory Rate 16 11/03/16 12:00 Blood Pressure 149/55 H 11/03/16 12:00 Pulse Oximetry 98 11/03/16 12:00 Oxygen Delivery Method Room Air Height/Weight/BMI: Height 1.7 m Weight 65.771 kg Body Mass Index 22.7 - Constitutional Present: well nourished, well developed - Routine HEENT Exam Eye: Present: EOMI ENT: Present: mucous membranes moist, dentition normal - Routine Respiratory Exam Present: CTA bilaterally. Absent: wheezes - Routine Cardiovascular Exam Present: RRR. Absent: murmur - Routine Abdominal Exam Present: soft, normoactive bowel sounds, non distended. 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 Spencer Poorly differentiated retroperitoneal neoplasm, 04/2015. Hypertension. Chemotherapy induced peripheral neuropathy Acquired hypothyroidism secondary to hyperthyroidism treated with I-131 in 2014. GERD with reflux esophagitis. Rheumatoid arthritis. Depression. IBS-constipation. Diverticulosis. Nephrolithiasis with previous nephrolithotomy in 12/2011. 11/03/16- Plan Persistent Hyponatremia. Decrease fluid restriction to 1300/day. He does continue on salt tablets 1 gram 4 times a day. Continue to utilize tramadol and Tylenol for pain control. Continue with bowel motivation- Last reported BM was on 11/01 Lovenox subcutaneous daily for DVT prophylaxis Continue to encourage work with PT and OT for ongoing strengthening Sepsis Assessment - Evaluation Sepsis screening result: No Definite Risk Hospital Course Summary Disclaimer: The visit summary below is not to be considered part of the above Progress Note. Hospital Course: 10/25/16 12:43 hospitalist consult Impression: S/P cephalo-medullary hip fixation secondary to intertrochanteric displaced right hip fracture. * Agree with admission to IRU for intensive rehabilitation and pain control under the guidance of Dr. Arce. Encourage participation of therapies and provide safe and supportive environment. * Patient to follow up with Dr. Spencer on or around 11/09 and family should call to schedule appointment. * Maintain tegaderm dressing to incision until 10/31 at which time incision should be open to air. No lotion or ointment should be used over or around incision as closure was performed with dermabond. Anemia, post-op, acute. * Present prior to admission per records. Hemoglobin 7.3 on admission. Patient complains of feeling very weak. Discussed possibility of blood transfusion and patient is agreeable. Will contact Dr. Marinelli to discuss recommendations with regard to transfusion and patient's prior trends. * Patient to follow up with Dr. Marinelli on 10/31 per records from . CBC and CMP to be faxed weekly to Dr. Marinelli's office at [phone]. Will check CBC and CMP on 10/30. Thrombocytopenia, acute. * Present prior to admission per records. Platelets 112 on admission. Will continue to monitor closely. Repeat CBC in AM to monitor blood counts. Hyponatremia, acute. * Present prior to admission per records. Sodium 128 on admission. Will given NS 100cc/hr x 1 bag now. Will continue to monitor closely. Repeat BMP in AM to monitor electrolytes and renal function. Will check urine sodium as well as UA for baseline. Mild protein calorie malnutrition, acute. * Prealbumin 11.2 on admission. Will consult dietary for recommendations. Prior records indicate patient had EnSure EnLive BID for supplementation. Poorly differentiated retroperitoneal neoplasm, acute. * Underwent bronchoscopy to evaluate lymphadenopathy in chest on 10/21. CXR on 10/23 revealed left lower lung air space disease concerning for atelectasis vs. pneumonia vs. effusion. Will obtain repeat CXR now. Encourage incentive spirometry for pulmonary toileting. Monitor respiratory function closely. Chemotherapy induced peripheral neuropathy, chronic. * Encourage therapy and provide safe and supportive environment. Pain control per Dr. Arce. Monitor closely for gait instability. Hypertension, chronic. * Blood pressure noted to be elevated following admission yesterday but controlled this morning at 138/84. Continue home atenolol and monitor blood pressure closely. Acquired hypothyroidism, chronic. * Continue home synthroid. Will check TSH now. GERD with history of duodenitis, chronic. * Continue home Prevacid for GI protection and GERD. Depression, chronic. * Continue home Wellbutrin 75mg BID. Ativan as needed for anxiety. IBS with constipation, chronic. * Encourage aggressive bowel motivation in light of pain medications in addition to chronic history. Docusate, miralax and MOM as needed. History of herpes zoster on the face, resolved. * Continue home acyclovir and monitor for recurrence. Upon discharge, patient's care will be returned to her PCP, Dr. Banerjee. 10/26/16 -hospitalist progress note Hemoglobin up to 8.5 from 7.3 with 1 unit PRBCs. CBC in a.m. Sodium remains at 128 despite 1000 cc of normal saline infused yesterday. Infused 500 cc normal saline today. Recheck BMP in a.m. Monitor respiratory function given the changes on chest x-ray. Await bronchoscopy results. 10/28/16 [place] Sodium down to 122 today, denies any symptoms at this time. Worsened with 500 cc saline, suspect SIADH in the setting of malignancy. Will start fluid restriction to 1.5L daily, give a small dose of furosemide 20 mg daily to enhance free water clearance and monitor for any orthostasis. If worsening despite these interventions will pursue full w/u including urine osm/Na values and thyroid/hormonal axis testing. Discussed with nursing staff and patient. 10/29/16 Suspect SIADH is still driving her hyponatremia but she is hypochloremic as well. If hypovolemic she should have improved with saline challenge and she worsened significantly when 500 cc saline given on 10/27. Given active metastatic malignancy, ADH overproduction likely but will check urine Na/Osm to see if the urine studies fit with the diagnosis. Will also check thyroid studies and cortisol in AM. Monitor UOP and if no response to IV lasix will bladder scan. If urine sodium is not elevated will attempt fluid challenge again. Relatively asymptomatic at this point, will check Na level this evening , give 40 mg IV lasix x 1 now and monitor today. 10/31/16 Will back off on her bowel motivation. Change senna with docusate to twice a day PRN as opposed to routine. Will increase her levothyroxine from 75 g to 88 g given her TSH result of 13. Continue fluid restriction in regard to her hyponatremia. Will make sure the nurses give her the sodium tabs with meals, this may help with the nausea. 11/03/16- Plan Persistent Hyponatremia. Decrease fluid restriction to 1300/day. He does continue on salt tablets 1 gram 4 times a day. Continue to utilize tramadol and Tylenol for pain control. Continue with bowel motivation- Last reported BM was on 11/01 Lovenox subcutaneous daily for DVT prophylaxis Continue to encourage work with PT and OT for ongoing strengthening <Brendon Christensen D - Last Filed: 11/03/16 14:21> Objective Vital signs: Temperature 98.1 F 11/03/16 12:00 Pulse Rate 100 11/03/16 12:00 Respiratory Rate 16 11/03/16 12:00 Blood Pressure 149/55 H 11/03/16 12:00 Pulse Oximetry 98 11/03/16 12:00 Oxygen Delivery Method Room Air Height/Weight/BMI: Height 1.7 m Weight 65.771 kg Body Mass Index 22.7 Results - Labs CBC & Chem 7: 11/02/16 04:55 11/02/16 04:55 Assessment and Plan (1) Closed fracture of right hip requiring operative repair Current visit: Yes Status: Acute Assessment and Plan: Assessment 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 Spencer Poorly differentiated retroperitoneal neoplasm, 04/2015. Hypertension. Chemotherapy induced peripheral neuropathy Acquired hypothyroidism secondary to hyperthyroidism treated with I-131 in 2014. GERD with reflux esophagitis. Rheumatoid arthritis. Depression. IBS-constipation. Diverticulosis. Nephrolithiasis with previous nephrolithotomy in 12/2011. Have independently interviewed and examined pt. Chart reviewed. Case discussed with my [employer]OLOGICAL HELPER. Above care plan developed with my supervision; agree with above. Doing well. Tolerating the salt tablets better-not upsetting her stomach. Does have to take them with a large glass of liquid. Eating well. No ab pain or nausea. Stools slow; somewhat afraid to take laxative for fear of developing too frequent and urgent stool. No feeling abdominal bloating or cramping. Breathing well. Pain stable. Tolerating therapy. Lungs: clear CV: regular AB: soft nt/nd +BS MSE; awake alert appropriate PlaN. Continue with fluid restriction, salt tablets and Lasix-will check BMP tomorrow. Continue pain control. Encourage continued work with therapy to maximize strength and functional status. Will check CBC in am due to anemia. Medically stable for IRU floor care and activities. Hospital Course Summary Disclaimer: The visit summary below is not to be considered part of the above Progress Note.
[2016-11-03] MEDS: SENNA + DOCUSATE TABLET PO PRN (14:09)
[2016-11-03] MEDS: LORazepam 0.5 MG TABLET PO SCH ×2 (17:48→21:09)
[2016-11-03] MEDS: MIRTAZAPINE 15 MG TABLET PO SCH (21:00)
[2016-11-03] MEDS: CALCIUM POLYCARBOPHIL 625 MG TABLET PO SCH (21:10)
[2016-11-04] MEDS: ACETAMINOPHEN 500 MG TABLET PO SCH ×3 (00:43→16:07)
[2016-11-04] MEDS: SALINE FLUSH 10ml SYRINGE IVF PRN (00:44)
[2016-11-04] MEDS: CALCIUM CARBONATE Chewable 500mg TABLET PO PRN (03:23)
[2016-11-04] MEDS: ONDANSETRON ODT 4 MG TABLET PO PRN (03:29)
[2016-11-04] MEDS: LEVOTHYROXINE 88 MCG TABLET PO SCH ×2 (04:33→06:21)
[2016-11-04] MEDS: POLYETHYL GLYCOL 3350 17gm PACKET PO SCH (08:41)
[2016-11-04] MEDS: LANSOPRAZOLE SOLU-TAB 15 MG TABLET PO SCH (08:41)
[2016-11-04] MEDS: ACYCLOVIR 200 MG CAPSULE PO SCH (08:42)
[2016-11-04] MEDS: FERROUS SULFATE 324 MG TABLET PO SCH (08:43)
[2016-11-04] MEDS: ATENOLOL 25 MG TABLET PO SCH (08:43)
[2016-11-04] MEDS: SODIUM CHLORIDE 1 GM TABLET PO SCH ×4 (08:43→21:10)
[2016-11-04] MEDS: BuPROPion IR 75 MG TABLET PO SCH ×2 (08:44→21:10)
[2016-11-04] MEDS: ENOXAPARIN 40 MG/0.4 ML INJECTION SQ SCH (08:45)
[2016-11-04] MEDS: FUROSEMIDE 40 MG TABLET PO SCH (08:45)
[2016-11-04] MEDS: SIMETHICONE 80 MG CHEWABLE TABLET PO SCH ×3 (08:46→17:46)
[2016-11-04] MEDS: TRAMADOL 50 MG TABLET PO SCH ×2 (08:47→13:46)
[2016-11-04] MEDS ORDERED: FALL RISK - PHARMACY CONSULT MC PRN (11:36)
[2016-11-04] MEDS: LORazepam 0.5 MG TABLET PO SCH ×2 (16:07→21:10)
[2016-11-04] MEDS: MIRTAZAPINE 15 MG TABLET PO SCH (21:09)
[2016-11-04] MEDS: CALCIUM POLYCARBOPHIL 625 MG TABLET PO SCH (21:10)
[2016-11-05] MEDS: ACETAMINOPHEN 500 MG TABLET PO SCH ×3 (01:01→17:37)
[2016-11-05] MEDS: ONDANSETRON ODT 4 MG TABLET PO PRN ×2 (04:45→12:19)
[2016-11-05] MEDS: SALINE FLUSH 10ml SYRINGE IVF PRN (04:46)
[2016-11-05] MEDS: LEVOTHYROXINE 88 MCG TABLET PO SCH ×2 (04:49→08:57)
[2016-11-05] MEDS: SODIUM CHLORIDE 1 GM TABLET PO SCH ×4 (09:15→20:59)
[2016-11-05] MEDS: BuPROPion IR 75 MG TABLET PO SCH ×2 (09:16→20:59)
[2016-11-05] MEDS: TRAMADOL 50 MG TABLET PO SCH ×2 (09:16→12:19)
[2016-11-05] MEDS: SIMETHICONE 80 MG CHEWABLE TABLET PO SCH ×3 (09:16→17:36)
[2016-11-05] MEDS: FUROSEMIDE 40 MG TABLET PO SCH (09:18)
[2016-11-05] MEDS: ACYCLOVIR 200 MG CAPSULE PO SCH (09:18)
[2016-11-05] MEDS: ATENOLOL 25 MG TABLET PO SCH (09:18)
[2016-11-05] MEDS: LANSOPRAZOLE SOLU-TAB 15 MG TABLET PO SCH (09:18)
[2016-11-05] MEDS: FERROUS SULFATE 324 MG TABLET PO SCH (09:25)
[2016-11-05] MEDS ORDERED: FALL RISK - PHARMACY CONSULT MC PRN (11:28)
[2016-11-05] MEDS: POLYETHYL GLYCOL 3350 17gm PACKET PO SCH (11:47)
[2016-11-05] MEDS: ENOXAPARIN 40 MG/0.4 ML INJECTION SQ SCH (12:19)
--- NOTE | 2016-11-05 16:17 | Progress Note ---
Subjective: Mariel is seen today in follow up. Nursing called to report that pt. has been feeling down- apparently, she was on Lexapro at home, but that did not get continued on her home medication list upon admission here. Patient informed nurse that she would like her Lexapro restarted due to depressed mood. I did d/w pt. She reports that she is more sad, thinks a lot about going home and what she will need at home. She is pondering if she will need a walker on discharge- I did encourage her to d/w PT as they usually have a good idea of discharge needs when the time comes. She does endorse depression "feeling more down over the last several days." She cannot recall which dose she was on. Chart reviewed- previously documented on 15mg. She has recently added in Wellbutrin to augment the lexapro. Will restart Lexapro today, I did inform pt. that nausea can be initial side effect the first few days on Lexapro. She expresses understanding. Objective Vital signs: Temperature 97.9 F 11/05/16 08:00 Pulse Rate 108 H 11/05/16 08:00 Respiratory Rate 20 11/05/16 08:00 Blood Pressure 98/64 11/05/16 12:00 Pulse Oximetry 97 11/05/16 08:00 Oxygen Delivery Method Room Air Height/Weight/BMI: Height 1.7 m Weight 65.771 kg Body Mass Index 22.7 - Constitutional Present: no acute distress, well nourished, cooperative Comments: Thought process is a bit delayed. Depressed, moderately flat affect. - Routine HEENT Exam Head: Present: normocephalic, atraumatic Eye: Present: EOMI, PERRL, cataracts ENT: Present: mucous membranes moist Comments: Head covering on- alopecia? - Routine Respiratory Exam Present: CTA bilaterally. Absent: rales, rhonchi, wheezes, crackles - Routine Cardiovascular Exam Present: RRR, S1, S2, no murmur - Routine Abdominal Exam Present: soft, non distended, non tender - Routine Extremities Exam Present: no edema, normal capillary refill. 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 See comment. \\ Comment: QUICK-STAIN IMPRESSION: Malignant. Further classification pending. Dr. Agustín Keene 11:00am 10/21/16 Evaluation of smears and cell block show small, medium to large size of malignant cells with crushed artifact and extensive tumor necrosis. Large cells show vesicular nuclei and prominent nuclei. To further classification of tumor cells, immunostain Scott-keratin AE1/AE3, CK7, CD56, synaptophysin, CD45, and TTF-1 were performed. Controls show appropriate activity. Tumor cells are positive for synaptophysin and CD56 (neuroendocrine differentiation marker), negative for cytokeratin AE1/AE3 and CK7 (carcinoma markers), [id number] (scott lymphocytic marker), and TTF-1. 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 Drs. Bridgette Espino, Margo Patricia and Kenneth Terrazas have reviewed this case and concur with the above diagnosis. [facility] 10/26/2016 at 1:40 pm. - Imaging and Cardiology Chest x-ray Additional comments: 10/25/16-chest x-ray Impression: 1. Bilateral pleural effusions with left basal infiltrate suspected. 2. Abnormal aorticopulmonary window convex contour suggesting adenopathy. CT chest with contrast may be helpful for further assessment in this regard. 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 Chemotherapy induced peripheral neuropathy Acquired hypothyroidism secondary to hyperthyroidism treated with I-131 in 2014. GERD with reflux esophagitis. Rheumatoid arthritis. Depression. IBS-constipation. Diverticulosis. Nephrolithiasis with previous nephrolithotomy in 12/2011. Plan: Patient reports main c/o depression. Will resume Lexapro. Start at 10mg. Continue Wellbutrin. Suspect this may have been held due to SIADH. Na is now normal- will need to follow labs. Her memory is a bit slow- consider imaging brain to R/O metastases. Continue PT/OT for strengthening. Pt is working on exercises before I visited- she is motivated to return home. Continue supportive meds. Pathology on lung mass is back- I included in this note. Concern for neuroendocrine tumor. Follows with Dr. Mcdonald & Dr. Pieter Marinelli. - Time spent with patient 25 - 35 minutes Sepsis Assessment - Evaluation Sepsis screening result: No Definite Risk Hospital Course Summary Disclaimer: The visit summary below is not to be considered part of the above Progress Note. Hospital Course: 10/25/16 12:43 hospitalist consult Impression: S/P cephalo-medullary hip fixation secondary to intertrochanteric displaced right hip fracture. * Agree with admission to IRU for intensive rehabilitation and pain control under the guidance of Dr. Arce. Encourage participation of therapies and provide safe and supportive environment. * Patient to follow up with Dr. Spencer on or around 11/09 and family should call to schedule appointment. * Maintain tegaderm dressing to incision until 10/31 at which time incision should be open to air. No lotion or ointment should be used over or around incision as closure was performed with dermabond. Anemia, post-op, acute. * Present prior to admission per records. Hemoglobin 7.3 on admission. Patient complains of feeling very weak. Discussed possibility of blood transfusion and patient is agreeable. Will contact Dr. Marinelli to discuss recommendations with regard to transfusion and patient's prior trends. * Patient to follow up with Dr. Marinelli on 10/31 per records from . CBC and CMP to be faxed weekly to Dr. Marinelli's office at [phone]. Will check CBC and CMP on 10/30. Thrombocytopenia, acute. * Present prior to admission per records. Platelets 112 on admission. Will continue to monitor closely. Repeat CBC in AM to monitor blood counts. Hyponatremia, acute. * Present prior to admission per records. Sodium 128 on admission. Will given NS 100cc/hr x 1 bag now. Will continue to monitor closely. Repeat BMP in AM to monitor electrolytes and renal function. Will check urine sodium as well as UA for baseline. Mild protein calorie malnutrition, acute. * Prealbumin 11.2 on admission. Will consult dietary for recommendations. Prior records indicate patient had EnSure EnLive BID for supplementation. Poorly differentiated retroperitoneal neoplasm, acute. * Underwent bronchoscopy to evaluate lymphadenopathy in chest on 10/21. CXR on 10/23 revealed left lower lung air space disease concerning for atelectasis vs. pneumonia vs. effusion. Will obtain repeat CXR now. Encourage incentive spirometry for pulmonary toileting. Monitor respiratory function closely. Chemotherapy induced peripheral neuropathy, chronic. * Encourage therapy and provide safe and supportive environment. Pain control per Dr. Arce. Monitor closely for gait instability. Hypertension, chronic. * Blood pressure noted to be elevated following admission yesterday but controlled this morning at 138/84. Continue home atenolol and monitor blood pressure closely. Acquired hypothyroidism, chronic. * Continue home synthroid. Will check TSH now. GERD with history of duodenitis, chronic. * Continue home Prevacid for GI protection and GERD. Depression, chronic. * Continue home Wellbutrin 75mg BID. Ativan as needed for anxiety. IBS with constipation, chronic. * Encourage aggressive bowel motivation in light of pain medications in addition to chronic history. Docusate, miralax and MOM as needed. History of herpes zoster on the face, resolved. * Continue home acyclovir and monitor for recurrence. Upon discharge, patient's care will be returned to her PCP, Dr. Banerjee. 10/26/16 -hospitalist progress note Hemoglobin up to 8.5 from 7.3 with 1 unit PRBCs. CBC in a.m. Sodium remains at 128 despite 1000 cc of normal saline infused yesterday. Infused 500 cc normal saline today. Recheck BMP in a.m. Monitor respiratory function given the changes on chest x-ray. Await bronchoscopy results. 10/28/16 [place] Sodium down to 122 today, denies any symptoms at this time. Worsened with 500 cc saline, suspect SIADH in the setting of malignancy. Will start fluid restriction to 1.5L daily, give a small dose of furosemide 20 mg daily to enhance free water clearance and monitor for any orthostasis. If worsening despite these interventions will pursue full w/u including urine osm/Na values and thyroid/hormonal axis testing. Discussed with nursing staff and patient. 10/29/16 Suspect SIADH is still driving her hyponatremia but she is hypochloremic as well. If hypovolemic she should have improved with saline challenge and she worsened significantly when 500 cc saline given on 10/27. Given active metastatic malignancy, ADH overproduction likely but will check urine Na/Osm to see if the urine studies fit with the diagnosis. Will also check thyroid studies and cortisol in AM. Monitor UOP and if no response to IV lasix will bladder scan. If urine sodium is not elevated will attempt fluid challenge again. Relatively asymptomatic at this point, will check Na level this evening , give 40 mg IV lasix x 1 now and monitor today. 10/31/16 Will back off on her bowel motivation. Change senna with docusate to twice a day PRN as opposed to routine. Will increase her levothyroxine from 75 g to 88 g given her TSH result of 13. Continue fluid restriction in regard to her hyponatremia. Will make sure the nurses give her the sodium tabs with meals, this may help with the nausea. 11/03/16- Plan Persistent Hyponatremia. Decrease fluid restriction to 1300/day. He does continue on salt tablets 1 gram 4 times a day. Continue to utilize tramadol and Tylenol for pain control. Continue with bowel motivation- Last reported BM was on 11/01 Lovenox subcutaneous daily for DVT prophylaxis Continue to encourage work with PT and OT for ongoing strengthening 11/05/16 16:34 Patient reports main c/o depression. Will resume Lexapro. Start at 10mg. Continue Wellbutrin. Suspect this may have been held due to SIADH. Na is now normal- will need to follow labs. Her memory is a bit slow- consider imaging brain to R/O metastases. Continue PT/OT for strengthening. Pt is working on exercises before I visited- she is motivated to return home. Continue supportive meds. Pathology on lung mass is back- I included in this note. Concern for neuroendocrine tumor. Follows with Dr. Mcdonald & Dr. Pieter Marinelli.
[2016-11-05] MEDS: LORazepam 0.5 MG TABLET PO SCH ×2 (17:36→21:03)
[2016-11-05] MEDS: MIRTAZAPINE 15 MG TABLET PO SCH (20:59)
[2016-11-05] MEDS: ESCITALOPRAM 10 MG TABLET PO SCH (21:50)
[2016-11-05] MEDS: CALCIUM CARBONATE Chewable 500mg TABLET PO PRN (21:55)
[2016-11-05] MEDS: CALCIUM POLYCARBOPHIL 625 MG TABLET PO SCH (23:29)
[2016-11-06] MEDS: ACETAMINOPHEN 500 MG TABLET PO SCH ×3 (02:54→17:24)
[2016-11-06] MEDS: LEVOTHYROXINE 88 MCG TABLET PO SCH (05:41)
[2016-11-06] MEDS: TRAMADOL 50 MG TABLET PO PRN ×3 (05:48→17:27)
[2016-11-06] MEDS: FERROUS SULFATE 324 MG TABLET PO SCH (08:31)
[2016-11-06] MEDS: SODIUM CHLORIDE 1 GM TABLET PO SCH ×4 (08:31→21:18)
[2016-11-06] MEDS: FUROSEMIDE 40 MG TABLET PO SCH (08:32)
[2016-11-06] MEDS: ATENOLOL 25 MG TABLET PO SCH (08:33)
[2016-11-06] MEDS: BuPROPion IR 75 MG TABLET PO SCH ×2 (08:34→21:20)
[2016-11-06] MEDS: ACYCLOVIR 200 MG CAPSULE PO SCH (08:34)
[2016-11-06] MEDS: SIMETHICONE 80 MG CHEWABLE TABLET PO SCH ×3 (08:35→19:35)
[2016-11-06] MEDS: POLYETHYL GLYCOL 3350 17gm PACKET PO SCH (08:36)
[2016-11-06] MEDS: LANSOPRAZOLE SOLU-TAB 15 MG TABLET PO SCH (08:37)
[2016-11-06] MEDS: TRAMADOL 50 MG TABLET PO SCH ×2 (08:41→12:28)
[2016-11-06] MEDS: ENOXAPARIN 40 MG/0.4 ML INJECTION SQ SCH (11:06)
[2016-11-06] MEDS: LORazepam 0.5 MG TABLET PO SCH ×2 (17:24→21:23)
[2016-11-06] MEDS: MIRTAZAPINE 15 MG TABLET PO SCH (21:20)
[2016-11-06] MEDS: CALCIUM POLYCARBOPHIL 625 MG TABLET PO SCH (21:20)
[2016-11-06] MEDS: ESCITALOPRAM 10 MG TABLET PO SCH (21:20)
[2016-11-07] MEDS: ACETAMINOPHEN 500 MG TABLET PO SCH ×3 (01:01→16:09)
[2016-11-07] MEDS: ONDANSETRON ODT 4 MG TABLET PO PRN ×4 (03:28→21:58)
[2016-11-07] MEDS: LEVOTHYROXINE 88 MCG TABLET PO SCH (06:23)
[2016-11-07] MEDS: TRAMADOL 50 MG TABLET PO SCH ×2 (09:27→13:47)
[2016-11-07] MEDS: SODIUM CHLORIDE 1 GM TABLET PO SCH ×4 (09:28→20:32)
[2016-11-07] MEDS: FUROSEMIDE 40 MG TABLET PO SCH (09:28)
[2016-11-07] MEDS: FERROUS SULFATE 324 MG TABLET PO SCH (09:28)
[2016-11-07] MEDS: BuPROPion IR 75 MG TABLET PO SCH ×2 (09:29→20:33)
[2016-11-07] MEDS: SIMETHICONE 80 MG CHEWABLE TABLET PO SCH ×3 (09:30→18:45)
[2016-11-07] MEDS: ACYCLOVIR 200 MG CAPSULE PO SCH (09:30)
[2016-11-07] MEDS: ATENOLOL 25 MG TABLET PO SCH (09:30)
[2016-11-07] MEDS: LANSOPRAZOLE SOLU-TAB 15 MG TABLET PO SCH (09:30)
[2016-11-07] MEDS ORDERED: FALL RISK - PHARMACY CONSULT MC PRN (11:26)
[2016-11-07] MEDS: POLYETHYL GLYCOL 3350 17gm PACKET PO SCH (11:48)
--- NOTE | 2016-11-07 14:22 | IRU Team Meeting ---
IRU Team Meeting - Nursing Vital Signs: Vital Signs - 24 hr 11/06/16 15:54 11/06/16 19:31 11/07/16 00:00 Temperature 98.1 F 98.6 F 98.4 F Pulse Rate 87 94 97 Respiratory Rate 12 16 16 Blood Pressure 127/62 126/66 146/69 H Pulse Oximetry 100 100 95 11/07/16 04:00 11/07/16 08:00 11/07/16 12:00 Temperature 97.8 F 98.1 F 97.8 F Pulse Rate 107 H 109 H 83 Respiratory Rate 18 18 18 Blood Pressure 139/77 141/77 H 114/61 Pulse Oximetry 98 96 100 Current Medications: Acetaminophen (Tylenol) 1,000 mg PO Q8H [facility] Last Admin: 11/07/16 11:47 Dose: 1,000 mg Acyclovir (Zovirax) 400 mg PO DAILY [facility] Last Admin: 11/07/16 09:30 Dose: 400 mg Atenolol (Tenormin) 25 mg PO DAILY [facility] Last Admin: 11/07/16 09:30 Dose: 25 mg Bupropion HCl (Wellbutrin Ir) 75 mg PO BID [facility] Last Admin: 11/07/16 09:29 Dose: 75 mg Calcium Carbonate (Tums) 1,000 mg PO PRN PRN PRN Reason: Dyspepsia Last Admin: 11/05/16 21:55 Dose: 500 mg Calcium Polycarbophil (Fiber-Lax) 625 mg PO HS [facility] Last Admin: 11/06/16 21:20 Dose: Not Given Enoxaparin Sodium (Lovenox) 40 mg SQ DAILY [facility] Stop: 11/08/16 09:01 Last Admin: 11/06/16 11:06 Dose: 40 mg Escitalopram Oxalate (Lexapro) 10 mg PO HS [facility] Last Admin: 11/06/16 21:20 Dose: 10 mg Ferrous Sulfate (Feosol) 324 mg PO WB [facility] Last Admin: 11/07/16 09:28 Dose: 324 mg Furosemide (Lasix) 40 mg PO DAILY [facility] Last Admin: 11/07/16 09:28 Dose: 40 mg Heparin Sodium (Beef Lung) (Heparin Flush) 500 unit IV PRN PRN Last Admin: 11/03/16 06:07 Dose: 500 unit Lansoprazole (Prevacid Solu-Tab) 15 mg PO DAILY [facility] Last Admin: 11/07/16 09:30 Dose: 15 mg Levothyroxine Sodium (Synthroid) 88 mcg PO ACB [facility] Last Admin: 11/07/16 06:23 Dose: 88 mcg Lorazepam (Ativan) 0.25 mg PO DAILY PRN PRN Reason: Anxiety Last Admin: 11/02/16 10:19 Dose: 0.25 mg Lorazepam (Ativan) 0.5 mg PO 1630,21 [facility] Last Admin: 11/06/16 21:23 Dose: 0.5 mg Magnesium Hydroxide (Mom) 30 ml PO DAILY PRN PRN Reason: Constipation Last Admin: 11/03/16 21:10 Dose: 30 ml Mirtazapine (Remeron) 15 mg PO HS [facility] Last Admin: 11/06/16 21:20 Dose: 15 mg Ondansetron HCl (Zofran Po) 4 mg PO Q4H PRN PRN Reason: Nausea &/or vomiting Last Admin: 11/07/16 13:15 Dose: 4 mg Polyethylene Glycol (Miralax) 17 gm PO DAILY [facility] Last Admin: 11/07/16 11:48 Dose: Not Given Potassium Chloride (K-Dur) 20 meq PO WB [facility] Last Admin: 11/07/16 09:27 Dose: 20 meq Pramipexole Dihydrochloride (Mirapex) 2 mg PO HS PRN PRN Reason: restless legs syndrome Senna/Docusate Sodium (Senna Plus Tablet) 1 tab PO BID PRN Last Admin: 11/03/16 14:09 Dose: 1 tab Simethicone (Mylicon) 80 mg PO PC [facility] Last Admin: 11/07/16 13:47 Dose: 80 mg Sodium Chloride (Iv Flush) 10 - 80 ml IVF PRN PRN PRN Reason: Flushing Last Admin: 11/05/16 04:46 Dose: 20 ml Sodium Chloride (Normal Saline) 500 ml IV PRN PRN Sodium Chloride (Salt Tablet) 1 gm PO WMHS [facility] Last Admin: 11/07/16 12:03 Dose: 1 gm Tramadol HCl (Ultram) 50 mg PO [facility] Last Admin: 11/07/16 13:47 Dose: 50 mg Tramadol HCl (Ultram) 50 mg PO Q4H PRN PRN Reason: Pain Last Admin: 11/06/16 17:27 Dose: 50 mg - Physical Therapy Comments: has progressed well. ready for home - Occupational Therapy Eating Ability: Independent Grooming Ability: Stand By Assist/Supervision Bathing Ability: Stand By Assist/Supervision Upper Body Dressing Ability: Stand By Assist/Supervision Lower Body Dressing Ability: Stand By Assist/Supervision - Care Plan Anticipated Length of Stay: 2 (days) Anticipated DC Destination: Home, Self Care, Home Health Service
--- NOTE | 2016-11-07 15:45 | Progress Note ---
<Margarita Gatica - Last Filed: 11/07/16 15:41> Subjective: Patient is seen today sitting in her chair in her room. Overall she is feeling well. Her main complaint is that she doesn't get to go home for another 2 days. She is having some drainage from the lower incision from her recent right hip repair. She has no pain in the area. She states it's been draining for at least the past 4-5 days. She was due to see Dr. Spencer in follow-up last week. She states it has almost been 3 weeks since her surgery at this point. Bowels are moving, however, she feels that her bowels are either too soft or she is constipated. This has been an ongoing problem for her. Objective Vital signs: Temperature 97.8 F 11/07/16 12:00 Pulse Rate 83 11/07/16 12:00 Respiratory Rate 18 11/07/16 12:00 Blood Pressure 114/61 11/07/16 12:00 Pulse Oximetry 100 11/07/16 12:00 Oxygen Delivery Method Room Air Height/Weight/BMI: Height 1.7 m Weight 62.9 kg Body Mass Index 22.7 - Constitutional Present: no acute distress, well nourished, well developed - Routine HEENT Exam Head: Present: normocephalic, atraumatic Eye: Present: EOMI ENT: Present: mucous membranes moist - Routine Respiratory Exam Present: CTA bilaterally. Absent: wheezes - Routine Cardiovascular Exam Present: RRR, S1, S2. Absent: murmur - Routine Abdominal Exam Present: soft, normoactive bowel sounds, non distended. Absent: tenderness - Routine Extremities Exam Present: no edema, normal capillary refill - Routine Musculoskeletal Exam Musculoskeletal: Present: other (atrophy of the right leg musculature) - Routine Skin Exam Present: dry, warm Comments: Surgical incision to the right hip superiorly is completely healed. Incision inferior has an area approximately 1 cm at the distal end of the wound that is oozing dark red/brown serous fluid. There is no surrounding redness, no swelling , no tenderness with palpation. 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 Chemotherapy induced peripheral neuropathy Acquired hypothyroidism secondary to hyperthyroidism treated with I-131 in 2014. GERD with reflux esophagitis. Rheumatoid arthritis. Depression. IBS-constipation. Diverticulosis. Nephrolithiasis with previous nephrolithotomy in 12/2011. Plan: Continue PT/OT for strengthening. She is motivated to return home. Pathology on lung mass shows possible neuroendocrine tumor. Follows with Dr. Pieter Marinelli. Plans to see him as soon as she is dismissed from rehabilitation. Drainage from her surgical site. There is no sign of infection. Will have nurse schedule her for postoperative follow up with Dr. Spencer as soon as she is dismissed from rehabilitation. Chronic problems are stable. Her sodium has normalized with her fluid restriction and salt tabs. Sepsis Assessment - Evaluation Sepsis screening result: No Definite Risk Hospital Course Summary Disclaimer: The visit summary below is not to be considered part of the above Progress Note. Hospital Course: 10/25/16 12:43 hospitalist consult Impression: S/P cephalo-medullary hip fixation secondary to intertrochanteric displaced right hip fracture. * Agree with admission to IRU for intensive rehabilitation and pain control under the guidance of Dr. Arce. Encourage participation of therapies and provide safe and supportive environment. * Patient to follow up with Dr. Spencer on or around 11/09 and family should call to schedule appointment. * Maintain tegaderm dressing to incision until 10/31 at which time incision should be open to air. No lotion or ointment should be used over or around incision as closure was performed with dermabond. Anemia, post-op, acute. * Present prior to admission per records. Hemoglobin 7.3 on admission. Patient complains of feeling very weak. Discussed possibility of blood transfusion and patient is agreeable. Will contact Dr. Marinelli to discuss recommendations with regard to transfusion and patient's prior trends. * Patient to follow up with Dr. Marinelli on 10/31 per records from . CBC and CMP to be faxed weekly to Dr. Marinelli's office at [phone]. Will check CBC and CMP on 10/30. Thrombocytopenia, acute. * Present prior to admission per [facility] records. Platelets 112 on admission. Will continue to monitor closely. Repeat CBC in AM to monitor blood counts. Hyponatremia, acute. * Present prior to admission per [facility] records. Sodium 128 on admission. Will given NS 100cc/hr x 1 bag now. Will continue to monitor closely. Repeat BMP in AM to monitor electrolytes and renal function. Will check urine sodium as well as UA for baseline. Mild protein calorie malnutrition, acute. * Prealbumin 11.2 on admission. Will consult dietary for recommendations. Prior records indicate patient had EnSure EnLive BID for supplementation. Poorly differentiated retroperitoneal neoplasm, acute. * Underwent bronchoscopy to evaluate lymphadenopathy in chest on 10/21. CXR on 10/23 revealed left lower lung air space disease concerning for atelectasis vs. pneumonia vs. effusion. Will obtain repeat CXR now. Encourage incentive spirometry for pulmonary toileting. Monitor respiratory function closely. Chemotherapy induced peripheral neuropathy, chronic. * Encourage therapy and provide safe and supportive environment. Pain control per Dr. Arce. Monitor closely for gait instability. Hypertension, chronic. * Blood pressure noted to be elevated following admission yesterday but controlled this morning at 138/84. Continue home atenolol and monitor blood pressure closely. Acquired hypothyroidism, chronic. * Continue home synthroid. Will check TSH now. GERD with history of duodenitis, chronic. * Continue home Prevacid for GI protection and GERD. Depression, chronic. * Continue home Wellbutrin 75mg BID. Ativan as needed for anxiety. IBS with constipation, chronic. * Encourage aggressive bowel motivation in light of pain medications in addition to chronic history. Docusate, miralax and MOM as needed. History of herpes zoster on the face, resolved. * Continue home acyclovir and monitor for recurrence. Upon discharge, patient's care will be returned to her PCP, Dr. Banerjee. 10/26/16 -hospitalist progress note Hemoglobin up to 8.5 from 7.3 with 1 unit PRBCs. CBC in a.m. Sodium remains at 128 despite 1000 cc of normal saline infused yesterday. Infused 500 cc normal saline today. Recheck BMP in a.m. Monitor respiratory function given the changes on chest x-ray. Await bronchoscopy results. 10/28/16 [place] Sodium down to 122 today, denies any symptoms at this time. Worsened with 500 cc saline, suspect SIADH in the setting of malignancy. Will start fluid restriction to 1.5L daily, give a small dose of furosemide 20 mg daily to enhance free water clearance and monitor for any orthostasis. If worsening despite these interventions will pursue full w/u including urine osm/Na values and thyroid/hormonal axis testing. Discussed with nursing staff and patient. 10/29/16 Suspect SIADH is still driving her hyponatremia but she is hypochloremic as well. If hypovolemic she should have improved with saline challenge and she worsened significantly when 500 cc saline given on 10/27. Given active metastatic malignancy, ADH overproduction likely but will check urine Na/Osm to see if the urine studies fit with the diagnosis. Will also check thyroid studies and cortisol in AM. Monitor UOP and if no response to IV lasix will bladder scan. If urine sodium is not elevated will attempt fluid challenge again. Relatively asymptomatic at this point, will check Na level this evening , give 40 mg IV lasix x 1 now and monitor today. 10/31/16 Will back off on her bowel motivation. Change senna with docusate to twice a day PRN as opposed to routine. Will increase her levothyroxine from 75 g to 88 g given her TSH result of 13. Continue fluid restriction in regard to her hyponatremia. Will make sure the nurses give her the sodium tabs with meals, this may help with the nausea. 11/03/16- Plan Persistent Hyponatremia. Decrease fluid restriction to 1300/day. He does continue on salt tablets 1 gram 4 times a day. Continue to utilize tramadol and Tylenol for pain control. Continue with bowel motivation- Last reported BM was on 11/01 Lovenox subcutaneous daily for DVT prophylaxis Continue to encourage work with PT and OT for ongoing strengthening 11/05/16 16:34 Patient reports main c/o depression. Will resume Lexapro. Start at 10mg. Continue Wellbutrin. Suspect this may have been held due to SIADH. Na is now normal- will need to follow labs. Her memory is a bit slow- consider imaging brain to R/O metastases. Continue PT/OT for strengthening. Pt is working on exercises before I visited- she is motivated to return home. Continue supportive meds. Pathology on lung mass is back- I included in this note. Concern for neuroendocrine tumor. Follows with Dr. Mcdonald & Dr. Pieter Marinelli. 11/07/16 15:52 Continue PT/OT for strengthening. She is motivated to return home. Pathology on lung mass shows possible neuroendocrine tumor. Follows with Dr. Pieter Marinelli. Plans to see him as soon as she is dismissed from rehabilitation. Drainage from her surgical site. There is no sign of infection. Will have nurse schedule her for postoperative follow up with Dr. Spencer as soon as she is dismissed from rehabilitation. Chronic problems are stable. Her sodium has normalized with her fluid restriction and salt tabs <Jacki Sorenson - Last Filed: 11/07/16 20:40> Objective Vital signs: Temperature 97.5 F 11/07/16 19:47 Pulse Rate 93 11/07/16 19:47 Respiratory Rate 16 11/07/16 19:47 Blood Pressure 128/64 11/07/16 19:47 Pulse Oximetry 100 11/07/16 19:47 Oxygen Delivery Method Room Air Height/Weight/BMI: Height 1.7 m Weight 62.9 kg Body Mass Index 22.7 Results - Labs CBC & Chem 7: 11/06/16 04:30 11/06/16 04:30 Assessment and Plan (1) Closed fracture of right hip requiring operative repair Current visit: Yes Status: Acute Assessment and Plan: I have independently evaluated and examined this patient. I reviewed the chart, the patient's history, and the DIRECTOR OF DISTRIBUTION/PA's documented findings as above. We discussed and formulated the assessment and plan as above with additions as below: Mrs. Ceasr is generally doing well. She reports that her appetite is diminished but denies significant nausea. She reports chronic low-grade tachycardia and indicates she's not been lightheaded. She's tentatively scheduled for discharge on 11/09. NAD, alert, general pallor Respirations are nonlabored and breath sounds clear Regular cardiac rhythm, borderline tachycardia Hyponatremia has resolved as noted, macrocytic anemia-anemia appears to have preceded current hospitalization dating back to early this year but macrocytosis is new. Defer to hem/onc. 4.5 kg weight loss since admission. Will need oral medication for nausea at discharge. Hospital Course Summary Disclaimer: The visit summary below is not to be considered part of the above Progress Note.
[2016-11-07] MEDS: LORazepam 0.5 MG TABLET PO SCH ×2 (16:09→20:33)
[2016-11-07] MEDS: SALINE FLUSH 10ml SYRINGE IVF PRN (18:46)
[2016-11-07] MEDS: MIRTAZAPINE 15 MG TABLET PO SCH (20:33)
[2016-11-07] MEDS: ESCITALOPRAM 10 MG TABLET PO SCH (20:33)
[2016-11-07] MEDS: CALCIUM POLYCARBOPHIL 625 MG TABLET PO SCH (20:33)
[2016-11-07] MEDS: CALCIUM CARBONATE Chewable 500mg TABLET PO PRN (21:54)
[2016-11-08] MEDS: ACETAMINOPHEN 500 MG TABLET PO SCH ×3 (02:14→17:53)
[2016-11-08] MEDS: TRAMADOL 50 MG TABLET PO SCH ×2 (07:03→12:18)
[2016-11-08] MEDS: LEVOTHYROXINE 88 MCG TABLET PO SCH (07:57)
[2016-11-08] MEDS: LANSOPRAZOLE SOLU-TAB 15 MG TABLET PO SCH (08:29)
[2016-11-08] MEDS: FERROUS SULFATE 324 MG TABLET PO SCH (08:29)
[2016-11-08] MEDS: ACYCLOVIR 200 MG CAPSULE PO SCH (08:29)
[2016-11-08] MEDS: ATENOLOL 25 MG TABLET PO SCH (08:30)
[2016-11-08] MEDS: SODIUM CHLORIDE 1 GM TABLET PO SCH ×4 (08:31→20:17)
[2016-11-08] MEDS: BuPROPion IR 75 MG TABLET PO SCH ×2 (08:32→20:17)
[2016-11-08] MEDS: ONDANSETRON ODT 4 MG TABLET PO PRN ×3 (08:34→21:31)
[2016-11-08] MEDS: FUROSEMIDE 40 MG TABLET PO SCH (08:34)
[2016-11-08] MEDS: SIMETHICONE 80 MG CHEWABLE TABLET PO SCH ×3 (08:35→17:52)
[2016-11-08] MEDS: POLYETHYL GLYCOL 3350 17gm PACKET PO SCH ×2 (12:11→15:36)
--- NOTE | 2016-11-08 12:47 | Discharge Instructions ---
Discharge Plan - Med Rec/Dispo Referrals/Follow Up: Debby Banerjee MD [Family Provider] - (Dr. Destinee Banerjee on 11/16/16 at 11:30 am for Hosp. follow-up. . [facility] [address] [place] [address]) Gilmar Marinelli MD [Physician] - (Dr. Pieter Marinelli . [facility] [address] [address]) Soy Spencer MD [Physician] - Additional Instructions: LABS YOU WILL NEED: Thyroid lab (TSH) in 1 month since we increased your levothyroxine. BMP to follow up on your sodium level in 1-2 weeks. CBC to follow up on your anemia in 1-2 weeks. You can get these drawn in [place] at the clinic or hospital. Dr. Banerjee can order them for you. New medications: higher dose of levothyroxine mirtazipine (Remeron) - for sleep, appetite and mood escitalopram (Lexapro) - for depression Prescriptions: New Levothyroxine Tab [Synthroid] 88 mcg PO ACB #30 tablet Mirtazapine [Remeron] 15 mg PO HS tablet Sodium Chloride Tab [Salt Tablet] 1 gm PO [facility] #0 tablet Escitalopram [Lexapro] 10 mg PO HS #30 tablet Mirtazapine [Remeron] 15 mg PO HS #30 tab Continue Docusate Sodium 100 mg PO BID #0 Acyclovir 400 mg PO DAILY #0 Lansoprazole [Prevacid] 15 mg PO DAILY #0 LORazepam [Lorazepam] 0.5 tab PO BID PRN #0 PRN Reason: Anxiety Ondansetron [Ondansetron Odt] 8 mg PO TID PRN #0 PRN Reason: NAUSEA Ferrous Sulfate [Feosol] 324 mg PO DAILY BuPROPion IR [Wellbutrin Ir] 75 mg PO BID Acetaminophen [Tylenol] 2 tab PO Q4HPRN PRN PRN Reason: Pain Tramadol [Ultram] 50 mg PO Q6HR PRN PRN Reason: Pain Polyethylene Glycol 3350 [Miralax] 17 gm PO DAILY Atenolol [Tenormin] 1 tab PO DAILY Simethicone [Mylicon] 80 mg PO TID Discontinued Ranitidine [Zantac] 150 mg PO DAILY Sodium Chloride 1,000 mg PO TID Enoxaparin [Lovenox] 40 mg SQ DAILY Levothyroxine Sodium 50 mcg PO ACB #0
--- NOTE | 2016-11-08 15:06 | IRU Progress Note ---
- Subjective/Serverity of Illness Overall doing well and plans to go home tomorrow. Her dressing is remained dry. Exam Vital Signs: Temperature 98.1 F 11/08/16 11:51 Pulse Rate 93 11/08/16 11:51 Respiratory Rate 18 11/08/16 11:51 Blood Pressure 127/69 11/08/16 11:51 Pulse Oximetry 98 11/08/16 11:51 Oxygen Delivery Method Room Air Height/Weight/BMI: Height 1.7 m Weight 62.9 kg Body Mass Index 22.7 Sepsis Assessment - Evaluation Sepsis screening result: No Definite Risk IRU A/P DVT Prophylaxis: Lovenox Resuscitation Status: Full Code - Course Hospital Course: Kunal Arce MD: 10/25/16 11:15 She is just getting started with therapies. Seemed to tolerate therapy well today. We will schedule her Ultram to be given prior to therapies. Hyponatremia will be assessed with urine spot sodium. Anorexia will be addressed with Remeron. 10/26/16 10:58 Started mirtazapine yesterday evening and seems to be improved. Urine spot sodium 130. We will check a.m. cortisol tomorrow. Chest x-ray remains abnormal although clinically no evidence of infection - management per hospitalists. 10/30/16 10:21 Continues to require moderate assistance for transfers and ambulation. Has poor neck and trunk strength. We're monitoring her sodium which remains low at 123 likely related to SIADH. Continues to have anemia and plan to transfuse if less than 7.5. Pain management is an issue with regard to her right hip. 10/31/16 10:08 Continues to have difficulty getting back in bed without assistance. Also requires assistance for lower extremity dressing. Otherwise she is improving. Walking with a walker. Right hip incision healing nicely without evidence of inflammation. Ecchymosis is noted. Discussed oncology issues with patient today. 11/01/16 10:39 Continues to cooperate with therapy and working hard. Right hip pain as anticipated but is an impediment to improvement. Nutrition is improving. We will increase mirtazapine today. 11/03/16 09:32 She is making progress. Continues to have head and neck and trunk weakness and walks rather bent over. Peripheral neuropathy is no impairment an impediment to her dressing and personal hygiene improvement. Despite these issues, she is improving with therapy. Carryover from one day to the next is questionable and she is requiring additional education in this regard. Nutrition is slowly improving. Tolerating increased dose of mirtazapine well. Additional chemotherapy or other cancer treatment is contingent upon improving her nutrition and overall functional status. - Interventions to Obtain Goals PT Treatment Plan: Balance/Proprioception, Functional Activities, Gait Training , Patient/Family Education, Therapeutic Exercise OT Treatment Plan: ADL (Basic Care), Balance Training, IADL, Pt./Family Education, Ther. Exercise for ADL
[2016-11-08] MEDS: ENOXAPARIN 40 MG/0.4 ML INJECTION SQ SCH (15:32)
[2016-11-08] MEDS: LORazepam 0.5 MG TABLET PO SCH ×2 (17:53→20:22)
[2016-11-08] MEDS ORDERED: BISACODYL 10 MG SUPPOSITORY RECTALLY PRN (19:06)
[2016-11-08] MEDS: MIRTAZAPINE 15 MG TABLET PO SCH (20:17)
[2016-11-08] MEDS: ESCITALOPRAM 10 MG TABLET PO SCH (20:17)
[2016-11-08] MEDS: CALCIUM POLYCARBOPHIL 625 MG TABLET PO SCH (20:18)
[2016-11-09] MEDS: ACETAMINOPHEN 500 MG TABLET PO SCH ×2 (02:11→08:40)
[2016-11-09 05:32] VITALS: PULSE 106
[2016-11-09] MEDS: LEVOTHYROXINE 88 MCG TABLET PO SCH (05:56)
[2016-11-09] MEDS: TRAMADOL 50 MG TABLET PO PRN (06:02)
[2016-11-09 08:13] VITALS: BP 136/83; RESP 12; TEMP 98.2; O2SAT 96
[2016-11-09] MEDS: FERROUS SULFATE 324 MG TABLET PO SCH (08:36)
[2016-11-09] MEDS: SODIUM CHLORIDE 1 GM TABLET PO SCH ×2 (08:36→12:26)
[2016-11-09] MEDS: ONDANSETRON ODT 4 MG TABLET PO PRN (08:37)
[2016-11-09] MEDS: FUROSEMIDE 40 MG TABLET PO SCH (08:38)
[2016-11-09] MEDS: BuPROPion IR 75 MG TABLET PO SCH (08:39)
[2016-11-09] MEDS: ATENOLOL 25 MG TABLET PO SCH (08:39)
[2016-11-09] MEDS: POLYETHYL GLYCOL 3350 17gm PACKET PO SCH (08:41)
[2016-11-09] MEDS: LANSOPRAZOLE SOLU-TAB 15 MG TABLET PO SCH (08:41)
[2016-11-09] MEDS: ACYCLOVIR 200 MG CAPSULE PO SCH (08:43)
[2016-11-09] MEDS: TRAMADOL 50 MG TABLET PO SCH ×2 (08:44→12:26)
[2016-11-09] MEDS: SIMETHICONE 80 MG CHEWABLE TABLET PO SCH ×2 (08:46→12:27)
--- NOTE | 2016-11-09 11:12 | Discharge Instructions ---
Discharge Plan - Med Rec/Dispo Referrals/Follow Up: Soy Spencer MD [Physician] - (Message was left (11/08 & 11/09) with the 's nurse about scheduling a Post- Op follow-up. Patient will need to call office to schedule appt. . [facility]. [address] [place] [address] ) Debby Banerjee MD [Family Provider] - (Dr. Destinee Banerjee on 11/16/16 at 11:30 am for Hosp. follow-up. . [facility] [address] [place] [address]) Gilmar Marinelli MD [Physician] - (Dr. Pieter Marinelli . [facility] [address] [place] [address]) Additional Instructions: LABS YOU WILL NEED: Thyroid lab (TSH) in 1 month since we increased your levothyroxine. BMP to follow up on your sodium level in 1-2 weeks. CBC to follow up on your anemia in 1-2 weeks. You can get these drawn in [place] at the clinic or hospital. Dr. Banerjee can order them for you. New medications: higher dose of levothyroxine mirtazipine (Remeron) - for sleep, appetite and mood escitalopram (Lexapro) - for depression Prescriptions: New Levothyroxine Tab [Synthroid] 88 mcg PO ACB #30 tablet Mirtazapine [Remeron] 15 mg PO HS tablet Sodium Chloride Tab [Salt Tablet] 1 gm PO [facility] #0 tablet Escitalopram [Lexapro] 10 mg PO HS #30 tablet Mirtazapine [Remeron] 15 mg PO HS #30 tab Continue Docusate Sodium 100 mg PO BID #0 Acyclovir 400 mg PO DAILY #0 Lansoprazole [Prevacid] 15 mg PO DAILY #0 LORazepam [Lorazepam] 0.5 tab PO BID PRN #0 PRN Reason: Anxiety Ondansetron [Ondansetron Odt] 8 mg PO TID PRN #0 PRN Reason: NAUSEA Ferrous Sulfate [Feosol] 324 mg PO DAILY BuPROPion IR [Wellbutrin Ir] 75 mg PO BID Acetaminophen [Tylenol] 2 tab PO Q4HPRN PRN PRN Reason: Pain Tramadol [Ultram] 50 mg PO Q6HR PRN PRN Reason: Pain Polyethylene Glycol 3350 [Miralax] 17 gm PO DAILY Atenolol [Tenormin] 1 tab PO DAILY Simethicone [Mylicon] 80 mg PO TID Discontinued Ranitidine [Zantac] 150 mg PO DAILY Sodium Chloride 1,000 mg PO TID Enoxaparin [Lovenox] 40 mg SQ DAILY Levothyroxine Sodium 50 mcg PO ACB #0 Discharge Instructions/Outpatient Orders: Final Provider Discharge Instructions Location: Determined By Patient Final Provider Discharge Instructions Location: Determined By Patient Final Provider Discharge Instructions Location: Determined By Patient - Disposition 01 Discharged Home, Self-Care
--- NOTE | 2016-11-09 11:52 | Discharge Summary ---
Discharge Information Date of admission: 10/24/16 15:17 Anticipated date of discharge: 11/09/16 Attending Physician: Kunal Arce MD Primary care physician: Debby Banerjee MD Consults: 10/24/16 16:11 Physician Consult [CONS] Routine Consulting Provider: Brendon Christensen Reason For Exam: Medical management Ordering Provider has Notified [facility] Sifter And Miller: Jei 10/24/16 16:13 Dietary Consult [CONS] Routine Comment: Reason For Exam: weight lose, metastatic cancer - Discharge Diagnosis Discharge Diagnosis: Fracture of R hip - Laboratory Labs: 11/06/16 04:30 11/06/16 04:30 History of Present Illness HPI: 11/09/16 11:52 This 61-year-old lady was admitted to the hospital treatment for a hip fracture by Dr. Spencer in [place]. Her recovery did buy an underlying cancer for which she is also being treated. Her course in rehabilitation areas been one of gradual improvement in her ability to ambulate. She does have some slight drainage from her lower incision. Does not appear to be red or otherwise infected. She is ambulating with a walker relatively comfortably. Hospital Course This is a general summary of the patient's hospital course. For more details refer to the complete medical record. Hospital course: 10/25/16 12:43 hospitalist consult Impression: S/P cephalo-medullary hip fixation secondary to intertrochanteric displaced right hip fracture. * Agree with admission to IRU for intensive rehabilitation and pain control under the guidance of Dr. Arce. Encourage participation of therapies and provide safe and supportive environment. * Patient to follow up with Dr. Spencer on or around 11/09 and family should call to schedule appointment. * Maintain tegaderm dressing to incision until 10/31 at which time incision should be open to air. No lotion or ointment should be used over or around incision as closure was performed with dermabond. Anemia, post-op, acute. * Present prior to admission per records. Hemoglobin 7.3 on admission. Patient complains of feeling very weak. Discussed possibility of blood transfusion and patient is agreeable. Will contact Dr. Marinelli to discuss recommendations with regard to transfusion and patient's prior trends. * Patient to follow up with Dr. Marinelli on 10/31 per records from . CBC and CMP to be faxed weekly to Dr. Marinelli's office at [phone]. Will check CBC and CMP on 10/30. Thrombocytopenia, acute. * Present prior to admission per [facility] records. Platelets 112 on admission. Will continue to monitor closely. Repeat CBC in AM to monitor blood counts. Hyponatremia, acute. * Present prior to admission per [facility] records. Sodium 128 on admission. Will given NS 100cc/hr x 1 bag now. Will continue to monitor closely. Repeat BMP in AM to monitor electrolytes and renal function. Will check urine sodium as well as UA for baseline. Mild protein calorie malnutrition, acute. * Prealbumin 11.2 on admission. Will consult dietary for recommendations. Prior records indicate patient had EnSure EnLive BID for supplementation. Poorly differentiated retroperitoneal neoplasm, acute. * Underwent bronchoscopy to evaluate lymphadenopathy in chest on 10/21. CXR on 10/23 revealed left lower lung air space disease concerning for atelectasis vs. pneumonia vs. effusion. Will obtain repeat CXR now. Encourage incentive spirometry for pulmonary toileting. Monitor respiratory function closely. Chemotherapy induced peripheral neuropathy, chronic. * Encourage therapy and provide safe and supportive environment. Pain control per Dr. Arce. Monitor closely for gait instability. Hypertension, chronic. * Blood pressure noted to be elevated following admission yesterday but controlled this morning at 138/84. Continue home atenolol and monitor blood pressure closely. Acquired hypothyroidism, chronic. * Continue home synthroid. Will check TSH now. GERD with history of duodenitis, chronic. * Continue home Prevacid for GI protection and GERD. Depression, chronic. * Continue home Wellbutrin 75mg BID. Ativan as needed for anxiety. IBS with constipation, chronic. * Encourage aggressive bowel motivation in light of pain medications in addition to chronic history. Docusate, miralax and MOM as needed. History of herpes zoster on the face, resolved. * Continue home acyclovir and monitor for recurrence. Upon discharge, patient's care will be returned to her PCP, Dr. Banerjee. 10/26/16 -hospitalist progress note Hemoglobin up to 8.5 from 7.3 with 1 unit PRBCs. CBC in a.m. Sodium remains at 128 despite 1000 cc of normal saline infused yesterday. Infused 500 cc normal saline today. Recheck BMP in a.m. Monitor respiratory function given the changes on chest x-ray. Await bronchoscopy results. 10/28/16 [place] Sodium down to 122 today, denies any symptoms at this time. Worsened with 500 cc saline, suspect SIADH in the setting of malignancy. Will start fluid restriction to 1.5L daily, give a small dose of furosemide 20 mg daily to enhance free water clearance and monitor for any orthostasis. If worsening despite these interventions will pursue full w/u including urine osm/Na values and thyroid/hormonal axis testing. Discussed with nursing staff and patient. 10/29/16 Suspect SIADH is still driving her hyponatremia but she is hypochloremic as well. If hypovolemic she should have improved with saline challenge and she worsened significantly when 500 cc saline given on 10/27. Given active metastatic malignancy, ADH overproduction likely but will check urine Na/Osm to see if the urine studies fit with the diagnosis. Will also check thyroid studies and cortisol in AM. Monitor UOP and if no response to IV lasix will bladder scan. If urine sodium is not elevated will attempt fluid challenge again. Relatively asymptomatic at this point, will check Na level this evening , give 40 mg IV lasix x 1 now and monitor today. 10/31/16 Will back off on her bowel motivation. Change senna with docusate to twice a day PRN as opposed to routine. Will increase her levothyroxine from 75 g to 88 g given her TSH result of 13. Continue fluid restriction in regard to her hyponatremia. Will make sure the nurses give her the sodium tabs with meals, this may help with the nausea. 11/03/16- Plan Persistent Hyponatremia. Decrease fluid restriction to 1300/day. He does continue on salt tablets 1 gram 4 times a day. Continue to utilize tramadol and Tylenol for pain control. Continue with bowel motivation- Last reported BM was on 11/01 Lovenox subcutaneous daily for DVT prophylaxis Continue to encourage work with PT and OT for ongoing strengthening 11/05/16 16:34 Patient reports main c/o depression. Will resume Lexapro. Start at 10mg. Continue Wellbutrin. Suspect this may have been held due to SIADH. Na is now normal- will need to follow labs. Her memory is a bit slow- consider imaging brain to R/O metastases. Continue PT/OT for strengthening. Pt is working on exercises before I visited- she is motivated to return home. Continue supportive meds. Pathology on lung mass is back- I included in this note. Concern for neuroendocrine tumor. Follows with Dr. Mcdonald & Dr. Pieter Marinelli. 11/07/16 15:52 Continue PT/OT for strengthening. She is motivated to return home. Pathology on lung mass shows possible neuroendocrine tumor. Follows with Dr. Pieter Marinelli. Plans to see him as soon as she is dismissed from rehabilitation. Drainage from her surgical site. There is no sign of infection. Will have nurse schedule her for postoperative follow up with Dr. Spencer as soon as she is dismissed from rehabilitation. Chronic problems are stable. Her sodium has normalized with her fluid restriction and salt tabs Discharge Plan - Med Rec/Dispo Referrals/Follow Up: Soy Spencer MD [Physician] - (Message was left (11/08 & 11/09) with the 's nurse about scheduling a Post- Op follow-up. Patient will need to call office to schedule appt. . [facility]. [address] [place] [address] ) Debby Banerjee MD [Family Provider] - (Dr. Destinee Banerjee on 11/16/16 at 11:30 am for Hosp. follow-up. . [facility] [place] [address]) Gilmar Marinelli MD [Physician] - (Dr. Pieter Marinelli . [facility] [address] [address]) Additional Instructions: LABS YOU WILL NEED: Thyroid lab (TSH) in 1 month since we increased your levothyroxine. BMP to follow up on your sodium level in 1-2 weeks. CBC to follow up on your anemia in 1-2 weeks. You can get these drawn in [place] at the clinic or hospital. Dr. Banerjee can order them for you. New medications: higher dose of levothyroxine mirtazipine (Remeron) - for sleep, appetite and mood escitalopram (Lexapro) - for depression Prescriptions: New Levothyroxine Tab [Synthroid] 88 mcg PO ACB #30 tablet Mirtazapine [Remeron] 15 mg PO HS tablet Sodium Chloride Tab [Salt Tablet] 1 gm PO [facility]HS #0 tablet Escitalopram [Lexapro] 10 mg PO HS #30 tablet Mirtazapine [Remeron] 15 mg PO HS #30 tab Continue Docusate Sodium 100 mg PO BID #0 Acyclovir 400 mg PO DAILY #0 Lansoprazole [Prevacid] 15 mg PO DAILY #0 LORazepam [Lorazepam] 0.5 tab PO BID PRN #0 PRN Reason: Anxiety Ondansetron [Ondansetron Odt] 8 mg PO TID PRN #0 PRN Reason: NAUSEA Ferrous Sulfate [Feosol] 324 mg PO DAILY BuPROPion IR [Wellbutrin Ir] 75 mg PO BID Acetaminophen [Tylenol] 2 tab PO Q4HPRN PRN PRN Reason: Pain Tramadol [Ultram] 50 mg PO Q6HR PRN PRN Reason: Pain Polyethylene Glycol 3350 [Miralax] 17 gm PO DAILY Atenolol [Tenormin] 1 tab PO DAILY Simethicone [Mylicon] 80 mg PO TID Discontinued Ranitidine [Zantac] 150 mg PO DAILY Sodium Chloride 1,000 mg PO TID Enoxaparin [Lovenox] 40 mg SQ DAILY Levothyroxine Sodium 50 mcg PO ACB #0 Discharge Instructions/Outpatient Orders: Final Provider Discharge Instructions Location: Determined By Patient Final Provider Discharge Instructions Location: Determined By Patient Final Provider Discharge Instructions Location: Determined By Patient Final Provider Discharge Instructions Location: Determined By Patient - Disposition 01 Discharged Home, Self-Care
== END 2016-11-09 14:55 | disposition home health service (06) | DRG 559 ==
PROVIDERS: ADMIT Internal Medicine; ATTEND Internal Medicine